=== PATIENT | female | born 1955 | race Caucasian/White ===

== ENCOUNTER → 2016-10-05 | Outpatient (CLI) | payer MEDICARE ==
[2016-10-05 16:36] LABS: Blood Urea Nitrogen 18 mg/dL (7-17); Non-African American GFR(MDRD) >60 (>60 ml/min/1.73 sqM)
--- NOTE | 2016-10-05 22:33 | MR ---
EXAMINATION TYPE: MR cervical spine wo con DATE OF EXAM: 10/05/2016 6:18 PM COMPARISON: NONE HISTORY: Neck pain, numbness/tingling in hands TECHNIQUE: Multiplanar, multisequence images of the cervical spine were acquired. C2-C3: Mild degenerative disc disease. Posterior spondylosis and uncovertebral joint hypertrophy but no disc herniation or canal stenosis. Neural foramina remain patent. Mild facet arthropathy. C3-C4: Moderate degenerative disc disease. There is facet arthropathy and uncovertebral joint hypertr ophy with mild right-sided foraminal encroachment. There is posterior disc bulging capped by spur wit h mild effacement of thecal sac and mild canal stenosis. C4-C5: Severe degenerative disc disease with posterior disc protrusion capped by spur. There is effac ement of thecal sac and moderate canal stenosis. Facet arthropathy and uncovertebral joint hypertroph y contributes to moderate left foraminal encroachment and severe right-sided foraminal encroachment. C5-C6: Severe degenerative disc disease with hypertrophic changes. Broad-based central and right para central disc herniation capped by spur. There is encroachment upon the anterior margin the spinal cor d and moderate canal stenosis. Uncovertebral joint hypertrophy and facet arthropathy result in severe right-sided foraminal encroachment and mild to moderate left foraminal encroachment. There is displa cement of the spinal cord but no abnormal intrinsic signal. C6-C7: Severe degenerative disc disease with broad-based right paracentral and lateral disc protrusio n capped by spur with severe right-sided foraminal encroachment. There is mild effacement of thecal s ac but no spinal cord contact. Mild canal stenosis. Facet arthropathy and uncovertebral joint hypertr ophy noted. C7-T1: No disc herniation or canal stenosis no foraminal encroachment. Cervical segments are intact. There is normal alignment. Cervical spinal cord is of normal signal. Craniovertebral junction relationships are within normal limits. Incidental note is made of a right thyroid nodule measuring approximately 1.7 cm. IMPRESSION: 1. Severe multilevel degenerative disc disease with multilevel disc bulging or protrusions and hypert rophic changes resulting in multilevel canal stenosis. Most marked findings are seen at C4-5 and C5-C 6 with displacement of the spinal cord at C5-C6. No diagnostic evidence of myelitis. 2. Multilevel foraminal encroachment secondary to disc bulging and hypertrophic changes with the most marked findings seen on the right as discussed above. 3. Incidental note made of a 1.7 cm right thyroid nodule.
--- NOTE | 2016-10-05 22:42 | MR ---
EXAMINATION TYPE: MR lumbar spine wo/w con DATE OF EXAM: 10/05/2016 6:23 PM COMPARISON: NONE HISTORY: Low and mid back pain, tingling/numbness in feet; prior surgery 10 years ago TECHNIQUE: T1 and T2 axial and sagittal images of the lumbar spine are submitted. FINDINGS: There is no abnormal signal seen within the visualized spinal cord or paraspinal soft tissu es. Common bile duct and gallbladder appear prominent in size with suggestion small gallstones. Corre late with ultrasound. Simple appearing left renal cyst noted. Incidental note made of Tarlov cyst inv olving the sacrum. At T12-L1 no disc herniation or canal stenosis. No neural foraminal encroachment. At L1-2 there is no disc herniation or canal stenosis. There is mild hypertrophic change of the facet s At L2-3 there is mild hypertrophic change of the facets. No disc herniation or canal stenosis. No for aminal encroachment. At L3-4 there is mild to moderate degenerative disc disease with broad-based right paracentral disc h erniation. Ligamentum flavum and facet hypertrophy result in moderate canal stenosis. Paracentral dis c herniation right results in severe right-sided foraminal encroachment. Post contrast images demonst rate some enhancement along the right facet joint posteriorly which could be related to scar or granu lation tissue. Correlate clinically. At L4-5 there is postsurgical change. No obvious canal stenosis. Neural foramina are patent. No disc herniation. At L5-S1 there is facet arthropathy. There is mild hypertrophic changes with mild right-sided foramin al encroachment. IMPRESSION: 1. At L3-4 there is mild to moderate degenerative disc disease with broad-based right paracentral dis c herniation. Ligamentum flavum and facet hypertrophy result in moderate canal stenosis. Paracentral disc herniation results in severe right-sided foraminal encroachment. Post contrast images demonstra te some enhancement along the right facet joint posteriorly which is nonspecific but likely related t o scar or granulation tissue. Correlate clinically. 2. Postsurgical change L4-L5 with no evidence of canal stenosis or disc herniation. 3. Tarlov cysts in the sacral levels. 4. Gallbladder and common bile duct are prominent with suggestion gallstones correlate with ultrasoun d.
== END | disposition home or self-care (01) ==
LOC: RADMRIMAIN 16:03
PROVIDERS: ATTEND Pain Medicine Interventional Pain Medicine
DX: M51.37 Other intervertebral disc degeneration, lumbosacral region (principal); N28.9 Disorder of kidney and ureter, unspecified; M51.36 Other intervertebral disc degeneration, lumbar region; M48.02 Spinal stenosis, cervical region; M50.222 Other cervical disc displacement at C5-C6 level; M51.26 Other intervertebral disc displacement, lumbar region
CPT/HCPCS: 82565; 84520; 72141; 72158; 36415; A9577

== ENCOUNTER → 2021-03-24 | Outpatient (CLI) | payer MEDICARE ==
--- NOTE | 2021-03-25 12:32 | MM ---
Reason for exam: screening (asymptomatic). History: Patient is postmenopausal. Family history of breast cancer in maternal aunt. Physical Findings: A clinical breast exam by your physician is recommended on an annual basis and results should be correlated with mammographic findings. MG 3D Screening Mammo W/Cad Bilateral CC and MLO view(s) were taken. No prior studies available for comparison. The breast tissue is almost entirely fat. Finding #1: There is a 5 mm equal density (isodense), oval mass in the subareolar position of the right breast. Finding #2: There are indeterminate calcifications in the subareolar position of both breasts. Asymmetric breast tissue in the left breast at 12 o'clock, 8cm from the nipple. ASSESSMENT: Incomplete: need additional imaging evaluation, BI-RAD 0 RECOMMENDATION: Special view mammogram of the left breast. Ultrasound of the right breast. [facility] will attempt to contact patient to return for supplemental views and ultrasound.
== END | disposition home or self-care (01) ==
LOC: RADMAMWWP 09:59
PROVIDERS: ATTEND Family Medicine
DX: Z12.31 Encounter for screening mammogram for malignant neoplasm of breast (principal); Z78.0 Asymptomatic menopausal state; Z80.3 Family history of malignant neoplasm of breast
CPT/HCPCS: 77063; 77067

== ENCOUNTER → 2021-04-07 | Outpatient (CLI) | payer MEDICARE ==
--- NOTE | 2021-04-07 11:25 | MM ---
Reason for exam: additional evaluation requested from abnormal screening. Last mammogram was performed less than 1 month ago. History: Patient is postmenopausal. Family history of breast cancer in maternal aunt. Physical Findings: Nurse did not find any significant physical abnormalities on exam. MG 3D Work Up W/Cad LT CC with magnification, LM with magnification, spot compression MLO, and LM view(s) were taken of the left breast. Prior study comparison: March 24, 2021, bilateral MG 3d screening mammo w/cad. Finding: There are typically benign round, grouped/clustered calcifications in the lower inner quadrant, anterior position of the left breast skin level. There is no discrete abnormality including area of concern left upper MLO view. These results were verbally communicated with the patient and result sheet given to the patient on 04/07/21. ASSESSMENT: Probably benign, BI-RAD 3 RECOMMENDATION: Follow-up diagnostic mammogram of both breasts in 6 months.
--- NOTE | 2021-04-07 11:26 | USB ---
Reason for exam: additional evaluation requested from abnormal screening. History: Patient is postmenopausal. Family history of breast cancer in maternal aunt. US Breast Workup Limited RT Technologist: Regina Gracia Right limited breast ultrasound including focal area of concern, retroareolar and axilla demonstrates no cystic or solid lesion seen. These results were verbally communicated with the patient and result sheet given to the patient on 04/07/21. ASSESSMENT: Negative, BI-RAD 1 RECOMMENDATION: Follow-up diagnostic mammogram of both breasts in 6 months.
== END | disposition home or self-care (01) ==
LOC: RADMAMWWP 08:59
PROVIDERS: ATTEND Family Medicine
DX: R92.1 Mammographic calcification found on diagnostic imaging of breast (principal); Z80.3 Family history of malignant neoplasm of breast
CPT/HCPCS: 77065; 76642; G0279; 77061

== ENCOUNTER 2021-09-06 20:27 | Inpatient (IN) | payer MEDICARE ==
--- NOTE | 2021-09-06 22:00 | XR ---
EXAMINATION TYPE: XR chest 1V portable DATE OF EXAM: 09/06/2021 9:56 PM COMPARISON:None TECHNIQUE: XR chest 1V portable Frontal view of the chest. CLINICAL INDICATION:Female, 65 years old with history of chest pain; FINDINGS: Lungs/Pleura: There is no evidence of pleural effusion, focal consolidation, or pneumothorax. Pulmonary vascularity: Unremarkable. Heart/mediastinum: Cardiomediastinal silhouette is unremarkable. Musculoskeletal: No acute osseous pathology. IMPRESSION: No acute cardiopulmonary disease/process.
--- NOTE | 2021-09-06 22:00 | ED ---
Chest Pain HPI - General Chief Complaint: Chest Pain Stated Complaint: chest Pain,SOB Time Seen by Provider: 09/06/21 21:46 Source: patient, family, RN notes reviewed, old records reviewed Mode of arrival: ambulatory Limitations: no limitations - History of Present Illness Initial Comments: This is a 65-year-old female Frida today. Patient presents today for evaluation regards to chest pain. Some anterior chest pain to her back her right arm numbness and tingling in her right arm. Patient states she's been feeling weak and fatigued lately and especially with exertional shortness of breath at least for a few days. Patient has history of high blood pressure high cholesterol. No other significant complaints. No fevers. No other known illness. No prior cardiac evaluation MD Complaint: chest pain -: hour(s) Onset: during rest, during exertion Pain Location: substernal, left chest Pain Radiation: RUE Severity: moderate Severity scale (1-10): 4 Quality: tightness, heaviness Consistency: constant, intermittent Improves With: nothing Worsens With: exertion Context: other (none) Anginal Symptoms: dyspnea Other Symptoms: palpitations Treatments Prior to Arrival: none - Related Data Home Medications Medication Instructions Recorded Confirmed Aspirin EC [Ecotrin Low Dose] 81 mg PO HS 09/06/21 09/06/21 Atorvastatin [Lipitor] 80 mg PO HS 09/06/21 09/06/21 Buprenorphine [Butrans 7.5 MCG/HR] 1 patch TRANSDERM MULLEN 09/06/21 09/06/21 Celecoxib [CeleBREX] 200 mg PO DAILY 09/06/21 09/06/21 DULoxetine HCL [Cymbalta] 60 mg PO DAILY 09/06/21 09/06/21 Enalapril [Vasotec] 10 mg PO BID 09/06/21 09/06/21 Famotidine 40 mg PO DAILY 09/06/21 09/06/21 Pioglitazone [Actos] 15 mg PO DAILY 09/06/21 09/06/21 Promethazine [Phenergan] 25 mg PO TID PRN 09/06/21 09/06/21 Allergies Allergy/AdvReac Type Severity Reaction Status Date / Time No Known Allergies Allergy Verified 09/06/21 22:28 Review of Systems ROS Statement: Those systems with pertinent positive or pertinent negative responses have been documented in the HPI. ROS Other: All systems not noted in ROS Statement are negative. EKG Findings - EKG Comments: EKG Findings:: EKG sinus rhythm 96 IL 169 QRS 92 QTC 402 Past Medical History Past Medical History: Dementia, Hypertension Additional Past Medical History / Comment(s): hypercholestremia History of Any Multi-Drug Resistant Organisms: None Reported Past Surgical History: No Surgical Hx Reported, Hysterectomy, Orthopedic Surgery Additional Past Surgical History / Comment(s): back surgey Past Psychological History: No Psychological Hx Reported Smoking Status: Current every day smoker Past Alcohol Use History: None Reported Past Drug Use History: None Reported General Exam General appearance: alert, in no apparent distress Head exam: Present: atraumatic, normocephalic, normal inspection Eye exam: Present: normal appearance, PERRL, EOMI. Absent: scleral icterus, conjunctival injection, periorbital swelling ENT exam: Present: normal exam, mucous membranes moist Neck exam: Present: normal inspection. Absent: tenderness, meningismus, lymphadenopathy Respiratory exam: Present: normal lung sounds bilaterally. Absent: respiratory distress, wheezes, rales, rhonchi, stridor Cardiovascular Exam: Present: normal rhythm, tachycardia, normal heart sounds. Absent: systolic murmur, diastolic murmur, rubs, gallop, clicks GI/Abdominal exam: Present: soft, normal bowel sounds. Absent: distended, tenderness, guarding, rebound, rigid Extremities exam: Present: normal inspection, full ROM, normal capillary refill. Absent: tenderness, pedal edema, joint swelling, calf tenderness Back exam: Present: normal inspection Neurological exam: Present: alert, oriented X3, CN II-XII intact Psychiatric exam: Present: normal affect, normal mood Skin exam: Present: warm, dry, intact, normal color. Absent: rash Course Vital Signs 09/06/21 09/06/21 09/06/21 21:08 21:58 23:07 Pulse Rate 102 H 96 90 Respiratory 20 18 18 Rate Blood Pressure 163/101 148/90 129/90 O2 Sat by Pulse 97 96 97 Oximetry - Reevaluation(s) Reevaluation #1: 09/06/21 23:43 Medical records reviewed Reevaluation #2: 09/06/21 23:43 Patient states blood pressure and heart rate is been high throughout the day she was seen in her primary care's earlier today Reevaluation #3: 09/06/21 23:43 Patient informed results and questions answered Reevaluation #4: 09/06/21 23:43 Patient still with chest pain here in the ER - Consultations Consultation #1: Spoke with sound physicians who agree to admit this patient Chest Pain MDM - MDM 65 female DF for evaluation of chest pain-history of a pressure cholesterol. Patient's blood pressures been abnormal today although improved currently. Patient has palpitations heart rate is up and she's having chest pain. Patient be admitted for cardiac observation chest x-ray EKG and initial troponin are negative Disposition Clinical Impression: Chest pain Disposition: ADMITTED IP TO THIS HOSP Condition: Undetermined Instructions (If sedation given, give patient instructions): Chest Pain (ED) Is patient prescribed a controlled substance at d/c from ED?: No Referrals: Deshaun Hoang MD [Primary Care Provider] - 1-2 days
[2021-09-06 22:16] LABS: Basophils % (A) 1 %; Eosinophils # (A) 0.2 k/uL (0-0.7); Eosinophils % (A) 3 %; HCT 41.8 % (34.0-46.0); HGB 13.6 gm/dL (11.4-16.0); Lymphocytes % (A) 31 %; MCH 31.7 pg (25.0-35.0); MCHC 32.6 g/dL (31.0-37.0); MCV 97.5 fL (80.0-100.0); Mean Platelet Volume 7.8; Monocytes # (A) 0.3 k/uL (0-1.0); Monocytes % (A) 5 %; Neutrophils # (A) 3.8 k/uL (1.3-7.7); Neutrophils % (A) 58 %; Platelet Count 232 k/uL (150-450); RBC 4.29 m/uL (3.80-5.40); RDW 12.7 % (11.5-15.5); WBC 6.5 k/uL (3.8-10.6)
[2021-09-06 22:27] LABS: Albumin 3.8 g/dL (3.5-5.0); Calcium 8.6 mg/dL (8.4-10.2); Potassium 3.5 mmol/L (3.5-5.1); Total Bilirubin 0.4 mg/dL (0.2-1.3); Total Protein 6.2 g/dL (6.3-8.2)
[2021-09-06 22:42] LABS: INR 0.9 (<1.2); Partial Thromboplastin Time 22.7 sec (22.0-30.0); Prothrombin Time 10.3 sec (9.0-12.0)
[2021-09-06] MEDS ORDERED: MORPHINE SULFATE 4 MG/ML SYRINGE IVP STA (23:24)
[2021-09-06] MEDS ORDERED: ASPIRIN 81 MG PO STA (23:36)
[2021-09-06] MEDS ORDERED: NITROGLYCERIN SL TABS 0.4 MG TAB SUBLINGUAL PRN (23:36)
[2021-09-07] MEDS ORDERED: HEPARIN SODIUM 1,000 UN/ML (10ML VL) IV ONE (02:22)
[2021-09-07] MEDS ORDERED: HEPARIN SODIUM 1,000 UN/ML (10ML VL) IV PRN (02:22)
[2021-09-07] MEDS ORDERED: HEPARIN SOD,PORK IN 0.45% NACL 25,000 UNIT in 0.45% NACL 1 250ML.BAG IV SCH (02:30)
[2021-09-07] MEDS: MORPHINE SULFATE 4 MG/ML SYRINGE IV PRN ×4 (03:09→21:10)
[2021-09-07 04:16] LABS: INR 0.9 (<1.2); Partial Thromboplastin Time 22.9 sec (22.0-30.0); Prothrombin Time 10.2 sec (9.0-12.0)
--- NOTE | 2021-09-07 05:52 | P.HPIM ---
History of Present Illness H&P Date: 09/07/21 Chief Complaint: Chest pain 65-year-old with diabetes mellitus, hyperlipidemia, hypertension, smoker Patient comes in due to frequent episodes of chest pain usually with exertion. She reports that pain usually goes up to 5 out of 10 in severity feels like heaviness and tightness retrosternally affecting her breathing associated with palpitation and profuse sweating. His has been going on for couple months now. However spent getting worse recently usually she with rest and sit down and pain will go away. She denies any fevers or chills denies any nausea vomiting abdominal pain denies any sore throat coughing. She reports that recently she's been feeling increasingly fatigued and weak and decided to come into the hospital for evaluation. She had a stress test done a few years ago that was negative at that time. Upon evaluation in the ED she was laying down comfortably in bed initial troponins were negative EKG showed no acute ST changes. Chest x-ray was ne gative for acute pathology. Blood work overall unremarkable Review of Systems Pertinent positives as noted in HPI. All other systems were reviewed and are negative Past Medical History Past Medical History: Dementia, Hypertension Additional Past Medical History / Comment(s): hypercholestremia History of Any Multi-Drug Resistant Organisms: None Reported Past Surgical History: No Surgical Hx Reported, Hysterectomy, Orthopedic Surgery Additional Past Surgical History / Comment(s): back surgey Past Psychological History: No Psychological Hx Reported Smoking Status: Current every day smoker Past Alcohol Use History: None Reported Past Drug Use History: None Reported - Past Family History Family Additional Family Medical History / Comment(s): Positive Cardiac history in the family Medications and Allergies Home Medications Medication Instructions Recorded Confirmed Type Aspirin EC [Ecotrin Low Dose] 81 mg PO HS 09/06/21 09/06/21 History Atorvastatin [Lipitor] 80 mg PO HS 09/06/21 09/06/21 History Buprenorphine [Butrans 7.5 MCG/HR] 1 patch TRANSDERM MULLEN 09/06/21 09/06/21 History Celecoxib [CeleBREX] 200 mg PO DAILY 09/06/21 09/06/21 History DULoxetine HCL [Cymbalta] 60 mg PO DAILY 09/06/21 09/06/21 History Enalapril [Vasotec] 10 mg PO BID 09/06/21 09/06/21 History Famotidine 40 mg PO DAILY 09/06/21 09/06/21 History Pioglitazone [Actos] 15 mg PO DAILY 09/06/21 09/06/21 History Promethazine [Phenergan] 25 mg PO TID PRN 09/06/21 09/06/21 History Allergies Allergy/AdvReac Type Severity Reaction Status Date / Time No Known Allergies Allergy Verified 09/06/21 22:28 Physical Exam Vitals: Vital Signs Pulse Resp BP Pulse Ox 09/07/21 04:05 76 18 142/109 96 09/07/21 00:00 72 18 146/90 98 09/06/21 23:07 90 18 129/90 97 09/06/21 21:58 96 18 148/90 96 09/06/21 21:08 102 H 20 163/101 97 Intake and Output 09/06/21 09/06/21 09/07/21 14:59 22:59 06:59 Other: Weight 91.626 kg Constitutional: No acute distress, conversant, pleasant Eyes: Anicteric sclerae, moist conjunctiva, Pupils equal round reactive to light ENMT: NC/AT Oropharynx clear, no erythema, or exudates Neck: Supple, FROM, no masses, or JVD No carotid bruits No thyromegaly Lungs: Clear to auscultation Clear to percussion Normal respiratory effort, no accessory muscle use Cardiovascular: Heart regular in rate and rhythm, No murmurs, gallops, or rubs No peripheral edema Abdominal: Soft Nontender, no guarding, rebound or rigidity Abdomen moving with respiration Normoactive bowel sounds No hepatomegaly, No splenomegaly No palpable mass No abdominal wall hernia noted Skin: Normal temperature, tone, texture, turgor No induration No subcutaneous nodules No rash, lesions No ulcers Extremities: No digital cyanosis No clubbing Pedal pulses intact and symmetrical Radial pulses intact and symmetrical No calf tenderness Psychiatric: Alert and oriented to person, place and time Appropriate affect fair judgement Neuro Muscles Strength 5/5 in all 4 extremities Sensation to light touch grossly present throughout Cranial nerves II-XII grossly intact No focal sensory deficits Lymphatics: no palpable cervical or supraclavicular , or inguinal lymph nodes Results CBC & Chem 7: 09/06/21 21:27 09/06/21 21:27 Labs: Abnormal Lab Results - Last 24 Hours (Table) 09/06/21 09/07/21 Range/Units 21:27 01:31 BUN 23 H (7-17) mg/dL Glucose 169 H (74-99) mg/dL Troponin I 0.078 H* (0.000-0.034) ng/mL Total Protein 6.2 L (6.3-8.2) g/dL Assessment and Plan Assessment: Chest pain with typical features rule out acute coronary syndrome Cardiac monitoring Trend troponins, and initial troponin negative Continue with aspirin and statin Pain control with nitro Morphine when necessary Cardiology consult EKG no acute ST changes Chest x-ray no acute pathology Chronic conditions Hypertension resume home blood pressure medications Hyperlipidemia resume statin Diabetes mellitus insulin sliding scale Full code DVT prophylaxis heparin subcu 3 times a day Anticipated length of stay less than 2 midnights
[2021-09-07 07:58] LABS: Glucose,Whole Blood 143 mg/dL (75-99)
[2021-09-07] MEDS: INSULIN ASPART (NovoLOG) 100 UNIT/ML VIAL SQ SCH ×4 (08:28→21:04)
--- NOTE | 2021-09-07 08:30 | P.CRDCN ---
History of Present Illness Consult date: 09/07/21 Consult reason: chest pain History of present illness: 65-year-old lady with multiple coronary risk factors including kyl-wsljrsp-doojqmbxs diabetes hypertension and dyslipidemia presents to Hospital complaining of chest pain. Patient was at primary care physician's office for routine follow-up yesterday and her blood pressure was somewhat poorly controlled. Last evening around 7:00 she had an episode of chest pain that she describes as precordial chest pressure moderate intensity with pain that radiated to right arm. As the pain was not improving she came to the hospital and has been admitted. In EKG shows normal sinus rhythm without significant ST-T wave changes. Her troponin is mildly elevated. Her clinical presentation is consistent with acute non-ST segment elevation MA. There is no prior history of coronary artery disease or congestive heart failure. There is strong family history of premature coronary artery disease involving both her mom and dad. She underwent cardiac evaluation nearly 15 years ago and has seen a erecting crane operator out of town for the same. It involved an echo and a stress test. I advised the patient to undergo cardiac catheterization for further evaluation. She has been explained of risk benefits and alternatives. I will perform this sometime this morning . Constitutional: Denies chills. Denies fever. Eyes: Denies blurred vision. Denies pain. Ears, nose, mouth and throat: Denies headache. Denies sore throat. Cardiovascular: Significant for chest pain Denies shortness of breath. Respiratory: Denies cough. Gastrointestinal: Denies abdominal pain. Denies diarrhea. Denies nausea. Denies vomiting. Musculoskeletal: Denies myalgias. Integumentary: Denies pruritus. Denies rash. Neurological: Denies numbness. Denies weakness. Psychiatric: Denies anxiety. Denies depression. Endocrine: Denies fatigue. Denies weight change. Genitourinary: Denies burning, hematuria, frequency of urination. Hematological: No anemia or excess bleeding. General: The patient is awake and alert, in no distress, and does not appear acutely ill. Skin: Skin is warm and dry and no rashes or lesions are noted. Eye: Pupils are equal, round and reactive to light, extra-ocular movements are intact; there is normal conjunctiva bilaterally. Ears, nose, mouth and throat: There are moist mucous membranes and no oral lesions. Neck: The neck is supple, there is no tenderness or JVD. Cardiovascular: There is a regular rate and rhythm. No murmur, rub or gallop is appreciated. Respiratory: Lungs are clear to auscultation, respirations are non-labored, breath sounds are equal. Gastrointestinal: Soft, non-distended, non-tender abdomen without masses or organomegaly noted. There is no rebound or guarding present. Bowel sounds are unremarkable. Back: There is no tenderness to palpation in the midline. There is no obvious deformity. Musculoskeletal: Normal ROM, no tenderness, There is no pedal edema. There is no calf tenderness or swelling. Extremities: No edema. Vascular: Femoral pulse is normal. Posterior tibial pulses are normal .Dorsalis pedis is palpable. Neurological: CN II-XII intact. There are no obvious motor or sensory deficits. Speech is normal. Psychiatric: Cooperative, appropriate mood & affect, normal judgment. Assessment and plan: Acute non-ST segment elevation MA Oie-qlldnro-ujzhubcjz diabetes Hypertension Dyslipidemia Patient will undergo cardiac catheterization today I will obtain a 2-D echo to assess LV function and wall motion Past Medical History Past Medical History: Dementia, Hypertension Additional Past Medical History / Comment(s): hypercholestremia History of Any Multi-Drug Resistant Organisms: None Reported Past Surgical History: No Surgical Hx Reported, Hysterectomy, Orthopedic Surgery Additional Past Surgical History / Comment(s): back surgey Past Psychological History: No Psychological Hx Reported Smoking Status: Current every day smoker Past Alcohol Use History: None Reported Past Drug Use History: None Reported - Past Family History Family Additional Family Medical History / Comment(s): Positive Cardiac history in the family Medications and Allergies Home Medications Medication Instructions Recorded Confirmed Type Aspirin EC [Ecotrin Low Dose] 81 mg PO HS 09/06/21 09/06/21 History Atorvastatin [Lipitor] 80 mg PO HS 09/06/21 09/06/21 History Buprenorphine [Butrans 7.5 MCG/HR] 1 patch TRANSDERM MULLEN 09/06/21 09/06/21 History Celecoxib [CeleBREX] 200 mg PO DAILY 09/06/21 09/06/21 History DULoxetine HCL [Cymbalta] 60 mg PO DAILY 09/06/21 09/06/21 History Enalapril [Vasotec] 10 mg PO BID 09/06/21 09/06/21 History Famotidine 40 mg PO DAILY 09/06/21 09/06/21 History Pioglitazone [Actos] 15 mg PO DAILY 09/06/21 09/06/21 History Promethazine [Phenergan] 25 mg PO TID PRN 09/06/21 09/06/21 History Allergies Allergy/AdvReac Type Severity Reaction Status Date / Time No Known Allergies Allergy Verified 09/06/21 22:28 Physical Exam Vitals: Vital Signs Pulse Resp BP Pulse Ox 09/07/21 06:24 81 18 152/90 99 09/07/21 04:05 76 18 142/109 96 09/07/21 00:00 72 18 146/90 98 09/06/21 23:07 90 18 129/90 97 09/06/21 21:58 96 18 148/90 96 09/06/21 21:08 102 H 20 163/101 97 Intake and Output 09/06/21 09/07/21 09/07/21 22:59 06:59 14:59 Other: Weight 91.626 kg Results 09/06/21 21:27 09/06/21 21:27 Cardiac Enzymes 09/06/21 09/06/21 09/07/21 Range/Units 21:27 21:27 01:31 AST 20 (14-36) U/L Troponin I <0.012 0.078 H* (0.000-0.034) ng/mL 09/07/21 Range/Units 04:30 AST (14-36) U/L Troponin I 0.132 H* (0.000-0.034) ng/mL Coagulation 09/06/21 09/07/21 Range/Units 21:27 02:46 PT 10.3 10.2 (9.0-12.0) sec APTT 22.7 22.9 (22.0-30.0) sec CBC 09/06/21 Range/Units 21:27 WBC 6.5 (3.8-10.6) k/uL RBC 4.29 (3.80-5.40) m/uL Hgb 13.6 (11.4-16.0) gm/dL Hct 41.8 (34.0-46.0) % Plt Count 232 (150-450) k/uL Comprehensive Metabolic Panel 09/06/21 Range/Units 21:27 Sodium 140 (137-145) mmol/L Potassium 3.5 (3.5-5.1) mmol/L Chloride 107 (98-107) mmol/L Carbon Dioxide 27 (22-30) mmol/L BUN 23 H (7-17) mg/dL Creatinine 0.82 (0.52-1.04) mg/dL Glucose 169 H (74-99) mg/dL Calcium 8.6 (8.4-10.2) mg/dL AST 20 (14-36) U/L ALT 20 (4-34) U/L Alkaline Phosphatase 107 (38-126) U/L Total Protein 6.2 L (6.3-8.2) g/dL Albumin 3.8 (3.5-5.0) g/dL Current Medications Generic Name Dose Route Start Last Admin Trade Name Freq PRN Reason Stop Dose Admin Aspirin 325 mg 09/07/21 09:00 Aspirin 325 Mg Tab PO DAILY [facility] Atorvastatin Calcium 80 mg 09/07/21 09:00 Atorvastatin 80 Mg Tab PO DAILY [facility] Duloxetine HCl 60 mg 09/07/21 09:00 Duloxetine Hcl 60 Mg Capsule.Dr PO DAILY [facility] Famotidine 40 mg 09/07/21 09:00 Famotidine 20 Mg Tab PO DAILY [facility] Insulin Aspart 0 unit 09/07/21 07:30 Insulin Aspart (Novolog) 100 Unit/Ml Vial SQ ACHS [facility] Protocol Lisinopril 40 mg 09/07/21 09:00 Lisinopril 20 Mg Tab PO DAILY [facility] Metoprolol Tartrate 25 mg 09/07/21 09:00 Metoprolol Tartrate 25 Mg Tab PO BID [facility] Morphine Sulfate 4 mg 09/07/21 02:46 09/07/21 06:54 Morphine Sulfate 4 Mg/Ml Syringe IV 4 mg Q4HR PRN Administration Severe Pain Nitroglycerin 0.4 mg 09/06/21 23:36 Nitroglycerin Sl Tabs 0.4 Mg Tab SUBLINGUAL Q5M PRN Chest Pain Intake and Output 09/06/21 09/07/21 09/07/21 22:59 06:59 14:59 Other: Weight 91.626 kg 09/06/21 21:27 09/06/21 21:27
[2021-09-07] MEDS ORDERED: SODIUM CHLORIDE 0.9% 1,000 ML in EMPTY BAG 1 BAG IV ONE (08:33)
[2021-09-07] MEDS ORDERED: ALPRAZolam 0.5 MG TAB PO PRN (08:33)
[2021-09-07] MEDS ORDERED: ALPRAZolam 0.25 MG TAB PO PRN (08:33)
[2021-09-07] MEDS: DULoxetine HCL 60 MG CAPSULE.DR PO SCH (08:53)
[2021-09-07] MEDS: FAMOTIDINE 20 MG TAB PO SCH (08:53)
[2021-09-07] MEDS: METOPROLOL TARTRATE 25 MG TAB PO SCH ×2 (08:53→21:10)
[2021-09-07] MEDS: ATORVASTATIN 80 MG TAB PO SCH (08:53)
[2021-09-07] MEDS ORDERED: ASPIRIN 325 MG TAB PO SCH (09:00)
[2021-09-07] MEDS ORDERED: IV FLUID CONTINUATION 1,000 ML IV ONE (09:07)
[2021-09-07] MEDS: MIDAZOLAM 2 MG/2 ML VIAL IV ONE ×2 (09:25→09:30)
[2021-09-07] MEDS: fentaNYL (PF) 50 MCG/ML 2 ML AMP IV ONE ×2 (09:25→09:36)
[2021-09-07] MEDS: LIDOCAINE 1% INJ 10MG/ML (20 ML MDV) SQ ONE ×3 (09:29→09:41)
[2021-09-07] MEDS ORDERED: LIDOCAINE 1% INJ 10MG/ML (20 ML MDV) SQ ONE (09:41)
[2021-09-07] MEDS ORDERED: RX INFO: IV CONTRAST WAS GIVEN 1 EACH MISC MISCELLANE PRN (10:13)
[2021-09-07] MEDS: SODIUM CHLORIDE 0.9% 1,000 ML IV SCH ×2 (10:15→23:38)
[2021-09-07] MEDS ORDERED: IOPAMIDOL-370 125ML BTL INJ ONE (10:28)
--- NOTE | 2021-09-07 12:25 | ECHOF ---
Referral Reason:chest pain MEASUREMENTS -------- HEIGHT: 162.6 cm WEIGHT: 91.6 kg BP: RVIDd: 1.8 cm (< 3.3) IVSd: 0.9 cm (0.6 - 1.1) LVIDd: 3.4 cm (3.9 - 5.3) LVPWd: 1.0 cm (0.6 - 1.1) IVSs: 1.8 cm LVIDs: 2.0 cm LVPWs: 1.4 cm Ao Diam: 3.1 cm (2.0 - 3.7) AV Cusp: 2.0 cm (1.5 - 2.6) LA Diam: 2.6 cm (2.7 - 3.8) MV E Jerry: 0.58 m/s MV DecT: 95 ms MV A Jerry: 0.82 m/s MV E/A Ratio: 0.71 RAP: 5.00 mmHg RVSP: 8.09 mmHg FINDINGS -------- This was a technically difficult study with suboptimal views. The left ventricular size is normal. Left ventricular wall thickness is normal. Overall left vent ricular systolic function is normal with, an EF between 55 - 60 %. The right ventricle is normal in size. The left atrial size is normal. The right atrial size is normal. Lumason used The aortic valve is trileaflet and appears structurally normal. The mitral valve is normal. No mitral regurgitation. The tricuspid valve appears structurally normal. Trace tricuspid regurgitation present. Right tina tricular systolic pressure is normal at < 35 mmHg. The pulmonic valve was not well visualized. The aortic root size is normal. IVC Not well visulized. There is no pericardial effusion. CONCLUSIONS -------- 1. The left ventricular size is normal. 2. Left ventricular wall thickness is normal. 3. Overall left ventricular systolic function is normal with, an EF between 55 - 60 %. 4. No mitral regurgitation. 5. Trace tricuspid regurgitation present. 6. There is no pericardial effusion. CASHIER AND SALESPERSON: Delphine Grayson, [facility]
[2021-09-07] MEDS: lisinopriL 20 MG TAB PO SCH (12:59)
[2021-09-07] MEDS ORDERED: ACETAMINOPHEN TAB 325 MG TAB ONE (13:02)
[2021-09-07] MEDS ORDERED: ACETAMINOPHEN TAB 325 MG TAB PO PRN (13:03)
--- NOTE | 2021-09-07 13:43 | CC ---
CARDIAC CATHETERIZATION REPORT INDICATION: Acute txz-CC-eajjpxz-elevation MS. PROCEDURE NOTE: After obtaining informed consent, left heart catheterization and coronary angiogram were performed via the right femoral artery using standard Jr catheters. Patient tolerated the procedure well without any obvious immediate complications. Patient received moderate conscious sedation. Total sedation time was 33 minutes. I initially attempted right radial artery access using a micropuncture needle. We could not obtain right radial artery access; hence I proceeded with a femoral catheter. FINDINGS: HEMODYNAMICS: Left ventricular end-diastolic pressure is 24 mm. There is no significant gradient across the aortic valve. LEFT VENTRICULOGRAM: Left ventriculogram was not performed. ANGIOGRAPHIC DATA: Right coronary artery. Right coronary artery appears chronically occluded in its mid portion with [id number] collaterals from the circumflex coronary artery. Left main coronary artery appears calcified but is free of significant stenosis. It divides into left anterior descending coronary artery and circumflex coronary artery. LAD shows a focal 80% stenosis in the proximal portion. It is a calcified vessel. Circumflex coronary artery is a large dominant vessel and has a focal area of 95% stenosis. Three-vessel coronary artery disease as described above with calcified left coronary system with a focal 80% stenosis in the LAD, circumflex, and a chronically occluded right coronary artery. PLAN: I reviewed angiographic data with the patient and talked to her about her treatment options, including bypass surgery and multivessel angioplasty. I am going to have the temperature regulator pyrometer review the angiograms. MMVIV / JANNA: [id number] /
[2021-09-07] MEDS: amLODIPine 5 MG TAB PO SCH (14:03)
--- NOTE | 2021-09-07 15:10 | US ---
EXAMINATION TYPE: US carotid duplex BILAT DATE OF EXAM: 09/07/2021 COMPARISON: NONE CLINICAL HISTORY: preop cardiac surgery. Preop EXAM MEASUREMENTS: RIGHT: Peak Systolic Velocity (PSV) cm/sec ----- Right CCA: 83.3 ----- Right ICA: 90.5 ----- Right ECA: 74.9 ICA/CCA ratio: 1.1 RIGHT: End Diastole cm/sec ----- Right CCA: 28.6 ----- Right ICA: 42.6 ----- Right ECA: 12.1 LEFT: Peak Systolic Velocity (PSV) cm/sec ----- Left CCA: 90.8 ----- Left ICA: 103.0 ----- Left ECA: 59.2 ICA/CCA ratio: 1.1 LEFT: End Diastole cm/sec ----- Left CCA: 24.8 ----- Left ICA: 48.7 ----- Left ECA: 10.9 VERTEBRALS (direction of flow): Right Vertebral: Antegrade Left Vertebral: Antegrade Rhythm: Arrhythmia No elevated velocities. No significant stenosis. Bilateral wall thickening. No plaque visualized. Grayscale, color Doppler, spectral Doppler imaging performed of the carotid arteries. Waveform anal ysis does not show significant stenosis of the internal carotid arteries. IMPRESSION: No hemodynamic significant stenosis of the proximal internal carotid arteries by Doppler criteria, an indirect measurement of carotid stenosis Criteria for Assigning % of Stenosis / Diameter reduction (Estimation based on the indirect measurements of the internal carotid artery velocities (ICA PSV). 1. Normal (no stenosis)=ICA PSV < 125 cm/s: ratio < 2.0: ICA EDV<40 cm/s. 2. Less than 50% stenosis=ICA PSV < 125 cm/s: ratio < 2.0: ICA EDV<40 cm/s. 3. 50 to 69% stenosis=ICA PSV of 125 to 230 cm/s: ration 2.0 ? 4.0: ICA EDV 40-100 cm/s. 4. Greater than 70% stenosis to near occlusion= ICA PSV > 230 cm/s: ratio > 4.0: ICA EDV > 100 cm/s. 5. Near occlusion= ICA PSV velocities may be low or undetectable: variable ratio and ICA EDV. 6. Total occlusion=unable to detect flow.
--- NOTE | 2021-09-07 15:45 | P.GSCN ---
History of Present Illness Consult date: 09/07/21 Reason for Consult: Multivessel coronary artery disease with non-STEMI this admission Requesting physician: Luca Santos History of present illness: This is a 65-year-old female patient who follows with Dr. Hoang for her primary care needs on an outpatient basis. She has a past medical history significant for hypertension, hyperlipidemia, type 2 add-xkvjzwt-aohvxwdlp diabetes mellitus, obesity, history of TIA about 40 years ago after a back surgery with no residual effects, chronic back pain uses a Buprenorphine transdermal patch daily, GERD, family history of coronary artery disease and chronic ongoing to[facility] account liaison hospice dependence smokes about half a pack of cigarettes per day. The patient reports last evening around 7 PM she developed an acute onset of shortness of breath, chest pressure in between her shoulder blades and pain with tingling radiating from her right shoulder to her fingertips on her right side. She reports she tried to lay down without relief and also took her evening medications including aspirin 81 mg without any relief. She denies any recent fever, chills, nausea, vomiting, headache, presyncope, syncope or palpitations. Due to the patient's symptoms she called her sister who brought her to the emergency department here at [facility]. In the emergency department a 12-lead EKG was completed which showed normal sinus rhythm without significant STT wave changes. Initial laboratory results showed a WBC count of 6.5, hemoglobin 13.6, platelets 232, d-dimer less than 0.17, INR 0.9, sodium 140, potassium 3.5, BUN 23, creatinine 0.82, glucose 169, proBNP 41 and her initial troponin less than 0.012. Subsequent serial troponins showed elevated at 0.078 and 0.132. Due to the presenting symptoms and elevated troponins Dr. Santos from cardiology was consulted for further evaluation and treatment recommendations as her clinical presentation was consistent with an acute non-ST segment elevation myocardial infarction. She was recommended to undergo a cardiac catheterization which was completed today by Dr. Santos and demonstrated an 80% stenosis to her proximal left anterior descending coronary artery, a 95% stenosis to her circumflex coronary artery, and a chronically occluded right coronary artery to its midportion with left to right collaterals from the circumflex coronary artery. She also underwent an underwent a transthoracic echocardiogram which showed an overall leftward sutures systolic function to be normal with an ejection fraction between 55-60%, and trace tricuspid valve regurgitation. Subsequently, due to the findings on the cardiac catheterization Dr. Johnathon Adames from cardiothoracic surgery was consulted for further evaluation and treatment recommendations including myocardial revascularization surgery. Review of Systems A 14 point review of systems was completed and was negative except as mentioned in the HPI. Past Medical History Past Medical History: Diabetes Mellitus, GERD/Reflux, Hyperlipidemia, Hypertension Additional Past Medical History / Comment(s): TIA about 40 years ago, chronic back pain use a transdermal patch Buprenorphine 7.5 MCG/HR History of Any Multi-Drug Resistant Organisms: None Reported Past Surgical History: Hysterectomy, Orthopedic Surgery, Tonsillectomy Additional Past Surgical History / Comment(s): 3 back surgey, rotator cuff repair, bilateral bunionectomies Past Anesthesia/Blood Transfusion Reactions: No Reported Reaction Past Psychological History: Anxiety Smoking Status: Current every day smoker Past Alcohol Use History: None Reported Additional Past Alcohol Use History / Comment(s): smokes about half a pack a day since she was a teenager. Past Drug Use History: None Reported - Past Family History Mother Family Medical History: AICD/Pacemaker, Congestive Heart Failure (CHF), Coronary Artery Disease (CAD) (History of CABG), Dementia, Hypertension, Myocardial Infarction (HI) Additional Family Medical History / Comment(s): Kidney stent Father Family Medical History: Congestive Heart Failure (CHF), Coronary Artery Disease (CAD) (History of CABG), Diabetes Mellitus, Myocardial Infarction (HI), Vascular Disorder Additional Family Medical History / Comment(s): Peripheral vascular disease. Sister(s) Additional Family Medical History / Comment(s): tripple bypass open heart 10 years ago Family Family Medical History: Myocardial Infarction (HI) Additional Family Medical History / Comment(s): Positive Cardiac history in the family Medications and Allergies Home Medications Medication Instructions Recorded Confirmed Type Aspirin EC [Ecotrin Low Dose] 81 mg PO HS 09/06/21 09/06/21 History Atorvastatin [Lipitor] 80 mg PO HS 09/06/21 09/06/21 History Buprenorphine [Butrans 7.5 MCG/HR] 1 patch TRANSDERM MULLEN 09/06/21 09/06/21 History Celecoxib [CeleBREX] 200 mg PO DAILY 09/06/21 09/06/21 History DULoxetine HCL [Cymbalta] 60 mg PO DAILY 09/06/21 09/06/21 History Enalapril [Vasotec] 10 mg PO BID 09/06/21 09/06/21 History Famotidine 40 mg PO DAILY 09/06/21 09/06/21 History Pioglitazone [Actos] 15 mg PO DAILY 09/06/21 09/06/21 History Promethazine [Phenergan] 25 mg PO TID PRN 09/06/21 09/06/21 History Allergies Allergy/AdvReac Type Severity Reaction Status Date / Time No Known Allergies Allergy Verified 09/06/21 22:28 Surgical - Exam Vital Signs Pulse Resp BP Pulse Ox 102 H 20 163/101 97 09/06/21 21:08 09/06/21 21:08 09/06/21 21:08 09/06/21 21:08 - General well developed, well nourished, no distress, no pain, obese - Eyes PERRL, normal ocular movement, no pale, no icteric, no deviation - ENT normal pinna, normal nares, normal mucosa, no hearing loss, no congestion - Neck Neck is supple, no lymphadenopathy. no masses, no bruits, trachea midline, no venous distension - Respiratory Lung sounds essentially clear throughout. No wheezes, rhonchi or crackles. Respirations are symmetrical and nonlabored. - Cardiovascular Regular rhythm and rate. S1 and S2 present, negative for S3, gallop or murmur. Peripheral pulses palpable. No edema present. - Abdomen Abdomen is soft, nontender and nondistended. Active bowel sounds present in all 4 quadrants. No guarding or rigidity. No organomegaly appreciated. - Integumentary Skin is warm and dry. No clubbing or cyanosis is present. no rash, no growths, no abnormal pigmentation - Neurologic normal coordination, normal sensation - Musculoskeletal Moves all 4 extremities with equal strength bilaterally. - Psychiatric oriented to time, oriented to person (by chart), oriented to place, speech is normal, memory intact Results - Labs 09/06/21 21:27 09/06/21 21:27 Abnormal Lab Results - Last 24 Hours (Table) 09/06/21 09/07/21 09/07/21 Range/Units 21:27 01:31 04:30 BUN 23 H (7-17) mg/dL Glucose 169 H (74-99) mg/dL POC Glucose (mg/dL) (75-99) mg/dL Troponin I 0.078 H* 0.132 H* (0.000-0.034) ng/mL Total Protein 6.2 L (6.3-8.2) g/dL 09/07/21 Range/Units 07:56 BUN (7-17) mg/dL Glucose (74-99) mg/dL POC Glucose (mg/dL) 143 H (75-99) mg/dL Troponin I (0.000-0.034) ng/mL Total Protein (6.3-8.2) g/dL Diabetes panel 09/06/21 Range/Units 21:27 Sodium 140 (137-145) mmol/L Potassium 3.5 (3.5-5.1) mmol/L Chloride 107 (98-107) mmol/L Carbon Dioxide 27 (22-30) mmol/L BUN 23 H (7-17) mg/dL Creatinine 0.82 (0.52-1.04) mg/dL Glucose 169 H (74-99) mg/dL Calcium 8.6 (8.4-10.2) mg/dL AST 20 (14-36) U/L ALT 20 (4-34) U/L Alkaline Phosphatase 107 (38-126) U/L Total Protein 6.2 L (6.3-8.2) g/dL Albumin 3.8 (3.5-5.0) g/dL Calcium panel 09/06/21 Range/Units 21:27 Calcium 8.6 (8.4-10.2) mg/dL Albumin 3.8 (3.5-5.0) g/dL Pituitary panel 09/06/21 Range/Units 21:27 Sodium 140 (137-145) mmol/L Potassium 3.5 (3.5-5.1) mmol/L Chloride 107 (98-107) mmol/L Carbon Dioxide 27 (22-30) mmol/L BUN 23 H (7-17) mg/dL Creatinine 0.82 (0.52-1.04) mg/dL Glucose 169 H (74-99) mg/dL Calcium 8.6 (8.4-10.2) mg/dL Adrenal panel 09/06/21 Range/Units 21:27 Sodium 140 (137-145) mmol/L Potassium 3.5 (3.5-5.1) mmol/L Chloride 107 (98-107) mmol/L Carbon Dioxide 27 (22-30) mmol/L BUN 23 H (7-17) mg/dL Creatinine 0.82 (0.52-1.04) mg/dL Glucose 169 H (74-99) mg/dL Calcium 8.6 (8.4-10.2) mg/dL Total Bilirubin 0.4 (0.2-1.3) mg/dL AST 20 (14-36) U/L ALT 20 (4-34) U/L Alkaline Phosphatase 107 (38-126) U/L Total Protein 6.2 L (6.3-8.2) g/dL Albumin 3.8 (3.5-5.0) g/dL - Imaging Additional studies: Cardiac catheterization and transthoracic 2-D echocardiogram results reviewed by Dr. Johnathon Adames. Assessment and Plan Assessment: 1. Multivessel coronary artery disease 2. Acute non-ST elevated myocardial infarction this admission 3. Hypertension 3. Hyperlipidemia 4. Icn-vgiolrr-dijcjditx diabetes mellitus 5. Chronic ongoing tobacco dependence 6. History of TIA 40 years ago 7. Chronic back pain, uses a transdermal Buprenorphine patch 8. GERD 9. Family history of coronary artery disease Plan: The patient was seen and examined at her bedside on the cardiac stepdown unit. Her chart and diagnostics were reviewed, her heart catheterization and transthoracic 2-D echocardiogram results were reviewed by Dr. Johnathon Adames. Dr. Adames spoke in detail with Dr. Santos regarding this patient's treatment plan recommendations. Preoperative testing and preoperative teaching has been initiated. Treatment options were discussed with the patient including myocardial revascularization surgery. Risks and benefits of myocardial revascularization surgery have been discussed with the patient and knowing and understanding these risks the patient wishes to proceed with the surgical option. Once the preoperative testing has been obtained and STS risk score will be calculated in discussed with the patient. Once the patient is able to a mbulate we will complete a 5 m walk test. Continue to optimize medical management with aspirin, statin and beta chris. The importance of smoking cessation with smoking counseling was offered to the patient and strongly encouraged to stop smoking. Pulmonary medicine will be consulted for preoper ative clearance. Medical management and other comorbidities per primary care service. Encourage use of her incentive spirometry 10 times every hour while awake. More recommendations to follow based on patient's clinical course. The patient will be scheduled for myocardial revascularization surgery with left internal mammary artery, endoscopic radial artery harvest, endoscopic vein harvest, exclusion of the left atrial appendage and intraoperative transesophageal echocardiogram on , 09/09/2021 to be formed by Dr. Stephanie Cuevas, pending her preoperative testing results. Thank you Dr. Santos for this consult and we look for to working with you in the care of this patient. I have personally seen and examined the patient, performed the documentation and the assessment and plan as written. Number of minutes spent on the visit 30 minutes.
[2021-09-07 16:34] LABS: Glucose,Whole Blood 145 mg/dL (75-99)
[2021-09-07] MEDS: NITROGLYCERIN OINT 1 INCH/GM PACKET TOPICAL SCH ×2 (16:47→23:40)
[2021-09-07 17:32] LABS: Chol/HDL Ratio 3.05 Ratio; LDL Cholesterol,Calculated 100.6 mg/dL (0.0-131.0); VLDL Calculation 14.98 mg/dL (5.00-40.00)
--- NOTE | 2021-09-07 18:27 | P.PN ---
Subjective Progress Note Date: 09/07/21 Hospital course: Patient is a very pleasant 65-year-old female with a past medical history of hypertension, hyperlipidemia, diabetes mellitus, and nicotine dependence. She presented to the emergency department with a chief complaint of intermittent episodes of chest pain accompanied by diaphoresis beginning last night and progressively worsening. Patient was admitted under our services with consultation to cardiology. An EKG was completed showing normal sinus rhythm and 96 bpm. Chest x-ray negative for acute cardiopulmonary process. Troponins revealing elevation with initial troponin less than 0.012, 0.078, and 0.132. Patient was diagnosed as a NSTEMI and taken to blood bank laboratory technician this morning. Physical exam: Patient seen and fully evaluated at bedside. She reports that in addition to intermittent chest discomfort/pressure she has been experiencing accompanied by diaphoresis she has also noticed an increase in her shortness of breath and dyspnea with exertion over the past week. Currently patient denies having any headache, lightheadedness, dizziness, palpitations, or experiencing any numbness/tingling/weakness in her extremities. Patient was being taken to blood bank laboratory technician during time of assessment. Vital signs reviewed and stable. General: Nontoxic, no distress and appears stated age. Derm: Skin warm and dry, normal coloration for ethnicity. Head: Atraumatic, normocephalic and symmetric. Eyes: EOMs intact, no lid lag, and anicteric sclera Mouth: no lip lesions, mucus membranes moist Cardiovascular: regular rate and rhythm with normal S1S2, no murmur, positive posterior tibial pulses bilaterally, and cap refill < 2 seconds. Lungs: Respirations even, regular, and unlabored on room air. Lungs CTA bilaterally, no rhonchi, no rales, no wheezing, and no accessory muscle usage. Abdominal: soft, nontender to palpation, no guarding, no appreciable organom egaly Ext: ROM intact. No gross muscle atrophy, no edema, no contractures Neuro: Speech clear, face symmetrical and CN II-XII grossly intact with no noted focal neuro deficits Psych: Alert and oriented to person, place, time, and situation. Appropriate and pleasant affect. Assessment and Plan of Care: NSTEMI -Cardiology following, taking patient to blood bank laboratory technician this morning. -Telemetry monitoring -Cardiac diet -Aspirin, atorvastatin, and metoprolol -Lipid profile and Hgb A1c with a.m. labs. Hypertension Monitor vital signs and continue daily medication regimen. Hyperlipidemia Resume home statin. Diabetes mellitus Glycemic protocol with NovoLog sliding scale. Nicotine dependence Educate and encourage patient on the importance of smoking cessation and the risks of continued use. Nicotine patch CODE STATUS: Full code DVT prophylaxis: Heparin Discussed with: Patient and RN Anticipated discharge date: Clinical course to determine Anticipated discharge place: Home A total of 34 minutes was spent on the care of this complex patient more than 50% of the time was spent in counseling and care coordination. Objective - Vital Signs Vital signs: Vital Signs Temp Pulse 74 09/07/21 10:35 Resp 18 09/07/21 10:35 BP 133/97 09/07/21 10:35 Pulse Ox 96 09/07/21 10:35 Intake & Output 09/06/21 09/07/21 09/07/21 18:59 06:59 18:59 Intake Total 150 Balance 150 Weight 91.626 kg Intake: IV 150 - Labs CBC & Chem 7: 09/06/21 21:27 09/06/21 21:27 Labs: Abnormal Lab Results - Last 24 Hours (Table) 09/06/21 09/07/21 09/07/21 Range/Units 21:27 01:31 04:30 BUN 23 H (7-17) mg/dL Glucose 169 H (74-99) mg/dL POC Glucose (mg/dL) (75-99) mg/dL Troponin I 0.078 H* 0.132 H* (0.000-0.034) ng/mL Total Protein 6.2 L (6.3-8.2) g/dL 09/07/21 Range/Units 07:56 BUN (7-17) mg/dL Glucose (74-99) mg/dL POC Glucose (mg/dL) 143 H (75-99) mg/dL Troponin I (0.000-0.034) ng/mL Total Protein (6.3-8.2) g/dL
[2021-09-07 20:12] LABS: Glucose,Whole Blood 129 mg/dL (75-99)
[2021-09-07] MEDS: HEPARIN SODIUM,PORCINE/PF 5,000 UNIT/0.5 ML SYRINGE SQ SCH (21:10)
[2021-09-07 21:38] LABS: Appearance,Urine Clear (Clear); Bilirubin,Urine Negative (Negative); Blood,Urine Negative (Negative); Color,Urine Yellow; Glucose,Urine (UA) Negative (Negative); Ketones,Urine Negative (Negative); Leukocyte Esterase,Urine Negative (Negative); Nitrite,Urine Negative (Negative); Protein,Urine Negative (Negative); Specific Gravity,Urine 1.042 (1.001-1.035); Urobilinogen,Urine <2.0 mg/dL (<2.0)
[2021-09-08] MEDS: MORPHINE SULFATE 4 MG/ML SYRINGE IV PRN ×5 (04:19→21:25)
[2021-09-08 06:08] LABS: Glucose,Whole Blood 97 mg/dL (75-99)
[2021-09-08] MEDS: INSULIN ASPART (NovoLOG) 100 UNIT/ML VIAL SQ SCH ×4 (06:29→20:13)
[2021-09-08] MEDS ORDERED: HEPARIN SODIUM,PORCINE 2,500 UNIT in SODIUM CHLORIDE 0.9% 250 ML IRRIGATION PRN (07:00)
[2021-09-08] MEDS ORDERED: HEPARIN SODIUM,PORCINE 10,000 UNIT in SODIUM CHLORIDE 0.9% 1,000 ML IRRIGATION PRN (07:00)
[2021-09-08 07:52] LABS: Basophils # (A) 0.1 k/uL (0-0.2); Basophils % (A) 1 %; Eosinophils # (A) 0.2 k/uL (0-0.7); Eosinophils % (A) 4 %; HCT 38.8 % (34.0-46.0); HGB 12.7 gm/dL (11.4-16.0); Lymphocytes % (A) 34 %; MCH 32.1 pg (25.0-35.0); MCHC 32.8 g/dL (31.0-37.0); Mean Platelet Volume 8.5; Monocytes # (A) 0.2 k/uL (0-1.0); Monocytes % (A) 3 %; Neutrophils # (A) 3.2 k/uL (1.3-7.7); Neutrophils % (A) 55 %; Platelet Count 188 k/uL (150-450); RBC 3.96 m/uL (3.80-5.40); RDW 12.7 % (11.5-15.5); WBC 5.7 k/uL (3.8-10.6)
[2021-09-08 08:02] LABS: Partial Thromboplastin Time 23.6 sec (22.0-30.0); Prothrombin Time 10.5 sec (9.0-12.0)
[2021-09-08 08:18] LABS: ALT 19 U/L (4-34); AST 21 U/L (14-36); African American GFR (CKD) 64 (>60 ml/min/1.73 sqM); Albumin 3.4 g/dL (3.5-5.0); Alkaline Phosphatase 75 U/L (38-126); Anion Gap 0 mmol/L; Blood Urea Nitrogen 23 mg/dL (7-17); Calcium 8.7 mg/dL (8.4-10.2); Carbon Dioxide 33 mmol/L (22-30); Chloride 104 mmol/L (98-107); Glucose 154 mg/dL (74-99); Magnesium 1.9 mg/dL (1.6-2.3); Non-African American GFR(CKD) 56 (>60 ml/min/1.73 sqM); Potassium 4.6 mmol/L (3.5-5.1); Sodium 137 mmol/L (137-145); Total Bilirubin 0.6 mg/dL (0.2-1.3); Total Protein 5.8 g/dL (6.3-8.2)
[2021-09-08] MEDS: HEPARIN SODIUM,PORCINE/PF 5,000 UNIT/0.5 ML SYRINGE SQ SCH (09:09)
[2021-09-08] MEDS: METOPROLOL TARTRATE 25 MG TAB PO SCH ×2 (09:09→20:13)
[2021-09-08] MEDS: ATORVASTATIN 80 MG TAB PO SCH (09:10)
[2021-09-08] MEDS: lisinopriL 20 MG TAB PO SCH (09:10)
[2021-09-08] MEDS: NITROGLYCERIN OINT 1 INCH/GM PACKET TOPICAL SCH ×3 (09:10→23:04)
[2021-09-08] MEDS: ASPIRIN 81 MG PO SCH (09:10)
[2021-09-08] MEDS: DULoxetine HCL 60 MG CAPSULE.DR PO SCH (09:10)
[2021-09-08] MEDS: FAMOTIDINE 20 MG TAB PO SCH (09:10)
[2021-09-08] MEDS: amLODIPine 5 MG TAB PO SCH (09:10)
[2021-09-08 11:40] LABS: Glucose,Whole Blood 129 mg/dL (75-99)
--- NOTE | 2021-09-08 11:55 | P.PN ---
Subjective Progress Note Date: 09/08/21 Principal diagnosis: Multivessel coronary artery disease, acute non-ST elevated myocardial infarction this admission. Previous medical history of hypertension, hyperlipidemia, non -insulin-dependent diabetes mellitus, chronic ongoing tobacco dependence, TIA 40 years ago, chronic back pain, GERD, family history of coronary artery disease The patient was seen and examined at the bedside with Dr. Adames. She is in no acute distress, remains free of chest pain/SOB. Remains in NSR and hemodynamically stable. Anticipates coronary artery bypass surgery tomorrow, all questions answered, patient is agreeable. No new questions. Objective - Vital Signs Vital signs: Vital Signs Temp 97.8 F 09/08/21 04:10 Pulse 66 09/08/21 04:10 Resp 18 09/08/21 04:10 BP 129/82 09/08/21 04:10 Pulse Ox 97 09/08/21 04:10 Intake & Output 09/07/21 09/08/21 09/08/21 18:59 06:59 18:59 Intake Total 150 Output Total 400 800 Balance -250 -800 Weight 91.626 kg Intake: IV 150 Output: Urine 400 800 Other: Voiding Method Bedpan Toilet # Voids 1 - Exam CONSTITUTIONAL: Appears comfortable, cooperative, no acute distress RESPIRATORY: Lungs sounds diminished bilaterally. Respirations even, nonlabored. Currently on room air with oxygen saturation 95%. Able to achieve 2500 mL on incentive spirometry. Strong cough. CARDIOVASCULAR: S1, S2 present. Regular rate and rhythm, sinus rhythm on telemetry. Palpable peripheral pulses bilaterally. No edema present. No calf pain or tenderness noted. GASTROINTESTINAL: Abdomen soft, nontender, nondistended. Active bowel sounds present 4 quadrants. Tolerating diet. GENITOURINARY: Continues to void INTEGUMENTARY: Skin is warm and dry with evidence of good perfusion. NEUROLOGIC: Cranial nerves II through XII intact MUSKULOSKELETAL: Able to move all extremities, strength equal bilaterally, gait normal PSYCHIATRIC: Alert and oriented to person place and time, appropriate affect, intact judgment and insight - Allied health notes Allied health notes reviewed: nursing - Labs CBC & Chem 7: 09/08/21 07:39 09/08/21 07:39 Labs: Abnormal Lab Results - Last 24 Hours (Table) 09/07/21 09/07/21 09/07/21 Range/Units 16:33 20:07 21:03 Carbon Dioxide (22-30) mmol/L BUN (7-17) mg/dL Creatinine (0.52-1.04) mg/dL Glucose (74-99) mg/dL POC Glucose (mg/dL) 145 H 129 H (75-99) mg/dL Total Protein (6.3-8.2) g/dL Albumin (3.5-5.0) g/dL Ur Specific [place] 1.042 H (1.001-1.035) Crossmatch 09/08/21 09/08/21 Range/Units 07:39 07:39 Carbon Dioxide 33 H (22-30) mmol/L BUN 23 H (7-17) mg/dL Creatinine 1.06 H (0.52-1.04) mg/dL Glucose 154 H (74-99) mg/dL POC Glucose (mg/dL) (75-99) mg/dL Total Protein 5.8 L (6.3-8.2) g/dL Albumin 3.4 L (3.5-5.0) g/dL Ur Specific [place] (1.001-1.035) Crossmatch See Detail Microbiology - Last 24 Hours (Table) 09/07/21 16:58 Nasal Screen MRSA/MSSA - Preliminary Nasal Swab - Imaging and Cardiology Chest x-ray: report reviewed, image reviewed heart cath and echo films reviewed with Dr. Adames, carotids and FEV1 reviewed Assessment and Plan Assessment: 1. Multivessel coronary artery disease, acute non-ST elevated myocardial infarction this admission 2. History of hypertension 3. Hyperlipidemia 4. Der-oubjtvg-rltwskxdx diabetes mellitus 5. Chronic ongoing tobacco dependence, preoperative FEV1 87% of predicted 6. TIA 40 years ago 7. Chronic back pain 8. GERD 9. Family history of coronary artery disease Plan: 1. Continue to maximize medical therapy with ASA, statin, beta chris. Would hold ANNALEE/ARB/CCB to prevent postoperative hypotension 2. Increase activity as tolerated. Will complete 5 meter walk test 3. Our plan is for myocardial revascularization with left internal mammary artery, left radial artery, endoscopic vein harvest tomorrow 09/09/[address] Cuevas. STS risk score calculated and discussed with the patient 4. NPO after midnight 5. Smoking cessation counseling offered, patient strongly encouraged to quit smoking 6. Medical management of other comorbidities per cardiology, primary care Time with Patient: Greater than 30
--- NOTE | 2021-09-08 11:56 | P.CNPUL ---
History of Present Illness Consult date: 09/08/21 Requesting physician: Alondra Forrester Reason for consult: other Chief complaint: Preoperative evaluation. History of present illness: Pulmonary consult dated 09/08/2021. 65-year-old female that I'm seeing for preoperative pulmonary evaluation. I had the opportunity to look at her pulmonary function test previously, and they were excellent. The patient is scheduled to have a bypass grafting tomorrow with Dr. Adames. The patient was admitted to the hospital on September 06, complaining of chest pain. Apparently, the pain radiated to her back and right arm, and she had some numbness and tingling in the right arm. She was also feeling very weak and fatigued. She apparently has a history of hypertension and hyperlipidemia. She did smoke in the past. She has no prior history of chronic lung disease. The patient denies any shortness of breath, chest tightness, cough, wheezing, or phlegm production. Coronary catheterization revealed three-vessel coronary disease, including a calcified left coronary system with a focal 80% stenosis in the LAD, circumflex, and a chronically occluded right coronary artery. Based on lung function, and specifically the FEV1 and MVV, the patient was at no increased operative risk. Laboratory data includes a normal CBC, a normal PT INR and PTT, and a sodium of 137, potassium 4.6, chlorides 104, CO2 33, BUN 23, and creatinine 1.06. Albumin was 3.4. Urine was negative. Chest x-ray was unremarkable. Review of Systems REVIEW OF SYSTEMS: CONSTITUTIONAL: [Negative.] NEUROLOGIC: [ Negative.] HEENT: [ Negative.] CARDIAC: Chest pain. PULMONARY: [Negative.] GI: [Negative.] : [Negative.] RHEUMATOLOGIC: [ Negative.] IMMUNOLOGIC: [ Negative.] ENDOCRINE: [Negative. ] DERMATOLOGIC: [Negative.] Past Medical History Past Medical History: Diabetes Mellitus, GERD/Reflux, Hyperlipidemia, Hypertension Additional Past Medical History / Comment(s): TIA about 40 years ago, chronic back pain use a transdermal patch Buprenorphine 7.5 MCG/HR History of Any Multi-Drug Resistant Organisms: None Reported Past Surgical History: Hysterectomy, Orthopedic Surgery, Tonsillectomy Additional Past Surgical History / Comment(s): 3 back surgey, rotator cuff repair, bilateral bunionectomies Past Anesthesia/Blood Transfusion Reactions: No Reported Reaction Past Psychological History: Anxiety Smoking Status: Current every day smoker Past Alcohol Use History: None Reported Additional Past Alcohol Use History / Comment(s): smokes about half a pack a day since she was a teenager. Past Drug Use History: None Reported - Past Family History Mother Family Medical History: AICD/Pacemaker, Congestive Heart Failure (CHF), Coronary Artery Disease (CAD) (History of CABG), Dementia, Hypertension, Myocardial Infarction (NC) Additional Family Medical History / Comment(s): Kidney stent Father Family Medical History: Congestive Heart Failure (CHF), Coronary Artery Disease (CAD) (History of CABG), Diabetes Mellitus, Myocardial Infarction ([place]), Vascular Disorder Additional Family Medical History / Comment(s): Peripheral vascular disease. Sister(s) Additional Family Medical History / Comment(s): tripple bypass open heart 10 years ago Family Family Medical History: Myocardial Infarction ([place]) Additional Family Medical History / Comment(s): Positive Cardiac history in the family Medications and Allergies Home Medications Medication Instructions Recorded Confirmed Type Aspirin EC [Ecotrin Low Dose] 81 mg PO HS 09/06/21 09/06/21 History Atorvastatin [Lipitor] 80 mg PO HS 09/06/21 09/06/21 History Buprenorphine [Butrans 7.5 MCG/HR] 1 patch TRANSDERM MULLEN 09/06/21 09/06/21 History Celecoxib [CeleBREX] 200 mg PO DAILY 09/06/21 09/06/21 History DULoxetine HCL [Cymbalta] 60 mg PO DAILY 09/06/21 09/06/21 History Enalapril [Vasotec] 10 mg PO BID 09/06/21 09/06/21 History Famotidine 40 mg PO DAILY 09/06/21 09/06/21 History Pioglitazone [Actos] 15 mg PO DAILY 09/06/21 09/06/21 History Promethazine [Phenergan] 25 mg PO TID PRN 09/06/21 09/06/21 History Allergies Allergy/AdvReac Type Severity Reaction Status Date / Time No Known Allergies Allergy Verified 09/06/21 22:28 Physical Exam Osteopathic Statement: *. No significant issues noted on an osteopathic structural exam other than those noted in the History and Physical/Consult. Vitals: Vital Signs Temp Pulse Resp BP Pulse Ox 09/08/21 08:00 98.0 F 76 18 118/73 95 09/08/21 04:10 97.8 F 66 18 129/82 97 09/07/21 23:37 97.9 F 74 17 128/76 94 L 09/07/21 23:36 94 L 09/07/21 20:55 98.1 F 77 18 118/64 95 09/07/21 15:00 98.0 F 74 18 118/69 94 L 09/07/21 14:00 77 18 09/07/21 13:22 97.9 F 77 18 132/77 96 09/07/21 12:59 74 16 148/66 97 09/07/21 11:59 72 16 141/80 98 Intake and Output 09/07/21 09/08/21 09/08/21 22:59 06:59 14:59 Output Total 100 700 Balance -100 -700 Output: Urine 100 700 Other: Voiding Method Toilet Toilet # Voids 1 No acute distress, oriented 3. HEENT examination is grossly unremarkable. Mucous membranes are moist. No oral lesions. Neck supple. Full range of motion. No adenopathy thyromegaly or neck vein distention. Cardiovascular examination reveals regular rhythm rate. S1-S2 normal. No S3 or S4. No discernible murmur noted. Heart rate 76 bpm. Lungs reveal clear breath sounds. Breath sounds are equal bilaterally. No adventitious lung sounds including wheezes rhonchi or crackles. Room air saturation is 95-97%. Abdomen soft bowel sounds are heard. No masses or tenderness. Extremities are intact. No cyanosis clubbing or edema. Skin is without rash or lesion. Neurologic examination is brief but nonfocal. Results - Laboratory Findings CBC and BMP: 09/08/21 07:39 09/08/21 07:39 PT/INR, D-dimer PT 10.5 sec (9.0-12.0) 09/08/21 07:39 INR 1.0 (<1.2) 09/08/21 07:39 D-Dimer <0.17 mg/L FEU (<0.60) 09/06/21 21:27 Abnormal lab findings: Abnormal Labs 09/06/21 09/07/21 09/07/21 21:27 01:31 04:30 Carbon Dioxide BUN 23 H Creatinine Glucose 169 H POC Glucose (mg/dL) Hemoglobin A1c Troponin I 0.078 H* 0.132 H* Total Protein 6.2 L Albumin Ur Specific [place] Crossmatch 09/07/21 09/07/21 09/07/21 07:56 16:33 20:07 Carbon Dioxide BUN Creatinine Glucose POC Glucose (mg/dL) 143 H 145 H 129 H Hemoglobin A1c Troponin I Total Protein Albumin Ur Specific [place] Crossmatch 09/07/21 09/08/21 09/08/21 21:03 07:39 07:39 Carbon Dioxide BUN Creatinine Glucose POC Glucose (mg/dL) Hemoglobin A1c 6.6 H Troponin I Total Protein Albumin Ur Specific [place] 1.042 H Crossmatch See Detail 09/08/21 07:39 Carbon Dioxide 33 H BUN 23 H Creatinine 1.06 H Glucose 154 H POC Glucose (mg/dL) Hemoglobin A1c Troponin I Total Protein 5.8 L Albumin 3.4 L Ur Specific [place] Crossmatch - Diagnostic Findings Chest x-ray: image reviewed Assessment and Plan Assessment: Symptomatic coronary artery disease. Anticipated bypass grafting, 09/09/2021. History of tobacco use, without evidence of underlying COPD, and pulmonary function, which would suggest no increased operative risk. History of hyperlipidemia. History of hypertension. History of diabetes mellitus. Plan: Plan dated 09/18/2021. The patient is apparently scheduled to have open heart surgery, tomorrow with Dr. Adames. I did explain our role as [facility] I also mentioned to her, that based on lung function, she is at no increased operative risk, and that she should do well with a general anesthetic. I also mentioned that we would attempt to get the patient extubated as soon as possible, and we will see the patient on a daily basis, to ensure that she doesn't develop a pulmonary complication such as pneumonia, pleural effusion, atelectasis, or lobar collapse. Time with Patient: Greater than 30
[2021-09-08] MEDS ORDERED: HEPARIN SODIUM 1,000 UN/ML (10ML VL) IV PRN (12:19)
--- NOTE | 2021-09-08 12:59 | P.PN ---
Subjective This is a 65-year-old female with a past medical history significant for hypertension, hyperlipidemia, type 2 xfh-wvrfgxm-ziejlrarh diabetes, obesity, history of TIA 40 years ago, after a back surgery with no residual effects, chronic back pain, GERD, family history of coronary artery disease and chronic ongoing tobacco dependence. She does not follow with a artificial breeding technician. We are following the patient for coronary artery disease. Patient presents with chest pain, concerning for NSTEMI. She was recommended to undergo a cardiac catheterization. 09/07/2021 patient underwent cardiac catheterization that revealed 80% stenosis to her proximal left anterior descending coronary artery, a 95% stenosis to her circumflex coronary artery, and a chronically occluded right coronary artery to its midportion with left to right collaterals from the circumflex coronary artery. 2D echo revealed EF 55-60%, trace tricuspid valve regurgitation. Due to the findings on the cardiac catheterization cardiothoracic surgery was consulted for further evaluation and treatment recommendations. Plan for patient to undergo CABG on 09/09/21 09/08/2021 Patient seen and examined at bedside, continues to have heaviness/pressure in her chest. It is relieved by nitro and morphine. She denies any shortness of breath, lightheadedness, dizziness, or palpitations. Vital signs are stable. Maintained on aspirin 81 mg daily, amlodipine 5 mg daily, atorvastatin 80 mg daily, lisinopril 40 mg daily, metoprolol titrate 25 mg twice a day, nitropaste, IV fluids Labs: Wbc present 7, hemoglobin 12.7, platelet 28, sodium 137, potassium 4.6, BUN 23, serum creatinine 1.0 GENERAL: Well-appearing, well-nourished and in no acute distress. NECK: Supple without JVD or thyromegaly. LUNGS: Breath sounds clear to auscultation bilaterally. Respiration equal and unlabored. No wheezes, rales or rhonchi. HEART: Regular rate and rhythm without murmurs, rubs or gallops. S1 and S2 heard. EXTREMITIES: Normal range of motion, no edema. No clubbing or cyanosis. Peripheral pulses intact. ASSESSMENT NSTEMI Multivessel coronary artery disease Hypertension Hyperlipidemia Type 2 [id number] diabetes Obesity History of TIA 40 years ago, after a back surgery with no residual effects Chronic back pain GERD Family history of coronary artery disease Chronic ongoing tobacco dependence PLAN We will start patient on hIV heparin drip Plan for CABG tomorrow 09/09/2021 NPO after midnight We will continue to follow Nurse Practitioner note has been reviewed, I agree with a documented findings and plan of care. Patient was seen and examined. Objective - Vital Signs Vital signs: Vital Signs Temp 98.0 F 09/08/21 08:00 Pulse 76 09/08/21 08:00 Resp 18 09/08/21 08:00 BP 118/73 09/08/21 08:00 Pulse Ox 95 09/08/21 08:00 Intake & Output 09/07/21 09/08/21 09/08/21 18:59 06:59 18:59 Intake Total 150 Output Total 400 800 Balance -250 -800 Weight 91.626 kg Intake: IV 150 Output: Urine 400 800 Other: Voiding Method Bedpan Toilet # Voids 1 - Labs CBC & Chem 7: 09/08/21 07:39 09/08/21 07:39 Labs: Abnormal Lab Results - Last 24 Hours (Table) 09/07/21 09/07/21 09/07/21 Range/Units 16:33 20:07 21:03 Carbon Dioxide (22-30) mmol/L BUN (7-17) mg/dL Creatinine (0.52-1.04) mg/dL Glucose (74-99) mg/dL POC Glucose (mg/dL) 145 H 129 H (75-99) mg/dL Hemoglobin A1c (0.0-6.0) % Total Protein (6.3-8.2) g/dL Albumin (3.5-5.0) g/dL Ur Specific [place] 1.042 H (1.001-1.035) Crossmatch 09/08/21 09/08/21 09/08/21 Range/Units 07:39 07:39 07:39 Carbon Dioxide 33 H (22-30) mmol/L BUN 23 H (7-17) mg/dL Creatinine 1.06 H (0.52-1.04) mg/dL Glucose 154 H (74-99) mg/dL POC Glucose (mg/dL) (75-99) mg/dL Hemoglobin A1c 6.6 H (0.0-6.0) % Total Protein 5.8 L (6.3-8.2) g/dL Albumin 3.4 L (3.5-5.0) g/dL Ur Specific [place] (1.001-1.035) Crossmatch See Detail 09/08/21 Range/Units 11:37 Carbon Dioxide (22-30) mmol/L BUN (7-17) mg/dL Creatinine (0.52-1.04) mg/dL Glucose (74-99) mg/dL POC Glucose (mg/dL) 129 H (75-99) mg/dL Hemoglobin A1c (0.0-6.0) % Total Protein (6.3-8.2) g/dL Albumin (3.5-5.0) g/dL Ur Specific [place] (1.001-1.035) Crossmatch Microbiology - Last 24 Hours (Table) 09/07/21 16:58 Nasal Screen MRSA/MSSA - Preliminary Nasal Swab
[2021-09-08] MEDS: SODIUM CHLORIDE 0.9% 1,000 ML IV SCH (13:29)
[2021-09-08] MEDS: HEPARIN SOD,PORK IN 0.45% NACL 25,000 UNIT in 0.45% NACL 1 250ML.BAG IV SCH (13:30)
--- NOTE | 2021-09-08 13:41 | P.PN ---
Subjective Progress Note Date: 09/08/21 Hospital course: Patient is a very pleasant 65-year-old female with a past medical history of hypertension, hyperlipidemia, diabetes mellitus, and nicotine dependence. She presented to the emergency department with a chief complaint of intermittent episodes of chest pain accompanied by diaphoresis beginning last night and progressively worsening. Patient was admitted under our services with consultation to cardiology. An EKG was completed showing normal sinus rhythm and 96 bpm. Chest x-ray negative for acute cardiopulmonary process. Troponins revealing elevation with initial troponin less than 0.012, 0.078, and 0.132. Patient was diagnosed as a NSTEMI and taken to cath lab radiology technician 09/07/21. Patient was found to have triple-vessel occlusive disease revealing 95% occlusion of cir cumflex, 80% occlusion of the LAD and a complete occlusion of right coronary artery. Cardiothoracic surgery was consulted and patient underwent extensive evaluation. Plan is for myocardial revascularization surgery tomorrow morning. Physical exam: Patient seen and fully evaluated at bedside. She has been updated by cardiothoracic team regarding plan of care for myocardial revascularization [facility] tomorrow morning. Patient currently denies having any questions or concerns and reports all questions have been answered she denies currently chest pain, shortness of breath,/weakness in extremities. Patient to continue cardiac diet and be placed on strict NPO at midnight with plans for CABG tomorrow morning. Vital signs reviewed and stable. General: Nontoxic, no distress and appears stated age. Derm: Skin warm and dry, normal coloration for ethnicity. Head: Atraumatic, normocephalic and symmetric. Eyes: EOMs intact, no lid lag, and anicteric sclera Mouth: no lip lesions, mucus membranes moist Cardiovascular: regular rate and rhythm with normal S1S2, no murmur, positive posterior tibial pulses bilaterally, and cap refill < 2 seconds. Lungs: Respirations even, regular, and unlabored on room air. Lungs CTA bilaterally, no rhonchi, no rales, no wheezing, and no accessory muscle usage. Abdominal: soft, nontender to palpation, no guarding, no appreciable organomegaly Ext: ROM intact. No gross muscle atrophy, no edema, no contractures Neuro: Speech clear, face symmetrical and CN II-XII grossly intact with no noted focal neuro deficits Psych: Alert and oriented to person, place, time, and situation. Appropriate and pleasant affect. Assessment and Plan of Care: NSTEMI Multivessel coronary artery disease -Cardiology following, patient went to cath lab radiology technician 09/07/21 and was found to have triple-vessel occlusive disease revealing 95% occlusion of circumflex, 80% occlusion of the LAD and a complete occlusion of right coronary artery. -Cardiothoracic surgery was consulted and planned for myocardial revascularization surgery -Telemetry monitoring. -Cardiac diet -Aspirin, atorvastatin, and metoprolol -Hemoglobin A1c elevated at 6.6% -Lipid profile unremarkable Hypertension Monitor vital signs and continue daily medication regimen with amlodipine, lisinopril, and metoprolol. Hyperlipidemia We will medication regimen with atorvastatin 80 mg daily. Diabetes mellitus Hold oral hypoglycemic medications please patient Glycemic protocol with NovoLog sliding scale. Hemoglobin A1c elevated at 6.6%. Nicotine dependence Educate and encourage patient on the importance of smoking cessation and the risks of continued use. Nicotine patch CODE STATUS: Full code DVT prophylaxis: Heparin Discussed with: Patient and RN Anticipated discharge date: Clinical course to determine Anticipated discharge place: Home A total of 40 minutes was spent on the care of this complex patient more than 50% of the time was spent in counseling and care coordination. Objective - Vital Signs Vital signs: Vital Signs Temp 97.8 F 09/08/21 04:10 Pulse 66 09/08/21 04:10 Resp 18 09/08/21 04:10 BP 129/82 09/08/21 04:10 Pulse Ox 97 09/08/21 04:10 Intake & Output 09/07/21 09/08/21 09/08/21 18:59 06:59 18:59 Intake Total 150 Output Total 400 800 Balance -250 -800 Weight 91.626 kg Intake: IV 150 Output: Urine 400 800 Other: Voiding Method Bedpan Toilet # Voids 1 - Labs CBC & Chem 7: 09/08/21 07:39 09/08/21 07:39 Labs: Abnormal Lab Results - Last 24 Hours (Table) 09/07/21 09/07/21 09/07/21 Range/Units 16:33 20:07 21:03 POC Glucose (mg/dL) 145 H 129 H (75-99) mg/dL Ur Specific [place] 1.042 H (1.001-1.035) Microbiology - Last 24 Hours (Table) 09/07/21 16:58 Nasal Screen MRSA/MSSA - Preliminary Nasal Swab
[2021-09-08] MEDS ORDERED: PHENYLEPHRINE 10 MG/ML VIAL IV ONE (15:47)
[2021-09-08] MEDS ORDERED: MD COMMUNICATION TO PHARMACY 1 EACH MISC PO ONE (15:47)
[2021-09-08] MEDS ORDERED: ELECTROLYTE-A SOLUTION 1,000 ML with POTASSIUM CHLORIDE 100 MEQ, MAGNESIUM SULFATE 16 M... IV SCH ×5 (16:00)
[2021-09-08] MEDS ORDERED: ELECTROLYTE-A SOLUTION 1,000 ML with POTASSIUM CHLORIDE 40 MEQ, MAGNESIUM SULFATE 16 ME... IV SCH ×5 (16:00)
[2021-09-08] MEDS ORDERED: INSULIN REGULAR 100 UNIT in SODIUM CHLORIDE 0.9% 100 ML IV SCH (16:00)
[2021-09-08] MEDS: MUPIROCIN 2% OINT 22 GM TUBE NASAL SCH ×2 (16:01→20:14)
[2021-09-08 16:39] LABS: Glucose,Whole Blood 92 mg/dL (75-99)
[2021-09-08 17:50] LABS: Hepatitis A Antibody IgM Nonreactive (Nonreactive); Hepatitis B Core IgM Nonreactive (Nonreactive); Hepatitis B Surface Antigen Nonreactive (Nonreactive); Hepatitis C IgG Antibody Nonreactive (Nonreactive)
[2021-09-08 20:09] LABS: Glucose,Whole Blood 131 mg/dL (75-99)
[2021-09-09] MEDS: MORPHINE SULFATE 4 MG/ML SYRINGE IV PRN ×2 (00:35→04:20)
[2021-09-09] MEDS ORDERED: CHLORHEXIDINE GLUCONATE 15 ML CUP MUCOUS MEM ONE (05:00)
[2021-09-09] MEDS ORDERED: METOPROLOL TARTRATE 12.5 MG TAB PO ONE (05:00)
[2021-09-09] MEDS ORDERED: NITROGLYCERIN-D5W PMX 25 MG/250 ML BTL IV ONE (05:00)
[2021-09-09] MEDS ORDERED: PHENYLEPHRINE 40 MG in SODIUM CHLORIDE 0.9% 250 ML IV ONE (05:00)
[2021-09-09] MEDS ORDERED: DILTIAZEM 125 MG in SODIUM CHLORIDE 0.9% 100 ML IV SCH (05:00)
[2021-09-09] MEDS ORDERED: NOREPINEPHRINE 4 MG in SODIUM CHLORIDE 0.9% 250 ML IV SCH (05:00)
[2021-09-09] MEDS ORDERED: LACTATED RINGERS 1,000 ML IV SCH (05:00)
[2021-09-09] MEDS ORDERED: MAGNESIUM SULFATE 16.24 MEQ in EMPTY SYRINGE 1 SYR IV ONE (05:00)
[2021-09-09] MEDS ORDERED: ceFAZolin 1,000 MG in SODIUM CHLORIDE 0.9% IRRIGATIO 1,000 ML IRRIGATION ONE (05:00)
[2021-09-09] MEDS ORDERED: HEPARIN SODIUM,PORCINE 5,000 UNIT in SODIUM CHLORIDE 0.9% 500 ML 500 ML IV ONE (05:00)
[2021-09-09] MEDS ORDERED: PAPAVERINE 360 MG in SODIUM CHLORIDE 0.9% 90 ML IV ONE ×2 (05:00→11:03)
[2021-09-09] MEDS ORDERED: NITROGLYCERIN-D5W PMX 50 MG in DEXTROSE/WATER 1 250ML.BAG IV SCH ×2 (05:00→16:19)
[2021-09-09] MEDS ORDERED: PROTAMINE SULFATE 10 MG/ML 25 ML VIAL IV ONE ×2 (05:00→08:54)
[2021-09-09] MEDS ORDERED: TRANEXAMIC ACID 2,000 MG in SODIUM CHLORIDE 0.9% 80 ML IV ONE ×4 (05:00)
[2021-09-09] MEDS ORDERED: SODIUM BICARB 8.4% 50 ML SYR (1 MEQ/ML) IV ONE (05:00)
[2021-09-09] MEDS ORDERED: ASPIRIN 325 MG TAB PO ONE (05:00)
[2021-09-09] MEDS ORDERED: ALBUMIN HUMAN 5% 500 ML in EMPTY BAG 1 BAG IVPB ONE ×6 (05:00)
[2021-09-09] MEDS ORDERED: PROTAMINE SULFATE 250 MG in EMPTY BAG 1 BAG IV ONE (05:00)
[2021-09-09] MEDS ORDERED: HEPARIN SODIUM 1,000 UN/ML (10ML VL) IV ONE (05:00)
[2021-09-09] MEDS ORDERED: CALCIUM CHLORIDE 100 MG/ML 10 ML SYRINGE IVP ONE (05:00)
[2021-09-09] MEDS ORDERED: ALBUMIN HUMAN 25% 50 ML in EMPTY BAG 1 BAG IVPB ONE (05:00)
[2021-09-09] MEDS ORDERED: MANNITOL 25% 12.5 GM/50 ML VIAL IV ONE ×2 (05:00)
[2021-09-09] MEDS: SODIUM CHLORIDE 0.9% 1,000 ML IV SCH ×3 (05:21→16:51)
[2021-09-09 05:25] LABS: Glucose,Whole Blood 88 mg/dL (75-99)
[2021-09-09 06:22] LABS: Basophils % (A) 1 %; Eosinophils # (A) 0.3 k/uL (0-0.7); Eosinophils % (A) 3 %; HCT 38.6 % (34.0-46.0); HGB 12.7 gm/dL (11.4-16.0); Lymphocytes # (A) 2.5 k/uL (1.0-4.8); Lymphocytes % (A) 34 %; MCH 31.7 pg (25.0-35.0); MCV 95.9 fL (80.0-100.0); Mean Platelet Volume 7.9; Monocytes # (A) 0.3 k/uL (0-1.0); Monocytes % (A) 5 %; Neutrophils % (A) 55 %; Platelet Count 183 k/uL (150-450); RBC 4.03 m/uL (3.80-5.40); RDW 12.1 % (11.5-15.5); WBC 7.2 k/uL (3.8-10.6)
[2021-09-09] MEDS ORDERED: IV FLUID CONTINUATION 800 ML IV ONE (06:49)
[2021-09-09] MEDS: ATORVASTATIN 80 MG TAB PO SCH (07:01)
[2021-09-09] MEDS ORDERED: NITROGLYCERIN-D5W PMX 50 MG/250 ML BOTTLE IV ONE (08:54)
[2021-09-09] MEDS ORDERED: LIDOCAINE 2% SYG (PF) 100 MG/5 ML ONE (08:54)
[2021-09-09] MEDS ORDERED: HEPARIN SODIUM,PORCINE 10,000 UNIT/ML 1 ML VIAL ONE (08:54)
[2021-09-09] MEDS ORDERED: SODIUM CHLORIDE 0.9% IRRIG 1,000 ML BTL IRRIGATION ONE (08:54)
[2021-09-09] MEDS ORDERED: TRANEXAMIC ACID IN NACL,ISO-OS 1,000 MG/100 ML BAG ONE (08:54)
[2021-09-09] MEDS ORDERED: fentaNYL (PF) 50 MCG/ML 50 ML VIAL ONE (08:54)
[2021-09-09] MEDS ORDERED: MAGNESIUM SULFATE 4 MEQ/ML 10ML VIAL ONE (08:54)
[2021-09-09] MEDS ORDERED: PROPOFOL 10 MG/ML 20 ML VIAL IV ONE (08:54)
[2021-09-09] MEDS ORDERED: SUCCINYLCHOLINE CHLORIDE 100 MG/5 ML SYR IV ONE (08:54)
[2021-09-09] MEDS ORDERED: MIDAZOLAM HCL 10 MG/10 ML VIAL ONE (08:54)
[2021-09-09] MEDS ORDERED: VECURONIUM 10 MG VIAL IV ONE (08:54)
[2021-09-09] MEDS ORDERED: ELECTROLYTE-R (PH 7.4) 1,000 ML IV.SOLN IV ONE (08:54)
[2021-09-09] MEDS ORDERED: ceFAZolin 1,000 MG in SODIUM CHLORIDE 0.9% 1,000 ML IRRIGATION ONE (11:03)
[2021-09-09] MEDS ORDERED: SODIUM CHLORIDE 0.9% 500 ML 500 ML with HEPARIN SODIUM,PORCINE 5,000 UNIT IV ONE ×2 (11:03)
--- NOTE | 2021-09-09 14:44 | P.PN ---
Subjective Progress Note Date: 09/09/21 Hospital course: Patient is a very pleasant 65-year-old female with a past medical history of hypertension, hyperlipidemia, diabetes mellitus, and nicotine dependence. She presented to the emergency department with a chief complaint of intermittent episodes of chest pain accompanied by diaphoresis beginning last night and progressively worsening. Patient was admitted under our services with consultation to cardiology. An EKG was completed showing normal sinus rhythm and 96 bpm. Chest x-ray negative for acute cardiopulmonary process. Troponins revealing elevation with initial troponin less than 0.012, 0.078, and 0.132. Patient was diagnosed as a NSTEMI and taken to clinical laboratory scientist 09/07/21. Patient was found to have triple-vessel occlusive disease revealing 95% occlusion of cir cumflex, 80% occlusion of the LAD and a complete occlusion of right coronary artery. Cardiothoracic surgery was consulted and patient underwent extensive evaluation. Plan is for myocardial revascularization surgery today Physical exam: Patient seen and fully evaluated at bedside. She has been updated by cardiothoracic team regarding plan of care for myocardial revascularization surgery tomorrow morning. Patient currently denies having any questions or concerns and reports all questions have been answered she denies currently chest pain, shortness of breath,/weakness in extremities. Patient to continue cardiac diet and be placed on strict NPO at midnight with plans for CABG tomorrow morning. Vital signs reviewed and stable. General: Nontoxic, no distress and appears stated age. Derm: Skin warm and dry, normal coloration for ethnicity. Head: Atraumatic, normocephalic and symmetric. Eyes: EOMs intact, no lid lag, and anicteric sclera Mouth: no lip lesions, mucus membranes moist Cardiovascular: regular rate and rhythm with normal S1S2, no murmur, positive posterior tibial pulses bilaterally, and cap refill < 2 seconds. Lungs: Respirations even, regular, and unlabored on room air. Lungs CTA bilaterally, no rhonchi, no rales, no wheezing, and no accessory muscle usage. Abdominal: soft, nontender to palpation, no guarding, no appreciable organomegaly Ext: ROM intact. No gross muscle atrophy, no edema, no contractures Neuro: Speech clear, face symmetrical and CN II-XII grossly intact with no noted focal neuro deficits Psych: Alert and oriented to person, place, time, and situation. Appropriate and pleasant affect. Assessment and Plan of Care: NSTEMI Multivessel coronary artery disease -Cardiology following, patient went to clinical laboratory scientist 09/07/21 and was found to have triple-vessel occlusive disease revealing 95% occlusion of circumflex, 80% occlusion of the LAD and a complete occlusion of right coronary artery. -Cardiothoracic surgery was consulted and planned for myocardial revascularization surgery -Telemetry monitoring. -Cardiac diet -Aspirin, atorvastatin, and metoprolol -Hemoglobin A1c elevated at 6.6% -Lipid profile unremarkable Hypertension Monitor vital signs and continue daily medication regimen with amlodipine, lisinopril, and metoprolol. Hyperlipidemia We will medication regimen with atorvastatin 80 mg daily. Diabetes mellitus Hold oral hypoglycemic medications please patient Glycemic protocol with NovoLog sliding scale. Hemoglobin A1c elevated at 6.6%. Nicotine dependence Educate and encourage patient on the importance of smoking cessation and the risks of continued use. Nicotine patch CODE STATUS: Full code DVT prophylaxis: Heparin Discussed with: Patient and RN Anticipated discharge date: Clinical course to determine Anticipated discharge place: Home A total of 40 minutes was spent on the care of this complex patient more than 50% of the time was spent in counseling and care coordination. Objective - Vital Signs Vital signs: Vital Signs Temp 97.4 F L 09/09/21 06:41 Pulse 70 09/09/21 06:41 Resp 18 09/09/21 06:41 BP 124/78 09/09/21 06:41 Pulse Ox 95 09/09/21 06:41 Intake & Output 09/08/21 09/09/21 09/09/21 18:59 06:59 18:59 Intake Total 240 300 54 Output Total 600 Balance -360 300 54 Weight 92.1 kg Intake: IV 300 54 Oral 240 Output: Urine 600 Other: Voiding Method Toilet Toilet # Voids 2 1 - Labs CBC & Chem 7: 09/09/21 06:05 09/08/21 07:39 Labs: Abnormal Lab Results - Last 24 Hours (Table) 09/08/21 09/08/21 09/08/21 Range/Units 07:39 17:49 20:08 APTT 48.7 H (22.0-30.0) sec POC Glucose (mg/dL) 131 H (75-99) mg/dL Crossmatch See Detail Microbiology - Last 24 Hours (Table) 09/07/21 16:58 Nasal Screen MRSA/MSSA - Final Nasal Swab
[2021-09-09] MEDS ORDERED: ALBUMIN HUMAN 5% 250 ML IVPB ONE (14:46)
[2021-09-09] MEDS ORDERED: DEXTROSE 5% IN WATER 100 ML with AMIODARONE 150 MG IV PRN (16:19)
[2021-09-09] MEDS ORDERED: Magnesium Replacement Protocol 1 EACH MISC MISCELLANE PRN (16:19)
[2021-09-09] MEDS ORDERED: MORPHINE SULFATE 2 MG/ML SYRINGE IVP PRN (16:19)
[2021-09-09] MEDS ORDERED: BENZOCAINE/MENTHOL LOZENG 1 EACH LOZENGE MUCOUS MEM PRN (16:19)
[2021-09-09] MEDS ORDERED: Potassium Replacement Protocol 1 EACH MISC MISCELLANE PRN (16:19)
[2021-09-09] MEDS ORDERED: Phosphorus Replacement Protoco 1 EACH MISC MISCELLANE PRN (16:19)
[2021-09-09] MEDS ORDERED: IPRATROPIUM-ALBUTEROL 3 ML NEB INHALATION PRN (16:19)
[2021-09-09] MEDS ORDERED: AMIODARONE 360 MG in DEXTROSE 5% IN WATER 200 ML IV ONE ×2 (16:19)
[2021-09-09] MEDS ORDERED: DEXMEDETOMIDINE/0.9% NACL(PMX) 400 MCG in EMPTY BAG 1 BAG IV SCH (16:19)
[2021-09-09] MEDS ORDERED: METOCLOPRAMIDE 5 MG/ML 2 ML VIAL IVP PRN (16:19)
[2021-09-09] MEDS ORDERED: hydrALAZINE HCL 20 MG/ML 1 ML VIAL IVP PRN (16:19)
[2021-09-09] MEDS: DULoxetine HCL 60 MG CAPSULE.DR PO SCH (16:23)
[2021-09-09 16:47] LABS: Glucose,Whole Blood 162 mg/dL (75-99)
[2021-09-09 16:54] LABS: Basophils % (A) 0 %; Eosinophils % (A) 1 %; Lymphocytes # (A) 0.8 k/uL (1.0-4.8); Lymphocytes % (A) 12 %; MCH 31.9 pg (25.0-35.0); MCHC 33.1 g/dL (31.0-37.0); MCV 96.1 fL (80.0-100.0); Mean Platelet Volume 7.9; Monocytes # (A) 0.3 k/uL (0-1.0); Monocytes % (A) 4 %; Neutrophils # (A) 5.8 k/uL (1.3-7.7); Neutrophils % (A) 82 %; RBC 1.97 m/uL (3.80-5.40); RDW 12.8 % (11.5-15.5)
[2021-09-09 16:57] LABS: Ionized Calcium 4.7 mg/dL (4.5-5.3)
[2021-09-09 16:58] LABS: INR 1.6 (<1.2); Partial Thromboplastin Time 43.6 sec (22.0-30.0); Prothrombin Time 15.9 sec (9.0-12.0)
[2021-09-09 16:58] LABS: ABG Base Excess -2.5 mmol/L; ABG HCO3 24 mmol/L (21-25); ABG Oxygen Saturation 99.6 % (94-97); ABG PCO2 47 mmHg (35-45); ABG PH 7.31 (7.35-7.45); ABG PO2 382 mmHg (83-108); ABG TCO2 25 mmol/L (19-24)
[2021-09-09 16:59] LABS: Allen Test Performed? no
[2021-09-09] MEDS ORDERED: INSULIN REGULAR 100 UNIT in SODIUM CHLORIDE 0.9% 100 ML IV SCH (17:00)
[2021-09-09 17:03] LABS: ALT 11 U/L (4-34); AST 29 U/L (14-36); African American GFR (CKD) >90 (>60 ml/min/1.73 sqM); Albumin 2.6 g/dL (3.5-5.0); Alkaline Phosphatase <20 U/L (38-126); Anion Gap 5 mmol/L; Blood Urea Nitrogen 17 mg/dL (7-17); Calcium 7.2 mg/dL (8.4-10.2); Carbon Dioxide 23 mmol/L (22-30); Chloride 109 mmol/L (98-107); Glucose 133 mg/dL (74-99); Magnesium 2.5 mg/dL (1.6-2.3); Non-African American GFR(CKD) >90 (>60 ml/min/1.73 sqM); Potassium 4.3 mmol/L (3.5-5.1); Sodium 137 mmol/L (137-145); Total Bilirubin 0.7 mg/dL (0.2-1.3); Total Protein 3.9 g/dL (6.3-8.2)
--- NOTE | 2021-09-09 17:05 | P.PN ---
Subjective Patient is admitted to hospital with non-ST segment elevation MT and a cardiac catheterization revealed severe three-vessel coronary artery disease. Patient underwent bypass surgery today and am seeing the patient in the postop setting in the ICU patient had SINGH to LAD and radial artery graft to OM and venous graft to the RCA Patient is doing well she is intubated on vent not requiring any pressors in stable sinus rhythm On exam vital signs are stable chest exam reveals good air entry bilaterally heart exam reveals first and second heart sounds no gallop exam extremities did not reveal any edema Labs show that the hemoglobin is 12.7 preoperatively Assessment and plan: Non-ST segment elevation MT status post bypass surgery Continue supportive care Hopefully patient will be extubated later tonight Objective - Vital Signs Vital signs: Vital Signs Temp 97.4 F L 09/09/21 06:41 Pulse 70 09/09/21 06:41 Resp 18 09/09/21 06:41 BP 124/78 09/09/21 06:41 Pulse Ox 95 09/09/21 06:41 Intake & Output 09/08/21 09/09/21 09/09/21 18:59 06:59 18:59 Intake Total 240 300 54 Output Total 600 2600 Balance -360 300 -2546 Weight 92.1 kg Intake: IV 300 54 Oral 240 Output: Urine 600 1600 Estimated Blood Loss 1000 Other: Voiding Method Toilet Toilet # Voids 2 1 - Labs CBC & Chem 7: 09/09/21 06:05 09/08/21 07:39 Labs: Abnormal Lab Results - Last 24 Hours (Table) 09/08/21 09/08/21 09/08/21 Range/Units 07:39 17:49 20:08 PT (9.0-12.0) sec INR (<1.2) APTT 48.7 H (22.0-30.0) sec ABG pH (7.35-7.45) ABG pCO2 (35-45) mmHg ABG pO2 (83-108) mmHg ABG Total CO2 (19-24) mmol/L ABG O2 Saturation (94-97) % POC Glucose (mg/dL) 131 H (75-99) mg/dL Crossmatch See Detail 09/09/21 09/09/21 09/09/21 Range/Units 16:40 16:42 16:56 PT 15.9 H (9.0-12.0) sec INR 1.6 H (<1.2) APTT 43.6 H (22.0-30.0) sec ABG pH 7.31 L (7.35-7.45) ABG pCO2 47 H (35-45) mmHg ABG pO2 382 H (83-108) mmHg ABG Total CO2 25 H (19-24) mmol/L ABG O2 Saturation 99.6 H (94-97) % POC Glucose (mg/dL) 162 H (75-99) mg/dL Crossmatch Microbiology - Last 24 Hours (Table) 09/07/21 16:58 Nasal Screen MRSA/MSSA - Final Nasal Swab
[2021-09-09 17:09] LABS: HGB 6.3 gm/dL (11.4-16.0)
[2021-09-09 17:10] LABS: HCT 18.9 % (34.0-46.0)
--- NOTE | 2021-09-09 17:22 | XR ---
EXAMINATION TYPE: XR chest 1V portable DATE OF EXAM: 09/09/2021 COMPARISON: 09/06/2021 HISTORY: Postoperative cardiac surgery. TECHNIQUE: Single frontal view of the chest is obtained. FINDINGS: There is interval median sternotomy and left atrial appendage device seen. There is placem ent of an endotracheal tube terminating 3.2 centers above the светлана. There is a nasogastric tube wit h tip overlying the stomach. Right IJ [place]-Ponce catheter with tip overlying the right pulmonary arter y. Left lower chest tube and mediastinal drain also seen. There is mild left bibasilar streaky opacit y. Mild subsidence emphysema about the left chest wall seen. Stable cardiac mediastinal silhouette. N o pleural effusion or pneumothorax. IMPRESSION: Status post cardiac surgery with support apparatus in place as above
[2021-09-09 17:25] LABS: Platelet Count 75 k/uL (150-450); RBC Morphology Normal
[2021-09-09] MEDS: ALBUMIN HUMAN 5% 250 ML in EMPTY BAG 1 BAG IVPB PRN ×2 (17:30→22:40)
[2021-09-09 17:44] LABS: Glucose,Whole Blood 140 mg/dL (75-99)
[2021-09-09] MEDS: CLEVIDIPINE BUTYRATE 25 MG in EMPTY BAG 1 BAG IV SCH ×3 (18:15→22:50)
[2021-09-09 18:31] LABS: Glucose,Whole Blood 136 mg/dL (75-99)
[2021-09-09] MEDS: ACETAMINOPHEN IV (For NPO) 1,000 MG in EMPTY BAG 1 BAG IVPB SCH ×2 (18:32→23:28)
[2021-09-09 19:18] LABS: Glucose,Whole Blood 134 mg/dL (75-99)
[2021-09-09] MEDS ORDERED: IPRATROPIUM-ALBUTEROL 3 ML NEB INHALATION SCH (20:00)
[2021-09-09 20:08] LABS: Glucose,Whole Blood 142 mg/dL (75-99)
[2021-09-09 20:34] LABS: Basophils % (A) 0 %; Eosinophils % (A) 0 %; HCT 25.5 % (34.0-46.0); Lymphocytes # (A) 0.7 k/uL (1.0-4.8); Lymphocytes % (A) 10 %; MCH 31.4 pg (25.0-35.0); MCHC 33.7 g/dL (31.0-37.0); MCV 93.3 fL (80.0-100.0); Mean Platelet Volume 7.9; Monocytes # (A) 0.3 k/uL (0-1.0); Monocytes % (A) 5 %; Neutrophils # (A) 5.8 k/uL (1.3-7.7); Neutrophils % (A) 84 %; RBC 2.74 m/uL (3.80-5.40); RDW 13.2 % (11.5-15.5); WBC 6.8 k/uL (3.8-10.6)
[2021-09-09 20:44] LABS: HGB 8.6 gm/dL (11.4-16.0)
--- NOTE | 2021-09-09 20:56 | OP ---
OPERATIVE REPORT DATE OF THE SURGERY: 09/09/2021. SURGEON: Dr. Stephanie Cuevas. USED [employer]TER: Hal Ying and Severiano Christensen. PREOPERATIVE DIAGNOSES: 1. Non ST elevation myocardial infarction. 2. Triple-vessel coronary artery disease with a totally occluded right coronary artery. 3. Preserved left ventricular function. 4. Obesity. 5. Tobacco abuse. 6. Hypertension. 7. Hyperlipidemia. 8. Diabetes mellitus. 9. Chronic back pain. POSTOPERATIVE DIAGNOSES: 1. Non ST elevation myocardial infarction. 2. Triple-vessel coronary artery disease with a totally occluded right coronary artery. 3. Preserved left ventricular function. 4. Obesity. 5. Tobacco abuse. 6. Hypertension. 7. Hyperlipidemia. 8. Diabetes mellitus. 9. Chronic back pain. PROCEDURE: 1. Triple-vessel coronary artery bypass grafting using the left internal mammary artery to the left anterior descending artery, the left radial artery from the aorta to the first obtuse marginal artery, reverse saphenous vein graft from the aorta to the right coronary artery. 2. Exclusion of the left atrial appendage using a 35 mm AtriClip. 3. Endoscopic harvesting of the left radial artery for endoscopic harvesting of the left greater saphenous vein. 4. Intraoperative transesophageal echocardiogram and epiaortic scanning. 5. Intraoperative graft flow measurements using the MetaModix-Stim system. INDICATION FOR SURGERY: The patient is a 65-year-old lady with the above comorbidity, admitted with chest pain and ruled in for non ST elevation myocardial infarction. Workup included cardiac catheterization that showed significant proximal LAD and circumflex disease as well as a totally occluded collateralized right coronary artery. 2D echo showed preserved left ventricular function. No significant valvular abnormality. The patient is being taken today for urgent coronary artery revascularization. The SDS risk was discussed with her, she understood it and agreed to proceed. DESCRIPTION OF THE PROCEDURE: Patient in supine position in the preoperative holding area. Right internal jugular [place]Ponce catheter and a right radial arterial line were placed. Cardiac index was 2.6 and PA pressure was 29/13. Subsequently, she was brought to the operating room where general endotracheal anesthesia was induced uneventfully. A Lopez catheter was inserted. She received 2 g of cefazolin intravenously. Subsequently, the chest, abdomen, left upper extremity and both lower extremities were prepped and draped using ChloraPrep. Ioban was used to cover the skin. Transesophageal echocardiogram confirmed the preoperative finding of preserved systolic function and no significant valvular abnormalities. Midline sternotomy was performed and no bone wax was used. The left hemisternum was elevated and left internal mammary artery was harvested in a somewhat skeletonized fashion. The left pleura was intentionally opened in this process and was drained with a 19-Palestinian Everardo drain. Patient was given 5000 units of heparin and the mammary artery was clipped distally and transected, had an excellent pulsatile flow in it and was around 1.75 mm in diameter, thin-walled. In the same setting, the left radial artery was initially exposed at the wrist and clamping trial revealed preserved signal in the left index O2 saturation probe. Subsequently, it was harvested endoscopically without using a tourniquet. The forearm incisions were closed over a drain. The radial artery was prepared by incising the fascia all along its volar aspect and clipping all its branches. It was uniform, thin- walled, around 2 mm in diameter throughout. Also in the same setting, the left greater saphenous vein was harvested endoscopically after administration of 2500 units of heparin between groin and just above the ankle level. The leg incisions were closed over a drain. The vein was prepared and a good usable segment from the thigh level, which was around 4 mm in diameter and uniformed thin-walled. Ankeney retractor was used. Mediastinal fat was transected seen between 2 ties. Epiaortic scanning revealed concentric intimal thickening but no protruding atheroma in the ascending aorta. Pericardium was opened in an inverted T-fashion and a pericardial cradle was created. Findings included a normal short soft aorta and a small size heart. After systemic heparinization, after placement of respective pledgeted pursestring, aortic cannulation with a 21-Palestinian soft flow cannula and venous cannulation via retracted right atrial appendage was carried using a 3-stage 29-Palestinian cannula. Antegrade as well as retrograde cardioplegia catheter were placed. Cardiopulmonary bypass was initiated and patient temperature was allowed to drift down to 34 degrees Celsius. With the heart empty and beating, we looked at the target and appeared that the mid LAD, the first obtuse marginal artery and the right coronary artery, which was found in the groove will be the site for bypass as the posterior descending artery and the posterolateral branch were small vessels. Aorta was clamped and during aortic clamping, myocardial protection was achieved with initial dose with 750 mL of antegrade cold blood cardioplegia followed by 300 cc of retrograde cold blood cardioplegia. All subsequent doses were given retrograde as well as through the constructed vein graft to the right coronary artery system every 15 minutes. We started by excluding the left atrial appendage using a 35 mm AtriClip deployed at its base. Subsequently, the first distal anastomosis was between a good segment of vein and the 1.75 mm thin-walled right coronary artery before its bifurcation using Prolene 7-0 in continuous fashion. That vein was connected to a wide arm of the retrograde cardioplegia delivery system as mentioned above. The second distal anastomosis was between the radial artery and the first obtuse marginal artery which was around 1.5 mm in diameter thin-walled using Prolene 7-0 in continuous fashion. That first obtuse marginal artery was open to the second and third obtuse marginal artery and I elected not to place another vein graft potentially to the other marginal as it will create potentially competitive flow situation with thin-walled somewhat small but good quality left radial artery. The third distal anastomosis was between the left internal mammary artery in situ and the mid left anterior descending artery after creating a deep groove in the left pleuropericardial fat to accommodate the mammary artery medial to the lung and away from the posterior sternal table. The LAD was around 1.5 mm in diameter, thin- walled and the anastomosis was completed using a running Prolene 7-0. The mammary pedicle was affixed to the epicardium with 2 Prolene 7-0 sutures. Satisfied with the distal anastomosis, rewarming was started as we punched out 2 buttons of the ascending aorta and performed the 2 proximal anastomosis of the radial artery and the vein using running Prolene. The patient was given lidocaine and magnesium. De-airing maneuvers were followed. Subsequently, the aorta was unclamped. The patient regained spontaneous sinus rhythm. After around 15 minutes of reperfusion, we were able to wean off cardioplegia bypass without the need of any inotropic or vasopressor support. SOURAV showed excellent functioning left ventricle. At this point, I proceeded with formal graft flow measurements using the Medi-Stim system. A 3 mm probe was selected and the flow into the vein to the RCA was 48 mL/minute, pulsatility index of 1, diastolic filling of 55%, showing excellent functioning graft. The flow into the radial artery to the obtuse marginal artery was 138 mL/minute, pulsatility index of 1 and diastolic filling of 67% showing excellent functioning graft to a large territory. The third graft to be measured was the SINGH LAD and the flow was 46 mL/minute, pulsatility index of 1.5 and diastolic filling of 73% showing excellent functioning graft. With that, test dose and full dose protamine was given after stopping all pump suckers. Decannulation followed. The patient had a friable epicardium that eventually stopped bleeding. We had two pursestring at the level of the right atrial appendage to control the venous cannulation site bleeding. The antegrade, retrograde, and arterial cannulation sites were at this point, hemostatic. No pacing wires were placed in view of friable tissues throughout. Two nineteen-Palestinian Everardo drain were left substernally. Pericardial fat and mediastinal fat were loosely approximated over the aorta and the graft and the right ventricle. After ensuring adequate hemostasis and hemodynamics and after correct sponge, instrument, and needle count, the sternum was closed using 5 [id number] pineal cable after interposing fibular between the sternal edges. Thorough irrigation of cefazolin followed. The rest of the closure proceeded in layers. Skin glue was applied. Patient did not receive any blood bank product but received 380 mL of Cell Saver blood. She was transferred to the ICU with excellent hemodynamics, normal EKG on low-dose nitroglycerin. MMODL / IJN: [id number] /
[2021-09-09 21:09] LABS: RBC Morphology Normal
[2021-09-09 21:11] LABS: Platelet Count 87 k/uL (150-450)
[2021-09-09 21:12] LABS: Glucose,Whole Blood 153 mg/dL (75-99)
[2021-09-09 21:25] LABS: ABG Base Excess -2.1 mmol/L; ABG HCO3 24 mmol/L (21-25); ABG Oxygen Saturation 98.6 % (94-97); ABG PCO2 48 mmHg (35-45); ABG PH 7.31 (7.35-7.45); ABG PO2 125 mmHg (83-108); ABG TCO2 26 mmol/L (19-24); Allen Test Performed? Yes
[2021-09-09 23:10] LABS: Glucose,Whole Blood 158 mg/dL (75-99)
[2021-09-09 23:22] LABS: Basophils % (A) 0 %; Eosinophils % (A) 0 %; HCT 23.9 % (34.0-46.0); HGB 7.9 gm/dL (11.4-16.0); Lymphocytes # (A) 0.5 k/uL (1.0-4.8); Lymphocytes % (A) 8 %; MCH 30.9 pg (25.0-35.0); MCV 93.6 fL (80.0-100.0); Monocytes # (A) 0.2 k/uL (0-1.0); Monocytes % (A) 4 %; Neutrophils # (A) 5.2 k/uL (1.3-7.7); Neutrophils % (A) 87 %; RBC 2.55 m/uL (3.80-5.40); RDW 13.2 % (11.5-15.5)
[2021-09-09] MEDS: AMIODARONE 450 MG in DEXTROSE 5% IN WATER 250 ML IV SCH ×2 (23:25)
[2021-09-09 23:42] LABS: Platelet Count 86 k/uL (150-450)
[2021-09-10 00:08] LABS: Glucose,Whole Blood 155 mg/dL (75-99)
[2021-09-10] MEDS: ALBUMIN HUMAN 5% 250 ML in EMPTY BAG 1 BAG IVPB PRN ×5 (00:51→22:31)
[2021-09-10] MEDS: HEPARIN SODIUM,PORCINE/PF 5,000 UNIT/0.5 ML SYRINGE SQ SCH ×3 (00:52→15:29)
[2021-09-10 01:08] LABS: Glucose,Whole Blood 148 mg/dL (75-99)
[2021-09-10 02:09] LABS: Glucose,Whole Blood 148 mg/dL (75-99)
[2021-09-10] MEDS: HYDROcodone/APAP 5-325MG 1 EACH TAB PO PRN ×5 (02:48→22:36)
[2021-09-10 03:18] LABS: Glucose,Whole Blood 137 mg/dL (75-99)
[2021-09-10 04:05] LABS: Glucose,Whole Blood 148 mg/dL (75-99)
[2021-09-10 04:23] LABS: Basophils % (A) 0 %; Eosinophils % (A) 0 %; HCT 21.6 % (34.0-46.0); HGB 7.2 gm/dL (11.4-16.0); Lymphocytes # (A) 0.7 k/uL (1.0-4.8); Lymphocytes % (A) 10 %; MCH 30.9 pg (25.0-35.0); MCHC 33.3 g/dL (31.0-37.0); Mean Platelet Volume 8.3; Monocytes # (A) 0.3 k/uL (0-1.0); Monocytes % (A) 5 %; Neutrophils # (A) 6.2 k/uL (1.3-7.7); Neutrophils % (A) 84 %; RBC 2.32 m/uL (3.80-5.40); RDW 12.9 % (11.5-15.5); WBC 7.3 k/uL (3.8-10.6)
[2021-09-10 04:26] LABS: Platelet Count 93 k/uL (150-450)
[2021-09-10 04:34] LABS: Ionized Calcium 4.8 mg/dL (4.5-5.3)
[2021-09-10 04:45] LABS: ALT 12 U/L (4-34); AST 38 U/L (14-36); African American GFR (CKD) >90 (>60 ml/min/1.73 sqM); Albumin 3.1 g/dL (3.5-5.0); Alkaline Phosphatase 24 U/L (38-126); Anion Gap 6 mmol/L; Blood Urea Nitrogen 16 mg/dL (7-17); Calcium 7.6 mg/dL (8.4-10.2); Carbon Dioxide 23 mmol/L (22-30); Chloride 106 mmol/L (98-107); Glucose 130 mg/dL (74-99); Magnesium 2.2 mg/dL (1.6-2.3); Non-African American GFR(CKD) >90 (>60 ml/min/1.73 sqM); Potassium 4.2 mmol/L (3.5-5.1); Sodium 135 mmol/L (137-145); Total Bilirubin 0.8 mg/dL (0.2-1.3); Total Protein 4.6 g/dL (6.3-8.2)
[2021-09-10] MEDS ORDERED: HYDROcodone/APAP 5-325MG 1 EACH TAB PO PRN (06:00)
[2021-09-10 07:08] LABS: Glucose,Whole Blood 148 mg/dL (75-99)
[2021-09-10] MEDS ORDERED: HYDROmorphone 1 MG/ML 1 ML SYRINGE IVP PRN ×2 (07:24→13:26)
[2021-09-10] MEDS ORDERED: HYDROmorphone 0.5 MG/0.5 ML SYRINGE IVP PRN (07:24)
[2021-09-10] MEDS: IPRATROPIUM-ALBUTEROL 3 ML NEB INHALATION SCH ×4 (07:39→21:10)
--- NOTE | 2021-09-10 08:17 | XR ---
EXAMINATION TYPE: XR chest 1V portable DATE OF EXAM: 09/10/2021 COMPARISON: Chest x-ray 09/09/2021 HISTORY: Postop cardiac surgery TECHNIQUE: Single frontal view of the chest is obtained. FINDINGS: Endotracheal tube and NG tube have been removed. Median sternal drain, right jugular centr al venous catheter, left chest tube remain in place. Lung volumes are low and the patient is rotated. There are overlying artifacts. Cardiomediastinal silhouette is stable. Patchy basilar density persis ts. No evident pneumothorax. IMPRESSION: Interval extubation. Expiratory exam, probable basilar atelectasis.
[2021-09-10] MEDS: CLOPIDOGREL 75 MG TAB PO SCH (08:34)
--- NOTE | 2021-09-10 08:53 | P.PN ---
Subjective Progress Note Date: 09/10/21 Principal diagnosis: Triple-vessel coronary artery disease with totally occluded right coronary artery, acute non-ST elevated myocardial infarction this admission, preserved left ventricular function. Previous medical history of hypertension, hyperlipidemia, znq-jcjybvw-dyacgogcy diabetes mellitus, chronic ongoing tobacco dependence, TIA 40 years ago, chronic back pain, GERD, obesity, family history of coronary artery disease POD #1 triple vessel coronary artery bypass grafting using the left internal mammary artery to the left anterior descending artery, left radial artery from the aorta to the first obtuse marginal artery, reverse saphenous vein graft from the aorta to the right coronary artery, exclusion of the left atrial appendage using a 35 mm AtriClip, endoscopic harvesting of the left radial artery and endoscopic harvesting of the left greater saphenous vein, intraoperative transesophageal echocardiogram, epi-aortic scanning, intraoperative graft flow measurements using the [employer] system Postoperative acute blood loss anemia and thrombocytopenia, expected given hemodilution and cardiopulmonary bypass pump The patient was seen and examined this morning sitting up in bed in the intensive care unit in pain but no respiratory distress. She was successfully extubated last night at 21:55. She does complain of chronic back pain as well as expected post surgical pain. Remains in sinus rhythm and hemodynamically stable. Currently on IV amiodarone for A. fib prophylaxis, has been on and off Cleviprex for hypertension. Patient does normally have a buprenorphine patch on for pain, was taken off for surgery, not on formulary in this hospital. Cu rrently a bit confused, she can tell us her name and that she is in hospital but she does not answer appropriately about dates, neuro exam is intact otherwise. She does state she feels discombobulated. Right internal jugular Tamassee/Cordis, right radial arterial line, mediastinal/left pleural chest tubes all remain. Objective - Vital Signs Vital signs: Vital Signs Temp 97.9 F 09/09/21 19:03 Pulse 84 09/10/21 07:49 Resp 20 09/10/21 07:00 BP 110/69 09/10/21 02:00 Pulse Ox 96 09/10/21 07:00 Intake & Output 09/09/21 09/10/21 09/10/21 18:59 06:59 18:59 Intake Total 669.216 8111.515 59 Output Total 3420 2321 110 Balance -2890.477 -900.485 -51 Weight 98.4 kg Intake: IV 200 1092 59 0.9 NaCl CO/CI 40 140 0.9 NaCl IV fluids 100 600 50 Albumin Human 5% 250 ml 250 In Empty Bag 1 bag @ 250 mls/hr IVPB Q1HR PRN Rx#: [id number] Pressure bag 6 102 9 Intake, IV Titration 19.523 18.515 Amount Amiodarone 360 mg In 1.111 0 Dextrose 5% in Water 200 ml @ 1 MG/MIN 33.333 mls/ hr IV .Q6H [facility] Rx#: [id number] Clevidipine Butyrate 25 5.967 mg In Empty Bag 1 bag @ 1 MG/HR 2 mls/hr IV .Q24H [facility] Rx#:[id number] Insulin Regular 100 unit 4.065 12.087 In Sodium Chloride 0.9% 100 ml @ Per Protocol IV .Q0M [facility] Rx#:[id number] Nitroglycerin-D5w Pmx 50 0.9 mg In Dextrose/Water 1 250ml.bag @ 5 MCG/MIN 1.5 mls/hr IV .Q24H [facility] Rx#: [id number] propofoL 1,000 mg In 13.447 0.461 Empty Bag 1 bag @ Titrate IV .Q0M [facility] Rx#: [id number] Blood Product 310 310 Rc As-1 Unit 0 310 [id number] Output: Chest Tube Drainage 320 481 30 Bilateral Mediastinal 100 176 0 Chest Tube Left 220 305 30 Drainage 65 Left Calf 60 Left Wrist 5 Urine 2100 1775 80 Estimated Blood Loss 1000 Other: Voiding Method Indwelling Catheter Indwelling Catheter ABP, PAP, CO, CI - Last Documented Arterial Blood Pressure 165/59 Pulmonary Artery Pressure 30/12 Cardiac Output 5 Cardiac Index 2.5 - Exam CONSTITUTIONAL: Appears uncomfortable but cooperative, no respiratory distress RESPIRATORY: Lungs sounds diminished bilaterally. Respirations even, nonlabored. Currently on 4 L nasal cannula with oxygen saturation 98%. Able to achieve 500 mL on incentive spirometry. Strong cough. CARDIOVASCULAR: S1, S2 present. Regular rate and rhythm, sinus rhythm on telemetry. Sternum stable. Palpable peripheral pulses bilaterally. Trace generalized edema present. No calf pain or tenderness noted. Heart hugger in place with patient demonstrating appropriate use. Antiembolism stockings, SCDs present. GASTROINTESTINAL: Abdomen soft, nontender, nondistended. Hypoactive bowel sounds present 4 quadrants. Tolerating ice chips. Negative flatus GENITOURINARY: Lopez present draining clear, yellow urine. Output overnight 100-125 mL per hour INTEGUMENTARY: Skin is warm and dry with evidence of good perfusion. Anterior chest incision well approximated and covered with dry intact dressing. Left radial artery harvest site well approximated, CABRERA drain present with minimal drainage. Left lower extremity EVH site well approximated, CABRERA drain present with 60 mL drainage overnight NEUROLOGIC: Cranial nerves II through XII intact MUSKULOSKELETAL: Able to move all extremities, strength equal bilaterally PSYCHIATRIC: Alert and oriented to person place and time, appropriate affect, intact judgment and insight INVASIVE LINES AND TUBES: Mediastinal/left pleural chest tubes present and connected to wall suction, no air leaks present. Mediastinal tube with 100 mL serosanguineous drainage overnight, 300 mL since surgery. Left pleural chest tube with 245 mL serosanguineous drainage overnight, 600 mL since surgery. Right internal jugular [place]/Cordis, right radial arterial line present. Last CO/CI 5.0/2.5, PA 17/2, CVP 1. - Allied health notes Allied health notes reviewed: nursing - Labs CBC & Chem 7: 09/10/21 04:05 09/10/21 04:05 Labs: Abnormal Lab Results - Last 24 Hours (Table) 09/08/21 09/09/21 09/09/21 Range/Units 07:39 16:40 16:42 RBC 1.97 L (3.80-5.40) m/uL Hgb 6.3 L* D (11.4-16.0) gm/dL Hct 18.9 L* (34.0-46.0) % Plt Count 75 L D (150-450) k/uL Lymphocytes # 0.8 L (1.0-4.8) k/uL PT (9.0-12.0) sec INR (<1.2) APTT (22.0-30.0) sec ABG pH (7.35-7.45) ABG pCO2 (35-45) mmHg ABG pO2 (83-108) mmHg ABG Total CO2 (19-24) mmol/L ABG O2 Saturation (94-97) % Sodium (137-145) mmol/L Chloride (98-107) mmol/L Glucose (74-99) mg/dL POC Glucose (mg/dL) 162 H (75-99) mg/dL Calcium (8.4-10.2) mg/dL Magnesium (1.6-2.3) mg/dL AST (14-36) U/L Alkaline Phosphatase (38-126) U/L Total Protein (6.3-8.2) g/dL Albumin (3.5-5.0) g/dL Crossmatch See Detail 09/09/21 09/09/21 09/09/21 Range/Units 16:42 16:42 16:56 RBC (3.80-5.40) m/uL Hgb (11.4-16.0) gm/dL Hct (34.0-46.0) % Plt Count (150-450) k/uL Lymphocytes # (1.0-4.8) k/uL PT 15.9 H (9.0-12.0) sec INR 1.6 H (<1.2) APTT 43.6 H (22.0-30.0) sec ABG pH 7.31 L (7.35-7.45) ABG pCO2 47 H (35-45) mmHg ABG pO2 382 H (83-108) mmHg ABG Total CO2 25 H (19-24) mmol/L ABG O2 Saturation 99.6 H (94-97) % Sodium (137-145) mmol/L Chloride 109 H (98-107) mmol/L Glucose 133 H (74-99) mg/dL POC Glucose (mg/dL) (75-99) mg/dL Calcium 7.2 L (8.4-10.2) mg/dL Magnesium 2.5 H (1.6-2.3) mg/dL AST (14-36) U/L Alkaline Phosphatase <20 L (38-126) U/L Total Protein 3.9 L (6.3-8.2) g/dL Albumin 2.6 L (3.5-5.0) g/dL Crossmatch 09/09/21 09/09/21 09/09/21 Range/Units 17:33 18:29 19:16 RBC (3.80-5.40) m/uL Hgb (11.4-16.0) gm/dL Hct (34.0-46.0) % Plt Count (150-450) k/uL Lymphocytes # (1.0-4.8) k/uL PT (9.0-12.0) sec INR (<1.2) APTT (22.0-30.0) sec ABG pH (7.35-7.45) ABG pCO2 (35-45) mmHg ABG pO2 (83-108) mmHg ABG Total CO2 (19-24) mmol/L ABG O2 Saturation (94-97) % Sodium (137-145) mmol/L Chloride (98-107) mmol/L Glucose (74-99) mg/dL POC Glucose (mg/dL) 140 H 136 H 134 H (75-99) mg/dL Calcium (8.4-10.2) mg/dL Magnesium (1.6-2.3) mg/dL AST (14-36) U/L Alkaline Phosphatase (38-126) U/L Total Protein (6.3-8.2) g/dL Albumin (3.5-5.0) g/dL Crossmatch 09/09/21 09/09/21 09/09/21 Range/Units 20:00 20:06 21:10 RBC 2.74 L (3.80-5.40) m/uL Hgb 8.6 L D (11.4-16.0) gm/dL Hct 25.5 L (34.0-46.0) % Plt Count 87 L (150-450) k/uL Lymphocytes # 0.7 L (1.0-4.8) k/uL PT (9.0-12.0) sec INR (<1.2) APTT (22.0-30.0) sec ABG pH (7.35-7.45) ABG pCO2 (35-45) mmHg ABG pO2 (83-108) mmHg ABG Total CO2 (19-24) mmol/L ABG O2 Saturation (94-97) % Sodium (137-145) mmol/L Chloride (98-107) mmol/L Glucose (74-99) mg/dL POC Glucose (mg/dL) 142 H 153 H (75-99) mg/dL Calcium (8.4-10.2) mg/dL Magnesium (1.6-2.3) mg/dL AST (14-36) U/L Alkaline Phosphatase (38-126) U/L Total Protein (6.3-8.2) g/dL Albumin (3.5-5.0) g/dL Crossmatch 09/09/21 09/09/21 09/09/21 Range/Units 21:19 23:00 23:08 RBC 2.55 L (3.80-5.40) m/uL Hgb 7.9 L (11.4-16.0) gm/dL Hct 23.9 L (34.0-46.0) % Plt Count 86 L (150-450) k/uL Lymphocytes # 0.5 L (1.0-4.8) k/uL PT (9.0-12.0) sec INR (<1.2) APTT (22.0-30.0) sec ABG pH 7.31 L (7.35-7.45) ABG pCO2 48 H (35-45) mmHg ABG pO2 125 H (83-108) mmHg ABG Total CO2 26 H (19-24) mmol/L ABG O2 Saturation 98.6 H (94-97) % Sodium (137-145) mmol/L Chloride (98-107) mmol/L Glucose (74-99) mg/dL POC Glucose (mg/dL) 158 H (75-99) mg/dL Calcium (8.4-10.2) mg/dL Magnesium (1.6-2.3) mg/dL AST (14-36) U/L Alkaline Phosphatase (38-126) U/L Total Protein (6.3-8.2) g/dL Albumin (3.5-5.0) g/dL Crossmatch 09/10/21 09/10/21 09/10/21 Range/Units 00:07 01:05 02:08 RBC (3.80-5.40) m/uL Hgb (11.4-16.0) gm/dL Hct (34.0-46.0) % Plt Count (150-450) k/uL Lymphocytes # (1.0-4.8) k/uL PT (9.0-12.0) sec INR (<1.2) APTT (22.0-30.0) sec ABG pH (7.35-7.45) ABG pCO2 (35-45) mmHg ABG pO2 (83-108) mmHg ABG Total CO2 (19-24) mmol/L ABG O2 Saturation (94-97) % Sodium (137-145) mmol/L Chloride (98-107) mmol/L Glucose (74-99) mg/dL POC Glucose (mg/dL) 155 H 148 H 148 H (75-99) mg/dL Calcium (8.4-10.2) mg/dL Magnesium (1.6-2.3) mg/dL AST (14-36) U/L Alkaline Phosphatase (38-126) U/L Total Protein (6.3-8.2) g/dL Albumin (3.5-5.0) g/dL Crossmatch 09/10/21 09/10/21 09/10/21 Range/Units 03:16 04:04 04:05 RBC 2.32 L (3.80-5.40) m/uL Hgb 7.2 L (11.4-16.0) gm/dL Hct 21.6 L (34.0-46.0) % Plt Count 93 L (150-450) k/uL Lymphocytes # 0.7 L (1.0-4.8) k/uL PT (9.0-12.0) sec INR (<1.2) APTT (22.0-30.0) sec ABG pH (7.35-7.45) ABG pCO2 (35-45) mmHg ABG pO2 (83-108) mmHg ABG Total CO2 (19-24) mmol/L ABG O2 Saturation (94-97) % Sodium (137-145) mmol/L Chloride (98-107) mmol/L Glucose (74-99) mg/dL POC Glucose (mg/dL) 137 H 148 H (75-99) mg/dL Calcium (8.4-10.2) mg/dL Magnesium (1.6-2.3) mg/dL AST (14-36) U/L Alkaline Phosphatase (38-126) U/L Total Protein (6.3-8.2) g/dL Albumin (3.5-5.0) g/dL Crossmatch 09/10/21 09/10/21 Range/Units 04:05 07:07 RBC (3.80-5.40) m/uL Hgb (11.4-16.0) gm/dL Hct (34.0-46.0) % Plt Count (150-450) k/uL Lymphocytes # (1.0-4.8) k/uL PT (9.0-12.0) sec INR (<1.2) APTT (22.0-30.0) sec ABG pH (7.35-7.45) ABG pCO2 (35-45) mmHg ABG pO2 (83-108) mmHg ABG Total CO2 (19-24) mmol/L ABG O2 Saturation (94-97) % Sodium 135 L (137-145) mmol/L Chloride (98-107) mmol/L Glucose 130 H (74-99) mg/dL POC Glucose (mg/dL) 148 H (75-99) mg/dL Calcium 7.6 L (8.4-10.2) mg/dL Magnesium (1.6-2.3) mg/dL AST 38 H (14-36) U/L Alkaline Phosphatase 24 L (38-126) U/L Total Protein 4.6 L (6.3-8.2) g/dL Albumin 3.1 L (3.5-5.0) g/dL Crossmatch Microbiology - Last 24 Hours (Table) 09/07/21 16:58 Nasal Screen MRSA/MSSA - Final Nasal Swab - Imaging and Cardiology Chest x-ray: report reviewed, image reviewed Assessment and Plan Assessment: 1. Triple vessel coronary artery disease with totally occluded right coronary artery, acute non-ST elevated myocardial infarction this admission, preserved left ventricular function, status post three-vessel CABG 2. History of hypertension 3. Hyperlipidemia 4. Zyu-awsmzxo-vshowwqoj diabetes mellitus, preoperative hemoglobin A1c 6.6% 5. Chronic ongoing tobacco dependence, preoperative FEV1 87% of predicted 6. TIA 40 years ago 7. Chronic back pain, on buprenorphine patch at home 8. GERD 9. Obesity 10. Family history of coronary artery disease 11. Postoperative acute blood loss anemia and thrombocytopenia, expected Plan: 1. Continue to maximize medical therapy with ASA, Plavix, statin, beta chris. Will increase beta chris therapy as tolerated 2. Continue amiodarone for A. fib prophylaxis. Will transition to oral 3. Discontinue nitro. Will start oral calcium channel chris for radial artery spasm prophylaxis 4. Wean O2 as tolerated. Encourage incentive spirometry use 10 times every hour while awake. Bronchodilators per pulmonology 5. Increase activity, ambulate as tolerated. PT/OT/cardiac rehab consulted 6. Smoking cessation counseling offered, patient strongly encouraged to quit smoking 7. Will monitor daily labs and x-rays. Electrolyte replacement protocol. 8. GI/DVT prophylaxis 9. Insulin management per primary care service. Patient needs tight blood sugar control to promote sternal union, prevent infection 10. Pain control with current medication regimen. IV Dilaudid added as adjunct for pain control until family members can bring in patient's buprenorphine patch 11. Will discontinue CABRERA drains. Discontinue [place], connect Cordis to continuous CVP monitoring 12. Continue chest tubes for another 24 hours 13. Continue Lopez catheter for another 24 hours for strict accurate intake and output. Daily weights 14. More recommendations to follow Time with Patient: Greater than 30
[2021-09-10 08:54] LABS: Glucose,Whole Blood 148 mg/dL (75-99)
[2021-09-10] MEDS: ASPIRIN 325 MG TAB PO SCH (08:54)
[2021-09-10] MEDS: DULoxetine HCL 60 MG CAPSULE.DR PO SCH (08:54)
[2021-09-10] MEDS: ATORVASTATIN 40 MG TAB PO SCH (08:54)
[2021-09-10] MEDS: METOPROLOL TARTRATE 12.5 MG TAB PO SCH ×2 (08:54→21:40)
[2021-09-10] MEDS ORDERED: MAGNESIUM HYDROXIDE 2,400 MG/10 ML CUP PO PRN (09:00)
[2021-09-10] MEDS ORDERED: bisacodyL 10 MG SUPP RECTAL PRN (09:00)
[2021-09-10] MEDS ORDERED: PANTOPRAZOLE 40 MG/10 ML VIAL IVP SCH (09:00)
[2021-09-10] MEDS: ASCORBIC ACID 500 MG TAB PO SCH ×2 (09:08→17:18)
[2021-09-10] MEDS: FERROUS SULFATE 325 MG TAB PO SCH ×2 (09:09→17:18)
--- NOTE | 2021-09-10 09:21 | P.PN ---
Subjective Progress Note Date: 09/10/21 Principal diagnosis: Coronary artery disease. Pulmonary consult dated 09/08/2021. 65-year-old female that I'm seeing for preoperative pulmonary evaluation. I had the opportunity to look at her pulmonary function test previously, and they were excellent. The patient is scheduled to have a bypass grafting tomorrow with Dr. Adames. The patient was admitted to the hospital on September 06, complaining of chest pain. Apparently, the pain radiated to her back and right arm, and she had some numbness and tingling in the right arm. She was also feeling very weak and fatigued. She apparently has a history of hypertension and hyperlipidemia. She did smoke in the past. She has no prior history of chronic lung disease. The patient denies any shortness of breath, chest tightness, cough, wheezing, or phlegm production. Coronary catheterization revealed three-vessel coronary disease, including a calcified left coronary system with a focal 80% stenosis in the LAD, circumflex, and a chronically occluded right coronary artery. Based on lung function, and specifically the FEV1 and MVV, the patient was at no increased operative risk. Laboratory data includes a normal CBC, a normal PT INR and PTT, and a sodium of 137, potassium 4.6, chlorides 104, CO2 33, BUN 23, and creatinine 1.06. Albumin was 3.4. Urine was negative. Chest x-ray was unremarkable. Progress note dated 09/10/2021. The patient is postop day #1, status post three-vessel bypass grafting. She was extubated 5-1/2 hours after leaving the operating room. Currently, she is resting comfortably in room 251, in the intensive care unit. Her only complaint is that of a dry mouth, and pain in the chest area, where surgery was performed. Currently, she is on 5 L nasal cannula. She's getting saline at 50 mL an hour. In addition, she is getting Cleveprex at 1 mg an hour, amiodarone at 0.5 mg/m, and insulin at 1 unit per hour. White count 7.3, heme him 7.2, hematocrit 21.6, and platelet count 93,000. Sodium 135, potassium 4.2, chlorides 106, CO2 23, BUN 16, creatinine 0.59. Chest x-ray shows postoperative changes, interval extubation, and basilar atelectasis. Objective - Vital Signs Vital signs: Vital Signs Temp 97.9 F 09/09/21 19:03 Pulse 84 09/10/21 07:49 Resp 20 09/10/21 07:00 BP 110/69 09/10/21 02:00 Pulse Ox 96 09/10/21 07:00 Intake & Output 09/09/21 09/10/21 09/10/21 18:59 06:59 18:59 Intake Total 661.749 1375.515 181.983 Output Total 3420 2321 200 Balance -2890.477 -900.485 -18.017 Weight 98.4 kg Intake: IV 200 1092 177 0.9 NaCl CO/CI 40 140 0.9 NaCl IV fluids 100 600 150 Albumin Human 5% 250 ml 250 In Empty Bag 1 bag @ 250 mls/hr IVPB Q1HR PRN Rx#: [id number] Pressure bag 6 102 27 Intake, IV Titration 19.523 18.515 4.983 Amount Amiodarone 360 mg In 1.111 0 Dextrose 5% in Water 200 ml @ 1 MG/MIN 33.333 mls/ hr IV .Q6H [facility] Rx#: [id number] Clevidipine Butyrate 25 5.967 mg In Empty Bag 1 bag @ 1 MG/HR 2 mls/hr IV .Q24H [facility] Rx#:[id number] Insulin Regular 100 unit 4.065 12.087 4.983 In Sodium Chloride 0.9% 100 ml @ Per Protocol IV .Q0M [facility] Rx#:[id number] Nitroglycerin-D5w Pmx 50 0.9 mg In Dextrose/Water 1 250ml.bag @ 5 MCG/MIN 1.5 mls/hr IV .Q24H [facility] Rx#: [id number] propofoL 1,000 mg In 13.447 0.461 Empty Bag 1 bag @ Titrate IV .Q0M [facility] Rx#: [id number] Blood Product 310 310 Rc As-1 Unit 0 310 [id number] Output: Chest Tube Drainage 320 481 30 Bilateral Mediastinal 100 176 0 Chest Tube Left 220 305 30 Drainage 65 Left Calf 60 Left Wrist 5 Urine 2100 1775 170 Estimated Blood Loss 1000 Other: Voiding Method Indwelling Catheter Indwelling Catheter ABP, PAP, CO, CI - Last Documented Arterial Blood Pressure 165/59 Pulmonary Artery Pressure 30/12 Cardiac Output 5 Cardiac Index 2.5 - Exam No acute distress, oriented 3. Currently on nasal O2 at 5 L. HEENT examination is grossly unremarkable. Neck supple. Full range of motion. No adenopathy thyromegaly or neck vein distention. Cardiovascular examination reveals regular rhythm rate. S1-S2 normal. No S3 or S4. No discernible murmur noted. Heart rate 84 bpm. Lungs reveal mostly clear breath sounds. Scattered rhonchi are noted. No wheezes or crackles. 5 L saturation is 96%. Breath sounds are equal bilaterally. Abdomen soft bowel sounds are heard. No masses or tenderness. Extremities are intact. No cyanosis clubbing or edema. Skin is without rash or lesion. Neurologic examination is brief but nonfocal. - Labs CBC & Chem 7: 09/10/21 04:05 09/10/21 04:05 Labs: Abnormal Lab Results - Last 24 Hours (Table) 09/08/21 09/09/21 09/09/21 Range/Units 07:39 16:40 16:42 RBC 1.97 L (3.80-5.40) m/uL Hgb 6.3 L* D (11.4-16.0) gm/dL Hct 18.9 L* (34.0-46.0) % Plt Count 75 L D (150-450) k/uL Lymphocytes # 0.8 L (1.0-4.8) k/uL PT (9.0-12.0) sec INR (<1.2) APTT (22.0-30.0) sec ABG pH (7.35-7.45) ABG pCO2 (35-45) mmHg ABG pO2 (83-108) mmHg ABG Total CO2 (19-24) mmol/L ABG O2 Saturation (94-97) % Sodium (137-145) mmol/L Chloride (98-107) mmol/L Glucose (74-99) mg/dL POC Glucose (mg/dL) 162 H (75-99) mg/dL Calcium (8.4-10.2) mg/dL Magnesium (1.6-2.3) mg/dL AST (14-36) U/L Alkaline Phosphatase (38-126) U/L Total Protein (6.3-8.2) g/dL Albumin (3.5-5.0) g/dL Crossmatch See Detail 09/09/21 09/09/21 09/09/21 Range/Units 16:42 16:42 16:56 RBC (3.80-5.40) m/uL Hgb (11.4-16.0) gm/dL Hct (34.0-46.0) % Plt Count (150-450) k/uL Lymphocytes # (1.0-4.8) k/uL PT 15.9 H (9.0-12.0) sec INR 1.6 H (<1.2) APTT 43.6 H (22.0-30.0) sec ABG pH 7.31 L (7.35-7.45) ABG pCO2 47 H (35-45) mmHg ABG pO2 382 H (83-108) mmHg ABG Total CO2 25 H (19-24) mmol/L ABG O2 Saturation 99.6 H (94-97) % Sodium (137-145) mmol/L Chloride 109 H (98-107) mmol/L Glucose 133 H (74-99) mg/dL POC Glucose (mg/dL) (75-99) mg/dL Calcium 7.2 L (8.4-10.2) mg/dL Magnesium 2.5 H (1.6-2.3) mg/dL AST (14-36) U/L Alkaline Phosphatase <20 L (38-126) U/L Total Protein 3.9 L (6.3-8.2) g/dL Albumin 2.6 L (3.5-5.0) g/dL Crossmatch 09/09/21 09/09/21 09/09/21 Range/Units 17:33 18:29 19:16 RBC (3.80-5.40) m/uL Hgb (11.4-16.0) gm/dL Hct (34.0-46.0) % Plt Count (150-450) k/uL Lymphocytes # (1.0-4.8) k/uL PT (9.0-12.0) sec INR (<1.2) APTT (22.0-30.0) sec ABG pH (7.35-7.45) ABG pCO2 (35-45) mmHg ABG pO2 (83-108) mmHg ABG Total CO2 (19-24) mmol/L ABG O2 Saturation (94-97) % Sodium (137-145) mmol/L Chloride (98-107) mmol/L Glucose (74-99) mg/dL POC Glucose (mg/dL) 140 H 136 H 134 H (75-99) mg/dL Calcium (8.4-10.2) mg/dL Magnesium (1.6-2.3) mg/dL AST (14-36) U/L Alkaline Phosphatase (38-126) U/L Total Protein (6.3-8.2) g/dL Albumin (3.5-5.0) g/dL Crossmatch 09/09/21 09/09/21 09/09/21 Range/Units 20:00 20:06 21:10 RBC 2.74 L (3.80-5.40) m/uL Hgb 8.6 L D (11.4-16.0) gm/dL Hct 25.5 L (34.0-46.0) % Plt Count 87 L (150-450) k/uL Lymphocytes # 0.7 L (1.0-4.8) k/uL PT (9.0-12.0) sec INR (<1.2) APTT (22.0-30.0) sec ABG pH (7.35-7.45) ABG pCO2 (35-45) mmHg ABG pO2 (83-108) mmHg ABG Total CO2 (19-24) mmol/L ABG O2 Saturation (94-97) % Sodium (137-145) mmol/L Chloride (98-107) mmol/L Glucose (74-99) mg/dL POC Glucose (mg/dL) 142 H 153 H (75-99) mg/dL Calcium (8.4-10.2) mg/dL Magnesium (1.6-2.3) mg/dL AST (14-36) U/L Alkaline Phosphatase (38-126) U/L Total Protein (6.3-8.2) g/dL Albumin (3.5-5.0) g/dL Crossmatch 09/09/21 09/09/21 09/09/21 Range/Units 21:19 23:00 23:08 RBC 2.55 L (3.80-5.40) m/uL Hgb 7.9 L (11.4-16.0) gm/dL Hct 23.9 L (34.0-46.0) % Plt Count 86 L (150-450) k/uL Lymphocytes # 0.5 L (1.0-4.8) k/uL PT (9.0-12.0) sec INR (<1.2) APTT (22.0-30.0) sec ABG pH 7.31 L (7.35-7.45) ABG pCO2 48 H (35-45) mmHg ABG pO2 125 H (83-108) mmHg ABG Total CO2 26 H (19-24) mmol/L ABG O2 Saturation 98.6 H (94-97) % Sodium (137-145) mmol/L Chloride (98-107) mmol/L Glucose (74-99) mg/dL POC Glucose (mg/dL) 158 H (75-99) mg/dL Calcium (8.4-10.2) mg/dL Magnesium (1.6-2.3) mg/dL AST (14-36) U/L Alkaline Phosphatase (38-126) U/L Total Protein (6.3-8.2) g/dL Albumin (3.5-5.0) g/dL Crossmatch 09/10/21 09/10/21 09/10/21 Range/Units 00:07 01:05 02:08 RBC (3.80-5.40) m/uL Hgb (11.4-16.0) gm/dL Hct (34.0-46.0) % Plt Count (150-450) k/uL Lymphocytes # (1.0-4.8) k/uL PT (9.0-12.0) sec INR (<1.2) APTT (22.0-30.0) sec ABG pH (7.35-7.45) ABG pCO2 (35-45) mmHg ABG pO2 (83-108) mmHg ABG Total CO2 (19-24) mmol/L ABG O2 Saturation (94-97) % Sodium (137-145) mmol/L Chloride (98-107) mmol/L Glucose (74-99) mg/dL POC Glucose (mg/dL) 155 H 148 H 148 H (75-99) mg/dL Calcium (8.4-10.2) mg/dL Magnesium (1.6-2.3) mg/dL AST (14-36) U/L Alkaline Phosphatase (38-126) U/L Total Protein (6.3-8.2) g/dL Albumin (3.5-5.0) g/dL Crossmatch 09/10/21 09/10/21 09/10/21 Range/Units 03:16 04:04 04:05 RBC 2.32 L (3.80-5.40) m/uL Hgb 7.2 L (11.4-16.0) gm/dL Hct 21.6 L (34.0-46.0) % Plt Count 93 L (150-450) k/uL Lymphocytes # 0.7 L (1.0-4.8) k/uL PT (9.0-12.0) sec INR (<1.2) APTT (22.0-30.0) sec ABG pH (7.35-7.45) ABG pCO2 (35-45) mmHg ABG pO2 (83-108) mmHg ABG Total CO2 (19-24) mmol/L ABG O2 Saturation (94-97) % Sodium (137-145) mmol/L Chloride (98-107) mmol/L Glucose (74-99) mg/dL POC Glucose (mg/dL) 137 H 148 H (75-99) mg/dL Calcium (8.4-10.2) mg/dL Magnesium (1.6-2.3) mg/dL AST (14-36) U/L Alkaline Phosphatase (38-126) U/L Total Protein (6.3-8.2) g/dL Albumin (3.5-5.0) g/dL Crossmatch 09/10/21 09/10/21 09/10/21 Range/Units 04:05 07:07 08:53 RBC (3.80-5.40) m/uL Hgb (11.4-16.0) gm/dL Hct (34.0-46.0) % Plt Count (150-450) k/uL Lymphocytes # (1.0-4.8) k/uL PT (9.0-12.0) sec INR (<1.2) APTT (22.0-30.0) sec ABG pH (7.35-7.45) ABG pCO2 (35-45) mmHg ABG pO2 (83-108) mmHg ABG Total CO2 (19-24) mmol/L ABG O2 Saturation (94-97) % Sodium 135 L (137-145) mmol/L Chloride (98-107) mmol/L Glucose 130 H (74-99) mg/dL POC Glucose (mg/dL) 148 H 148 H (75-99) mg/dL Calcium 7.6 L (8.4-10.2) mg/dL Magnesium (1.6-2.3) mg/dL AST 38 H (14-36) U/L Alkaline Phosphatase 24 L (38-126) U/L Total Protein 4.6 L (6.3-8.2) g/dL Albumin 3.1 L (3.5-5.0) g/dL Crossmatch Microbiology - Last 24 Hours (Table) 09/07/21 16:58 Nasal Screen MRSA/MSSA - Final Nasal Swab Assessment and Plan Assessment: Symptomatic coronary artery disease. Postop day #1, status post three-vessel bypass grafting, exclusion of left atrial appendage, endoscopic harvesting of left radial artery, intraoperative transesophageal echocardiogram, and intraoperative graft flow measurements. History of tobacco use, without evidence of underlying COPD, and pulmonary function, which would suggest no increased operative risk. History of hyperlipidemia. History of hypertension. History of diabetes mellitus. Plan: Plan dated 09/18/2021. The patient is apparently scheduled to have open heart surgery, tomorrow with Dr. Adames. I did explain our role as long in critical care physicians to the patient. I also mentioned to her, that based on lung function, she is at no increased operative risk, and that she should do well with a general anesthetic. I also mentioned that we would attempt to get the patient extubated as soon as possible, and we will see the patient on a daily basis, to ensure that she doesn't develop a pulmonary complication such as pneumonia, pleural effusion, atelectasis, or lobar collapse. Plan dated 09/10/2021. The patient is postop day #1, status post three-vessel bypass grafting. The patient was extubated 5-1/2 hours after leaving the operating room. Currently, the patient's on 5 L nasal cannula. In addition, the patient's getting saline at 50 mL an hour, Cleveprex at 1 mg an hour, amiodarone at 0.5 mg/m, insulin at 1 unit per hour. Labs, x-rays, and medications are all reviewed. The patient's only complaint is that of dry mouth, and pain at the surgical site. We've asked her to continue to work on the incentive spirometer, every hour while awake. In addition, we recommend deep breathing, coughing, clearing of secretions. We will continue to follow make recommendations where appropriate. Time with Patient: Greater than 30
--- NOTE | 2021-09-10 09:26 | P.PN ---
Subjective Progress Note Date: 09/10/21 Patient is a 65-year-old female postop day #1 after a triple-vessel coronary artery bypass graft. She had a SINGH to the LAD, radial artery graft to the OM, and venous graft to the RCA. Patient is seen today in ICU doing well sitting up in bed. Patient is extubated. Patient is maintaining her own blood pressure. Patient is not requiring pressors at this time. Patient's maintaining sinus rhythm with a controlled heart rate. Patient's echocardiogram preoperatively showed an EF of 55-60%. She is on Lopressor, Plavix, Lipitor, aspirin. She continued on IV amiodarone prophylactically to prevent atrial fibrillation, per surgeon patient will be transitioned to oral amiodarone today. She has mild lower extremity edema. Her chest x-ray today shows probable basilar atelectasis. Hemoglobin is 7.2. Objective - Vital Signs Vital signs: Vital Signs Temp 97.9 F 09/09/21 19:03 Pulse 84 09/10/21 07:49 Resp 20 09/10/21 07:00 BP 110/69 09/10/21 02:00 Pulse Ox 96 09/10/21 07:00 Intake & Output 09/09/21 09/10/21 09/10/21 18:59 06:59 18:59 Intake Total 564.710 4318.515 181.983 Output Total 3420 2321 200 Balance -2890.477 -900.485 -18.017 Weight 98.4 kg Intake: IV 200 1092 177 0.9 NaCl CO/CI 40 140 0.9 NaCl IV fluids 100 600 150 Albumin Human 5% 250 ml 250 In Empty Bag 1 bag @ 250 mls/hr IVPB Q1HR [facility] Rx#: [id number] Pressure bag 6 102 27 Intake, IV Titration 19.523 18.515 4.983 Amount Amiodarone 360 mg In 1.111 0 Dextrose 5% in Water 200 ml @ 1 MG/MIN 33.333 mls/ hr IV .Q6H [facility] Rx#: [id number] Clevidipine Butyrate 25 5.967 mg In Empty Bag 1 bag @ 1 MG/HR 2 mls/hr IV .Q24H [facility] Rx#:[id number] Insulin Regular 100 unit 4.065 12.087 4.983 In Sodium Chloride 0.9% 100 ml @ Per Protocol IV .Q0M [facility] Rx#:[id number] Nitroglycerin-D5w Pmx 50 0.9 mg In Dextrose/Water 1 250ml.bag @ 5 MCG/MIN 1.5 mls/hr IV .Q24H [facility] Rx#: [id number] propofoL 1,000 mg In 13.447 0.461 Empty Bag 1 bag @ Titrate IV .Q0M [facility] Rx#: [id number] Blood Product 310 310 Rc As-1 Unit 0 310 [id number] Output: Chest Tube Drainage 320 481 30 Bilateral Mediastinal 100 176 0 Chest Tube Left 220 305 30 Drainage 65 Left Calf 60 Left Wrist 5 Urine 2100 1775 170 Estimated Blood Loss 1000 Other: Voiding Method Indwelling Catheter Indwelling Catheter ABP, PAP, CO, CI - Last Documented Arterial Blood Pressure 165/59 Pulmonary Artery Pressure 30/12 Cardiac Output 5 Cardiac Index 2.5 - Exam PHYSICAL EXAM: VITAL SIGNS: Reviewed. GENERAL: Well-developed in no acute distress. HEENT: Head is normocephalic. Pupils are equal, round. Sclerae anicteric. Mucous membranes of the mouth are moist. NECK: Supple. No JVD or thyromegaly RESPIRATORY: Respirations even and unlabored. Lungs diminished to auscultation bilaterally. CARDIO: Regular rate and rhythm. S1 and S2 heard. No murmur or gallops. Left chest tube and median sternal drain in place EXTREMITIES: Normal range of motion. No clubbing or cyanosis. Peripheral pulses intact. mild bilateral lower extremity edema NEURO: Orientated to person, time, mood is appropriate - Labs CBC & Chem 7: 09/10/21 04:05 09/10/21 04:05 Labs: Abnormal Lab Results - Last 24 Hours (Table) 09/08/21 09/09/21 09/09/21 Range/Units 07:39 16:40 16:42 RBC 1.97 L (3.80-5.40) m/uL Hgb 6.3 L* D (11.4-16.0) gm/dL Hct 18.9 L* (34.0-46.0) % Plt Count 75 L D (150-450) k/uL Lymphocytes # 0.8 L (1.0-4.8) k/uL PT (9.0-12.0) sec INR (<1.2) APTT (22.0-30.0) sec ABG pH (7.35-7.45) ABG pCO2 (35-45) mmHg ABG pO2 (83-108) mmHg ABG Total CO2 (19-24) mmol/L ABG O2 Saturation (94-97) % Sodium (137-145) mmol/L Chloride (98-107) mmol/L Glucose (74-99) mg/dL POC Glucose (mg/dL) 162 H (75-99) mg/dL Calcium (8.4-10.2) mg/dL Magnesium (1.6-2.3) mg/dL AST (14-36) U/L Alkaline Phosphatase (38-126) U/L Total Protein (6.3-8.2) g/dL Albumin (3.5-5.0) g/dL Crossmatch See Detail 09/09/21 09/09/21 09/09/21 Range/Units 16:42 16:42 16:56 RBC (3.80-5.40) m/uL Hgb (11.4-16.0) gm/dL Hct (34.0-46.0) % Plt Count (150-450) k/uL Lymphocytes # (1.0-4.8) k/uL PT 15.9 H (9.0-12.0) sec INR 1.6 H (<1.2) APTT 43.6 H (22.0-30.0) sec ABG pH 7.31 L (7.35-7.45) ABG pCO2 47 H (35-45) mmHg ABG pO2 382 H (83-108) mmHg ABG Total CO2 25 H (19-24) mmol/L ABG O2 Saturation 99.6 H (94-97) % Sodium (137-145) mmol/L Chloride 109 H (98-107) mmol/L Glucose 133 H (74-99) mg/dL POC Glucose (mg/dL) (75-99) mg/dL Calcium 7.2 L (8.4-10.2) mg/dL Magnesium 2.5 H (1.6-2.3) mg/dL AST (14-36) U/L Alkaline Phosphatase <20 L (38-126) U/L Total Protein 3.9 L (6.3-8.2) g/dL Albumin 2.6 L (3.5-5.0) g/dL Crossmatch 09/09/21 09/09/21 09/09/21 Range/Units 17:33 18:29 19:16 RBC (3.80-5.40) m/uL Hgb (11.4-16.0) gm/dL Hct (34.0-46.0) % Plt Count (150-450) k/uL Lymphocytes # (1.0-4.8) k/uL PT (9.0-12.0) sec INR (<1.2) APTT (22.0-30.0) sec ABG pH (7.35-7.45) ABG pCO2 (35-45) mmHg ABG pO2 (83-108) mmHg ABG Total CO2 (19-24) mmol/L ABG O2 Saturation (94-97) % Sodium (137-145) mmol/L Chloride (98-107) mmol/L Glucose (74-99) mg/dL POC Glucose (mg/dL) 140 H 136 H 134 H (75-99) mg/dL Calcium (8.4-10.2) mg/dL Magnesium (1.6-2.3) mg/dL AST (14-36) U/L Alkaline Phosphatase (38-126) U/L Total Protein (6.3-8.2) g/dL Albumin (3.5-5.0) g/dL Crossmatch 09/09/21 09/09/21 09/09/21 Range/Units 20:00 20:06 21:10 RBC 2.74 L (3.80-5.40) m/uL Hgb 8.6 L D (11.4-16.0) gm/dL Hct 25.5 L (34.0-46.0) % Plt Count 87 L (150-450) k/uL Lymphocytes # 0.7 L (1.0-4.8) k/uL PT (9.0-12.0) sec INR (<1.2) APTT (22.0-30.0) sec ABG pH (7.35-7.45) ABG pCO2 (35-45) mmHg ABG pO2 (83-108) mmHg ABG Total CO2 (19-24) mmol/L ABG O2 Saturation (94-97) % Sodium (137-145) mmol/L Chloride (98-107) mmol/L Glucose (74-99) mg/dL POC Glucose (mg/dL) 142 H 153 H (75-99) mg/dL Calcium (8.4-10.2) mg/dL Magnesium (1.6-2.3) mg/dL AST (14-36) U/L Alkaline Phosphatase (38-126) U/L Total Protein (6.3-8.2) g/dL Albumin (3.5-5.0) g/dL Crossmatch 09/09/21 09/09/21 09/09/21 Range/Units 21:19 23:00 23:08 RBC 2.55 L (3.80-5.40) m/uL Hgb 7.9 L (11.4-16.0) gm/dL Hct 23.9 L (34.0-46.0) % Plt Count 86 L (150-450) k/uL Lymphocytes # 0.5 L (1.0-4.8) k/uL PT (9.0-12.0) sec INR (<1.2) APTT (22.0-30.0) sec ABG pH 7.31 L (7.35-7.45) ABG pCO2 48 H (35-45) mmHg ABG pO2 125 H (83-108) mmHg ABG Total CO2 26 H (19-24) mmol/L ABG O2 Saturation 98.6 H (94-97) % Sodium (137-145) mmol/L Chloride (98-107) mmol/L Glucose (74-99) mg/dL POC Glucose (mg/dL) 158 H (75-99) mg/dL Calcium (8.4-10.2) mg/dL Magnesium (1.6-2.3) mg/dL AST (14-36) U/L Alkaline Phosphatase (38-126) U/L Total Protein (6.3-8.2) g/dL Albumin (3.5-5.0) g/dL Crossmatch 09/10/21 09/10/21 09/10/21 Range/Units 00:07 01:05 02:08 RBC (3.80-5.40) m/uL Hgb (11.4-16.0) gm/dL Hct (34.0-46.0) % Plt Count (150-450) k/uL Lymphocytes # (1.0-4.8) k/uL PT (9.0-12.0) sec INR (<1.2) APTT (22.0-30.0) sec ABG pH (7.35-7.45) ABG pCO2 (35-45) mmHg ABG pO2 (83-108) mmHg ABG Total CO2 (19-24) mmol/L ABG O2 Saturation (94-97) % Sodium (137-145) mmol/L Chloride (98-107) mmol/L Glucose (74-99) mg/dL POC Glucose (mg/dL) 155 H 148 H 148 H (75-99) mg/dL Calcium (8.4-10.2) mg/dL Magnesium (1.6-2.3) mg/dL AST (14-36) U/L Alkaline Phosphatase (38-126) U/L Total Protein (6.3-8.2) g/dL Albumin (3.5-5.0) g/dL Crossmatch 09/10/21 09/10/21 09/10/21 Range/Units 03:16 04:04 04:05 RBC 2.32 L (3.80-5.40) m/uL Hgb 7.2 L (11.4-16.0) gm/dL Hct 21.6 L (34.0-46.0) % Plt Count 93 L (150-450) k/uL Lymphocytes # 0.7 L (1.0-4.8) k/uL PT (9.0-12.0) sec INR (<1.2) APTT (22.0-30.0) sec ABG pH (7.35-7.45) ABG pCO2 (35-45) mmHg ABG pO2 (83-108) mmHg ABG Total CO2 (19-24) mmol/L ABG O2 Saturation (94-97) % Sodium (137-145) mmol/L Chloride (98-107) mmol/L Glucose (74-99) mg/dL POC Glucose (mg/dL) 137 H 148 H (75-99) mg/dL Calcium (8.4-10.2) mg/dL Magnesium (1.6-2.3) mg/dL AST (14-36) U/L Alkaline Phosphatase (38-126) U/L Total Protein (6.3-8.2) g/dL Albumin (3.5-5.0) g/dL Crossmatch 09/10/21 09/10/21 09/10/21 Range/Units 04:05 07:07 08:53 RBC (3.80-5.40) m/uL Hgb (11.4-16.0) gm/dL Hct (34.0-46.0) % Plt Count (150-450) k/uL Lymphocytes # (1.0-4.8) k/uL PT (9.0-12.0) sec INR (<1.2) APTT (22.0-30.0) sec ABG pH (7.35-7.45) ABG pCO2 (35-45) mmHg ABG pO2 (83-108) mmHg ABG Total CO2 (19-24) mmol/L ABG O2 Saturation (94-97) % Sodium 135 L (137-145) mmol/L Chloride (98-107) mmol/L Glucose 130 H (74-99) mg/dL POC Glucose (mg/dL) 148 H 148 H (75-99) mg/dL Calcium 7.6 L (8.4-10.2) mg/dL Magnesium (1.6-2.3) mg/dL AST 38 H (14-36) U/L Alkaline Phosphatase 24 L (38-126) U/L Total Protein 4.6 L (6.3-8.2) g/dL Albumin 3.1 L (3.5-5.0) g/dL Crossmatch Microbiology - Last 24 Hours (Table) 09/07/21 16:58 Nasal Screen MRSA/MSSA - Final Nasal Swab Assessment and Plan Assessment: Acute non-ST elevated myocardial infarction status post Triple-vessel CABG History of hypertension Hyperlipidemia Cva-knddtmv-gnzqqyqyz diabetes Chronic ongoing tobacco dependency History of TIA 40 years ago Plan: Continue with Plavix, aspirin, statin, beta chris Wean oxygen as tolerated Continue all other current cardiac medications Continue with telemetry monitoring Encouraged to continue to ambulate Smoking sensation counseling offered, patient advised to quit smoking Further recommendations based on clinical course The above impression and plan of care have been discussed and directed by the signing physician. Alessandra Patel, nurse practitioner, acting as scribe for signing physician.
[2021-09-10] MEDS ORDERED: ACETAMINOPHEN TAB 500 MG TAB PO PRN (10:28)
[2021-09-10 10:52] VITALS: BMI 37.2
[2021-09-10 11:08] LABS: Glucose,Whole Blood 131 mg/dL (75-99)
[2021-09-10] MEDS: AMIODARONE 200 MG TAB PO SCH ×2 (11:10→21:40)
[2021-09-10] MEDS: SODIUM CHLORIDE 0.9% 1,000 ML IV SCH (11:14)
[2021-09-10 12:11] LABS: Glucose,Whole Blood 146 mg/dL (75-99)
[2021-09-10] MEDS: NOREPINEPHRINE 4 MG in SODIUM CHLORIDE 0.9% 250 ML IV SCH (13:35)
--- NOTE | 2021-09-10 13:53 | P.PN ---
Subjective Progress Note Date: 09/10/21 Principal diagnosis: s/p cabg Patient continues to have chest pain and difficulty with breathing secondary to the incision. No cough. No fevers or chills. Objective - Vital Signs Vital signs: Vital Signs Temp 98.4 F 09/10/21 12:00 Pulse 77 09/10/21 13:30 Resp 21 09/10/21 13:30 BP 81/56 09/10/21 13:15 Pulse Ox 99 09/10/21 13:30 Intake & Output 09/09/21 09/10/21 09/10/21 18:59 06:59 18:59 Intake Total 944.229 3340.515 1433.987 Output Total 3420 2321 485 Balance -2890.477 -900.485 948.987 Weight 98.4 kg 98.4 kg Intake: IV 200 1092 1124 0.9 NaCl CO/CI 40 140 40 0.9 NaCl IV fluids 100 600 280 Albumin Human 5% 250 ml 250 750 In Empty Bag 1 bag @ 250 mls/hr IVPB Q1HR PRN Rx#: [id number] Pressure bag 6 102 54 Intake, IV Titration 19.523 18.515 209.987 Amount Amiodarone 360 mg In 1.111 0 Dextrose 5% in Water 200 ml @ 1 MG/MIN 33.333 mls/ hr IV .Q6H ONE Rx#: [id number] Amiodarone 450 mg In 200.282 Dextrose 5% in Water 250 ml @ 0.5 MG/MIN 16.667 mls/hr IV .Q15H [facility] Rx#: [id number] Clevidipine Butyrate 25 5.967 mg In Empty Bag 1 bag @ 1 MG/HR 2 mls/hr IV .Q24H [facility] Rx#:[id number] Insulin Regular 100 unit 4.065 12.087 9.705 In Sodium Chloride 0.9% 100 ml @ Per Protocol IV .Q0M [facility] Rx#:[id number] Nitroglycerin-D5w Pmx 50 0.9 mg In Dextrose/Water 1 250ml.bag @ 5 MCG/MIN 1.5 mls/hr IV .Q24H [facility] Rx#: [id number] propofoL 1,000 mg In 13.447 0.461 Empty Bag 1 bag @ Titrate IV .Q0M [facility]IO Rx#: [id number] Oral 100 Blood Product 310 310 Rc As-1 Unit 0 310 [id number] Output: Chest Tube Drainage 320 481 160 Bilateral Mediastinal 100 176 10 Chest Tube Left 220 305 150 Drainage 65 Left Calf 60 Left Wrist 5 Urine 2100 1775 325 Estimated Blood Loss 1000 Other: Voiding Method Indwelling Catheter Indwelling Catheter Indwelling Catheter ABP, PAP, CO, CI - Last Documented Arterial Blood Pressure 98/50 Pulmonary Artery Pressure 28/14 Cardiac Output 3.9 Cardiac Index 2 - Exam CONSTITUTIONAL: Appears uncomfortable but no respiratory distress RESPIRATORY: Lungs sounds diminished bilaterally. CARDIOVASCULAR: S1, S2 present. Regular rate and rhythm, sinus rhythm on telemetry. Sternum stable. Palpable peripheral pulses bilaterally. Trace generalized edema present. GASTROINTESTINAL: Abdomen soft, nontender, nondistended. Hypoactive bowel sounds present 4 quadrants. Tolerating ice chips. Negative flatus GENITOURINARY: Lopez present draining clear, yellow urine. Output overnight 100-125 mL per hour INTEGUMENTARY: Skin is warm and dry with evidence of good perfusion. Anterior chest incision well approximated and covered with dry intact dressing. CABRERA drain present with minimal drainage. NEUROLOGIC: Cranial nerves II through XII intact MUSKULOSKELETAL: Able to move all extremities, strength equal bilaterally PSYCHIATRIC: Alert and oriented to person place and time, appropriate affect, intact judgment and insight INVASIVE LINES AND TUBES: Mediastinal/left pleural chest tubes present and connected to wall suction, no air leaks present - Labs CBC & Chem 7: 09/10/21 04:05 09/10/21 04:05 Labs: Abnormal Lab Results - Last 24 Hours (Table) 09/08/21 09/09/21 09/09/21 Range/Units 07:39 16:40 16:42 RBC 1.97 L (3.80-5.40) m/uL Hgb 6.3 L* D (11.4-16.0) gm/dL Hct 18.9 L* (34.0-46.0) % Plt Count 75 L D (150-450) k/uL Lymphocytes # 0.8 L (1.0-4.8) k/uL PT (9.0-12.0) sec INR (<1.2) APTT (22.0-30.0) sec ABG pH (7.35-7.45) ABG pCO2 (35-45) mmHg ABG pO2 (83-108) mmHg ABG Total CO2 (19-24) mmol/L ABG O2 Saturation (94-97) % Sodium (137-145) mmol/L Chloride (98-107) mmol/L Glucose (74-99) mg/dL POC Glucose (mg/dL) 162 H (75-99) mg/dL Calcium (8.4-10.2) mg/dL Magnesium (1.6-2.3) mg/dL AST (14-36) U/L Alkaline Phosphatase (38-126) U/L Total Protein (6.3-8.2) g/dL Albumin (3.5-5.0) g/dL Crossmatch See Detail 09/09/21 09/09/21 09/09/21 Range/Units 16:42 16:42 16:56 RBC (3.80-5.40) m/uL Hgb (11.4-16.0) gm/dL Hct (34.0-46.0) % Plt Count (150-450) k/uL Lymphocytes # (1.0-4.8) k/uL PT 15.9 H (9.0-12.0) sec INR 1.6 H (<1.2) APTT 43.6 H (22.0-30.0) sec ABG pH 7.31 L (7.35-7.45) ABG pCO2 47 H (35-45) mmHg ABG pO2 382 H (83-108) mmHg ABG Total CO2 25 H (19-24) mmol/L ABG O2 Saturation 99.6 H (94-97) % Sodium (137-145) mmol/L Chloride 109 H (98-107) mmol/L Glucose 133 H (74-99) mg/dL POC Glucose (mg/dL) (75-99) mg/dL Calcium 7.2 L (8.4-10.2) mg/dL Magnesium 2.5 H (1.6-2.3) mg/dL AST (14-36) U/L Alkaline Phosphatase <20 L (38-126) U/L Total Protein 3.9 L (6.3-8.2) g/dL Albumin 2.6 L (3.5-5.0) g/dL Crossmatch 09/09/21 09/09/2109/09/22 Range/Units 17:33 18:29 19:16 RBC (3.80-5.40) m/uL Hgb (11.4-16.0) gm/dL Hct (34.0-46.0) % Plt Count (150-450) k/uL Lymphocytes # (1.0-4.8) k/uL PT (9.0-12.0) sec INR (<1.2) APTT (22.0-30.0) sec ABG pH (7.35-7.45) ABG pCO2 (35-45) mmHg ABG pO2 (83-108) mmHg ABG Total CO2 (19-24) mmol/L ABG O2 Saturation (94-97) % Sodium (137-145) mmol/L Chloride (98-107) mmol/L Glucose (74-99) mg/dL POC Glucose (mg/dL) 140 H 136 H 134 H (75-99) mg/dL Calcium (8.4-10.2) mg/dL Magnesium (1.6-2.3) mg/dL AST (14-36) U/L Alkaline Phosphatase (38-126) U/L Total Protein (6.3-8.2) g/dL Albumin (3.5-5.0) g/dL Crossmatch 09/09/21 09/09/21 09/09/21 Range/Units 20:00 20:06 21:10 RBC 2.74 L (3.80-5.40) m/uL Hgb 8.6 L D (11.4-16.0) gm/dL Hct 25.5 L (34.0-46.0) % Plt Count 87 L (150-450) k/uL Lymphocytes # 0.7 L (1.0-4.8) k/uL PT (9.0-12.0) sec INR (<1.2) APTT (22.0-30.0) sec ABG pH (7.35-7.45) ABG pCO2 (35-45) mmHg ABG pO2 (83-108) mmHg ABG Total CO2 (19-24) mmol/L ABG O2 Saturation (94-97) % Sodium (137-145) mmol/L Chloride (98-107) mmol/L Glucose (74-99) mg/dL POC Glucose (mg/dL) 142 H 153 H (75-99) mg/dL Calcium (8.4-10.2) mg/dL Magnesium (1.6-2.3) mg/dL AST (14-36) U/L Alkaline Phosphatase (38-126) U/L Total Protein (6.3-8.2) g/dL Albumin (3.5-5.0) g/dL Crossmatch 09/09/21 09/09/21 09/09/21 Range/Units 21:19 23:00 23:08 RBC 2.55 L (3.80-5.40) m/uL Hgb 7.9 L (11.4-16.0) gm/dL Hct 23.9 L (34.0-46.0) % Plt Count 86 L (150-450) k/uL Lymphocytes # 0.5 L (1.0-4.8) k/uL PT (9.0-12.0) sec INR (<1.2) APTT (22.0-30.0) sec ABG pH 7.31 L (7.35-7.45) ABG pCO2 48 H (35-45) mmHg ABG pO2 125 H (83-108) mmHg ABG Total CO2 26 H (19-24) mmol/L ABG O2 Saturation 98.6 H (94-97) % Sodium (137-145) mmol/L Chloride (98-107) mmol/L Glucose (74-99) mg/dL POC Glucose (mg/dL) 158 H (75-99) mg/dL Calcium (8.4-10.2) mg/dL Magnesium (1.6-2.3) mg/dL AST (14-36) U/L Alkaline Phosphatase (38-126) U/L Total Protein (6.3-8.2) g/dL Albumin (3.5-5.0) g/dL Crossmatch 09/10/21 09/10/21 09/10/21 Range/Units 00:07 01:05 02:08 RBC (3.80-5.40) m/uL Hgb (11.4-16.0) gm/dL Hct (34.0-46.0) % Plt Count (150-450) k/uL Lymphocytes # (1.0-4.8) k/uL PT (9.0-12.0) sec INR (<1.2) APTT (22.0-30.0) sec ABG pH (7.35-7.45) ABG pCO2 (35-45) mmHg ABG pO2 (83-108) mmHg ABG Total CO2 (19-24) mmol/L ABG O2 Saturation (94-97) % Sodium (137-145) mmol/L Chloride (98-107) mmol/L Glucose (74-99) mg/dL POC Glucose (mg/dL) 155 H 148 H 148 H (75-99) mg/dL Calcium (8.4-10.2) mg/dL Magnesium (1.6-2.3) mg/dL AST (14-36) U/L Alkaline Phosphatase (38-126) U/L Total Protein (6.3-8.2) g/dL Albumin (3.5-5.0) g/dL Crossmatch 09/10/21 09/10/21 09/10/21 Range/Units 03:16 04:04 04:05 RBC 2.32 L (3.80-5.40) m/uL Hgb 7.2 L (11.4-16.0) gm/dL Hct 21.6 L (34.0-46.0) % Plt Count 93 L (150-450) k/uL Lymphocytes # 0.7 L (1.0-4.8) k/uL PT (9.0-12.0) sec INR (<1.2) APTT (22.0-30.0) sec ABG pH (7.35-7.45) ABG pCO2 (35-45) mmHg ABG pO2 (83-108) mmHg ABG Total CO2 (19-24) mmol/L ABG O2 Saturation (94-97) % Sodium (137-145) mmol/L Chloride (98-107) mmol/L Glucose (74-99) mg/dL POC Glucose (mg/dL) 137 H 148 H (75-99) mg/dL Calcium (8.4-10.2) mg/dL Magnesium (1.6-2.3) mg/dL AST (14-36) U/L Alkaline Phosphatase (38-126) U/L Total Protein (6.3-8.2) g/dL Albumin (3.5-5.0) g/dL Crossmatch 09/10/21 09/10/21 09/10/21 Range/Units 04:05 07:07 08:53 RBC (3.80-5.40) m/uL Hgb (11.4-16.0) gm/dL Hct (34.0-46.0) % Plt Count (150-450) k/uL Lymphocytes # (1.0-4.8) k/uL PT (9.0-12.0) sec INR (<1.2) APTT (22.0-30.0) sec ABG pH (7.35-7.45) ABG pCO2 (35-45) mmHg ABG pO2 (83-108) mmHg ABG Total CO2 (19-24) mmol/L ABG O2 Saturation (94-97) % Sodium 135 L (137-145) mmol/L Chloride (98-107) mmol/L Glucose 130 H (74-99) mg/dL POC Glucose (mg/dL) 148 H 148 H (75-99) mg/dL Calcium 7.6 L (8.4-10.2) mg/dL Magnesium (1.6-2.3) mg/dL AST 38 H (14-36) U/L Alkaline Phosphatase 24 L (38-126) U/L Total Protein 4.6 L (6.3-8.2) g/dL Albumin 3.1 L (3.5-5.0) g/dL Crossmatch 09/10/21 09/10/21 Range/Units 11:06 12:10 RBC (3.80-5.40) m/uL Hgb (11.4-16.0) gm/dL Hct (34.0-46.0) % Plt Count (150-450) k/uL Lymphocytes # (1.0-4.8) k/uL PT (9.0-12.0) sec INR (<1.2) APTT (22.0-30.0) sec ABG pH (7.35-7.45) ABG pCO2 (35-45) mmHg ABG pO2 (83-108) mmHg ABG Total CO2 (19-24) mmol/L ABG O2 Saturation (94-97) % Sodium (137-145) mmol/L Chloride (98-107) mmol/L Glucose (74-99) mg/dL POC Glucose (mg/dL) 131 H 146 H (75-99) mg/dL Calcium (8.4-10.2) mg/dL Magnesium (1.6-2.3) mg/dL AST (14-36) U/L Alkaline Phosphatase (38-126) U/L Total Protein (6.3-8.2) g/dL Albumin (3.5-5.0) g/dL Crossmatch Microbiology - Last 24 Hours (Table) 09/07/21 16:58 Nasal Screen MRSA/MSSA - Final Nasal Swab Assessment and Plan Plan: NSTEMI Multivessel coronary artery disease -Cardiology following, patient went to clinical laboratory manager 09/07/21 and was found to have triple-vessel occlusive disease revealing 95% occlusion of circumflex, 80% occlusion of the LAD and a complete occlusion of right coronary artery. -S/p triple vessel coronary artery bypass grafting 09/09 -Telemetry monitoring. -Cardiac diet -Aspirin, atorvastatin, and metoprolol -Hemoglobin A1c elevated at 6.6% -Lipid profile unremarkable Hypertension Monitor vital signs and continue daily medication regimen with amlodipine, lisinopril, and metoprolol. Hyperlipidemia We will medication regimen with atorvastatin 80 mg daily. Diabetes mellitus Hold oral hypoglycemic medications -Glycemic protocol with NovoLog sliding scale. Hemoglobin A1c elevated at 6.6%. Nicotine dependence Educate and encourage patient on the importance of smoking cessation and the risks of continued use. Nicotine patch CODE STATUS: Full code DVT prophylaxis: Heparin Discussed with: Patient and RN Anticipated discharge date: Clinical course to determine Anticipated discharge place: Home A total of 40 minutes was spent on the care of this complex patient more than 50% of the time was spent in counseling and care coordination.
[2021-09-10 14:21] LABS: Glucose,Whole Blood 194 mg/dL (75-99)
[2021-09-10] MEDS: AMIODARONE 450 MG in DEXTROSE 5% IN WATER 250 ML IV SCH ×2 (14:38)
[2021-09-10 16:17] LABS: Glucose,Whole Blood 122 mg/dL (75-99)
[2021-09-10] MEDS: amLODIPine 2.5 MG TAB PO SCH (17:19)
[2021-09-10 17:27] LABS: Glucose,Whole Blood 124 mg/dL (75-99)
[2021-09-10] MEDS: KETOROLAC 15 MG/ML 1 ML VIAL IVP SCH (18:54)
[2021-09-10 19:02] LABS: Glucose,Whole Blood 149 mg/dL (75-99)
[2021-09-10 21:23] LABS: Glucose,Whole Blood 126 mg/dL (75-99)
[2021-09-10] MEDS: SENNOSIDES-DOCUSATE SODIUM 1 EACH TAB PO SCH (21:40)
[2021-09-10 22:37] LABS: Glucose,Whole Blood 112 mg/dL (75-99)
[2021-09-11 00:16] LABS: Glucose,Whole Blood 138 mg/dL (75-99)
[2021-09-11] MEDS: KETOROLAC 15 MG/ML 1 ML VIAL IVP SCH ×4 (00:27→17:45)
[2021-09-11] MEDS: HEPARIN SODIUM,PORCINE/PF 5,000 UNIT/0.5 ML SYRINGE SQ SCH ×3 (00:27→16:50)
[2021-09-11] MEDS ORDERED: AMIODARONE 360 MG in DEXTROSE 5% IN WATER 200 ML IV ONE ×2 (01:33)
[2021-09-11 01:44] LABS: Glucose,Whole Blood 188 mg/dL (75-99)
[2021-09-11 03:26] LABS: Glucose,Whole Blood 145 mg/dL (75-99)
[2021-09-11 03:51] LABS: Basophils % (A) 0 %; Eosinophils % (A) 0 %; Lymphocytes # (A) 1.5 k/uL (1.0-4.8); Lymphocytes % (A) 17 %; MCH 32.4 pg (25.0-35.0); MCHC 34.4 g/dL (31.0-37.0); MCV 94.1 fL (80.0-100.0); Mean Platelet Volume 9.2; Monocytes # (A) 0.4 k/uL (0-1.0); Monocytes % (A) 5 %; Neutrophils # (A) 6.5 k/uL (1.3-7.7); Neutrophils % (A) 76 %; RDW 13.6 % (11.5-15.5); WBC 8.5 k/uL (3.8-10.6)
[2021-09-11 04:04] LABS: HGB 5.2 gm/dL (11.4-16.0); Platelet Count 99 k/uL (150-450)
[2021-09-11 04:46] LABS: Ionized Calcium 4.9 mg/dL (4.5-5.3)
[2021-09-11 04:55] LABS: ALT 325 U/L (4-34); AST 564 U/L (14-36); African American GFR (CKD) >90 (>60 ml/min/1.73 sqM); Albumin 3.3 g/dL (3.5-5.0); Alkaline Phosphatase 24 U/L (38-126); Anion Gap 7 mmol/L; Blood Urea Nitrogen 20 mg/dL (7-17); Calcium 7.9 mg/dL (8.4-10.2); Carbon Dioxide 21 mmol/L (22-30); Chloride 107 mmol/L (98-107); Glucose 124 mg/dL (74-99); Non-African American GFR(CKD) 78 (>60 ml/min/1.73 sqM); Potassium 3.9 mmol/L (3.5-5.1); Sodium 135 mmol/L (137-145); Total Bilirubin 1.2 mg/dL (0.2-1.3); Total Protein 4.9 g/dL (6.3-8.2)
[2021-09-11 05:38] LABS: Glucose,Whole Blood 112 mg/dL (75-99)
[2021-09-11] MEDS ORDERED: POTASSIUM CHLORIDE ER 20 MEQ TAB.ER PO SCH (06:00)
[2021-09-11] MEDS: FERROUS SULFATE 325 MG TAB PO SCH ×2 (06:23→16:51)
[2021-09-11] MEDS: PANTOPRAZOLE 40 MG TABLET PO SCH (06:23)
[2021-09-11] MEDS: ASCORBIC ACID 500 MG TAB PO SCH ×2 (06:23→16:51)
--- NOTE | 2021-09-11 06:39 | XR ---
EXAMINATION TYPE: XR chest 1V portable DATE OF EXAM: 09/11/2021 COMPARISON: 09/10/2021 HISTORY: Postcardiac surgery. TECHNIQUE: Single frontal view of the chest is obtained. FINDINGS: There is a left-sided chest tube and 2 mediastinal tubes unchanged in position. There are mild by basilar opacities likely reflecting mild pleural effusions and possibly mild atelectasis unch anged compared to previous. There is no pneumothorax. There are postsurgical changes of cardiac surgery. The osseous structures are intact IMPRESSION: Postop cardiac surgery with no interval change
[2021-09-11 07:04] LABS: Glucose,Whole Blood 118 mg/dL (75-99)
[2021-09-11] MEDS: IPRATROPIUM-ALBUTEROL 3 ML NEB INHALATION SCH ×4 (07:12→19:12)
--- NOTE | 2021-09-11 07:31 | P.PN ---
Subjective Progress Note Date: 09/11/21 Principal diagnosis: Triple-vessel coronary artery disease with totally occluded right coronary artery, acute non-ST elevated myocardial infarction this admission, preserved left ventricular function. Previous medical history of hypertension, hyperlipidemia, aan-czssohj-[id number] diabetes mellitus, chronic ongoing tobacco dependence, TIA 40 years ago, chronic back pain, GERD, obesity, family history of coronary artery disease POD #2 triple vessel coronary artery bypass grafting using the left internal mammary artery to the left anterior descending artery, left radial artery from the aorta to the first obtuse marginal artery, reverse saphenous vein graft from the aorta to the right coronary artery, exclusion of the left atrial appendage using a 35 mm AtriClip, endoscopic harvesting of the left radial artery and endoscopic harvesting of the left greater saphenous vein, intraoperative transesophageal echocardiogram, epi-aortic scanning, intraoperative graft flow measurements using the excentosstim system Postoperative acute blood loss anemia and thrombocytopenia, expected given hemodilution and cardiopulmonary bypass pump Brief episode of paroxysmal atrial fibrillation, known common occurrence after open heart surgery The patient was seen and examined this morning sitting up in the recliner in the intensive care unit in no acute distress. She continues to have issues with pain control, Toradol added. Patient does normally have a buprenorphine patch on for pain, was taken off for surgery, not on formulary in this hospital, family asked to bring in but they state she gets the patch put on weekly at Dr. Lou's office. Had a very brief burst of atrial fibrillation last night, restarted on IV amiodarone with quick conversion back to sinus rhythm. She did have some low blood pressures yesterday and was started on IV Levophed, currently hemodynamically stable with blood pressures 130s over 50s with maps in the 80s on small dose levo. Remains a bit confused at times, she can tell us her name and that she is in hospital, sporadically and tell us its 2021, rest of her neuro exam is intact. Hemoglobin 5.2 this morning, currently receiving packed red blood cells. She did ambulate a brief distance yesterday with physical therapy. Right internal jugular Cordis, right radial arterial line, mediastinal/left pleural chest tubes all remain. Objective - Vital Signs Vital signs: Vital Signs Temp 97.8 F 09/11/21 07:05 Pulse 73 09/11/21 07:05 Resp 20 09/11/21 07:05 BP 128/57 09/11/21 07:05 Pulse Ox 93 L 09/11/21 07:05 Intake & Output 09/10/21 09/11/21 09/11/21 18:59 06:59 18:59 Intake Total 1997.780 861.869 26 Output Total 810 365 15 Balance 1187.780 496.869 11 Weight 98.4 kg 100.5 kg Intake: IV 1220 482 26 0.9 NaCl CO/CI 40 0.9 NaCl IV fluids 340 160 20 Albumin Human 5% 250 ml 750 250 In Empty Bag 1 bag @ 250 mls/hr IVPB Q1HR PRN Rx#: [id number] Pressure bag 90 72 6 Intake, IV Titration 357.780 69.869 Amount Amiodarone 450 mg In 200.282 Dextrose 5% in Water 250 ml @ 0.5 MG/MIN 16.667 mls/hr IV .Q15H [facility] Rx#: [id number] Insulin Regular 100 unit 18.947 11.127 In Sodium Chloride 0.9% 100 ml @ Per Protocol IV .Q0M [facility] Rx#:[id number] Norepinephrine 4 mg In 48.551 28.742 Sodium Chloride 0.9% 250 ml @ 0.05 MCG/KG/MIN 18. 745 mls/hr IV .[id number] [facility] Rx#:[id number] Sodium Chloride 0.9% 1, 90 30 000 ml @ 30 mls/hr IV . Q24H [facility] Rx#:[id number] Oral 420 Blood Product 310 Rc As-1 Unit 310 [id number] Output: Chest Tube Drainage 190 90 Bilateral Mediastinal 20 60 Chest Tube Left 170 30 Drainage 100 Left Calf 65 Left Wrist 35 Urine 520 275 15 Other: Voiding Method Indwelling Catheter Indwelling Catheter ABP, PAP, CO, CI - Last Documented Arterial Blood Pressure 144/64 Pulmonary Artery Pressure 28/11 Cardiac Output 3.9 Cardiac Index 2 - Exam CONSTITUTIONAL: Appears comfortable, cooperative, no respiratory distress RESPIRATORY: Lungs sounds diminished bilaterally. Respirations even, nonlabored. Currently on 3 L nasal cannula with oxygen saturation 93%. Able to achieve 500 mL on incentive spirometry. Strong nonproductive cough. CARDIOVASCULAR: S1, S2 present. Regular rate and rhythm, sinus rhythm on telemetry. Sternum stable. Palpable peripheral pulses bilaterally. Trace generalized edema present. No calf pain or tenderness noted. Heart hugger in place with patient demonstrating appropriate use. Antiembolism stockings, SCDs present. GASTROINTESTINAL: Abdomen soft, nontender, nondistended. Hypoactive bowel sounds present 4 quadrants. Tolerating clear liquids. Negative flatus GENITOURINARY: Lopez present draining clear, yellow urine. Output overnight 20 mL per hour INTEGUMENTARY: Skin is warm and dry with evidence of good perfusion. Anterior chest incision well approximated and covered with dry intact dressing. Left radial artery harvest site well approximated. Left lower extremity EVH site well approximated, CABRERA drain present with minimal drainage NEUROLOGIC: Cranial nerves II through XII intact MUSKULOSKELETAL: Able to move all extremities, strength equal bilaterally PSYCHIATRIC: Alert and oriented to person, place, and occasionally to time INVASIVE LINES AND TUBES: Mediastinal/left pleural chest tubes present and co nnected to wall suction, no air leaks present. Mediastinal tube with 20 mL serosanguineous drainage overnight, 100 mL in the last 24 hours. Left pleural chest tube with 20 mL serosanguineous drainage overnight, 200 mL in the last 24 hours. Right internal jugular Cordis, right radial arterial line present. - Allied health notes Allied health notes reviewed: nursing - Labs CBC & Chem 7: 09/11/21 03:25 09/11/21 03:25 Labs: Abnormal Lab Results - Last 24 Hours (Table) 09/08/21 09/10/21 09/10/21 Range/Units 07:39 08:53 11:06 RBC (3.80-5.40) m/uL Hgb (11.4-16.0) gm/dL Hct (34.0-46.0) % Plt Count (150-450) k/uL Sodium (137-145) mmol/L Carbon Dioxide (22-30) mmol/L BUN (7-17) mg/dL Glucose (74-99) mg/dL POC Glucose (mg/dL) 148 H 131 H (75-99) mg/dL Calcium (8.4-10.2) mg/dL AST (14-36) U/L ALT (4-34) U/L Alkaline Phosphatase (38-126) U/L Total Protein (6.3-8.2) g/dL Albumin (3.5-5.0) g/dL Crossmatch See Detail 09/10/21 09/10/21 09/10/21 Range/Units 12:10 14:20 16:16 RBC (3.80-5.40) m/uL Hgb (11.4-16.0) gm/dL Hct (34.0-46.0) % Plt Count (150-450) k/uL Sodium (137-145) mmol/L Carbon Dioxide (22-30) mmol/L BUN (7-17) mg/dL Glucose (74-99) mg/dL POC Glucose (mg/dL) 146 H 194 H 122 H (75-99) mg/dL Calcium (8.4-10.2) mg/dL AST (14-36) U/L ALT (4-34) U/L Alkaline Phosphatase (38-126) U/L Total Protein (6.3-8.2) g/dL Albumin (3.5-5.0) g/dL Crossmatch 09/10/21 09/10/21 09/10/21 Range/Units 17:26 18:59 21:21 RBC (3.80-5.40) m/uL Hgb (11.4-16.0) gm/dL Hct (34.0-46.0) % Plt Count (150-450) k/uL Sodium (137-145) mmol/L Carbon Dioxide (22-30) mmol/L BUN (7-17) mg/dL Glucose (74-99) mg/dL POC Glucose (mg/dL) 124 H 149 H 126 H (75-99) mg/dL Calcium (8.4-10.2) mg/dL AST (14-36) U/L ALT (4-34) U/L Alkaline Phosphatase (38-126) U/L Total Protein (6.3-8.2) g/dL Albumin (3.5-5.0) g/dL Crossmatch 09/10/21 09/11/21 09/11/21 Range/Units 22:35 00:14 01:43 RBC (3.80-5.40) m/uL Hgb (11.4-16.0) gm/dL Hct (34.0-46.0) % Plt Count (150-450) k/uL Sodium (137-145) mmol/L Carbon Dioxide (22-30) mmol/L BUN (7-17) mg/dL Glucose (74-99) mg/dL POC Glucose (mg/dL) 112 H 138 H 188 H (75-99) mg/dL Calcium (8.4-10.2) mg/dL AST (14-36) U/L ALT (4-34) U/L Alkaline Phosphatase (38-126) U/L Total Protein (6.3-8.2) g/dL Albumin (3.5-5.0) g/dL Crossmatch 09/11/21 09/11/21 09/11/21 Range/Units 03:25 03:25 03:25 RBC 1.60 L (3.80-5.40) m/uL Hgb 5.2 L* D (11.4-16.0) gm/dL Hct 15.0 L* (34.0-46.0) % Plt Count 99 L (150-450) k/uL Sodium 135 L (137-145) mmol/L Carbon Dioxide 21 L (22-30) mmol/L BUN 20 H (7-17) mg/dL Glucose 124 H (74-99) mg/dL POC Glucose (mg/dL) 145 H (75-99) mg/dL Calcium 7.9 L (8.4-10.2) mg/dL AST 564 H (14-36) U/L ALT 325 H (4-34) U/L Alkaline Phosphatase 24 L (38-126) U/L Total Protein 4.9 L (6.3-8.2) g/dL Albumin 3.3 L (3.5-5.0) g/dL Crossmatch 09/11/21 09/11/21 Range/Units 05:36 07:03 RBC (3.80-5.40) m/uL Hgb (11.4-16.0) gm/dL Hct (34.0-46.0) % Plt Count (150-450) k/uL Sodium (137-145) mmol/L Carbon Dioxide (22-30) mmol/L BUN (7-17) mg/dL Glucose (74-99) mg/dL POC Glucose (mg/dL) 112 H 118 H (75-99) mg/dL Calcium (8.4-10.2) mg/dL AST (14-36) U/L ALT (4-34) U/L Alkaline Phosphatase (38-126) U/L Total Protein (6.3-8.2) g/dL Albumin (3.5-5.0) g/dL Crossmatch - Imaging and Cardiology Chest x-ray: report reviewed, image reviewed Assessment and Plan Assessment: 1. Triple vessel coronary artery disease with totally occluded right coronary artery, acute non-ST elevated myocardial infarction this admission, preserved left ventricular function, status post three-vessel CABG 2. History of hypertension 3. Hyperlipidemia 4. Qfm-iefhczh-sihxszikj diabetes mellitus, preoperative hemoglobin A1c 6.6% 5. Chronic ongoing tobacco dependence, preoperative FEV1 87% of predicted 6. TIA 40 years ago 7. Chronic back pain, on buprenorphine patch at home 8. GERD 9. Obesity 10. Family history of coronary artery disease 11. Postoperative acute blood loss anemia and thrombocytopenia, expected 12. Brief episode paroxysmal atrial fibrillation, status post left atrial appendage ligation Plan: 1. Continue to maximize medical therapy with ASA, Plavix, beta chris. Will increase beta chris therapy as tolerated. Wean/DC levo as tolerated. Will DC statin for now secondary to increased liver enzymes 2. Will discontinue amiodarone 3. Continue oral calcium channel chris for radial artery spasm prophylaxis 4. Wean O2 as tolerated. Encourage incentive spirometry use 10 times every hour while awake. Bronchodilators per pulmonology 5. Increase activity, ambulate as tolerated. PT/OT/cardiac rehab following 6. Smoking cessation counseling offered, patient strongly encouraged to quit smoking 7. Will monitor daily labs and x-rays. Electrolyte replacement protocol. Will redraw Hgb?hct at 9:30. May receive another unit PRBCs 8. GI/DVT prophylaxis 9. Insulin management per primary care service. Patient needs tight blood sugar control to promote sternal union, prevent infection 10. Pain control with current medication regimen. IV Toradol Dilaudid added as adjunct for pain control 11. Will discontinue CABRERA drain. 12. Will discontinue chest tubes 13. Continue Lopez catheter for another 24 hours for strict accurate intake and output. Daily weights 14. More recommendations to follow Time with Patient: Greater than 30
[2021-09-11] MEDS ORDERED: AMIODARONE 450 MG in DEXTROSE 5% IN WATER 250 ML IV SCH ×2 (07:45)
[2021-09-11] MEDS: HYDROcodone/APAP 5-325MG 1 EACH TAB PO PRN ×2 (07:55→14:48)
[2021-09-11] MEDS: ONDANSETRON 4 MG/2 ML VIAL IVP PRN ×2 (07:56→18:20)
[2021-09-11] MEDS: DULoxetine HCL 60 MG CAPSULE.DR PO SCH (07:56)
[2021-09-11] MEDS: amLODIPine 2.5 MG TAB PO SCH (07:56)
[2021-09-11] MEDS: ASPIRIN 325 MG TAB PO SCH (08:43)
[2021-09-11] MEDS: CLOPIDOGREL 75 MG TAB PO SCH (08:43)
[2021-09-11] MEDS: ATORVASTATIN 40 MG TAB PO SCH (08:43)
[2021-09-11] MEDS: METOPROLOL TARTRATE 12.5 MG TAB PO SCH (08:43)
[2021-09-11] MEDS: NOREPINEPHRINE 4 MG in SODIUM CHLORIDE 0.9% 250 ML IV SCH ×2 (08:44→17:05)
[2021-09-11 09:59] LABS: HCT 22.7 % (34.0-46.0); MCHC 34.6 g/dL (31.0-37.0); MCV 92.4 fL (80.0-100.0); Mean Platelet Volume 9.5; RBC 2.46 m/uL (3.80-5.40); RDW 13.3 % (11.5-15.5); WBC 7.8 k/uL (3.8-10.6)
[2021-09-11 10:10] LABS: HGB 7.9 gm/dL (11.4-16.0); Platelet Count 91 k/uL (150-450)
[2021-09-11] MEDS ORDERED: METOPROLOL TARTRATE 12.5 MG TAB PO STA ×2 (10:10→18:06)
--- NOTE | 2021-09-11 11:08 | P.PN ---
Subjective Progress Note Date: 09/11/21 Principal diagnosis: Coronary artery disease. Pulmonary consult dated 09/08/2021. 65-year-old female that I'm seeing for preoperative pulmonary evaluation. I had the opportunity to look at her pulmonary function test previously, and they were excellent. The patient is scheduled to have a bypass grafting tomorrow with Dr. Adames. The patient was admitted to the hospital on September 06, complaining of chest pain. Apparently, the pain radiated to her back and right arm, and she had some numbness and tingling in the right arm. She was also feeling very weak and fatigued. She apparently has a history of hypertension and hyperlipidemia. She did smoke in the past. She has no prior history of chronic lung disease. The patient denies any shortness of breath, chest tightness, cough, wheezing, or phlegm production. Coronary catheterization revealed three-vessel coronary disease, including a calcified left coronary system with a focal 80% stenosis in the LAD, circumflex, and a chronically occluded right coronary artery. Based on lung function, and specifically the FEV1 and MVV, the patient was at no increased operative risk. Laboratory data includes a normal CBC, a normal PT INR and PTT, and a sodium of 137, potassium 4.6, chlorides 104, CO2 33, BUN 23, and creatinine 1.06. Albumin was 3.4. Urine was negative. Chest x-ray was unremarkable. Progress note dated 09/10/2021. The patient is postop day #1, status post three-vessel bypass grafting. She was extubated 5-1/2 hours after leaving the operating room. Currently, she is resting comfortably in room 251, in the intensive care unit. Her only complaint is that of a dry mouth, and pain in the chest area, where surgery was performed. Currently, she is on 5 L nasal cannula. She's getting saline at 50 mL an hour. In addition, she is getting Cleveprex at 1 mg an hour, amiodarone at 0.5 mg/m, and insulin at 1 unit per hour. White count 7.3, heme him 7.2, hematocrit 21.6, and platelet count 93,000. Sodium 135, potassium 4.2, chlorides 106, CO2 23, BUN 16, creatinine 0.59. Chest x-ray shows postoperative changes, interval extubation, and basilar atelectasis. Progress note dated 09/11/2021. This is a 65-year-old female seen again in room 251. She is postop day #2, status post three-vessel bypass grafting. The patient is currently resting comfortably. She's on 2 L nasal cannula. Getting lactated Ringer's at 30 mL an hour. Norepinephrine is currently off. Hemoglobin today was 5.2. She's getting 1 unit of PRBCs. Her hemoglobin will be rechecked. Repeat CBC shows a white count of 7.8, hemoglobin 7.9, hematocrit 22.7, and platelet count of 91,000. Sodium 135, potassium 3.9, chlorides 107, CO2 21, BUN 20, creatinine 0.8. AST is 564. ALT 325. Chest x-ray show some typical postoperative changes. Objective - Vital Signs Vital signs: Vital Signs Temp 98 F 09/11/21 08:00 Pulse 68 09/11/21 11:00 Resp 16 09/11/21 11:00 BP 128/57 09/11/21 07:05 Pulse Ox 92 L 09/11/21 11:00 Intake & Output 09/10/21 09/11/21 09/11/21 18:59 06:59 18:59 Intake Total 1997.780 861.869 244.929 Output Total 810 365 95 Balance 1187.780 496.869 149.929 Weight 98.4 kg 100.5 kg Intake: IV 1220 482 44 0.9 NaCl CO/CI 40 0.9 NaCl IV fluids 340 160 20 Albumin Human 5% 250 ml 750 250 In Empty Bag 1 bag @ 250 mls/hr IVPB Q1HR PRN Rx#: [id number] Pressure bag 90 72 24 Intake, IV Titration 357.780 69.869 200.929 Amount Amiodarone 450 mg In 200.282 Dextrose 5% in Water 250 ml @ 0.5 MG/MIN 16.667 mls/hr IV .Q15H NAZARIO Rx#: [id number] Amiodarone 450 mg In 33.2 Dextrose 5% in Water 250 ml @ 0.5 MG/MIN 16.667 mls/hr IV .Q15H NAZARIO Rx#: [id number] Insulin Regular 100 unit 18.947 11.127 0 In Sodium Chloride 0.9% 100 ml @ Per Protocol IV .Q0M NA[facility]ARIO Rx#:[id number] Norepinephrine 4 mg In 48.551 28.742 77.729 Sodium Chloride 0.9% 250 ml @ 0.05 MCG/KG/MIN 18. 745 mls/hr IV .[id number] [facility]IO Rx#:[id number] Sodium Chloride 0.9% 1, 90 30 90 000 ml @ 30 mls/hr IV . Q24H NAZARIO Rx#:[id number] Oral 420 Blood Product 310 Rc As-1 Unit 310 [id number] Output: Chest Tube Drainage 190 90 0 Bilateral Mediastinal 20 60 0 Chest Tube Left 170 30 0 Drainage 100 Left Calf 65 Left Wrist 35 Urine 520 275 95 Other: Voiding Method Indwelling Catheter Indwelling Catheter Indwelling Catheter ABP, PAP, CO, CI - Last Documented Arterial Blood Pressure 116/53 Pulmonary Artery Pressure 28/11 Cardiac Output 3.9 Cardiac Index 2 - Exam No acute distress, oriented 3. Currently on nasal O2 at 2 L. HEENT examination is grossly unremarkable. Neck supple. Full range of motion. No adenopathy thyromegaly or neck vein distention. Cardiovascular examination reveals regular rhythm rate. S1-S2 normal. No S3 or S4. No discernible murmur noted. Heart rate 68 bpm. Lungs reveal mostly clear breath sounds. Scattered rhonchi are noted. No wheezes or crackles. 2 L saturation is 95%. Breath sounds are equal bilaterally. Abdomen soft bowel sounds are heard. No masses or tenderness. Extremities are intact. No cyanosis clubbing or edema. Skin is without rash or lesion. Neurologic examination is brief but nonfocal. - Labs CBC & Chem 7: 09/11/21 09:54 09/11/21 03:25 Labs: Abnormal Lab Results - Last 24 Hours (Table) 09/08/21 09/10/21 09/10/21 Range/Units 07:39 11:06 12:10 RBC (3.80-5.40) m/uL Hgb (11.4-16.0) gm/dL Hct (34.0-46.0) % Plt Count (150-450) k/uL Sodium (137-145) mmol/L Carbon Dioxide (22-30) mmol/L BUN (7-17) mg/dL Glucose (74-99) mg/dL POC Glucose (mg/dL) 131 H 146 H (75-99) mg/dL Calcium (8.4-10.2) mg/dL AST (14-36) U/L ALT (4-34) U/L Alkaline Phosphatase (38-126) U/L Total Protein (6.3-8.2) g/dL Albumin (3.5-5.0) g/dL Crossmatch See Detail 09/10/21 09/10/21 09/10/21 Range/Units 14:20 16:16 17:26 RBC (3.80-5.40) m/uL Hgb (11.4-16.0) gm/dL Hct (34.0-46.0) % Plt Count (150-450) k/uL Sodium (137-145) mmol/L Carbon Dioxide (22-30) mmol/L BUN (7-17) mg/dL Glucose (74-99) mg/dL POC Glucose (mg/dL) 194 H 122 H 124 H (75-99) mg/dL Calcium (8.4-10.2) mg/dL AST (14-36) U/L ALT (4-34) U/L Alkaline Phosphatase (38-126) U/L Total Protein (6.3-8.2) g/dL Albumin (3.5-5.0) g/dL Crossmatch 09/10/21 09/10/21 09/10/21 Range/Units 18:59 21:21 22:35 RBC (3.80-5.40) m/uL Hgb (11.4-16.0) gm/dL Hct (34.0-46.0) % Plt Count (150-450) k/uL Sodium (137-145) mmol/L Carbon Dioxide (22-30) mmol/L BUN (7-17) mg/dL Glucose (74-99) mg/dL POC Glucose (mg/dL) 149 H 126 H 112 H (75-99) mg/dL Calcium (8.4-10.2) mg/dL AST (14-36) U/L ALT (4-34) U/L Alkaline Phosphatase (38-126) U/L Total Protein (6.3-8.2) g/dL Albumin (3.5-5.0) g/dL Crossmatch 09/11/21 09/11/21 09/11/21 Range/Units 00:14 01:43 03:25 RBC 1.60 L (3.80-5.40) m/uL Hgb 5.2 L* D (11.4-16.0) gm/dL Hct 15.0 L* (34.0-46.0) % Plt Count 99 L (150-450) k/uL Sodium (137-145) mmol/L Carbon Dioxide (22-30) mmol/L BUN (7-17) mg/dL Glucose (74-99) mg/dL POC Glucose (mg/dL) 138 H 188 H (75-99) mg/dL Calcium (8.4-10.2) mg/dL AST (14-36) U/L ALT (4-34) U/L Alkaline Phosphatase (38-126) U/L Total Protein (6.3-8.2) g/dL Albumin (3.5-5.0) g/dL Crossmatch 09/11/21 09/11/21 09/11/21 Range/Units 03:25 03:25 05:36 RBC (3.80-5.40) m/uL Hgb (11.4-16.0) gm/dL Hct (34.0-46.0) % Plt Count (150-450) k/uL Sodium 135 L (137-145) mmol/L Carbon Dioxide 21 L (22-30) mmol/L BUN 20 H (7-17) mg/dL Glucose 124 H (74-99) mg/dL POC Glucose (mg/dL) 145 H 112 H (75-99) mg/dL Calcium 7.9 L (8.4-10.2) mg/dL AST 564 H (14-36) U/L ALT 325 H (4-34) U/L Alkaline Phosphatase 24 L (38-126) U/L Total Protein 4.9 L (6.3-8.2) g/dL Albumin 3.3 L (3.5-5.0) g/dL Crossmatch 09/11/21 09/11/21 Range/Units 07:03 09:54 RBC 2.46 L (3.80-5.40) m/uL Hgb 7.9 L D (11.4-16.0) gm/dL Hct 22.7 L (34.0-46.0) % Plt Count 91 L (150-450) k/uL Sodium (137-145) mmol/L Carbon Dioxide (22-30) mmol/L BUN (7-17) mg/dL Glucose (74-99) mg/dL POC Glucose (mg/dL) 118 H (75-99) mg/dL Calcium (8.4-10.2) mg/dL AST (14-36) U/L ALT (4-34) U/L Alkaline Phosphatase (38-126) U/L Total Protein (6.3-8.2) g/dL Albumin (3.5-5.0) g/dL Crossmatch Assessment and Plan Assessment: Symptomatic coronary artery disease. Postop day #2, status post three-vessel bypass grafting, exclusion of left atrial appendage, endoscopic harvesting of left radial artery, intraoperative transesophageal echocardiogram, and intraoperative graft flow measurements. Routine postoperative ventilator management. History of tobacco use, without evidence of underlying COPD, and pulmonary function, which would suggest no increased operative risk. History of hyperlipidemia. History of hypertension. History of diabetes mellitus. Plan: Plan dated 09/18/2021. The patient is apparently scheduled to have open heart surgery, tomorrow with Reymundo Adames. I did explain our role as long in critical care physicians to the patient. I also mentioned to her, that based on lung function, she is at no increased operative risk, and that she should do well with a general anesthetic. I also mentioned that we would attempt to get the patient extubated as soon as possible, and we will see the patient on a daily basis, to ensure that she doesn't develop a pulmonary complication such as pneumonia, pleural effusion, atelectasis, or lobar collapse. Plan dated 09/10/2021. The patient is postop day #1, status post three-vessel bypass grafting. The patient was extubated 5-1/2 hours after leaving the operating room. Currently, the patient's on 5 L nasal cannula. In addition, the patient's getting saline at 50 mL an hour, Cleveprex at 1 mg an hour, amiodarone at 0.5 mg/m, insulin at 1 unit per hour. Labs, x-rays, and medications are all reviewed. The patient's only complaint is that of dry mouth, and pain at the surgical site. We've asked her to continue to work on the incentive spirometer, every hour while awake. In addition, we recommend deep breathing, coughing, clearing of secretions. We will continue to follow make recommendations where appropriate. Plan dated 09/11/2021. Currently, the patient is postop day #2, status post three-vessel bypass grafting. The patient's on 2 L nasal cannula. The patient is getting lactated Ringer's at 30 mL an hour. She did receive 1 unit of blood today for hemoglobin of 5.2. Repeat hemoglobin is 7.9. We will continue to follow make recommendations were appropriate. Prognosis is guarded. We recommend hourly use of the incentive spirometer. We also recommend deep breathing, coughing, and clearing of secretions. Time with Patient: Less than 30
[2021-09-11 11:41] LABS: Glucose,Whole Blood 125 mg/dL (75-99)
[2021-09-11] MEDS: INSULIN ASPART (NovoLOG) 100 UNIT/ML VIAL SQ SCH ×3 (11:42→20:55)
[2021-09-11] MEDS: SODIUM CHLORIDE 0.9% 1,000 ML IV SCH (11:49)
[2021-09-11] MEDS ORDERED: ALBUMIN HUMAN 25% 50 ML in EMPTY BAG 1 BAG IVPB ONE (14:30)
--- NOTE | 2021-09-11 15:26 | PN ---
PROGRESS NOTE Vanna is a 65-year-old lady with three-vessel coronary artery disease who is status post CABG postop day #2. She is sitting up in chair. Remains in sinus rhythm, stable hemodynamically. Last night, she had a transient episode of atrial fibrillation, but is converted back to sinus rhythm. She also had a low hemoglobin this morning and had to be transfused and had episodes of hypotension. Her liver enzymes have come back elevated with an AST of 560 and an ALT of 325. This is probably related to an episode of hypotension and liver injury as the result. Patient has had acute blood loss anemia. This is getting better with blood transfusion. She is otherwise free of symptoms, denies chest pain or difficulty in breathing. EXAM: Heart rate is 70 beats per minute, blood pressure is 130/80, respiratory rate 12, O2 saturation is 96% on 2 L. There is no jugular venous distention. Chest exam reveals diminished air entry at the bases. Heart exam reveals first and second heart sounds. No gallop. Abdomen: Soft. Exam of extremities did not reveal any edema. LAB: Show that the hemoglobin is 7.9, platelet count is 91, potassium 3.9 creatinine is 0.8. ASSESSMENT: 1. Three-vessel coronary artery disease, status post coronary artery bypass grafting. 2. Postop atrial fibrillation. 3. Elevated liver enzymes, probably related to hypotension. PLAN: Continue current supportive care. Please keep the hemoglobin around 8 and we will adjust the therapies as she progresses. She will work on incentive spirometry. MMODL / IJN: [id number] /
[2021-09-11 16:57] LABS: Glucose,Whole Blood 135 mg/dL (75-99)
--- NOTE | 2021-09-11 17:40 | P.PN ---
Subjective Progress Note Date: 09/11/21 Principal diagnosis: s/p cabg Had brief a-fib last night, now in sinus. Hgb was 5.2 this am, currently getting one unit of prbc. Still with incision pain. Objective - Vital Signs Vital signs: Vital Signs Temp 98.6 F 09/11/21 16:00 Pulse 67 09/11/21 17:00 Resp 14 09/11/21 17:00 BP 98/69 09/11/21 17:00 Pulse Ox 94 L 09/11/21 17:00 Intake & Output 09/10/21 09/11/21 09/11/21 18:59 06:59 18:59 Intake Total 1997.780 861.869 993.977 Output Total 810 365 265 Balance 1187.780 496.869 728.977 Weight 98.4 kg 100.5 kg Intake: IV 1220 482 80 0.9 NaCl CO/CI 40 0.9 NaCl IV fluids 340 160 20 Albumin Human 5% 250 ml 750 250 In Empty Bag 1 bag @ 250 mls/hr IVPB Q1HR PRN Rx#: [id number] Pressure bag 90 72 60 Intake, IV Titration 357.780 69.869 513.977 Amount Albumin Human 25% 50 ml 50 In Empty Bag 1 bag @ 50 mls/hr IVPB ONCE ONE Rx#: [id number] Amiodarone 450 mg In 200.282 Dextrose 5% in Water 250 ml @ 0.5 MG/MIN 16.667 mls/hr IV .Q15H [facility] Rx#: [id number] Amiodarone 450 mg In 33.2 Dextrose 5% in Water 250 ml @ 0.5 MG/MIN 16.667 mls/hr IV .Q15H [facility] Rx#: [id number] Insulin Regular 100 unit 18.947 11.127 0 In Sodium Chloride 0.9% 100 ml @ Per Protocol IV .Q0M [facility] Rx#:[id number] Norepinephrine 4 mg In 48.551 28.742 130.777 Sodium Chloride 0.9% 250 ml @ 0.05 MCG/KG/MIN 18. 745 mls/hr IV .[id number] [facility] Rx#:[id number] Sodium Chloride 0.9% 1, 90 30 300 000 ml @ 30 mls/hr IV . Q24H [facility] Rx#:[id number] Oral 420 400 Blood Product 310 Rc As-1 Unit 310 [id number] Output: Chest Tube Drainage 190 90 0 Bilateral Mediastinal 20 60 0 Chest Tube Left 170 30 0 Drainage 100 Left Calf 65 Left Wrist 35 Urine 520 275 265 Other: Voiding Method Indwelling Catheter Indwelling Catheter Indwelling Catheter ABP, PAP, CO, CI - Last Documented Arterial Blood Pressure 132/59 Pulmonary Artery Pressure 28/11 Cardiac Output 3.9 Cardiac Index 2 - Exam CONSTITUTIONAL: Appears uncomfortable but no respiratory distress RESPIRATORY: Lungs sounds diminished bilaterally. CARDIOVASCULAR: S1, S2 present. Regular rate and rhythm, sinus rhythm on telemetry. Sternum stable. Palpable peripheral pulses bilaterally. Trace generalized edema present. GASTROINTESTINAL: Abdomen soft, nontender, nondistended. Hypoactive bowel sounds present 4 quadrants. Tolerating ice chips. Negative flatus GENITOURINARY: Lopez present draining clear, yellow urine. Output overnight 100-125 mL per hour INTEGUMENTARY: Skin is warm and dry with evidence of good perfusion. Anterior chest incision well approximated and covered with dry intact dressing. CABRERA drain present with minimal drainage. NEUROLOGIC: Cranial nerves II through XII intact MUSKULOSKELETAL: Able to move all extremities, strength equal bilaterally PSYCHIATRIC: Alert and oriented to person place and time, appropriate affect, intact judgment and insight INVASIVE LINES AND TUBES: Mediastinal/left pleural chest tubes present and connected to wall suction, no air leaks present - Labs CBC & Chem 7: 09/11/21 09:54 09/11/21 03:25 Labs: Abnormal Lab Results - Last 24 Hours (Table) 09/08/21 09/10/21 09/10/21 Range/Units 07:39 18:59 21:21 RBC (3.80-5.40) m/uL Hgb (11.4-16.0) gm/dL Hct (34.0-46.0) % Plt Count (150-450) k/uL Sodium (137-145) mmol/L Carbon Dioxide (22-30) mmol/L BUN (7-17) mg/dL Glucose (74-99) mg/dL POC Glucose (mg/dL) 149 H 126 H (75-99) mg/dL Calcium (8.4-10.2) mg/dL AST (14-36) U/L ALT (4-34) U/L Alkaline Phosphatase (38-126) U/L Total Protein (6.3-8.2) g/dL Albumin (3.5-5.0) g/dL Crossmatch See Detail 09/10/21 09/11/21 09/11/21 Range/Units 22:35 00:14 01:43 RBC (3.80-5.40) m/uL Hgb (11.4-16.0) gm/dL Hct (34.0-46.0) % Plt Count (150-450) k/uL Sodium (137-145) mmol/L Carbon Dioxide (22-30) mmol/L BUN (7-17) mg/dL Glucose (74-99) mg/dL POC Glucose (mg/dL) 112 H 138 H 188 H (75-99) mg/dL Calcium (8.4-10.2) mg/dL AST (14-36) U/L ALT (4-34) U/L Alkaline Phosphatase (38-126) U/L Total Protein (6.3-8.2) g/dL Albumin (3.5-5.0) g/dL Crossmatch 09/11/21 09/11/21 09/11/21 Range/Units 03:25 03:25 03:25 RBC 1.60 L (3.80-5.40) m/uL Hgb 5.2 L* D (11.4-16.0) gm/dL Hct 15.0 L* (34.0-46.0) % Plt Count 99 L (150-450) k/uL Sodium 135 L (137-145) mmol/L Carbon Dioxide 21 L (22-30) mmol/L BUN 20 H (7-17) mg/dL Glucose 124 H (74-99) mg/dL POC Glucose (mg/dL) 145 H (75-99) mg/dL Calcium 7.9 L (8.4-10.2) mg/dL AST 564 H (14-36) U/L ALT 325 H (4-34) U/L Alkaline Phosphatase 24 L (38-126) U/L Total Protein 4.9 L (6.3-8.2) g/dL Albumin 3.3 L (3.5-5.0) g/dL Crossmatch 09/11/21 09/11/21 09/11/21 Range/Units 05:36 07:03 09:54 RBC 2.46 L (3.80-5.40) m/uL Hgb 7.9 L D (11.4-16.0) gm/dL Hct 22.7 L (34.0-46.0) % Plt Count 91 L (150-450) k/uL Sodium (137-145) mmol/L Carbon Dioxide (22-30) mmol/L BUN (7-17) mg/dL Glucose (74-99) mg/dL POC Glucose (mg/dL) 112 H 118 H (75-99) mg/dL Calcium (8.4-10.2) mg/dL AST (14-36) U/L ALT (4-34) U/L Alkaline Phosphatase (38-126) U/L Total Protein (6.3-8.2) g/dL Albumin (3.5-5.0) g/dL Crossmatch 09/11/21 09/11/21 Range/Units 11:40 16:55 RBC (3.80-5.40) m/uL Hgb (11.4-16.0) gm/dL Hct (34.0-46.0) % Plt Count (150-450) k/uL Sodium (137-145) mmol/L Carbon Dioxide (22-30) mmol/L BUN (7-17) mg/dL Glucose (74-99) mg/dL POC Glucose (mg/dL) 125 H 135 H (75-99) mg/dL Calcium (8.4-10.2) mg/dL AST (14-36) U/L ALT (4-34) U/L Alkaline Phosphatase (38-126) U/L Total Protein (6.3-8.2) g/dL Albumin (3.5-5.0) g/dL Crossmatch Assessment and Plan Plan: NSTEMI Multivessel coronary artery disease -Cardiology following, patient went to central lab technician 09/07/21 and was found to have triple-vessel occlusive disease revealing 95% occlusion of circumflex, 80% occl usion of the LAD and a complete occlusion of right coronary artery. -S/p triple vessel coronary artery bypass grafting 09/09 -Telemetry monitoring. -Cardiac diet -Aspirin, and metoprolol -Hemoglobin A1c elevated at 6.6% -Lipid profile unremarkable Acute blood loss anemia -Given one unit, follow up hgb ok Transaminitis -D/w CT surgery, likely shock liver +/- amiodarone side effect. D/c amio and statin. -Will trend. Hypertension now with hypotension -On levophed, hold bp meds Hyperlipidemia We will medication regimen with atorvastatin 80 mg daily. Diabetes mellitus Hold oral hypoglycemic medications -Glycemic protocol with NovoLog sliding scale. Hemoglobin A1c elevated at 6.6%. Nicotine dependence Educate and encourage patient on the importance of smoking cessation and the ri sks of continued use. Nicotine patch CODE STATUS: Full code DVT prophylaxis: Heparin Discussed with: Patient and RN Anticipated discharge date: Clinical course to determine Anticipated discharge place: Home A total of 40 minutes was spent on the care of this complex patient more than 50% of the time was spent in counseling and care coordination.
[2021-09-11 20:55] LABS: Glucose,Whole Blood 120 mg/dL (75-99)
[2021-09-11] MEDS: SENNOSIDES-DOCUSATE SODIUM 1 EACH TAB PO SCH (20:58)
[2021-09-11] MEDS ORDERED: METOPROLOL TARTRATE 25 MG TAB PO SCH (21:00)
[2021-09-11] MEDS ORDERED: METOPROLOL TARTRATE 12.5 MG TAB PO SCH (21:00)
[2021-09-12] MEDS: HEPARIN SODIUM,PORCINE/PF 5,000 UNIT/0.5 ML SYRINGE SQ SCH ×4 (00:17→23:39)
[2021-09-12] MEDS: KETOROLAC 15 MG/ML 1 ML VIAL IVP SCH ×2 (00:17→06:39)
[2021-09-12 04:19] LABS: Basophils % (A) 1 %; Eosinophils # (A) 0.1 k/uL (0-0.7); Eosinophils % (A) 1 %; HCT 21.2 % (34.0-46.0); HGB 7.4 gm/dL (11.4-16.0); Lymphocytes # (A) 1.4 k/uL (1.0-4.8); Lymphocytes % (A) 22 %; MCH 32.3 pg (25.0-35.0); MCHC 34.6 g/dL (31.0-37.0); MCV 93.2 fL (80.0-100.0); Mean Platelet Volume 9.7; Monocytes # (A) 0.3 k/uL (0-1.0); Monocytes % (A) 4 %; Neutrophils # (A) 4.7 k/uL (1.3-7.7); Neutrophils % (A) 72 %; RBC 2.28 m/uL (3.80-5.40); RDW 13.4 % (11.5-15.5); WBC 6.5 k/uL (3.8-10.6)
[2021-09-12 04:28] LABS: Platelet Count 80 k/uL (150-450)
[2021-09-12 04:43] LABS: Albumin 3.1 g/dL (3.5-5.0); Calcium 7.8 mg/dL (8.4-10.2); Potassium 3.9 mmol/L (3.5-5.1); Total Bilirubin 1.1 mg/dL (0.2-1.3); Total Protein 4.8 g/dL (6.3-8.2)
[2021-09-12] MEDS: NOREPINEPHRINE 4 MG in SODIUM CHLORIDE 0.9% 250 ML IV SCH (05:13)
[2021-09-12] MEDS ORDERED: POTASSIUM CHLORIDE ER 20 MEQ TAB.ER PO SCH (06:00)
--- NOTE | 2021-09-12 06:32 | XR ---
EXAMINATION TYPE: XR chest 1V portable DATE OF EXAM: 09/12/2021 COMPARISON: 09/11/2021 HISTORY: Postop CABG TECHNIQUE: Single frontal view of the chest is obtained. FINDINGS: There has been interval removal of 2 mediastinal tubes. The left chest tube remains in kenyatta ce. Small right pleural effusion has resolved or nearly completely resolved. There is improved aerati on in the left lung base but mild atelectasis and small effusion persists. The pulmonary vasculature appears mildly less congested. There is no pneumothorax. Median sternotomy wires otherwise the osseous structures are intact. IMPRESSION: Significant improvement in the appearance of the chest post cardiac surgery as described above.
[2021-09-12] MEDS: PANTOPRAZOLE 40 MG TABLET PO SCH (06:57)
[2021-09-12] MEDS: INSULIN ASPART (NovoLOG) 100 UNIT/ML VIAL SQ SCH ×4 (06:57→20:28)
[2021-09-12] MEDS: FERROUS SULFATE 325 MG TAB PO SCH ×2 (06:57→16:57)
[2021-09-12] MEDS: ASCORBIC ACID 500 MG TAB PO SCH ×2 (06:57→16:57)
[2021-09-12 06:58] LABS: Glucose,Whole Blood 87 mg/dL (75-99)
[2021-09-12] MEDS ORDERED: METOPROLOL TARTRATE 12.5 MG TAB PO STA (07:23)
[2021-09-12] MEDS: IPRATROPIUM-ALBUTEROL 3 ML NEB INHALATION SCH ×4 (07:59→21:08)
--- NOTE | 2021-09-12 08:16 | P.PN ---
Subjective Progress Note Date: 09/12/21 Principal diagnosis: Triple-vessel coronary artery disease with totally occluded right coronary artery, acute non-ST elevated myocardial infarction this admission, preserved left ventricular function. Previous medical history of hypertension, hyperlipidemia, uev-cwbzmsc-ncosjpoen diabetes mellitus, chronic ongoing tobacco dependence, TIA 40 years ago, chronic back pain, GERD, obesity, family history of coronary artery disease POD #3 triple vessel coronary artery bypass grafting using the left internal mammary artery to the left anterior descending artery, left radial artery from the aorta to the first obtuse marginal artery, reverse saphenous vein graft from the aorta to the right coronary artery, exclusion of the left atrial appendage using a 35 mm AtriClip, endoscopic harvesting of the left radial artery and endoscopic harvesting of the left greater saphenous vein, intraoperative transesophageal echocardiogram, epi-aortic scanning, intraoperative graft flow measurements using the meetsim system Postoperative acute blood loss anemia and thrombocytopenia, expected given hemodilution and cardiopulmonary bypass pump Brief episode of paroxysmal atrial fibrillation, known common occurrence after open heart surgery Elevated transaminases, likely result of hypotension combined with medication effects The patient was seen and examined this morning sitting up in the recliner in the intensive care unit in no acute distress. Remains in sinus rhythm, blood pr essure has been labile, has been on and off levo, currently a bit hypertensive. States pain is tolerable on current medication regimen. Patient does normally have a buprenorphine patch on for pain, was taken off for surgery, not on formulary in this hospital, family asked to bring in but they state she gets the patch put on weekly at Dr. Lou's office. More awake this morning and completely oriented to person, place, time, and situation. She did ambulate yesterday with physical therapy. Right internal jugular Cordis, right radial arterial line remain. Objective - Vital Signs Vital signs: Vital Signs Temp 98.4 F 09/12/21 04:00 Pulse 63 09/12/21 07:00 Resp 12 09/12/21 07:00 BP 135/83 09/12/21 07:00 Pulse Ox 97 09/12/21 07:00 Intake & Output 09/11/21 09/12/21 09/12/21 17:59 06:59 18:59 Intake Total 36 Output Total 25 Balance 11 Weight Intake: IV 6 0.9 NaCl IV fluids Pressure bag 6 Intake, IV Titration 30 Amount Albumin Human 25% 50 ml In Empty Bag 1 bag @ 50 mls/hr IVPB ONCE ONE Rx#: [id number] Amiodarone 450 mg In Dextrose 5% in Water 250 ml @ 0.5 MG/MIN 16.667 mls/hr IV .Q15H [facility] Rx#: [id number] Insulin Regular 100 unit In Sodium Chloride 0.9% 100 ml @ Per Protocol IV .Q0M [facility] Rx#:[id number] Norepinephrine 4 mg In Sodium Chloride 0.9% 250 ml @ 0.05 MCG/KG/MIN 18. 745 mls/hr IV .[id number] [facility] Rx#:[id number] Sodium Chloride 0.9% 1, 30 000 ml @ 30 mls/hr IV . Q24H [facility] Rx#:[id number] Oral Blood Product Rc As-1 Unit [id number] Output: Chest Tube Drainage Bilateral Mediastinal Chest Tube Left Urine 25 Other: Voiding Method ABP, PAP, CO, CI - Last Documented Arterial Blood Pressure 137/61 Pulmonary Artery Pressure 28/11 Cardiac Output 3.9 Cardiac Index 2 - Exam CONSTITUTIONAL: Appears comfortable, cooperative, no acute distress RESPIRATORY: Lungs sounds diminished bilaterally. Respirations even, nonlabored. Currently on 2 L nasal cannula with oxygen saturation 95%. Able to achieve 1000 mL on incentive spirometry. Strong productive cough. CARDIOVASCULAR: S1, S2 present. Regular rate and rhythm, sinus rhythm on telemetry. Sternum stable. Palpable peripheral pulses bilaterally. Trace generalized edema present. No calf pain or tenderness noted. Heart hugger in place with patient demonstrating appropriate use. Antiembolism stockings, SCDs present. GASTROINTESTINAL: Abdomen soft, nontender, nondistended. Active bowel sounds present 4 quadrants. Tolerating diet. Positive flatus GENITOURINARY: Lopez present draining clear, yellow urine. Output overnight 25-35 mL per hour, 675 mL the last 24 hours INTEGUMENTARY: Skin is warm and dry with evidence of good perfusion. Anterior chest incision well approximated and covered with dry intact dressing. Left radial artery harvest site as well as left lower extremity EVH site well approximated NEUROLOGIC: Cranial nerves II through XII intact MUSKULOSKELETAL: Able to move all extremities, strength equal bilaterally PSYCHIATRIC: Alert and oriented to person, place, time and situation, appropriate affect, intact judgment INVASIVE LINES AND TUBES: Right internal jugular Cordis, right radial arterial line present. - Allied health notes Allied health notes reviewed: nursing - Labs CBC & Chem 7: 09/12/21 04:00 09/12/21 04:00 Labs: Abnormal Lab Results - Last 24 Hours (Table) 09/08/21 09/11/21 09/11/21 Range/Units 07:39 09:54 11:40 RBC 2.46 L (3.80-5.40) m/uL Hgb 7.9 L D (11.4-16.0) gm/dL Hct 22.7 L (34.0-46.0) % Plt Count 91 L (150-450) k/uL Sodium (137-145) mmol/L Chloride (98-107) mmol/L Carbon Dioxide (22-30) mmol/L BUN (7-17) mg/dL POC Glucose (mg/dL) 125 H (75-99) mg/dL Calcium (8.4-10.2) mg/dL AST (14-36) U/L ALT (4-34) U/L Total Protein (6.3-8.2) g/dL Albumin (3.5-5.0) g/dL Crossmatch See Detail 09/11/21 09/11/21 09/12/21 Range/Units 16:55 20:54 04:00 RBC 2.28 L (3.80-5.40) m/uL Hgb 7.4 L (11.4-16.0) gm/dL Hct 21.2 L (34.0-46.0) % Plt Count 80 L (150-450) k/uL Sodium (137-145) mmol/L Chloride (98-107) mmol/L Carbon Dioxide (22-30) mmol/L BUN (7-17) mg/dL POC Glucose (mg/dL) 135 H 120 H (75-99) mg/dL Calcium (8.4-10.2) mg/dL AST (14-36) U/L ALT (4-34) U/L Total Protein (6.3-8.2) g/dL Albumin (3.5-5.0) g/dL Crossmatch 09/12/21 Range/Units 04:00 RBC (3.80-5.40) m/uL Hgb (11.4-16.0) gm/dL Hct (34.0-46.0) % Plt Count (150-450) k/uL Sodium 135 L (137-145) mmol/L Chloride 109 H (98-107) mmol/L Carbon Dioxide 20 L (22-30) mmol/L BUN 26 H (7-17) mg/dL POC Glucose (mg/dL) (75-99) mg/dL Calcium 7.8 L (8.4-10.2) mg/dL AST 2904 H (14-36) U/L ALT 1809 H (4-34) U/L Total Protein 4.8 L (6.3-8.2) g/dL Albumin 3.1 L (3.5-5.0) g/dL Crossmatch - Imaging and Cardiology Chest x-ray: report reviewed, image reviewed Assessment and Plan Assessment: 1. Triple vessel coronary artery disease with totally occluded right coronary artery, acute non-ST elevated myocardial infarction this admission, preserved left ventricular function, status post three-vessel CABG 2. History of hypertension 3. Hyperlipidemia 4. Kqm-elhrcsa-qiqczltjc diabetes mellitus, preoperative hemoglobin A1c 6.6% 5. Chronic ongoing tobacco dependence, preoperative FEV1 87% of predicted 6. TIA 40 years ago 7. Chronic back pain, on buprenorphine patch at home 8. GERD 9. Obesity 10. Family history of coronary artery disease 11. Postoperative acute blood loss anemia and thrombocytopenia, expected 12. Brief episode paroxysmal atrial fibrillation, status post left atrial appendage ligation 13. Elevated transaminases, likely from hypotension and medications Plan: 1. Continue to maximize medical therapy with low-dose ASA, Plavix, beta chris. Will increase beta chris therapy as tolerated. Continue to hold statin secondary to elevated liver enzymes, will restart when able 2. Continue low-dose oral calcium channel chris for radial artery spasm prophylaxis, will increase norvasc to 5 mg daily 3. Wean O2 as tolerated. Encourage incentive spirometry use 10 times every hour while awake. Bronchodilators per pulmonology 4. Increase activity, ambulate as tolerated. PT/OT/cardiac rehab following 5. Smoking cessation counseling offered, patient strongly encouraged to quit smoking 6. Will monitor daily labs and x-rays. Electrolyte replacement protocol. No further blood transfusion today. Will give 25% albumin followed by 20 mg IVP lasix 7. GI/DVT prophylaxis 8. Insulin management per primary care service. Patient needs tight blood sugar control to promote sternal union, prevent infection 9. Pain control with current medication regimen. Avoid acetaminophen products 10. Discontinue Lopez catheter, may bladder scan and straight cath for greater than 300 mL residual 11. Strict accurate intake and output. Daily weights 12. Discontinue Cordism, keep arterial line 13. More recommendations to follow Time with Patient: Greater than 30
[2021-09-12] MEDS: DULoxetine HCL 60 MG CAPSULE.DR PO SCH (08:48)
[2021-09-12] MEDS: CLOPIDOGREL 75 MG TAB PO SCH (08:48)
[2021-09-12] MEDS: ASPIRIN 81 MG PO SCH (08:50)
[2021-09-12] MEDS ORDERED: FUROSEMIDE 10 MG/ML 2 ML VIAL IV ONE (09:11)
--- NOTE | 2021-09-12 09:29 | P.PN ---
Subjective Progress Note Date: 09/12/21 Principal diagnosis: Coronary artery disease. Pulmonary consult dated 09/08/2021. 65-year-old female that I'm seeing for preoperative pulmonary evaluation. I had the opportunity to look at her pulmonary function test previously, and they were excellent. The patient is scheduled to have a bypass grafting tomorrow with Dr. Adames. The patient was admitted to the hospital on September 06, complaining of chest pain. Apparently, the pain radiated to her back and right arm, and she had some numbness and tingling in the right arm. She was also feeling very weak and fatigued. She apparently has a history of hypertension and hyperlipidemia. She did smoke in the past. She has no prior history of chronic lung disease. The patient denies any shortness of breath, chest tightness, cough, wheezing, or phlegm production. Coronary catheterization revealed three-vessel coronary disease, including a calcified left coronary system with a focal 80% stenosis in the LAD, circumflex, and a chronically occluded right coronary artery. Based on lung function, and specifically the FEV1 and MVV, the patient was at no increased operative risk. Laboratory data includes a normal CBC, a normal PT INR and PTT, and a sodium of 137, potassium 4.6, chlorides 104, CO2 33, BUN 23, and creatinine 1.06. Albumin was 3.4. Urine was negative. Chest x-ray was unremarkable. Progress note dated 09/10/2021. The patient is postop day #1, status post three-vessel bypass grafting. She was extubated 5-1/2 hours after leaving the operating room. Currently, she is resting comfortably in room 251, in the intensive care unit. Her only complaint is that of a dry mouth, and pain in the chest area, where surgery was performed. Currently, she is on 5 L nasal cannula. She's getting saline at 50 mL an hour. In addition, she is getting Cleveprex at 1 mg an hour, amiodarone at 0.5 mg/m, and insulin at 1 unit per hour. White count 7.3, heme him 7.2, hematocrit 21.6, and platelet count 93,000. Sodium 135, potassium 4.2, chlorides 106, CO2 23, BUN 16, creatinine 0.59. Chest x-ray shows postoperative changes, interval extubation, and basilar atelectasis. Progress note dated 09/11/2021. This is a 65-year-old female seen again in room 251. She is postop day #2, status post three-vessel bypass grafting. The patient is currently resting comfortably. She's on 2 L nasal cannula. Getting lactated Ringer's at 30 mL an hour. Norepinephrine is currently off. Hemoglobin today was 5.2. She's getting 1 unit of PRBCs. Her hemoglobin will be rechecked. Repeat CBC shows a white count of 7.8, hemoglobin 7.9, hematocrit 22.7, and platelet count of 91,000. Sodium 135, potassium 3.9, chlorides 107, CO2 21, BUN 20, creatinine 0.8. AST is 564. ALT 325. Chest x-ray show some typical postoperative changes. Progress note dated 09/12/2021. 65-year-old female, again seen in room 251. She is postop day #3, status post three-vessel bypass grafting. The patient's resting comfortably. She's getting saline at 30 mL an hour. She is on 2 L by nasal cannula. Current laboratory data includes a white count 6.5, hemoglobin 7.4, hematocrit 21.2, and platelet count 80,000. Sodium 135, potassium 3.9, chlorides 109, CO2 20, anion gap 6, BUN 26, and creatinine 0.85. AST is 2904 and ALT is 1809. Chest x-ray showed significant improvement in the patient's volume status. Objective - Vital Signs Vital signs: Vital Signs Temp 98.4 F 09/12/21 04:00 Pulse 63 09/12/21 07:00 Resp 12 09/12/21 07:00 BP 135/83 09/12/21 07:00 Pulse Ox 97 09/12/21 07:00 Intake & Output 09/11/21 09/12/21 09/12/21 17:59 06:59 18:59 Intake Total 208 Output Total 115 Balance 93 Weight Intake: IV 18 0.9 NaCl IV fluids Pressure bag 18 Intake, IV Titration 90 Amount Albumin Human 25% 50 ml In Empty Bag 1 bag @ 50 mls/hr IVPB ONCE ONE Rx#: [id number] Amiodarone 450 mg In Dextrose 5% in Water 250 ml @ 0.5 MG/MIN 16.667 mls/hr IV .Q15H [facility] Rx#: [id number] Insulin Regular 100 unit In Sodium Chloride 0.9% 100 ml @ Per Protocol IV .Q0M [facility] Rx#:[id number] Norepinephrine 4 mg In Sodium Chloride 0.9% 250 ml @ 0.05 MCG/KG/MIN 18. 745 mls/hr IV .[id number] [facility] Rx#:[id number] Sodium Chloride 0.9% 1, 90 000 ml @ 30 mls/hr IV . Q24H [facility] Rx#:[id number] Oral 100 Blood Product Rc As-1 Unit [id number] Output: Chest Tube Drainage Bilateral Mediastinal Chest Tube Left Urine 115 Other: Voiding Method ABP, PAP, CO, CI - Last Documented Arterial Blood Pressure 137/61 Pulmonary Artery Pressure 28/11 Cardiac Output 3.9 Cardiac Index 2 - Exam No acute distress, oriented 3. Currently on nasal O2 at 2 L. HEENT examination is grossly unremarkable. Neck supple. Full range of motion. No adenopathy thyromegaly or neck vein distention. Cardiovascular examination reveals regular rhythm rate. S1-S2 normal. No S3 or S4. No discernible murmur noted. Heart rate 63 bpm. Lungs reveal mostly clear breath sounds. Scattered rhonchi are noted. No wheezes or crackles. 2 L saturation is 97%. Breath sounds are equal bilaterally. Abdomen soft bowel sounds are heard. No masses or tenderness. Extremities are intact. No cyanosis clubbing or edema. Skin is without rash or lesion. Neurologic examination is brief but nonfocal. - Labs CBC & Chem 7: 09/12/21 04:00 09/12/21 04:00 Labs: Abnormal Lab Results - Last 24 Hours (Table) 09/11/21 09/11/21 09/11/21 Range/Units 09:54 11:40 16:55 RBC 2.46 L (3.80-5.40) m/uL Hgb 7.9 L D (11.4-16.0) gm/dL Hct 22.7 L (34.0-46.0) % Plt Count 91 L (150-450) k/uL Sodium (137-145) mmol/L Chloride (98-107) mmol/L Carbon Dioxide (22-30) mmol/L BUN (7-17) mg/dL POC Glucose (mg/dL) 125 H 135 H (75-99) mg/dL Calcium (8.4-10.2) mg/dL AST (14-36) U/L ALT (4-34) U/L Total Protein (6.3-8.2) g/dL Albumin (3.5-5.0) g/dL 09/11/21 09/12/21 09/12/21 Range/Units 20:54 04:00 04:00 RBC 2.28 L (3.80-5.40) m/uL Hgb 7.4 L (11.4-16.0) gm/dL Hct 21.2 L (34.0-46.0) % Plt Count 80 L (150-450) k/uL Sodium 135 L (137-145) mmol/L Chloride 109 H (98-107) mmol/L Carbon Dioxide 20 L (22-30) mmol/L BUN 26 H (7-17) mg/dL POC Glucose (mg/dL) 120 H (75-99) mg/dL Calcium 7.8 L (8.4-10.2) mg/dL AST 2904 H (14-36) U/L ALT 1809 H (4-34) U/L Total Protein 4.8 L (6.3-8.2) g/dL Albumin 3.1 L (3.5-5.0) g/dL Assessment and Plan Assessment: Symptomatic coronary artery disease. Postop day #3, status post three-vessel bypass grafting, exclusion of left atrial appendage, endoscopic harvesting of left radial artery, intraoperative transesophageal echocardiogram, and intraoperative graft flow measurements. Routine postoperative ventilator management. History of tobacco use, without evidence of underlying COPD, and pulmonary function, which would suggest no increased operative risk. History of hyperlipidemia. History of hypertension. History of diabetes mellitus. Plan: Plan dated 09/18/2021. The patient is apparently scheduled to have open heart surgery, tomorrow with Dr. Adames. I did explain our role as long in critical care physicians to the patient. I also mentioned to her, that based on lung function, she is at no increased operative risk, and that she should do well with a general anesthetic. I also mentioned that we would attempt to get the patient extubated as soon as possible, and we will see the patient on a daily basis, to ensure that she doesn't develop a pulmonary complication such as pneumonia, pleural effusion, atelectasis, or lobar collapse. Plan dated 09/10/2021. The patient is postop day #1, status post three-vessel bypass grafting. The patient was extubated 5-1/2 hours after leaving the operating room. Currently, the patient's on 5 L nasal cannula. In addition, the patient's getting saline at 50 mL an hour, Cleveprex at 1 mg an hour, amiodarone at 0.5 mg/m, insulin at 1 unit per hour. Labs, x-rays, and medications are all reviewed. The patient's only complaint is that of dry mouth, and pain at the surgical site. We've asked her to continue to work on the incentive spirometer, every hour while awake. In addition, we recommend deep breathing, coughing, clearing of secretions. We will continue to follow make recommendations where appropriate. Plan dated 09/11/2021. Currently, the patient is postop day #2, status post three-vessel bypass grafting. The patient's on 2 L nasal cannula. The patient is getting lactated Ringer's at 30 mL an hour. She did receive 1 unit of blood today for hemoglobin of 5.2. Repeat hemoglobin is 7.9. We will continue to follow make recommendations were appropriate. Prognosis is guarded. We recommend hourly use of the incentive spirometer. We also recommend deep breathing, coughing, and clearing of secretions. Plan dated 09/12/2021. The patient continues to do well. She is postop day #3. The patient's labs, x- rays, and medications are reviewed. Prognosis remains guarded. She continues to work on incentive spirometer, and also deep breathing, cough, and clear secretions. The patient's labs are reviewed. Medications and x-rays are reviewed. The patient may transfer out of the intensive care unit today. We'll leave that up to cardiothoracic surgery. Her respiratory status is very stable. No additional recommendations are made. We will continue to follow the patient and make recommendations where appropriate. Time with Patient: Less than 30
[2021-09-12] MEDS ORDERED: ALBUMIN HUMAN 25% 50 ML in EMPTY BAG 1 BAG IVPB ONE (10:00)
[2021-09-12] MEDS: traMADol 50 MG TAB PO PRN ×3 (10:23→23:44)
[2021-09-12] MEDS: ONDANSETRON 4 MG/2 ML VIAL IVP PRN (10:24)
[2021-09-12] MEDS: amLODIPine 5 MG TAB PO SCH (10:39)
--- NOTE | 2021-09-12 11:53 | P.PN ---
Subjective Progress Note Date: 09/12/21 Principal diagnosis: s/p cabg Patient is postop day #3, status post three-vessel bypass grafting, she is resting comfortably. Currently on 2 L by nasal cannula. Hemoglobin up to 7.4 after 1 unit of PRBC given on 09/11. Her LFTs are trending up, AST is 2904 and ALT is 1809. BP up she is off levo. Participating with PT. Objective - Vital Signs Vital signs: Vital Signs Temp 98.6 F 09/12/21 08:00 Pulse 77 09/12/21 11:00 Resp 16 09/12/21 11:00 BP 148/84 09/12/21 11:00 Pulse Ox 96 09/12/21 11:00 Intake & Output 09/11/21 09/12/21 09/12/21 17:59 06:59 18:59 Intake Total 330 Output Total 575 Balance -245 Weight Intake: IV 30 0.9 NaCl IV fluids Pressure bag 30 Intake, IV Titration 200 Amount Albumin Human 25% 50 ml In Empty Bag 1 bag @ 50 mls/hr IVPB ONCE ONE Rx#: [id number] Albumin Human 25% 50 ml 50 In Empty Bag 1 bag @ 50 mls/hr IVPB ONCE ONE Rx#: [id number] Amiodarone 450 mg In Dextrose 5% in Water 250 ml @ 0.5 MG/MIN 16.667 mls/hr IV .Q15H [facility] Rx#: [id number] Insulin Regular 100 unit In Sodium Chloride 0.9% 100 ml @ Per Protocol IV .Q0M [facility] Rx#:[id number] Norepinephrine 4 mg In Sodium Chloride 0.9% 250 ml @ 0.05 MCG/KG/MIN 18. 745 mls/hr IV .[id number] [facility] Rx#:[id number] Sodium Chloride 0.9% 1, 150 000 ml @ 30 mls/hr IV . Q24H [facility] Rx#:[id number] Oral 100 Blood Product Rc As-1 Unit [id number] Output: Chest Tube Drainage Bilateral Mediastinal Chest Tube Left Urine 575 Other: Voiding Method Indwelling Catheter ABP, PAP, CO, CI - Last Documented Arterial Blood Pressure 168/82 Pulmonary Artery Pressure 28/11 Cardiac Output 3.9 Cardiac Index 2 - Exam CONSTITUTIONAL: Appears uncomfortable but no respiratory distress RESPIRATORY: Lungs sounds diminished bilaterally. CARDIOVASCULAR: S1, S2 present. Regular rate and rhythm, sinus rhythm on telemetry. Sternum stable. Palpable peripheral pulses bilaterally. Trace generalized edema present. GASTROINTESTINAL: Abdomen soft, nontender, nondistended. Hypoactive bowel sounds present 4 quadrants. Tolerating ice chips. Negative flatus GENITOURINARY: Lopez present draining clear, yellow urine. Output overnight 100-125 mL per hour INTEGUMENTARY: Skin is warm and dry with evidence of good perfusion. Anterior chest incision well approximated and covered with dry intact dressing. CABRERA drain present with minimal drainage. NEUROLOGIC: Cranial nerves II through XII intact MUSKULOSKELETAL: Able to move all extremities, strength equal bilaterally PSYCHIATRIC: Alert and oriented to person place and time, appropriate affect, intact judgment and insight INVASIVE LINES AND TUBES: Mediastinal/left pleural chest tubes present and connected to wall suction, no air leaks present - Labs CBC & Chem 7: 09/12/21 04:00 09/12/21 04:00 Labs: Abnormal Lab Results - Last 24 Hours (Table) 09/11/21 09/11/21 09/11/21 Range/Units 11:40 16:55 20:54 RBC (3.80-5.40) m/uL Hgb (11.4-16.0) gm/dL Hct (34.0-46.0) % Plt Count (150-450) k/uL Sodium (137-145) mmol/L Chloride (98-107) mmol/L Carbon Dioxide (22-30) mmol/L BUN (7-17) mg/dL POC Glucose (mg/dL) 125 H 135 H 120 H (75-99) mg/dL Calcium (8.4-10.2) mg/dL AST (14-36) U/L ALT (4-34) U/L Total Protein (6.3-8.2) g/dL Albumin (3.5-5.0) g/dL 09/12/21 09/12/21 Range/Units 04:00 04:00 RBC 2.28 L (3.80-5.40) m/uL Hgb 7.4 L (11.4-16.0) gm/dL Hct 21.2 L (34.0-46.0) % Plt Count 80 L (150-450) k/uL Sodium 135 L (137-145) mmol/L Chloride 109 H (98-107) mmol/L Carbon Dioxide 20 L (22-30) mmol/L BUN 26 H (7-17) mg/dL POC Glucose (mg/dL) (75-99) mg/dL Calcium 7.8 L (8.4-10.2) mg/dL AST 2904 H (14-36) U/L ALT 1809 H (4-34) U/L Total Protein 4.8 L (6.3-8.2) g/dL Albumin 3.1 L (3.5-5.0) g/dL Assessment and Plan Plan: NSTEMI Multivessel coronary artery disease -Cardiology following, patient went to laborer hoisting 09/07/21 and was found to have triple-vessel occlusive disease revealing 95% occlusion of circumflex, 80% occlusion of the LAD and a complete occlusion of right coronary artery. -S/p triple vessel coronary artery bypass grafting 09/09 -Telemetry monitoring. -Cardiac diet -Aspirin, plavix and metoprolol -Lipid profile unremarkable Acute blood loss anemia -Given one unit, follow up hgb ok Transaminitis -D/w CT surgery, likely shock liver due to hypotension +/- amiodarone side effect. D/c amio and statin. -Continue trend. Hypertension was hypotensive -Off levophed, continue to hold bp meds Hyperlipidemia We will medication regimen with atorvastatin 80 mg daily. Diabetes mellitus -Hemoglobin A1c elevated at 6.6% Hold oral hypoglycemic medications -Glycemic protocol with NovoLog sliding scale. Nicotine dependence Educate and encourage patient on the importance of smoking cessation and the risks of continued use. Nicotine patch CODE STATUS: Full code DVT prophylaxis: Heparin Discussed with: Patient and RN Anticipated discharge date: Clinical course to determine Anticipated discharge place: Home A total of 40 minutes was spent on the care of this complex patient more than 50% of the time was spent in counseling and care coordination.
[2021-09-12] MEDS ORDERED: amLODIPine 2.5 MG TAB PO SCH (12:00)
[2021-09-12 12:18] LABS: Glucose,Whole Blood 115 mg/dL (75-99)
[2021-09-12] MEDS: SODIUM CHLORIDE 0.9% 1,000 ML IV SCH (15:11)
--- NOTE | 2021-09-12 15:29 | PN ---
PROGRESS NOTE FOLLOW-UP NOTE: Vanna is a 65-year-old lady who underwent three-vessel bypass surgery. Her postoperative course was complicated by episodes of hypotension, anemia and shock liver. Her liver enzymes have gone up further to about 2900. She had episodes of hypotension, but currently her blood pressure seems normal. She is oxygenating well and her hemoglobin is 7.4. Current medications include Norvasc 5 mg daily, aspirin, Plavix 75 mg daily and Lopressor 12.5 b.i.d. On exam, comfortable at rest. Vital signs are stable. Chest exam reveals diminished air entry bilaterally. Heart exam reveals first and second heart sounds. No gallop. Examination of extremities did not reveal any edema. Labs show a hemoglobin of 7.4, platelet count is 80. Potassium is 3.9. Creatinine is 0.85. AST and ALT are elevated at 2900 and 1800. ASSESSMENT: 1. Coronary artery disease, status post coronary artery bypass grafting. 2. Postoperative blood loss requiring blood transfusion. 3. Elevated liver enzymes, probably secondary to hypotension-related liver injury. Patient will continue current medications. MMODL / IJN: [id number] /
[2021-09-12 17:48] LABS: Glucose,Whole Blood 93 mg/dL (75-99)
[2021-09-12 20:20] LABS: Glucose,Whole Blood 113 mg/dL (75-99)
[2021-09-12] MEDS: HYDROmorphone 0.5 MG/0.5 ML SYRINGE IVP PRN (20:27)
[2021-09-12] MEDS: METOPROLOL TARTRATE 12.5 MG TAB PO SCH (20:28)
[2021-09-12] MEDS: SENNOSIDES-DOCUSATE SODIUM 1 EACH TAB PO SCH (20:28)
[2021-09-13 05:24] LABS: HGB 7.1 gm/dL (11.4-16.0); MCH 31.3 pg (25.0-35.0); MCHC 33.7 g/dL (31.0-37.0); MCV 93.1 fL (80.0-100.0); Mean Platelet Volume 8.5; Platelet Count 110 k/uL (150-450); RBC 2.26 m/uL (3.80-5.40); RDW 13.7 % (11.5-15.5); WBC 7.3 k/uL (3.8-10.6)
[2021-09-13] MEDS: traMADol 50 MG TAB PO PRN ×4 (05:32→23:20)
[2021-09-13 05:36] LABS: African American GFR (CKD) >90 (>60 ml/min/1.73 sqM); Alkaline Phosphatase 53 U/L (38-126); Anion Gap 7 mmol/L; Blood Urea Nitrogen 21 mg/dL (7-17); Calcium 7.7 mg/dL (8.4-10.2); Carbon Dioxide 23 mmol/L (22-30); Chloride 105 mmol/L (98-107); Glucose 84 mg/dL (74-99); Magnesium 2.3 mg/dL (1.6-2.3); Non-African American GFR(CKD) 90 (>60 ml/min/1.73 sqM); Potassium 3.5 mmol/L (3.5-5.1); Sodium 135 mmol/L (137-145); Total Bilirubin 1.3 mg/dL (0.2-1.3); Total Protein 4.8 g/dL (6.3-8.2)
[2021-09-13 05:44] LABS: ALT 1411 U/L (4-34); AST 1108 U/L (14-36)
[2021-09-13 06:40] LABS: Glucose,Whole Blood 100 mg/dL (75-99)
[2021-09-13] MEDS: INSULIN ASPART (NovoLOG) 100 UNIT/ML VIAL SQ SCH ×4 (06:55→20:58)
[2021-09-13] MEDS: FERROUS SULFATE 325 MG TAB PO SCH ×2 (07:01→17:08)
[2021-09-13] MEDS: POTASSIUM CHLORIDE ER 20 MEQ TAB.ER PO SCH ×5 (07:01→21:00)
[2021-09-13] MEDS: ASCORBIC ACID 500 MG TAB PO SCH ×2 (07:02→17:08)
[2021-09-13] MEDS: PANTOPRAZOLE 40 MG TABLET PO SCH (07:02)
--- NOTE | 2021-09-13 07:10 | P.PN ---
Subjective Progress Note Date: 09/13/21 Principal diagnosis: Triple-vessel coronary artery disease with totally occluded right coronary artery, acute non-ST elevated myocardial infarction this admission, preserved left ventricular function. Previous medical history of hypertension, hyperlipidemia, gjh-bsgnmix-swjknloiv diabetes mellitus, chronic ongoing tobacco dependence, TIA 40 years ago, chronic back pain, GERD, obesity, family history of coronary artery disease POD #4 triple vessel coronary artery bypass grafting using the left internal mammary artery to the left anterior descending artery, left radial artery from the aorta to the first obtuse marginal artery, reverse saphenous vein graft from the aorta to the right coronary artery, exclusion of the left atrial appendage using a 35 mm AtriClip, endoscopic harvesting of the left radial artery and endoscopic harvesting of the left greater saphenous vein, intraoperative transesophageal echocardiogram, epi-aortic scanning, intraoperative graft flow measurements using the [employer] system Postoperative acute blood loss anemia and thrombocytopenia, expected given hemodilution and cardiopulmonary bypass pump Brief episode of paroxysmal atrial fibrillation, known common occurrence after open heart surgery Elevated transaminases, likely result of hypotension combined with medication effects The patient was seen and examined this morning sitting up in the recliner in the intensive care unit in no acute distress. Remains in sinus rhythm, blood pr essure more stable. States pain is tolerable on current medication regimen. Patient does normally have a buprenorphine patch on for pain, was taken off for surgery, not on formulary in this hospital, family asked to bring in but they state she gets the patch put on weekly at Dr. Lou's office. Awake this morning and completely oriented to person, place, time, and situation. She has ambulated in the hallway without difficulty. Right radial arterial line remain. CXR reviewed, stable. Labs reviewed, liver enzymes trending down Objective - Vital Signs Vital signs: Vital Signs Temp 98.1 F 09/13/21 00:00 Pulse 75 09/13/21 06:00 Resp 16 09/13/21 06:00 BP 112/67 09/13/21 04:00 Pulse Ox 97 09/13/21 06:00 Intake & Output 09/12/21 09/13/21 09/13/21 18:59 06:59 18:59 Intake Total 690 483 Output Total 1455 200 Balance -765 283 Weight 99.4 kg Intake: IV 60 3 Pressure bag 60 3 Intake, IV Titration 290 Amount Albumin Human 25% 50 ml 50 In Empty Bag 1 bag @ 50 mls/hr IVPB ONCE ONE Rx#: [id number] Sodium Chloride 0.9% 1, 240 000 ml @ 30 mls/hr IV . Q24H [facility] Rx#:[id number] Oral 340 480 Output: Urine 1455 200 Other: Voiding Method Indwelling Catheter Toilet ABP, PAP, CO, CI - Last Documented Arterial Blood Pressure 118/50 Pulmonary Artery Pressure 28/11 Cardiac Output 3.9 Cardiac Index 2 - Exam CONSTITUTIONAL: Appears comfortable, cooperative, no acute distress RESPIRATORY: Lungs sounds diminished bilaterally. Respirations even, nonlabored. Currently on 2 L nasal cannula with oxygen saturation 94%, removed and oxygen saturation 91% on room air. Able to achieve 1250 mL on incentive spirometry. Strong productive cough. CARDIOVASCULAR: S1, S2 present. Regular rate and rhythm, sinus rhythm on telemetry. Sternum stable. Palpable peripheral pulses bilaterally. Trace generalized edema present. No calf pain or tenderness noted. Heart hugger in place with patient demonstrating appropriate use. Antiembolism stockings, SCDs present. GASTROINTESTINAL: Abdomen soft, nontender, nondistended. Active bowel sounds present 4 quadrants. Tolerating diet. Positive flatus, no bowel movement yet GENITOURINARY: Lopez removed yesterday, positive void, 1655 mL in last 24 hours INTEGUMENTARY: Skin is warm and dry with evidence of good perfusion. Anterior chest incision well approximated and covered with dry intact dressing. Left radial artery harvest site as well as left lower extremity EVH site well approximated NEUROLOGIC: Cranial nerves II through XII intact MUSKULOSKELETAL: Able to move all extremities, strength equal bilaterally PSYCHIATRIC: Alert and oriented to person, place, time and situation, appropriate affect, intact judgment INVASIVE LINES AND TUBES: Right radial arterial line present. - Allied health notes Allied health notes reviewed: nursing - Labs CBC & Chem 7: 09/13/21 05:00 09/13/21 05:00 Labs: Abnormal Lab Results - Last 24 Hours (Table) 09/12/21 09/12/21 09/13/21 Range/Units 12:17 20:18 05:00 RBC 2.26 L (3.80-5.40) m/uL Hgb 7.1 L (11.4-16.0) gm/dL Hct 21.0 L (34.0-46.0) % Plt Count 110 L (150-450) k/uL Sodium (137-145) mmol/L BUN (7-17) mg/dL POC Glucose (mg/dL) 115 H 113 H (75-99) mg/dL Calcium (8.4-10.2) mg/dL AST (14-36) U/L ALT (4-34) U/L Total Protein (6.3-8.2) g/dL Albumin (3.5-5.0) g/dL 09/13/21 09/13/21 Range/Units 05:00 06:38 RBC (3.80-5.40) m/uL Hgb (11.4-16.0) gm/dL Hct (34.0-46.0) % Plt Count (150-450) k/uL Sodium 135 L (137-145) mmol/L BUN 21 H (7-17) mg/dL POC Glucose (mg/dL) 100 H (75-99) mg/dL Calcium 7.7 L (8.4-10.2) mg/dL AST 1108 H (14-36) U/L ALT 1411 H (4-34) U/L Total Protein 4.8 L (6.3-8.2) g/dL Albumin 3.0 L (3.5-5.0) g/dL - Imaging and Cardiology Chest x-ray: image reviewed Assessment and Plan Assessment: 1. Triple vessel coronary artery disease with totally occluded right coronary artery, acute non-ST elevated myocardial infarction this admission, preserved left ventricular function, status post three-vessel CABG 2. History of hypertension 3. Hyperlipidemia 4. Jvh-sjakzrp-ujmyiczbe diabetes mellitus, preoperative hemoglobin A1c 6.6% 5. Chronic ongoing tobacco dependence, preoperative FEV1 87% of predicted 6. TIA 40 years ago 7. Chronic back pain, on buprenorphine patch at home 8. GERD 9. Obesity 10. Family history of coronary artery disease 11. Postoperative acute blood loss anemia and thrombocytopenia, expected 12. Brief episode paroxysmal atrial fibrillation, status post left atrial appendage ligation 13. Elevated transaminases, likely from hypotension and medications Plan: 1. Continue to maximize medical therapy with low-dose ASA, Plavix, beta chris. Will increase beta chris therapy as tolerated. Continue to hold statin secondary to elevated liver enzymes, will restart when able 2. Continue low-dose oral calcium channel chris for radial artery spasm prophylaxis 3. Wean O2 as tolerated. Encourage incentive spirometry use 10 times every hour while awake. Bronchodilators per pulmonology 4. Increase activity, ambulate as tolerated. PT/OT/cardiac rehab following 5. Smoking cessation counseling offered, patient strongly encouraged to quit sm oking 6. Will monitor daily labs and x-rays. Electrolyte replacement protocol. No further blood transfusion today. Will give 20 mg IVP lasix 7. GI/DVT prophylaxis 8. Insulin management per primary care service. Patient needs tight blood sugar control to promote sternal union, prevent infection 9. Pain control with current medication regimen. Avoid acetaminophen products 10. Strict accurate intake and output. Daily weights 11. Will place transfer orders for [facility] cardiac stepdown unit, may transfer when bed available 12. Arterial line to stay until patient transferred out of ICU 13. More recommendations to follow Time with Patient: Greater than 30
[2021-09-13] MEDS: IPRATROPIUM-ALBUTEROL 3 ML NEB INHALATION SCH ×4 (07:20→19:13)
--- NOTE | 2021-09-13 07:36 | P.PN ---
Subjective Progress Note Date: 09/13/21 Principal diagnosis: Status post CABG The patient is a 65-year-old female patient with a CAD and status post coronary artery bypass grafting as well as hypertension and dyslipidemia. The CABG was complicated by hypotension as well as elevated liver function tests. The patient was seen this morning. She seems to be oriented 3. She remains hemodynamically stable with a soft blood pressure. She did not look in any distress. No chest pain or chest discomfort. The hemoglobin is 7.1. GFR remains above 60. Electrolytes are within normal limits. The chest x-ray was reviewed and showed small left-sided pleural effusion. She's on dual antiplatelet therapy as well as beta chris. Statin is on hold in view of the elevated liver function tests which has been trending down. Objective - Vital Signs Vital signs: Vital Signs Temp 98.1 F 09/13/21 00:00 Pulse 77 09/13/21 07:00 Resp 18 09/13/21 07:00 BP 112/67 09/13/21 04:00 Pulse Ox 89 L 09/13/21 07:00 Intake & Output 09/12/21 09/13/21 09/13/21 18:59 06:59 18:59 Intake Total 690 483 Output Total 1455 200 Balance -765 283 Weight 99.4 kg Intake: IV 60 3 Pressure bag 60 3 Intake, IV Titration 290 Amount Albumin Human 25% 50 ml 50 In Empty Bag 1 bag @ 50 mls/hr IVPB ONCE ONE Rx#: [id number] Sodium Chloride 0.9% 1, 240 000 ml @ 30 mls/hr IV . Q24H [facility] Rx#:[id number] Oral 340 480 Output: Urine 1455 200 Other: Voiding Method Indwelling Catheter Toilet # Voids 1 ABP, PAP, CO, CI - Last Documented Arterial Blood Pressure 114/51 Pulmonary Artery Pressure 28/11 Cardiac Output 3.9 Cardiac Index 2 - Constitutional General appearance: Present: no acute distress - Respiratory Respiratory: bilateral: diminished - Cardiovascular Rhythm: regular - Labs CBC & Chem 7: 09/13/21 05:00 09/13/21 05:00 Labs: Abnormal Lab Results - Last 24 Hours (Table) 09/12/21 09/12/21 09/13/21 Range/Units 12:17 20:18 05:00 RBC 2.26 L (3.80-5.40) m/uL Hgb 7.1 L (11.4-16.0) gm/dL Hct 21.0 L (34.0-46.0) % Plt Count 110 L (150-450) k/uL Sodium (137-145) mmol/L BUN (7-17) mg/dL POC Glucose (mg/dL) 115 H 113 H (75-99) mg/dL Calcium (8.4-10.2) mg/dL AST (14-36) U/L ALT (4-34) U/L Total Protein (6.3-8.2) g/dL Albumin (3.5-5.0) g/dL 09/13/21 09/13/21 Range/Units 05:00 06:38 RBC (3.80-5.40) m/uL Hgb (11.4-16.0) gm/dL Hct (34.0-46.0) % Plt Count (150-450) k/uL Sodium 135 L (137-145) mmol/L BUN 21 H (7-17) mg/dL POC Glucose (mg/dL) 100 H (75-99) mg/dL Calcium 7.7 L (8.4-10.2) mg/dL AST 1108 H (14-36) U/L ALT 1411 H (4-34) U/L Total Protein 4.8 L (6.3-8.2) g/dL Albumin 3.0 L (3.5-5.0) g/dL Assessment and Plan Assessment: Assessment #1 CAD and status post CABG #2 hypotension which has improved #3 anemia which has been stable #4 elevated liver function test #5 multiple comorbid conditions Plan #1 continue monitor the hemoglobin #2 the patient might benefit from small dose of Lasix giving the left pleural effusion. That also need to be given cautiously giving her marginal blood pressure #3 continue dual antiplatelet therapy along with beta chris #4 restart the patient back on high intensity statin once the liver function tests normalized #5 follow-up with the patient #6 she can be transferred to the floor
--- NOTE | 2021-09-13 08:13 | XR ---
EXAMINATION TYPE: XR chest 1V portable DATE OF EXAM: 09/13/2021 COMPARISON: Chest x-ray 09/12/2021 HISTORY: Status post cardiac surgery, abnormal chest x-ray TECHNIQUE: Single frontal view of the chest is obtained. FINDINGS: There are overlying artifacts. Patient is post median sternotomy and left atrial appendage clip placement. Cardiac mediastinal silhouette is stable. Aorta is dense. No evident pneumothorax. B ibasilar increased attenuation present within the lungs. Lung volumes are low and the patient is rota meet. IMPRESSION: Findings are similar to prior exam. Basilar atelectasis, difficult to exclude small effu corrine
[2021-09-13] MEDS ORDERED: FUROSEMIDE 10 MG/ML 2 ML VIAL IV ONE (08:29)
[2021-09-13] MEDS ORDERED: MAG HYDROX/AL HYDROX/SIMETH 30 ML CUP PO PRN (08:33)
[2021-09-13] MEDS: HYDROmorphone 0.5 MG/0.5 ML SYRINGE IVP PRN ×5 (08:45→22:01)
[2021-09-13] MEDS: HEPARIN SODIUM,PORCINE/PF 5,000 UNIT/0.5 ML SYRINGE SQ SCH ×3 (09:38→23:20)
[2021-09-13] MEDS: CLOPIDOGREL 75 MG TAB PO SCH (09:39)
[2021-09-13] MEDS: DULoxetine HCL 60 MG CAPSULE.DR PO SCH (09:39)
[2021-09-13] MEDS: ASPIRIN 81 MG PO SCH (09:39)
[2021-09-13] MEDS: METOPROLOL TARTRATE 12.5 MG TAB PO SCH ×2 (09:44→20:59)
[2021-09-13 11:22] LABS: Glucose,Whole Blood 112 mg/dL (75-99)
[2021-09-13] MEDS: amLODIPine 5 MG TAB PO SCH (11:30)
[2021-09-13] MEDS: ALBUMIN HUMAN 25% 50 ML in EMPTY BAG 1 BAG IVPB SCH ×2 (13:49→13:58)
--- NOTE | 2021-09-13 14:27 | P.PN ---
Subjective Progress Note Date: 09/13/21 ON TODAY'S EVALUATION OF 09/13/2021, the patient is postop day #4. The patient is doing well. No specific complaints. The patient is currently on room air oxygen. The patient is also in a normal sinus rhythm. All of the chest tubes have been removed. Surgical wound site is dry clean and intact. The patient is pulling approximately 1250 on the incentive spirometer. Chest x-ray showing some left lower lobe atelectatic changes. Otherwise no other significant abnormalities noted. The patient's hemoglobin is at 7. one and the patient also has a BUN of 21 and a creatinine of 0.7. Lites echo that 7.3. LFTs are abnormal with a AST of 07/03/2007 and ALT of 1411. The bilirubin is nonelevated. The patient's alkaline phosphatase is 53. As such, no amiodarone was given for A. fib prophylaxis. The patient is showing a downtrending and her LFTs. Objective - Vital Signs Vital signs: Vital Signs Temp 98.1 F 09/13/21 00:00 Pulse 71 09/13/21 11:17 Resp 18 09/13/21 07:00 BP 112/67 09/13/21 04:00 Pulse Ox 89 L 09/13/21 07:00 Intake & Output 09/12/21 09/13/21 09/13/21 18:59 06:59 18:59 Intake Total 690 483 Output Total 1455 200 Balance -765 283 Weight 99.4 kg Intake: IV 60 3 Pressure bag 60 3 Intake, IV Titration 290 Amount Albumin Human 25% 50 ml 50 In Empty Bag 1 bag @ 50 mls/hr IVPB ONCE ONE Rx#: [id number] Sodium Chloride 0.9% 1, 240 000 ml @ 30 mls/hr IV . Q24H [facility] Rx#:[id number] Oral 340 480 Output: Urine 1455 200 Other: Voiding Method Indwelling Catheter Toilet # Voids 1 ABP, PAP, CO, CI - Last Documented Arterial Blood Pressure 114/51 Pulmonary Artery Pressure 28/11 Cardiac Output 3.9 Cardiac Index 2 - Exam CONSTITUTIONAL: Appears comfortable, cooperative, no acute distress RESPIRATORY: Lungs sounds diminished bilaterally. Respirations even, nonlabored. Currently on 2 L nasal cannula with oxygen saturation 94%, removed and oxygen saturation 91% on room air. Able to achieve 1250 mL on incentive spirometry. Strong productive cough. CARDIOVASCULAR: S1, S2 present. Regular rate and rhythm, sinus rhythm on telemetry. Sternum stable. Palpable peripheral pulses bilaterally. Trace generalized edema present. No calf pain or tenderness noted. Heart hugger in place with patient demonstrating appropriate use. Antiembolism stockings, SCDs present. GASTROINTESTINAL: Abdomen soft, nontender, nondistended. Active bowel sounds present 4 quadrants. Tolerating diet. Positive flatus, no bowel movement yet GENITOURINARY: Lopez removed yesterday, positive void, 1655 mL in last 24 hours INTEGUMENTARY: Skin is warm and dry with evidence of good perfusion. Anterior chest incision well approximated and covered with dry intact dressing. Left radial artery harvest site as well as left lower extremity EVH site well approximated NEUROLOGIC: Cranial nerves II through XII intact MUSKULOSKELETAL: Able to move all extremities, strength equal bilaterally PSYCHIATRIC: Alert and oriented to person, place, time and situation, appropriate affect, intact judgment INVASIVE LINES AND TUBES: Right radial arterial line present. - Labs CBC & Chem 7: 09/13/21 05:00 09/13/21 05:00 Labs: Abnormal Lab Results - Last 24 Hours (Table) 09/12/21 09/13/21 09/13/21 Range/Units 20:18 05:00 05:00 RBC 2.26 L (3.80-5.40) m/uL Hgb 7.1 L (11.4-16.0) gm/dL Hct 21.0 L (34.0-46.0) % Plt Count 110 L (150-450) k/uL Sodium 135 L (137-145) mmol/L BUN 21 H (7-17) mg/dL POC Glucose (mg/dL) 113 H (75-99) mg/dL Calcium 7.7 L (8.4-10.2) mg/dL AST 1108 H (14-36) U/L ALT 1411 H (4-34) U/L Total Protein 4.8 L (6.3-8.2) g/dL Albumin 3.0 L (3.5-5.0) g/dL 09/13/21 09/13/21 Range/Units 06:38 11:21 RBC (3.80-5.40) m/uL Hgb (11.4-16.0) gm/dL Hct (34.0-46.0) % Plt Count (150-450) k/uL Sodium (137-145) mmol/L BUN (7-17) mg/dL POC Glucose (mg/dL) 100 H 112 H (75-99) mg/dL Calcium (8.4-10.2) mg/dL AST (14-36) U/L ALT (4-34) U/L Total Protein (6.3-8.2) g/dL Albumin (3.5-5.0) g/dL Assessment and Plan Plan: Symptomatic coronary artery disease. Postop day #4, status post three-vessel bypass grafting, exclusion of left atrial appendage, endoscopic harvesting of left radial artery, intraoperative transesophageal echocardiogram, and intraoperative graft flow measurements. Post thoracotomy. All of the catheter removed and the patient is currently on room air oxygen. Atelectatic changes seen in the left lung base. Abnormal LFTs, could be drug induced versus a shock liver, improving History of hyperlipidemia. History of hypertension. History of diabetes mellitus. Obesity with a BMI of 37.6 TIA history, currently inactive in stable Postoperative acute blood loss anemia/thrombocytopenia, expected outcome of surgery Plan Monitor LFTs Continue aspirin and Plavix Continue beta blockers Amiodarone and statins have been held due to abnormal LFTs patient is currently on room air oxygen Increase his mobility as tolerated Continue with incentive spirometer will continue to follow
--- NOTE | 2021-09-13 15:56 | P.PN ---
Subjective Progress Note Date: 09/13/21 Hospital course: Patient is a very pleasant 65-year-old female with a past medical history of hypertension, hyperlipidemia, diabetes mellitus, and nicotine dependence. She presented to the emergency department with a chief complaint of intermittent episodes of chest pain accompanied by diaphoresis beginning last night and progressively worsening. Patient was admitted under our services with consultation to cardiology. An EKG was completed showing normal sinus rhythm and 96 bpm. Chest x-ray negative for acute cardiopulmonary process. Troponins revealing elevation with initial troponin less than 0.012, 0.078, and 0.132. Patient was diagnosed as a NSTEMI and taken to general laborer 09/07/21. Patient was found to have triple-vessel occlusive disease revealing 95% occlusion of cir cumflex, 80% occlusion of the LAD and a complete occlusion of right coronary artery. Cardiothoracic surgery was consulted and patient underwent extensive evaluation. Patient is status post CABG September 10 Interval history: September 13 the patient is postop day #4. The patient is doing well. No specific complaints. The patient is currently on room air oxygen. The patient is also in a normal sinus rhythm. All of the chest tubes have been removed. Surgical wound site is dry clean and intact. LFTs are abnormal with a AST of 07/03/2007 and ALT of 1411. The bilirubin is nonelevated. The patient's alkaline phosphatase is 53. As such, no amiodarone was given for A. fib prophylaxis. The patient is showing a downtrending and her LFTs. Physical exam: Patient seen and fully evaluated at bedside. She has been updated by cardiothoracic team regarding plan of care for myocardial revascularization surgery tomorrow morning. Patient currently denies having any questions or concerns and reports all questions have been answered she denies currently chest pain, shortness of breath,/weakness in extremities. Patient to continue cardiac diet and be placed on strict NPO at midnight with plans for CABG tomorrow morning. Vital signs reviewed and stable. CONSTITUTIONAL: Appears comfortable, cooperative, no acute distress RESPIRATORY: Lungs sounds diminished bilaterally. Respirations even, nonlabored. Currently on 2 L nasal cannula with oxygen saturation 94%, removed and oxygen saturation 91% on room air. Able to achieve 1250 mL on incentive spirometry. Strong productive cough. CARDIOVASCULAR: S1, S2 present. Regular rate and rhythm, sinus rhythm on telemetry. Sternum stable. Palpable peripheral pulses bilaterally. Trace generalized edema present. No calf pain or tenderness noted. Heart hugger in place with patient demonstrating appropriate use. Antiembolism stockings, SCDs present. GASTROINTESTINAL: Abdomen soft, nontender, nondistended. Active bowel sounds present 4 quadrants. Tolerating diet. Positive flatus, no bowel movement yet GENITOURINARY: Lopez removed yesterday, positive void, 1655 mL in last 24 hours INTEGUMENTARY: Skin is warm and dry with evidence of good perfusion. Anterior chest incision well approximated and covered with dry intact dressing. Left radial artery harvest site as well as left lower extremity EVH site well approximated NEUROLOGIC: Cranial nerves II through XII intact MUSKULOSKELETAL: Able to move all extremities, strength equal bilaterally PSYCHIATRIC: Alert and oriented to person, place, time and situation, appropriate affect, intact judgment INVASIVE LINES AND TUBES: Right radial arterial line present. Assessment and Plan of Care: #Symptomatic coronary artery disease. Postop day #4, status post three-vessel bypass grafting, exclusion of left atrial appendage, endoscopic harvesting of left radial artery, intraoperative transesophageal echocardiogram, and intraoperative graft flow measurements. Post thoracotomy. All of the catheter removed and the patient is currently on room air oxygen. Atelectatic changes seen in the left lung base. Postoperative acute blood loss anemia -Monitor hemoglobin and transfuse if hemoglobin less than 7 Abnormal LFTs -could be drug induced versus a shock liver, improving -Liver ultrasound, hepatitis panel ordered Obesity with a BMI of 37.6 TIA history, currently inactive in stable Hypertension Monitor vital signs and continue daily medication regimen with amlodipine, lisinopril, and metoprolol. Hyperlipidemia Statin on hold due to elevated LFTs Diabetes mellitus Hold oral hypoglycemic medications please patient Glycemic protocol with NovoLog sliding scale. Hemoglobin A1c elevated at 6.6%. Nicotine dependence Educate and encourage patient on the importance of smoking cessation and the risks of continued use. Nicotine patch CODE STATUS: Full code DVT prophylaxis: Heparin Discussed with: Patient and RN Anticipated discharge date: Clinical course to determine Anticipated discharge place: Home Objective - Vital Signs Vital signs: Vital Signs Temp 98.1 F 09/13/21 00:00 Pulse 78 09/13/21 15:36 Resp 18 09/13/21 07:00 BP 112/67 09/13/21 04:00 Pulse Ox 89 L 09/13/21 07:00 Intake & Output 09/12/21 09/13/21 09/13/21 18:59 06:59 18:59 Intake Total 690 483 Output Total 1455 200 Balance -765 283 Weight 99.4 kg Intake: IV 60 3 Pressure bag 60 3 Intake, IV Titration 290 Amount Albumin Human 25% 50 ml 50 In Empty Bag 1 bag @ 50 mls/hr IVPB ONCE ONE Rx#: [id number] Sodium Chloride 0.9% 1, 240 000 ml @ 30 mls/hr IV . Q24H [facility] Rx#:[id number] Oral 340 480 Output: Urine 1455 200 Other: Voiding Method Indwelling Catheter Toilet # Voids 1 ABP, PAP, CO, CI - Last Documented Arterial Blood Pressure 114/51 Pulmonary Artery Pressure 28/11 Cardiac Output 3.9 Cardiac Index 2 - Labs CBC & Chem 7: 09/13/21 05:00 09/13/21 05:00 Labs: Abnormal Lab Results - Last 24 Hours (Table) 09/12/21 09/13/21 09/13/21 Range/Units 20:18 05:00 05:00 RBC 2.26 L (3.80-5.40) m/uL Hgb 7.1 L (11.4-16.0) gm/dL Hct 21.0 L (34.0-46.0) % Plt Count 110 L (150-450) k/uL Sodium 135 L (137-145) mmol/L BUN 21 H (7-17) mg/dL POC Glucose (mg/dL) 113 H (75-99) mg/dL Calcium 7.7 L (8.4-10.2) mg/dL AST 1108 H (14-36) U/L ALT 1411 H (4-34) U/L Total Protein 4.8 L (6.3-8.2) g/dL Albumin 3.0 L (3.5-5.0) g/dL 09/13/21 09/13/21 Range/Units 06:38 11:21 RBC (3.80-5.40) m/uL Hgb (11.4-16.0) gm/dL Hct (34.0-46.0) % Plt Count (150-450) k/uL Sodium (137-145) mmol/L BUN (7-17) mg/dL POC Glucose (mg/dL) 100 H 112 H (75-99) mg/dL Calcium (8.4-10.2) mg/dL AST (14-36) U/L ALT (4-34) U/L Total Protein (6.3-8.2) g/dL Albumin (3.5-5.0) g/dL
[2021-09-13 16:22] LABS: Glucose,Whole Blood 133 mg/dL (75-99)
[2021-09-13 20:53] LABS: Glucose,Whole Blood 132 mg/dL (75-99)
[2021-09-13] MEDS: SENNOSIDES-DOCUSATE SODIUM 1 EACH TAB PO SCH (20:58)
[2021-09-14 00:17] LABS: Hepatitis A Antibody IgM Nonreactive (Nonreactive); Hepatitis B Core IgM Nonreactive (Nonreactive); Hepatitis C IgG Antibody Nonreactive (Nonreactive)
[2021-09-14 01:09] LABS: Hepatitis B Surface Antigen Nonreactive (Nonreactive)
[2021-09-14] MEDS: HYDROmorphone 0.5 MG/0.5 ML SYRINGE IVP PRN ×3 (02:15→17:22)
[2021-09-14 05:10] LABS: HCT 20.4 % (34.0-46.0); MCH 32.3 pg (25.0-35.0); MCHC 33.9 g/dL (31.0-37.0); MCV 95.2 fL (80.0-100.0); Mean Platelet Volume 8.4; Platelet Count 159 k/uL (150-450); RBC 2.14 m/uL (3.80-5.40); RDW 15.3 % (11.5-15.5); WBC 6.7 k/uL (3.8-10.6)
[2021-09-14] MEDS: traMADol 50 MG TAB PO PRN ×3 (05:18→20:20)
[2021-09-14 05:23] LABS: AST 577 U/L (14-36); African American GFR (CKD) >90 (>60 ml/min/1.73 sqM); Albumin 3.3 g/dL (3.5-5.0); Alkaline Phosphatase 55 U/L (38-126); Anion Gap 5 mmol/L; Blood Urea Nitrogen 22 mg/dL (7-17); Calcium 7.8 mg/dL (8.4-10.2); Carbon Dioxide 24 mmol/L (22-30); Chloride 107 mmol/L (98-107); Glucose 90 mg/dL (74-99); Non-African American GFR(CKD) 90 (>60 ml/min/1.73 sqM); Potassium 4.2 mmol/L (3.5-5.1); Sodium 136 mmol/L (137-145); Total Bilirubin 1.8 mg/dL (0.2-1.3); Total Protein 5.3 g/dL (6.3-8.2)
[2021-09-14 05:36] LABS: HGB 6.9 gm/dL (11.4-16.0)
[2021-09-14 05:57] LABS: ALT 1129 U/L (4-34)
--- NOTE | 2021-09-14 06:43 | P.PN ---
Subjective Progress Note Date: 09/14/21 Principal diagnosis: Status post CABG The patient is a 65-year-old female patient with a CAD and status post coronary artery bypass grafting as well as hypertension and dyslipidemia. The CABG was complicated by hypotension as well as elevated liver function tests. The patient was seen this morning. She is overall doing better. Hemodynamically she is stable was marginally low blood pressure. The chest x- ray was reviewed and seems to be better than yesterday. Her hemoglobin this morning is 6.9. GFR continues to be above 60. Liver function tests are trending down. At this point I would advise continue the current medical regimen including dual antiplatelet therapy and start the patient on statin once her liver function tests are back to normal. She is on beta chris with metoprolol. Objective - Vital Signs Vital signs: Vital Signs Temp 98.1 F 09/13/21 20:00 Pulse 82 09/14/21 06:00 Resp 14 09/14/21 06:00 BP 101/53 09/14/21 00:00 Pulse Ox 91 L 09/14/21 06:00 Intake & Output 09/13/21 09/13/21 09/14/21 06:59 18:59 06:59 Intake Total 483 753 540 Output Total 200 700 600 Balance 283 53 -60 Weight 99.4 kg 99.5 kg Intake: IV 3 33 36 Pressure bag 3 33 36 Intake, IV Titration 100 Amount Albumin Human 25% 50 ml 100 In Empty Bag 1 bag @ 50 mls/hr IVPB Q1H [facility] Rx#: [id number] Oral 480 620 504 Output: Urine 200 700 600 Other: Voiding Method Toilet Toilet Toilet # Voids 1 ABP, PAP, CO, CI - Last Documented Arterial Blood Pressure 104/24 Pulmonary Artery Pressure 28/11 Cardiac Output 3.9 Cardiac Index 2 - Constitutional General appearance: Present: no acute distress - Respiratory Respiratory: bilateral: diminished - Cardiovascular Rhythm: regular - Labs CBC & Chem 7: 09/14/21 04:50 09/14/21 04:50 Labs: Abnormal Lab Results - Last 24 Hours (Table) 09/13/21 09/13/21 09/13/21 Range/Units 11:21 16:21 20:51 RBC (3.80-5.40) m/uL Hgb (11.4-16.0) gm/dL Hct (34.0-46.0) % Sodium (137-145) mmol/L BUN (7-17) mg/dL POC Glucose (mg/dL) 112 H 133 H 132 H (75-99) mg/dL Calcium (8.4-10.2) mg/dL Total Bilirubin (0.2-1.3) mg/dL AST (14-36) U/L ALT (4-34) U/L Total Protein (6.3-8.2) g/dL Albumin (3.5-5.0) g/dL 09/14/21 09/14/21 Range/Units 04:50 04:50 RBC 2.14 L (3.80-5.40) m/uL Hgb 6.9 L* (11.4-16.0) gm/dL Hct 20.4 L (34.0-46.0) % Sodium 136 L (137-145) mmol/L BUN 22 H (7-17) mg/dL POC Glucose (mg/dL) (75-99) mg/dL Calcium 7.8 L (8.4-10.2) mg/dL Total Bilirubin 1.8 H (0.2-1.3) mg/dL AST 577 H (14-36) U/L ALT 1129 H (4-34) U/L Total Protein 5.3 L (6.3-8.2) g/dL Albumin 3.3 L (3.5-5.0) g/dL Assessment and Plan Assessment: Assessment #1 CAD and status post CABG #2 hypotension which has improved #3 anemia which has been stable #4 elevated liver function test #5 multiple comorbid conditions Plan #1 continue monitor the hemoglobin #2 continue dual antiplatelet therapy along with beta chris #3 the chest x-ray was reviewed and seems to be better than yesterday #4 follow-up with the patient
[2021-09-14 06:53] LABS: Glucose,Whole Blood 95 mg/dL (75-99)
--- NOTE | 2021-09-14 07:05 | P.PN ---
Subjective Progress Note Date: 09/14/21 Principal diagnosis: Triple-vessel coronary artery disease with totally occluded right coronary artery, acute non-ST elevated myocardial infarction this admission, preserved left ventricular function. Previous medical history of hypertension, hyperlipidemia, [id number] diabetes mellitus, chronic ongoing tobacco dependence, TIA 40 years ago, chronic back pain, GERD, obesity, family history of coronary artery disease POD #5 triple vessel coronary artery bypass grafting using the left internal mammary artery to the left anterior descending artery, left radial artery from the aorta to the first obtuse marginal artery, reverse saphenous vein graft from the aorta to the right coronary artery, exclusion of the left atrial appendage using a 35 mm AtriClip, endoscopic harvesting of the left radial artery and endoscopic harvesting of the left greater saphenous vein, intraoperative transesophageal echocardiogram, epi-aortic scanning, intraoperative graft flow measurements using the [employer] system Postoperative acute blood loss anemia and thrombocytopenia, expected given hemodilution and cardiopulmonary bypass pump Brief episode of paroxysmal atrial fibrillation, known common occurrence after open heart surgery Elevated transaminases, likely result of hypotension combined with medication effects The patient was seen and examined this morning sitting up in the recliner in the intensive care unit in no acute distress. Remains in sinus rhythm, blood pr essure marginal. States pain is tolerable on current medication regimen. Awake this morning and completely oriented to person, place, time, and situation. She ambulated in the hallway 4 times yesterday without difficulty, received first post op shower. Right radial arterial line remain. CXR reviewed, stable. Labs reviewed, liver enzymes trending down, hgb low but stable. Was going to transfe r out of ICU yesterday but with marginal blood pressures we wanted patient watched for another 24 hours in ICU. No other new concerns Objective - Vital Signs Vital signs: Vital Signs Temp 98.1 F 09/13/21 20:00 Pulse 82 09/14/21 06:00 Resp 14 09/14/21 06:00 BP 101/53 09/14/21 00:00 Pulse Ox 91 L 09/14/21 06:00 Intake & Output 09/13/21 09/13/21 09/14/21 06:59 18:59 06:59 Intake Total 483 753 540 Output Total 200 700 600 Balance 283 53 -60 Weight 99.4 kg 99.5 kg Intake: IV 3 33 36 Pressure bag 3 33 36 Intake, IV Titration 100 Amount Albumin Human 25% 50 ml 100 In Empty Bag 1 bag @ 50 mls/hr IVPB Q1H [facility] Rx#: [id number] Oral 480 620 504 Output: Urine 200 700 600 Other: Voiding Method Toilet Toilet Toilet # Voids 1 ABP, PAP, CO, CI - Last Documented Arterial Blood Pressure 104/24 Pulmonary Artery Pressure 28/11 Cardiac Output 3.9 Cardiac Index 2 - Exam CONSTITUTIONAL: Appears comfortable, cooperative, no acute distress RESPIRATORY: Lungs sounds diminished bilaterally. Respirations even, nonlabored. Currently on 2 L nasal cannula with oxygen saturation 94%. Able to achieve 1250 mL on incentive spirometry. Strong productive cough. CARDIOVASCULAR: S1, S2 present. Regular rate and rhythm, sinus rhythm on telemetry. Sternum stable. Palpable peripheral pulses bilaterally. Trace generalized edema present. No calf pain or tenderness noted. Heart hugger in place with patient demonstrating appropriate use. Antiembolism stockings, SCDs present. GASTROINTESTINAL: Abdomen soft, nontender, nondistended. Active bowel sounds present 4 quadrants. Tolerating diet. Positive flatus, no bowel movement yet GENITOURINARY: Continues to void, 1300 mL in last 24 hours INTEGUMENTARY: Skin is warm and dry with evidence of good perfusion. Anterior chest incision well approximated. Left radial artery harvest site as well as left lower extremity EVH site well approximated NEUROLOGIC: Cranial nerves II through XII intact MUSKULOSKELETAL: Able to move all extremities, strength equal bilaterally PSYCHIATRIC: Alert and oriented to person, place, time and situation, appropriate affect, intact judgment INVASIVE LINES AND TUBES: Right radial arterial line present. - Allied health notes Allied health notes reviewed: nursing - Labs CBC & Chem 7: 09/14/21 04:50 09/14/21 04:50 Labs: Abnormal Lab Results - Last 24 Hours (Table) 09/13/21 09/13/21 09/13/21 Range/Units 11:21 16:21 20:51 RBC (3.80-5.40) m/uL Hgb (11.4-16.0) gm/dL Hct (34.0-46.0) % Sodium (137-145) mmol/L BUN (7-17) mg/dL POC Glucose (mg/dL) 112 H 133 H 132 H (75-99) mg/dL Calcium (8.4-10.2) mg/dL Total Bilirubin (0.2-1.3) mg/dL AST (14-36) U/L ALT (4-34) U/L Total Protein (6.3-8.2) g/dL Albumin (3.5-5.0) g/dL 09/14/21 09/14/21 Range/Units 04:50 04:50 RBC 2.14 L (3.80-5.40) m/uL Hgb 6.9 L* (11.4-16.0) gm/dL Hct 20.4 L (34.0-46.0) % Sodium 136 L (137-145) mmol/L BUN 22 H (7-17) mg/dL POC Glucose (mg/dL) (75-99) mg/dL Calcium 7.8 L (8.4-10.2) mg/dL Total Bilirubin 1.8 H (0.2-1.3) mg/dL AST 577 H (14-36) U/L ALT 1129 H (4-34) U/L Total Protein 5.3 L (6.3-8.2) g/dL Albumin 3.3 L (3.5-5.0) g/dL - Imaging and Cardiology Chest x-ray: image reviewed Assessment and Plan Assessment: 1. Triple vessel coronary artery disease with totally occluded right coronary artery, acute non-ST elevated myocardial infarction this admission, preserved left ventricular function, status post three-vessel CABG 2. History of hypertension 3. Hyperlipidemia 4. Jtw-jcpxegn-aobhxefpc diabetes mellitus, preoperative hemoglobin A1c 6.6% 5. Chronic ongoing tobacco dependence, preoperative FEV1 87% of predicted 6. TIA 40 years ago 7. Chronic back pain, on buprenorphine patch at home 8. GERD 9. Obesity 10. Family history of coronary artery disease 11. Postoperative acute blood loss anemia and thrombocytopenia, expected 12. Brief episode paroxysmal atrial fibrillation, status post left atrial appendage ligation 13. Elevated transaminases, likely from hypotension and medications Plan: 1. Continue to maximize medical therapy with low-dose ASA, Plavix, beta chris. Will increase beta chris therapy as tolerated. Continue to hold s tatin secondary to elevated liver enzymes, will restart when able 2. Continue low-dose oral calcium channel chris for radial artery spasm prophylaxis, decreased to 2.5 mg due to blood pressure 3. Wean O2 as tolerated. Encourage incentive spirometry use 10 times every hour while awake. Bronchodilators per pulmonology 4. Increase activity, ambulate as tolerated. PT/OT/cardiac rehab following 5. Smoking cessation counseling offered, patient strongly encouraged to quit smoking 6. Will monitor daily labs and x-rays. Electrolyte replacement protocol. No transfusion, will give concentrated albumin followed by 20 mg IVP lasix 7. GI/DVT prophylaxis 8. Insulin management per primary care service. Patient needs tight blood sugar control to promote sternal union, prevent infection 9. Pain control with current medication regimen. Avoid acetaminophen products 10. Strict accurate intake and output. Daily weights 11. Will place transfer orders for [facility] cardiac stepdown unit, may transfer when bed available 12. Arterial line to stay until patient transferred out of ICU 13. More recommendations to follow Time with Patient: Greater than 30
[2021-09-14] MEDS: INSULIN ASPART (NovoLOG) 100 UNIT/ML VIAL SQ SCH ×4 (07:06→22:43)
[2021-09-14] MEDS: FERROUS SULFATE 325 MG TAB PO SCH ×2 (07:08→17:22)
[2021-09-14] MEDS: PANTOPRAZOLE 40 MG TABLET PO SCH (07:08)
[2021-09-14] MEDS: ASCORBIC ACID 500 MG TAB PO SCH ×2 (07:08→17:22)
--- NOTE | 2021-09-14 07:45 | P.PN ---
Subjective Progress Note Date: 09/14/21 09/14/2021, the patient is postop day #5. The patient is doing extremely well. No specific complaints for she continues using incentive spirometer. Chest x- ray shows small bilateral pleural effusion more so on the left along with some atelectatic changes in lung bases. The patient is currently on room air oxygen. Liver function tests are downtrending. She is in the normal sinus rhythm. No issues with any cardiac arrhythmias. She was given Lasix yesterday. She remains in a negative fluid balance. Blood work from today shows improvement in the LFTs. The hemoglobin today is at 6.9, white cell count is at 6.7, platelet count is at 159, sodium is at 136, potassium level is at 4.2, creatinine is at 0.7, AST is 577, ALT is 1129. Objective - Vital Signs Vital signs: Vital Signs Temp 98.1 F 09/13/21 20:00 Pulse 76 09/14/21 07:00 Resp 12 09/14/21 07:00 BP 101/53 09/14/21 00:00 Pulse Ox 93 L 09/14/21 07:00 Intake & Output 09/13/21 09/14/21 09/14/21 18:59 06:59 18:59 Intake Total 753 540 3 Output Total 700 600 Balance 53 -60 3 Weight 99.5 kg Intake: IV 33 36 3 Pressure bag 33 36 3 Intake, IV Titration 100 Amount Albumin Human 25% 50 ml 100 In Empty Bag 1 bag @ 50 mls/hr IVPB Q1H [facility] Rx#: [id number] Oral 620 504 Output: Urine 700 600 Other: Voiding Method Toilet Toilet # Voids 1 ABP, PAP, CO, CI - Last Documented Arterial Blood Pressure 104/45 Pulmonary Artery Pressure 28/11 Cardiac Output 3.9 Cardiac Index 2 - Exam CONSTITUTIONAL: Appears comfortable, cooperative, no acute distress RESPIRATORY: Lungs sounds diminished bilaterally. Respirations even, nonlabored. Currently on RA oxygen saturation 94%, removed and oxygen saturation 91% on room air. Able to achieve 1250 mL on incentive spirometry. Strong productive cough. CARDIOVASCULAR: S1, S2 present. Regular rate and rhythm, sinus rhythm on telemetry. Sternum stable. Palpable peripheral pulses bilaterally. Trace generalized edema present. No calf pain or tenderness noted. Heart hugger in place with patient demonstrating appropriate use. Antiembolism stockings, SCDs present. GASTROINTESTINAL: Abdomen soft, nontender, nondistended. Active bowel sounds present 4 quadrants. Tolerating diet. Positive flatus, no bowel movement yet GENITOURINARY: Lopez removed yesterday, positive void, 1655 mL in last 24 hours INTEGUMENTARY: Skin is warm and dry with evidence of good perfusion. Anterior chest incision well approximated and covered with dry intact dressing. Left radial artery harvest site as well as left lower extremity EVH site well approximated NEUROLOGIC: Cranial nerves II through XII intact MUSKULOSKELETAL: Able to move all extremities, strength equal bilaterally PSYCHIATRIC: Alert and oriented to person, place, time and situation, appropriate affect, intact judgment INVASIVE LINES AND TUBES: Right radial arterial line present. - Labs CBC & Chem 7: 09/14/21 04:50 09/14/21 04:50 Labs: Abnormal Lab Results - Last 24 Hours (Table) 09/13/21 09/13/21 09/13/21 Range/Units 11:21 16:21 20:51 RBC (3.80-5.40) m/uL Hgb (11.4-16.0) gm/dL Hct (34.0-46.0) % Sodium (137-145) mmol/L BUN (7-17) mg/dL POC Glucose (mg/dL) 112 H 133 H 132 H (75-99) mg/dL Calcium (8.4-10.2) mg/dL Total Bilirubin (0.2-1.3) mg/dL AST (14-36) U/L ALT (4-34) U/L Total Protein (6.3-8.2) g/dL Albumin (3.5-5.0) g/dL 09/14/21 09/14/21 Range/Units 04:50 04:50 RBC 2.14 L (3.80-5.40) m/uL Hgb 6.9 L* (11.4-16.0) gm/dL Hct 20.4 L (34.0-46.0) % Sodium 136 L (137-145) mmol/L BUN 22 H (7-17) mg/dL POC Glucose (mg/dL) (75-99) mg/dL Calcium 7.8 L (8.4-10.2) mg/dL Total Bilirubin 1.8 H (0.2-1.3) mg/dL AST 577 H (14-36) U/L ALT 1129 H (4-34) U/L Total Protein 5.3 L (6.3-8.2) g/dL Albumin 3.3 L (3.5-5.0) g/dL Assessment and Plan Plan: Symptomatic coronary artery disease. Postop day #5, status post three-vessel bypass grafting, exclusion of left atrial appendage, endoscopic harvesting of left radial artery, intraoperative transesophageal echocardiogram, and intraoperative graft flow measurements. The patient is recovering nicely from her surgery. She is extubated. She does have some atelectatic changes and small effusion the lung bases bilaterally. She was given Lasix yesterday. Hemodynamically stable on no pressors. All of the chest is a been removed. Post thoracotomy. All of the catheter removed and the patient is currently on room air oxygen. Atelectatic changes seen in the left lung base. Abnormal LFTs, could be drug induced versus a shock liver, improving History of hyperlipidemia. History of hypertension. History of diabetes mellitus. Obesity with a BMI of 37.6 TIA history, currently inactive in stable Postoperative acute blood loss anemia/thrombocytopenia, expected outcome of surgery, hemoglobin is at 6.9 Plan Monitor LFTs, currently improving Continue aspirin and Plavix Continue beta blockers and the patient is on metoprolol 12.5 mg by mouth twice a day. Blood pressure is adequate for now Amiodarone and statins have been held due to abnormal LFTs , LFTs are improving patient is currently on room air oxygen Monitor the hemoglobin level. Hemoglobin level is currently at 6.9. No signs of any bleeding. No need for transfusion at this point in time a week and monitor the hemoglobin. Increase his mobility as tolerated Continue with incentive spirometer will continue to follow
[2021-09-14] MEDS: polyethylene glycoL 3350 17 GM POWD.PACK PO SCH (08:31)
[2021-09-14] MEDS: POTASSIUM CHLORIDE ER 20 MEQ TAB.ER PO SCH ×2 (08:31→20:19)
[2021-09-14] MEDS: ASPIRIN 81 MG PO SCH (08:31)
[2021-09-14] MEDS: HEPARIN SODIUM,PORCINE/PF 5,000 UNIT/0.5 ML SYRINGE SQ SCH ×2 (08:31→17:22)
[2021-09-14] MEDS: METOPROLOL TARTRATE 12.5 MG TAB PO SCH ×2 (08:31→21:08)
[2021-09-14] MEDS: DULoxetine HCL 60 MG CAPSULE.DR PO SCH (08:31)
[2021-09-14] MEDS: CLOPIDOGREL 75 MG TAB PO SCH (08:32)
[2021-09-14] MEDS: IPRATROPIUM-ALBUTEROL 3 ML NEB INHALATION SCH ×4 (08:58→19:16)
[2021-09-14] MEDS ORDERED: ALBUMIN HUMAN 25% 50 ML in EMPTY BAG 1 BAG IVPB ONE (09:49)
[2021-09-14] MEDS ORDERED: FUROSEMIDE 10 MG/ML 2 ML VIAL IV ONE (09:49)
--- NOTE | 2021-09-14 10:03 | XR ---
EXAMINATION TYPE: XR chest 2V DATE OF EXAM: 09/14/2021 COMPARISON: 09/13/2021 TECHNIQUE: PA and lateral views submitted. HISTORY: Post cardiac surgery FINDINGS: Postoperative change with cardiomegaly and bilateral infiltrate and mild central venous congestion bermudez spected. No sizable pneumothorax. Hypertrophic and degenerative changes spine. IMPRESSION: 1. Bilateral infiltrate and pleural effusion stable correlate for mild central venous congestion.
[2021-09-14 11:47] LABS: Glucose,Whole Blood 114 mg/dL (75-99)
--- NOTE | 2021-09-14 13:49 | P.PN ---
Subjective Progress Note Date: 09/14/21 Principal diagnosis: s/p cabg Patient continues to do well, blood sugars controlled. She is working with therapy and ambulating. Blood pressure is stable. Objective - Vital Signs Vital signs: Vital Signs Temp 99.2 F 09/14/21 08:00 Pulse 75 09/14/21 11:29 Resp 16 09/14/21 11:00 BP 106/64 09/14/21 09:00 Pulse Ox 90 L 09/14/21 11:00 Intake & Output 09/13/21 09/14/21 09/14/21 18:59 06:59 18:59 Intake Total 753 540 185 Output Total 700 600 200 Balance 53 -60 -15 Weight 99.5 kg Intake: IV 33 36 65 Albumin Human 25% 50 ml 50 In Empty Bag 1 bag @ 50 mls/hr IVPB ONCE [facility] Rx#: [id number] Pressure bag 33 36 15 Intake, IV Titration 100 Amount Albumin Human 25% 50 ml 100 In Empty Bag 1 bag @ 50 mls/hr IVPB Q1H [facility] Rx#: [id number] Oral 620 504 120 Output: Urine 700 600 200 Other: Voiding Method Toilet Toilet # Voids 1 ABP, PAP, CO, CI - Last Documented Arterial Blood Pressure 93/47 Pulmonary Artery Pressure 28/11 Cardiac Output 3.9 Cardiac Index 2 - Exam CONSTITUTIONAL: Appears uncomfortable but no respiratory distress RESPIRATORY: Lungs sounds diminished bilaterally. CARDIOVASCULAR: S1, S2 present. Regular rate and rhythm, sinus rhythm on telemetry. Sternum stable. Palpable peripheral pulses bilaterally. Trace generalized edema present. GASTROINTESTINAL: Abdomen soft, nontender, nondistended. Hypoactive bowel sounds present 4 quadrants. Tolerating ice chips. Negative flatus GENITOURINARY: Lopez present draining clear, yellow urine. Output overnight 10 0-125 mL per hour INTEGUMENTARY: Skin is warm and dry with evidence of good perfusion. Anterior chest incision well approximated and covered with dry intact dressing. CABRERA drain present with minimal drainage. NEUROLOGIC: Cranial nerves II through XII intact MUSKULOSKELETAL: Able to move all extremities, strength equal bilaterally PSYCHIATRIC: Alert and oriented to person place and time, appropriate affect, intact judgment and insight INVASIVE LINES AND TUBES: Mediastinal/left pleural chest tubes present and connected to wall suction, no air leaks present - Labs CBC & Chem 7: 09/14/21 04:50 09/14/21 04:50 Labs: Abnormal Lab Results - Last 24 Hours (Table) 09/13/21 09/13/21 09/14/21 Range/Units 16:21 20:51 04:50 RBC 2.14 L (3.80-5.40) m/uL Hgb 6.9 L* (11.4-16.0) gm/dL Hct 20.4 L (34.0-46.0) % Sodium (137-145) mmol/L BUN (7-17) mg/dL POC Glucose (mg/dL) 133 H 132 H (75-99) mg/dL Calcium (8.4-10.2) mg/dL Total Bilirubin (0.2-1.3) mg/dL AST (14-36) U/L ALT (4-34) U/L Total Protein (6.3-8.2) g/dL Albumin (3.5-5.0) g/dL 09/14/21 09/14/21 Range/Units 04:50 11:45 RBC (3.80-5.40) m/uL Hgb (11.4-16.0) gm/dL Hct (34.0-46.0) % Sodium 136 L (137-145) mmol/L BUN 22 H (7-17) mg/dL POC Glucose (mg/dL) 114 H (75-99) mg/dL Calcium 7.8 L (8.4-10.2) mg/dL Total Bilirubin 1.8 H (0.2-1.3) mg/dL AST 577 H (14-36) U/L ALT 1129 H (4-34) U/L Total Protein 5.3 L (6.3-8.2) g/dL Albumin 3.3 L (3.5-5.0) g/dL Assessment and Plan Plan: NSTEMI Multivessel coronary artery disease -Cardiology following, patient went to [facility] 09/07/21 and was found to have triple-vessel occlusive disease revealing 95% occlusion of circumflex, 80% occlusion of the LAD and a complete occlusion of right coronary artery. -S/p triple vessel coronary artery bypass grafting 09/09 -Telemetry monitoring. -Cardiac diet -Aspirin, plavix and metoprolol -Lipid profile unremarkable Acute blood loss anemia -Given one unit, follow up hgb currently 6.9. Continue to monitor closely. Transaminitis -D/w CT surgery, likely shock liver due to hypotension +/- amiodarone side effect. D/c amio and statin. -Continue trend. Hypertension was hypotensive -Off levophed, continued on Norvasc and metoprolol Hyperlipidemia We will medication regimen with atorvastatin 80 mg daily. Diabetes mellitus -Hemoglobin A1c elevated at 6.6% Hold oral hypoglycemic medications -Glycemic protocol with NovoLog sliding scale. Nicotine dependence Educate and encourage patient on the importance of smoking cessation and the risks of continued use. Nicotine patch CODE STATUS: Full code DVT prophylaxis: Heparin Discussed with: Patient and RN Anticipated discharge date: Clinical course to determine Anticipated discharge place: Home A total of 40 minutes was spent on the care of this complex patient more than 50% of the time was spent in counseling and care coordination.
[2021-09-14 16:52] LABS: Glucose,Whole Blood 127 mg/dL (75-99)
[2021-09-14] MEDS: amLODIPine 2.5 MG TAB PO SCH (19:24)
[2021-09-14] MEDS: SENNOSIDES-DOCUSATE SODIUM 1 EACH TAB PO SCH (20:19)
[2021-09-14 20:26] LABS: Glucose,Whole Blood 111 mg/dL (75-99)
[2021-09-15] MEDS: HYDROmorphone 0.5 MG/0.5 ML SYRINGE IVP PRN ×4 (00:26→20:41)
[2021-09-15] MEDS: HEPARIN SODIUM,PORCINE/PF 5,000 UNIT/0.5 ML SYRINGE SQ SCH ×4 (00:28→23:27)
[2021-09-15] MEDS: traMADol 50 MG TAB PO PRN ×3 (03:57→18:28)
[2021-09-15 06:57] LABS: Glucose,Whole Blood 123 mg/dL (75-99)
[2021-09-15] MEDS: INSULIN ASPART (NovoLOG) 100 UNIT/ML VIAL SQ SCH ×5 (07:15→20:39)
[2021-09-15] MEDS: FERROUS SULFATE 325 MG TAB PO SCH ×2 (07:15→17:13)
[2021-09-15] MEDS: PANTOPRAZOLE 40 MG TABLET PO SCH (07:15)
[2021-09-15] MEDS: ASCORBIC ACID 500 MG TAB PO SCH ×2 (07:15→17:13)
[2021-09-15 07:32] LABS: Anisocytosis Slight; HGB 7.1 gm/dL (11.4-16.0); Hypochromasia Slight; MCH 33.1 pg (25.0-35.0); MCHC 33.6 g/dL (31.0-37.0); MCV 98.6 fL (80.0-100.0); Macrocytosis Slight; Mean Platelet Volume 8.4; Platelet Count 191 k/uL (150-450); RBC 2.13 m/uL (3.80-5.40); WBC 7.3 k/uL (3.8-10.6)
--- NOTE | 2021-09-15 07:38 | P.PN ---
Subjective Progress Note Date: 09/15/21 Principal diagnosis: Triple-vessel coronary artery disease with totally occluded right coronary artery, acute non-ST elevated myocardial infarction this admission, preserved left ventricular function. Previous medical history of hypertension, hyperlipidemia, wfv-fudzyxw-owpiykwae diabetes mellitus, chronic ongoing tobacco dependence, TIA 40 years ago, chronic back pain, GERD, obesity, family history of coronary artery disease POD #6 triple vessel coronary artery bypass grafting using the left internal mammary artery to the left anterior descending artery, left radial artery from the aorta to the first obtuse marginal artery, reverse saphenous vein graft from the aorta to the right coronary artery, exclusion of the left atrial appendage using a 35 mm AtriClip, endoscopic harvesting of the left radial artery and endoscopic harvesting of the left greater saphenous vein, intraoperative transesophageal echocardiogram, epi-aortic scanning, intraoperative graft flow measurements using the [employer] system Postoperative acute blood loss anemia and thrombocytopenia, expected given hemodilution and cardiopulmonary bypass pump Brief episode of paroxysmal atrial fibrillation, known common occurrence after open heart surgery Elevated transaminases, likely result of hypotension combined with medication effects The patient was seen and examined this morning sitting up in the recliner in the intensive care unit in no acute distress. Remains in sinus rhythm, blood pr essure stable. States pain is tolerable on current medication regimen. Awake this morning and completely oriented to person, place, time, and situation. She ambulated in the hallway yesterday without difficulty, showered. CXR reviewed, stable. Transfer orders placed yesterday [facility], no beds available. Patient has required oxygen at night due to saturations in the mid 80s when sleeping. No other new concerns Objective - Vital Signs Vital signs: Vital Signs Temp 98.7 F 09/15/21 04:00 Pulse 80 09/15/21 07:00 Resp 16 09/15/21 07:00 BP 139/66 09/15/21 07:00 Pulse Ox 95 09/15/21 07:00 Intake & Output 09/14/21 09/15/21 09/15/21 18:59 06:59 18:59 Intake Total 816 500 Output Total 1000 850 Balance -184 -350 Intake: IV 86 Albumin Human 25% 50 ml 50 In Empty Bag 1 bag @ 50 mls/hr IVPB ONCE ONE Rx#: [id number] Pressure bag 36 Oral 730 500 Output: Urine 1000 850 Other: Voiding Method Toilet # Voids 2 ABP, PAP, CO, CI - Last Documented Arterial Blood Pressure 111/46 Pulmonary Artery Pressure 28/11 Cardiac Output 3.9 Cardiac Index 2 - Exam CONSTITUTIONAL: Appears comfortable, cooperative, no acute distress RESPIRATORY: Lungs sounds diminished bilaterally. Respirations even, nonlabored. Currently on 2 L nasal cannula with oxygen saturation 98%. Able to achieve 1500 mL on incentive spirometry. Strong productive cough. CARDIOVASCULAR: S1, S2 present. Regular rate and rhythm, sinus rhythm on telemetry. Sternum stable. Palpable peripheral pulses bilaterally. No edema present. No calf pain or tenderness noted. Heart hugger in place with patient demonstrating appropriate use. Antiembolism stockings, SCDs present. GASTROINTESTINAL: Abdomen soft, nontender, nondistended. Active bowel sounds present 4 quadrants. Tolerating diet. Positive bowel movement yesterday afternoon per patient GENITOURINARY: Continues to void, 1850 mL in last 24 hours INTEGUMENTARY: Skin is warm and dry with evidence of good perfusion. Anterior chest incision well approximated. Left radial artery harvest site as well as left lower extremity EVH site well approximated NEUROLOGIC: Cranial nerves II through XII intact MUSKULOSKELETAL: Able to move all extremities, strength equal bilaterally PSYCHIATRIC: Alert and oriented to person, place, time and situation, appropriate affect, intact judgment - Allied health notes Allied health notes reviewed: nursing - Labs CBC & Chem 7: 09/15/21 06:49 09/15/21 06:49 Labs: Abnormal Lab Results - Last 24 Hours (Table) 09/14/21 09/14/21 09/14/21 Range/Units 11:45 16:50 20:24 POC Glucose (mg/dL) 114 H 127 H 111 H (75-99) mg/dL 09/15/21 Range/Units 06:56 POC Glucose (mg/dL) 123 H (75-99) mg/dL - Imaging and Cardiology Chest x-ray: image reviewed Assessment and Plan Assessment: 1. Triple vessel coronary artery disease with totally occluded right coronary artery, acute non-ST elevated myocardial infarction this admission, preserved l eft ventricular function, status post three-vessel CABG 2. History of hypertension 3. Hyperlipidemia 4. Znl-llbcqll-cxsmghdof diabetes mellitus, preoperative hemoglobin A1c 6.6% 5. Chronic ongoing tobacco dependence, preoperative FEV1 87% of predicted 6. TIA 40 years ago 7. Chronic back pain, on buprenorphine patch at home 8. GERD 9. Obesity 10. Family history of coronary artery disease 11. Postoperative acute blood loss anemia and thrombocytopenia, expected 12. Brief episode paroxysmal atrial fibrillation, status post left atrial appendage ligation 13. Elevated transaminases, likely from hypotension and medications Plan: 1. Continue to maximize medical therapy with low-dose ASA, Plavix, beta chris. Will increase beta chris therapy as tolerated. Continue to hold statin secondary to elevated liver enzymes, will restart when able 2. Continue low-dose oral calcium channel chris for radial artery spasm prophylaxis 3. Wean O2 as tolerated, may need oxygen at discharge for sleeping. Encourage incentive spirometry use 10 times every hour while awake. Bronchodilators per pulmonology 4. Increase activity, ambulate as tolerated. PT/OT/cardiac rehab following. Shower daily 5. Smoking cessation counseling offered, patient strongly encouraged to quit smoking 6. Will monitor daily labs and x-rays. Electrolyte replacement protocol. Will give 20 mg IVP lasix 7. GI/DVT prophylaxis 8. Insulin management per primary care service. Patient needs tight blood sugar control to promote sternal union, prevent infection 9. Pain control with current medication regimen. Avoid acetaminophen products 10. Strict accurate intake and output. Daily weights 11. Transfer orders placed yesterday for [facility] cardiac stepdown unit, may transfer when bed available 12. Discharge planning in progress, anticipate DC to home in the next 24-48 ho urs 13. More recommendations to follow Time with Patient: Greater than 30
[2021-09-15 07:42] LABS: ALT 678 U/L (4-34); AST 176 U/L (14-36); African American GFR (CKD) >90 (>60 ml/min/1.73 sqM); Albumin 3.5 g/dL (3.5-5.0); Alkaline Phosphatase 56 U/L (38-126); Anion Gap 6 mmol/L; Blood Urea Nitrogen 19 mg/dL (7-17); Calcium 8.1 mg/dL (8.4-10.2); Carbon Dioxide 26 mmol/L (22-30); Chloride 104 mmol/L (98-107); Glucose 105 mg/dL (74-99); Magnesium 2.1 mg/dL (1.6-2.3); Non-African American GFR(CKD) 87 (>60 ml/min/1.73 sqM); Potassium 4.4 mmol/L (3.5-5.1); Sodium 136 mmol/L (137-145); Total Protein 5.5 g/dL (6.3-8.2)
[2021-09-15] MEDS ORDERED: FUROSEMIDE 10 MG/ML 2 ML VIAL IV ONE (07:59)
--- NOTE | 2021-09-15 08:05 | P.PN ---
Subjective Progress Note Date: 09/15/21 Principal diagnosis: Status post CABG The patient is a 65-year-old female patient with a CAD and status post coronary artery bypass grafting as well as hypertension and dyslipidemia. The CABG was complicated by hypotension as well as elevated liver function tests. The patient was seen this morning. She remains asymptomatic from a cardiovascular standpoint of view and she remains hemodynamically stable beside soft blood pressure. She is only on beta chris for that. Beside that she is on dual antiplatelet therapy. Statin continues to be on hold at this point in view of the elevated liver function tests. From a cardiovascular standpoint of view, patient can be transferred to the floor. The chest x-ray was reviewed as well and the left pleural effusion seems to be almost resolved. We'll continue following up with the patient Objective - Vital Signs Vital signs: Vital Signs Temp 98.7 F 09/15/21 04:00 Pulse 80 09/15/21 07:00 Resp 16 09/15/21 07:00 BP 139/66 09/15/21 07:00 Pulse Ox 95 09/15/21 07:00 Intake & Output 09/14/21 09/15/21 09/15/21 18:59 06:59 18:59 Intake Total 816 500 Output Total 1000 850 Balance -184 -350 Intake: IV 86 Albumin Human 25% 50 ml 50 In Empty Bag 1 bag @ 50 mls/hr IVPB ONCE ONE Rx#: [id number] Pressure bag 36 Oral 730 500 Output: Urine 1000 850 Other: Voiding Method Toilet # Voids 2 ABP, PAP, CO, CI - Last Documented Arterial Blood Pressure 111/46 Pulmonary Artery Pressure 28/11 Cardiac Output 3.9 Cardiac Index 2 - Constitutional General appearance: Present: no acute distress - Respiratory Respiratory: bilateral: diminished - Cardiovascular Rhythm: regular - Labs CBC & Chem 7: 09/15/21 06:49 09/15/21 06:49 Labs: Abnormal Lab Results - Last 24 Hours (Table) 09/14/21 09/14/21 09/14/21 Range/Units 11:45 16:50 20:24 RBC (3.80-5.40) m/uL Hgb (11.4-16.0) gm/dL Hct (34.0-46.0) % RDW (11.5-15.5) % Sodium (137-145) mmol/L BUN (7-17) mg/dL Glucose (74-99) mg/dL POC Glucose (mg/dL) 114 H 127 H 111 H (75-99) mg/dL Calcium (8.4-10.2) mg/dL Total Bilirubin (0.2-1.3) mg/dL AST (14-36) U/L ALT (4-34) U/L Total Protein (6.3-8.2) g/dL 09/15/21 09/15/21 09/15/21 Range/Units 06:49 06:49 06:56 RBC 2.13 L (3.80-5.40) m/uL Hgb 7.1 L (11.4-16.0) gm/dL Hct 21.0 L (34.0-46.0) % RDW 16.0 H (11.5-15.5) % Sodium 136 L (137-145) mmol/L BUN 19 H (7-17) mg/dL Glucose 105 H (74-99) mg/dL POC Glucose (mg/dL) 123 H (75-99) mg/dL Calcium 8.1 L (8.4-10.2) mg/dL Total Bilirubin 2.0 H (0.2-1.3) mg/dL AST 176 H (14-36) U/L ALT 678 H (4-34) U/L Total Protein 5.5 L (6.3-8.2) g/dL Assessment and Plan Assessment: Assessment #1 CAD and status post CABG #2 hypotension which has improved #3 anemia which has been stable #4 elevated liver function test #5 multiple comorbid conditions Plan #1 continue monitor the hemoglobin #2 continue dual antiplatelet therapy along with beta chrsi #3 the chest x-ray was reviewed and seems to be better than yesterday #4 follow-up with the patient
[2021-09-15] MEDS: IPRATROPIUM-ALBUTEROL 3 ML NEB INHALATION SCH ×4 (08:16→20:37)
--- NOTE | 2021-09-15 08:22 | XR ---
EXAMINATION TYPE: XR chest 2V DATE OF EXAM: 09/15/2021 COMPARISON: 09/15/2019 TECHNIQUE: PA and lateral views submitted. HISTORY: Post cardiac surgery FINDINGS: Postoperative change with cardiomegaly and bilateral infiltrate and mild central venous congestion bermudez spected. No sizable pneumothorax. Hypertrophic and degenerative changes spine. IMPRESSION: 1. Bilateral infiltrate and pleural effusion stable correlate for mild central venous congestion.
--- NOTE | 2021-09-15 08:32 | P.PN ---
Subjective Progress Note Date: 09/15/21 09/15/2021, the patient is postop day #6 and the patient is doing extremely well. She remains on room air oxygen. He is having 2000 on her incentive spirometer. She is ambulating pH is on room air oxygen. All of the tubes are removed. The patient is currently on aspirin and Plavix. The patient is also on beta blockers with metoprolol 12.5 mg twice a day. Her hemoglobin was low and the patient was given iron and the patient's hemolytic currently is at 7.1. LFTs are essentially downtrending and normalizing. The patient is a selective overflow. The electrolytes are all within normal limits. Potassium is at 4.4. Awake and alert. No focal neurological deficit. Objective - Vital Signs Vital signs: Vital Signs Temp 98.7 F 09/15/21 04:00 Pulse 79 09/15/21 08:25 Resp 16 09/15/21 07:00 BP 139/66 09/15/21 07:00 Pulse Ox 95 09/15/21 07:00 Intake & Output 09/14/21 09/15/21 09/15/21 18:59 06:59 18:59 Intake Total 816 500 Output Total 1000 850 Balance -184 -350 Intake: IV 86 Albumin Human 25% 50 ml 50 In Empty Bag 1 bag @ 50 mls/hr IVPB ONCE ONE Rx#: [id number] Pressure bag 36 Oral 730 500 Output: Urine 1000 850 Other: Voiding Method Toilet # Voids 2 ABP, PAP, CO, CI - Last Documented Arterial Blood Pressure 111/46 Pulmonary Artery Pressure 28/11 Cardiac Output 3.9 Cardiac Index 2 - Exam CONSTITUTIONAL: Appears comfortable, cooperative, no acute distress RESPIRATORY: Lungs sounds diminished bilaterally. Respirations even, no nlabored. Currently on RA oxygen saturation 94%, removed and oxygen saturation 91% on room air. Able to achieve 1250 mL on incentive spirometry. Strong productive cough. CARDIOVASCULAR: S1, S2 present. Regular rate and rhythm, sinus rhythm on telemetry. Sternum stable. Palpable peripheral pulses bilaterally. Trace generalized edema present. No calf pain or tenderness noted. Heart hugger in place with patient demonstrating appropriate use. Antiembolism stockings, SCDs present. GASTROINTESTINAL: Abdomen soft, nontender, nondistended. Active bowel sounds present 4 quadrants. Tolerating diet. Positive flatus, no bowel movement yet GENITOURINARY: Lopez removed yesterday, positive void, 1655 mL in last 24 hours INTEGUMENTARY: Skin is warm and dry with evidence of good perfusion. Anterior chest incision well approximated and covered with dry intact dressing. Left radial artery harvest site as well as left lower extremity EVH site well approximated NEUROLOGIC: Cranial nerves II through XII intact MUSKULOSKELETAL: Able to move all extremities, strength equal bilaterally PSYCHIATRIC: Alert and oriented to person, place, time and situation, appropriate affect, intact judgment INVASIVE LINES AND TUBES: Right radial arterial line present. - Labs CBC & Chem 7: 09/15/21 06:49 09/15/21 06:49 Labs: Abnormal Lab Results - Last 24 Hours (Table) 09/14/21 09/14/21 09/14/21 Range/Units 11:45 16:50 20:24 RBC (3.80-5.40) m/uL Hgb (11.4-16.0) gm/dL Hct (34.0-46.0) % RDW (11.5-15.5) % Sodium (137-145) mmol/L BUN (7-17) mg/dL Glucose (74-99) mg/dL POC Glucose (mg/dL) 114 H 127 H 111 H (75-99) mg/dL Calcium (8.4-10.2) mg/dL Total Bilirubin (0.2-1.3) mg/dL AST (14-36) U/L ALT (4-34) U/L Total Protein (6.3-8.2) g/dL 09/15/21 09/15/21 09/15/21 Range/Units 06:49 06:49 06:56 RBC 2.13 L (3.80-5.40) m/uL Hgb 7.1 L (11.4-16.0) gm/dL Hct 21.0 L (34.0-46.0) % RDW 16.0 H (11.5-15.5) % Sodium 136 L (137-145) mmol/L BUN 19 H (7-17) mg/dL Glucose 105 H (74-99) mg/dL POC Glucose (mg/dL) 123 H (75-99) mg/dL Calcium 8.1 L (8.4-10.2) mg/dL Total Bilirubin 2.0 H (0.2-1.3) mg/dL AST 176 H (14-36) U/L ALT 678 H (4-34) U/L Total Protein 5.5 L (6.3-8.2) g/dL Assessment and Plan Plan: Symptomatic coronary artery disease. Postop day #6, status post three-vessel bypass grafting, exclusion of left atrial appendage, endoscopic harvesting of left radial artery, intraoperative transesophageal echocardiogram, and intraoperative graft flow measurements. The patient is recovering nicely from her surgery. She is extubated. She does have some atelectatic changes and small effusion the lung bases bilaterally. She was given Lasix yesterday. Hemodynamically stable on no pressors. All of the chest is a been removed. The patient remains on room air oxygen. Post thoracotomy. All of the catheter removed and the patient is currently on room air oxygen. Atelectatic changes seen in the left lung base. The patient is using incentive spirometer, pulling approximately 2000 Abnormal LFTs, could be drug induced versus a shock liver, improving, almost normalizing History of hyperlipidemia. History of hypertension. History of diabetes mellitus. Obesity with a BMI of 37.6 TIA history, currently inactive in stable Postoperative acute blood loss anemia/thrombocytopenia, expected outcome of surgery, hemoglobin is at 7.1 Plan Monitor LFTs, currently improving Continue aspirin and Plavix Continue metoprolol 12.5 mg by mouth twice a day. Blood pressure is adequate for now Amiodarone and statins have been held due to abnormal LFTs , LFTs are improving May restart statins patient is currently on room air oxygen Monitor the hemoglobin level. Increase his mobility as tolerated Continue with incentive spirometer will continue to follow
[2021-09-15] MEDS: METOPROLOL TARTRATE 12.5 MG TAB PO SCH ×2 (10:09→20:39)
[2021-09-15] MEDS: ASPIRIN 81 MG PO SCH ×2 (10:09→18:14)
[2021-09-15] MEDS: CLOPIDOGREL 75 MG TAB PO SCH (10:09)
[2021-09-15] MEDS: POTASSIUM CHLORIDE ER 20 MEQ TAB.ER PO SCH ×2 (10:09→20:38)
[2021-09-15] MEDS: DULoxetine HCL 60 MG CAPSULE.DR PO SCH (10:10)
[2021-09-15] MEDS: polyethylene glycoL 3350 17 GM POWD.PACK PO SCH (10:41)
[2021-09-15] MEDS: ATORVASTATIN 40 MG TAB PO SCH (10:41)
--- NOTE | 2021-09-15 12:28 | P.PN ---
Subjective Progress Note Date: 09/15/21 Principal diagnosis: s/p cabg Doing well, ambulating without difficulties. No fevers. No significant pain or sob. Objective - Vital Signs Vital signs: Vital Signs Temp 98.7 F 09/15/21 04:00 Pulse 79 09/15/21 08:25 Resp 16 09/15/21 07:00 BP 139/66 09/15/21 07:00 Pulse Ox 95 09/15/21 07:00 Intake & Output 09/14/21 09/15/21 09/15/21 18:59 06:59 18:59 Intake Total 816 500 Output Total 1000 850 Balance -184 -350 Intake: IV 86 Albumin Human 25% 50 ml 50 In Empty Bag 1 bag @ 50 mls/hr IVPB ONCE ONE Rx#: [id number] Pressure bag 36 Oral 730 500 Output: Urine 1000 850 Other: Voiding Method Toilet # Voids 2 ABP, PAP, CO, CI - Last Documented Arterial Blood Pressure 111/46 Pulmonary Artery Pressure 28/11 Cardiac Output 3.9 Cardiac Index 2 - Exam CONSTITUTIONAL: Appears uncomfortable but no respiratory distress RESPIRATORY: Lungs sounds diminished bilaterally. CARDIOVASCULAR: S1, S2 present. Regular rate and rhythm, sinus rhythm on telemetry. Sternum stable. Palpable peripheral pulses bilaterally. Trace ge neralized edema present. GASTROINTESTINAL: Abdomen soft, nontender, nondistended. Hypoactive bowel sounds present 4 quadrants. Tolerating ice chips. Negative flatus GENITOURINARY: Lopez present draining clear, yellow urine. Output overnight 100-125 mL per hour INTEGUMENTARY: Skin is warm and dry with evidence of good perfusion. Anterior chest incision well approximated and covered with dry intact dressing. CABRERA drain present with minimal drainage. NEUROLOGIC: Cranial nerves II through XII intact MUSKULOSKELETAL: Able to move all extremities, strength equal bilaterally PSYCHIATRIC: Alert and oriented to person place and time, appropriate affect, intact judgment and insight INVASIVE LINES AND TUBES: Mediastinal/left pleural chest tubes present and connected to wall suction, no air leaks present - Labs CBC & Chem 7: 09/15/21 06:49 09/15/21 06:49 Labs: Abnormal Lab Results - Last 24 Hours (Table) 09/14/21 09/14/21 09/14/21 Range/Units 11:45 16:50 20:24 RBC (3.80-5.40) m/uL Hgb (11.4-16.0) gm/dL Hct (34.0-46.0) % RDW (11.5-15.5) % Sodium (137-145) mmol/L BUN (7-17) mg/dL Glucose (74-99) mg/dL POC Glucose (mg/dL) 114 H 127 H 111 H (75-99) mg/dL Calcium (8.4-10.2) mg/dL Total Bilirubin (0.2-1.3) mg/dL AST (14-36) U/L ALT (4-34) U/L Total Protein (6.3-8.2) g/dL 09/15/21 09/15/21 09/15/21 Range/Units 06:49 06:49 06:56 RBC 2.13 L (3.80-5.40) m/uL Hgb 7.1 L (11.4-16.0) gm/dL Hct 21.0 L (34.0-46.0) % RDW 16.0 H (11.5-15.5) % Sodium 136 L (137-145) mmol/L BUN 19 H (7-17) mg/dL Glucose 105 H (74-99) mg/dL POC Glucose (mg/dL) 123 H (75-99) mg/dL Calcium 8.1 L (8.4-10.2) mg/dL Total Bilirubin 2.0 H (0.2-1.3) mg/dL AST 176 H (14-36) U/L ALT 678 H (4-34) U/L Total Protein 5.5 L (6.3-8.2) g/dL Assessment and Plan Plan: NSTEMI Multivessel coronary artery disease -Cardiology following, patient went to dental lab technician 09/07/21 and was found to have triple-vessel occlusive disease revealing 95% occlusion of circumflex, 80% occlusion of the LAD and a complete occlusion of right coronary artery. -S/p triple vessel coronary artery bypass grafting 09/09 -Telemetry monitoring. -Cardiac diet -Aspirin, plavix and metoprolol -Lipid profile unremarkable Acute blood loss anemia -Given one unit, follow up hgb currently 6.9. Continue to monitor closely. Transaminitis -D/w CT surgery, likely shock liver due to hypotension +/- amiodarone side effect. D/c amio and statin. -Continue trend. Hypertension was hypotensive -Off levophed, continued on Norvasc and metoprolol Hyperlipidemia We will medication regimen with atorvastatin 80 mg daily. Diabetes mellitus -Hemoglobin A1c elevated at 6.6% Hold oral hypoglycemic medications -Glycemic protocol with NovoLog sliding scale. Nicotine dependence Educate and encourage patient on the importance of smoking cessation and the risks of continued use. Nicotine patch CODE STATUS: Full code DVT prophylaxis: Heparin Discussed with: Patient and RN Anticipated discharge date: Clinical course to determine Anticipated discharge place: Home A total of 40 minutes was spent on the care of this complex patient more than 50% of the time was spent in counseling and care coordination.
[2021-09-15] MEDS: amLODIPine 2.5 MG TAB PO SCH (12:59)
[2021-09-15 13:06] LABS: Glucose,Whole Blood 129 mg/dL (75-99)
[2021-09-15 16:33] LABS: Glucose,Whole Blood 101 mg/dL (75-99)
[2021-09-15] MEDS: CLEVIDIPINE BUTYRATE 25 MG in EMPTY BAG 1 BAG IV SCH (18:07)
[2021-09-15] MEDS: lisinopriL 20 MG TAB PO SCH (18:13)
[2021-09-15] MEDS: FAMOTIDINE 20 MG TAB PO SCH (18:13)
[2021-09-15] MEDS: METOPROLOL TARTRATE 25 MG TAB PO SCH (18:13)
[2021-09-15] MEDS: amLODIPine 5 MG TAB PO SCH (18:14)
[2021-09-15] MEDS: NITROGLYCERIN OINT 1 INCH/GM PACKET TOPICAL SCH ×2 (18:14→18:15)
[2021-09-15] MEDS: MUPIROCIN 2% OINT 22 GM TUBE NASAL SCH (18:15)
[2021-09-15] MEDS: HEPARIN SOD,PORK IN 0.45% NACL 25,000 UNIT in 0.45% NACL 1 250ML.BAG IV SCH (18:16)
[2021-09-15 19:57] LABS: Glucose,Whole Blood 142 mg/dL (75-99)
[2021-09-15] MEDS: SENNOSIDES-DOCUSATE SODIUM 1 EACH TAB PO SCH (20:39)
[2021-09-16] MEDS: traMADol 50 MG TAB PO PRN ×2 (00:54→09:16)
[2021-09-16 03:52] VITALS: TEMP 98.1
[2021-09-16] MEDS: HYDROmorphone 0.5 MG/0.5 ML SYRINGE IVP PRN (03:55)
[2021-09-16 05:53] LABS: Glucose,Whole Blood 97 mg/dL (75-99)
[2021-09-16] MEDS: INSULIN ASPART (NovoLOG) 100 UNIT/ML VIAL SQ SCH ×2 (06:15→12:36)
[2021-09-16] MEDS: ASCORBIC ACID 500 MG TAB PO SCH (06:29)
[2021-09-16] MEDS: PANTOPRAZOLE 40 MG TABLET PO SCH (06:29)
[2021-09-16] MEDS: FERROUS SULFATE 325 MG TAB PO SCH (06:30)
[2021-09-16 07:33] LABS: Anisocytosis Slight; HCT 21.5 % (34.0-46.0); HGB 7.1 gm/dL (11.4-16.0); Hypochromasia Slight; MCH 32.8 pg (25.0-35.0); MCHC 33.1 g/dL (31.0-37.0); Macrocytosis Slight; Mean Platelet Volume 8.1; Platelet Count 223 k/uL (150-450); Poikilocytosis Slight; RBC 2.17 m/uL (3.80-5.40); RDW 16.7 % (11.5-15.5)
[2021-09-16 07:54] LABS: ALT 493 U/L (4-34); AST 71 U/L (14-36); African American GFR (CKD) >90 (>60 ml/min/1.73 sqM); Albumin 3.4 g/dL (3.5-5.0); Alkaline Phosphatase 59 U/L (38-126); Anion Gap 3 mmol/L; Blood Urea Nitrogen 15 mg/dL (7-17); Calcium 8.3 mg/dL (8.4-10.2); Carbon Dioxide 28 mmol/L (22-30); Chloride 103 mmol/L (98-107); Glucose 91 mg/dL (74-99); Non-African American GFR(CKD) >90 (>60 ml/min/1.73 sqM); Potassium 4.4 mmol/L (3.5-5.1); Sodium 134 mmol/L (137-145); Total Bilirubin 2.6 mg/dL (0.2-1.3); Total Protein 5.3 g/dL (6.3-8.2)
[2021-09-16] MEDS: IPRATROPIUM-ALBUTEROL 3 ML NEB INHALATION SCH ×2 (08:36→11:54)
--- NOTE | 2021-09-16 09:03 | XR ---
EXAMINATION TYPE: XR chest 2V DATE OF EXAM: 09/16/2021 COMPARISON: Chest x-ray 09/15/2021 HISTORY: Status post cardiac surgery, abnormal chest x-ray TECHNIQUE: Frontal and lateral views of the chest are obtained. FINDINGS: No evident pneumothorax. There is blunting the costophrenic angles. Cardiac mediastinal si lhouette is stable. Patient is post median sternotomy, left atrial appendage clip placement. Lungs sh ow similar appearance, there are overlying artifacts. Aorta is dense. IMPRESSION: Probable small basilar effusions and associated atelectasis.
[2021-09-16] MEDS: ASPIRIN 81 MG PO SCH (09:15)
[2021-09-16] MEDS: polyethylene glycoL 3350 17 GM POWD.PACK PO SCH (09:16)
[2021-09-16] MEDS: HEPARIN SODIUM,PORCINE/PF 5,000 UNIT/0.5 ML SYRINGE SQ SCH (09:16)
[2021-09-16] MEDS: METOPROLOL TARTRATE 12.5 MG TAB PO SCH (09:16)
[2021-09-16] MEDS: CLOPIDOGREL 75 MG TAB PO SCH (09:16)
[2021-09-16] MEDS: ATORVASTATIN 40 MG TAB PO SCH (09:16)
[2021-09-16] MEDS: DULoxetine HCL 60 MG CAPSULE.DR PO SCH (09:16)
[2021-09-16 09:21] VITALS: RESP 16
[2021-09-16] MEDS ORDERED: FUROSEMIDE 10 MG/ML 2 ML VIAL IV ONE (10:45)
--- NOTE | 2021-09-16 10:51 | US ---
EXAMINATION TYPE: Pre-Operative Non-Invasive Evaluation of the hand for Potential Radial Artery Sandro maldonado, Measurements only DATE OF EXAM: 09/07/2021 3:04 PM CLINICAL HISTORY: measurements only. Preoperative CABG SIDE PERFORMED: Left TECHNIQUE: Radial artery is measured utilizing real time linear array sonography. Dominant hand: Right Duplex Findings: Radial Artery: Color flow seen Measurements in mm, transverse view: Left Radial: Proximal: 2.2 x 2.2 mm Mid: 2.1 x 1.9 mm Distal: 1.9 x 1.8 mm IMPRESSION: 1. Left radial artery measurements listed above. 2. Performing surgeon to determine viability as conduit.
--- NOTE | 2021-09-16 10:53 | US ---
EXAMINATION TYPE: US vein mapping BILAT DATE OF EXAM: 09/07/2021 3:04 PM COMPARISON: NONE CLINICAL HISTORY: preop cardiac surgery. SIDE PERFORMED: Bilateral TECHNIQUE: Lower extremity saphenous vein is examined and measured utilizing real time linear array sonography. Patient History: Smoker: Yes Heart Disease: Yes Diabetes: Yes DUPLEX FINDINGS: Greater Saphenous: Color flow seen Measurements in mm: Right Greater Saphenous: Groin: 5.5 x 4.3 mm High Thigh: 5.0 x 4.1 mm Mid Thigh: 4.1 x 4.0 mm Above Knee: 3.8 x 3.5 mm Knee: 4.8 x 4.2 mm Below Knee: 3.2 x 2.8 mm Mid Calf: 1.8 x 1.6 mm At Ankle: 2.0 x 1.6 mm Left Greater Saphenous: Groin: 5.0 x 4.7 mm High Thigh: 2.9 x 3.1 mm Mid Thigh: 3.5 x 3.2 mm Above Knee: 3.6 x 2.6 mm Knee: 4.1 x 3.5 mm Below Knee: 2.7 x 2.5 mm Mid Calf: 2.0 x 1.7 mm At Ankle: 1.4 x 1.3 mm IMPRESSION: 1. Bilateral GSV measurements listed above. 2. Performing surgeon to determine viability as conduit.
[2021-09-16 11:49] LABS: Glucose,Whole Blood 106 mg/dL (75-99)
[2021-09-16] MEDS ORDERED: FUROSEMIDE 20 MG TAB PO STA (12:43)
[2021-09-16] MEDS: amLODIPine 2.5 MG TAB PO SCH (12:50)
[2021-09-16 13:01] VITALS: BP 96/51; PULSE 79
--- NOTE | 2021-09-16 13:06 | P.DS ---
Providers Date of admission: 09/07/21 09:56 Expected date of discharge: 09/16/21 Attending physician: Stephanie Cuevas Consults: 09/06/21 23:36 Consult Physician Urgent Consulting Provider: Juan John Consult Reason/Comments: cp Do you want consulting provider notified?: Yes 09/07/21 14:56 Consult Physician Routine Consulting Provider: Johnathon Adames Consult Reason/Comments: CABG Do you want consulting provider notified?: Already Contacted 09/07/21 16:20 Consult Physician Routine Consulting Provider: Reilly Garcia Consult Reason/Comments: Pulmonary clearance CABG Do you want consulting provider notified?: Yes, Notify in am 09/08/21 15:48 Consult to Anesthesia Routine Consulting Provider: Anesthesia,Services Consult Reason/Comments: Cardiac Surgery Pre-Op 09/09/21 16:19 Consult Physician Routine Consulting Provider: Alondra Forrester Consult Reason/Comments: med mgmt Do you want consulting provider notified?: Already Contacted Primary care physician: Deshaun Olivasqvi Hospital Course: FINAL DIAGNOSIS: 1. Triple vessel coronary artery disease with chronic totally occluded right coronary artery, status post three-vessel CABG 2. Acute non-ST elevated myocardial infarction this admission, with preserved left ventricular function. 3. History of hypertension 4. Hyperlipidemia 5. Tsl-ggblaer-plqwupzoc diabetes mellitus, preoperative hemoglobin A1c 6.6% 6. Chronic ongoing tobacco dependence, preoperative FEV1 87% of predicted 7. TIA 40 years ago with no residual effects 8. Chronic back pain, on buprenorphine patch at home 9. GERD 10. Obesity 11. Family history of coronary artery disease 12. Postoperative acute blood loss anemia and thrombocytopenia, expected 13. Episode of paroxysmal atrial fibrillation, status post left atrial appendage ligation with a 35 mm Atriclip 14. Elevated transaminases, likely from hypotension and medications PRINCIPAL PROCEDURE: 1. Triple-vessel coronary artery bypass grafting using the left internal mammary artery to the left anterior descending coronary artery, left radial artery from the aorta to the first obtuse marginal coronary artery, a reverse greater saphenous vein graft from the aorta to the right coronary artery. 2. Exclusion of the left atrial appendage using a 35 mm Atriclip. 3. Endoscopic harvesting of the left radial artery. 4. Endoscopic harvesting of the left greater saphenous vein. 5. Intraoperative transesophageal echocardiogram. 6. Intraoperative epi-aortic scanning. 7. Intraoperative graft flow measurements using the Medistim System. HISTORY OF PRESENT ILLNESS: This is a 65-year-old female patient who follows with Dr. Hoang for her primary care needs on an outpatient basis. The patient presented to the hospital here at [facility] for complaints of shortness of breath, chest pressure in between her shoulder blades and pain with tingling radiating from her right shoulder to her fingertips on her right side. A 12- lead EKG was completed which showed normal sinus rhythm without any significant STT wave changes. She did have positive surgical troponins ruling her in for an acute non-ST elevated myocardial infarction. Subsequently, she was seen by Dr. Santos from cardiology and she underwent a cardiac catheterization and transthoracic 2-D echocardiogram. The cardiac catheterization demonstrated an 80% stenosis to her proximal left anterior setting coronary artery, a 95% stenosis to her circumflex coronary artery and a chronically occluded right coronary artery to its midportion with left to right collaterals from the circumflex coronary artery. The transthoracic 2-D echocardiogram showed an overall left ventricular systolic function to be normal with an ejection fraction between 55 and 60%, and trace tricuspid valve regurgitation. Dueto her presenting symptoms, positive troponins and findings on her cardiac catheterization a consult was placed to Dr. Stephanie Cuevas from cardiothoracic surgery for further evaluation and treatment recommendations including myocardial revascularization surgery. Dr. Cuevas met with the patient, discussed treatment options including myocardial revascularization surgery. Risks and benefits of myocardial revascularization surgery were discussed including the STS risk score and knowing and understanding these risks the patient wished to proceed with the surgical option. HOSPITAL COURSE: The patient was admitted to the hospital and on 09/09/2021, after obtaining consent, she was taken to the preoperative area, prepared in the usual fashion and subsequently taken the operating room where Dr. Stephanie Cuevas performed a triple vessel coronary artery bypass grafting surgery. Upon completion of the surgery the patient was transferred to the cardiovascular intensive care unit where she was recovered and monitored hemodynamically. She was extubated, all lines, tubes and supportive drips were discontinued when appropriate and she was transferred to the cardiac stepdown unit for further monitoring and rehabilitation. Her oxygen was titrated down, she continued to work with physical and occupational therapy, she was tolerating an oral diet, her pain was well-controlled and she was ready to be discharged home with [facility] care on postoperative day #7. She has received written and verbal instructions regarding her medications, activity restrictions, signs and symptoms requiring physician notification and her follow-up appointments. Patient Condition at Discharge: Undetermined Plan - Discharge Summary Discharge Rx Participant: No New Discharge Prescriptions: New Ferrous Sulfate [Iron (65 MG Elemental)] 325 mg PO BID-W/MEALS #28 tab Atorvastatin [Lipitor] 40 mg PO DAILY #30 tab Metoprolol Tartrate [Lopressor] 12.5 mg PO BID #60 tab amLODIPine [Norvasc] 2.5 mg PO DAILY@1200 #30 tab Clopidogrel [Plavix] 75 mg PO DAILY #30 tab Sennosides-Docusate Sodium [Senokot-S] 2 each PO HS #14 tab Ascorbic Acid [Vitamin C] 500 mg PO BID-W/MEALS #28 tab traMADol HCl [Ultram] 50 mg PO Q6HR PRN 3 Days #12 tab PRN Reason: Pain Continue Pioglitazone [Actos] 15 mg PO DAILY Aspirin EC [Ecotrin Low Dose] 81 mg PO HS Promethazine [Phenergan] 25 mg PO TID PRN PRN Reason: Nausea Famotidine 40 mg PO DAILY DULoxetine HCL [Cymbalta] 60 mg PO DAILY Celecoxib [CeleBREX] 200 mg PO DAILY Buprenorphine [Butrans 7.5 MCG/HR] 1 patch TRANSDERM MULLEN Discontinued Enalapril [Vasotec] 10 mg PO BID Atorvastatin [Lipitor] 80 mg PO HS Discharge Medication List Aspirin EC [Ecotrin Low Dose] 81 mg PO HS 09/06/21 [History] Buprenorphine [Butrans 7.5 MCG/HR] 1 patch TRANSDERM MULLEN 09/06/21 [History] Celecoxib [CeleBREX] 200 mg PO DAILY 09/06/21 [History] DULoxetine HCL [Cymbalta] 60 mg PO DAILY 09/06/21 [History] Famotidine 40 mg PO DAILY 09/06/21 [History] Pioglitazone [Actos] 15 mg PO DAILY 09/06/21 [History] Promethazine [Phenergan] 25 mg PO TID PRN 09/06/21 [History] Ascorbic Acid [Vitamin C] 500 mg PO BID-W/MEALS #28 tab 09/16/21 [Rx] Atorvastatin [Lipitor] 40 mg PO DAILY #30 tab 09/16/21 [Rx] Clopidogrel [Plavix] 75 mg PO DAILY #30 tab 09/16/21 [Rx] Ferrous Sulfate [Iron (65 MG Elemental)] 325 mg PO BID-W/MEALS #28 tab 09/16/21 [Rx] Metoprolol Tartrate [Lopressor] 12.5 mg PO BID #60 tab 09/16/21 [Rx] Sennosides-Docusate Sodium [Senokot-S] 2 each PO HS #14 tab 09/16/21 [Rx] amLODIPine [Norvasc] 2.5 mg PO DAILY@1200 #30 tab 09/16/21 [Rx] traMADol HCl [Ultram] 50 mg PO Q6HR PRN 3 Days #12 tab 09/16/21 [Rx] Follow up Appointment(s)/Referral(s): Delphine Birmingham NPC [Nurse Practitioner] - 09/24/21 11:00 am (You will be seen in the surgeon's office behind the hospital in [facility], [address] Office phone number is ) Rehab [facility] ,Cardiac [NON-STAFF] - 4 Weeks (You will receive a call in approximately 4-6 weeks for cardiac rehab evaluation) Stephanie Cuevas MD [STAFF PHYSICIAN] - 10/08/21 10:00 am Deshaun Hoang MD [Primary Care Provider] - 09/29/21 10:00 am Lalo Lou MD [REFERRING] - 09/17/21 9:15 am (To get buprenorphine patch refill) Steff Merlos NPC [Nurse Practitioner] - 10/12/21 2:30 pm [facility], [NON-STAFF] - 1-2 Days (You should be seen the day after discharge from the hospital, then 2-3 times per week for 4 weeks) Luca Santos MD [STAFF PHYSICIAN] - 09/24/21 9:30 am Ambulatory/Diagnostic Orders: Complete Blood Count w/diff [LAB.AMB] Time Frame: 09/19/21, Facility: [facility], Location: Laboratory [facility] Comprehensive Metabolic Panel [LAB.AMB] Time Frame: 09/19/21, Facility: [facility], Location: Laboratory [facility] Patient Instructions/Handouts: Chest Pain (ED) Activity/Diet/Wound Care/Special Instructions: DISCHARGE INSTRUCTIONS: 1. No driving for 4 weeks, or until physician gives their ok. 2. The patient should sleep in their own bed, no medical bed needed. 3. Stairs are not an issue. If the bedroom is upstairs, it is advised that the patient go up at night and down in the morning for the first week. Go slowly, using handrail and take 1 step at a time. 4. ADELINE hose are to be worn for 30 days or until physician discontinues. 5. Heart hugger is to be worn 100% of the time until physician discontinues.(except when showering) 6. No lifting, pushing, or pulling more than 10 pounds for 12 weeks. The physician will advise of any restriction changes. 7. The patient is expected to continue the prescribed walking program. 8. Continue pain control per as needed orders. 9. Continue with incentive spirometry and splinting/heart hugger until otherwise directed by the physician. 10. Must shower daily using liquid antibacterial soap and a separate white washcloth for each individual incision. 11. Routine sternal incision care. No powders, lotions, ointments on incisions. No dressings are necessary on incisions unless they are draining. Dermabond tape is to remain on sternal incision until surgeon follow-up. 12. Please call surgeon/FOREST OFFICER for temp greater than 101 F or purulent drainage from incisions. 13. You should weigh yourself daily, record and bring log with you to your follow up appointments 14. All prescriptions given by surgeon for 30 days. Refills need to be filled through direct customer service representative/primary care physician. 15. A Red armband has been placed on the patient. It should be worn for 30 days post surgery and will be removed by the cardiac surgeons. If an ER visit is necessary, please make sure the number on the Red armband is called. 16. You have been referred to and are expected to begin Cardiac Rehab in approximately 4-6 weeks. HOME HEALTH SERVICES TO PROVIDE: RN SKILLED HOME CARE SERVICES FOR POST-OP SURGICAL PATIENTS WITH THE FOLLOWING: Coronary Artery Bypass Surgery (CABG), Mitral Valve Replacement/Repair ( MVR), Aortic Valve Replacement/Repair (AVR) RN TO CONTINUE EDUCATION FROM ``ROAD TO A HEALTH HEART PATIENT EDUCATION MANUAL (GIVEN TO PATIENT IN THE HOSPITAL) MEDICATION RECONCILIATION WITH EDUCATION NEEDED ON FIRST HOME VISIT EMPHASIZE IMPORTANCE OF WEARING BREAST SUPPORT/HEART HUGGER ENCOURAGE USE OF INCENTIVE SPIROMETER 10 X EVERY HOUR WHILE AWAKE ENCOURAGE UTILIZATION OF LOWER EXTREMITY COMPRESSION STOCKINGS/ADELINE HOSE and ELEVATE LEGS ABOVE LEVEL OF HEART WHILE AT REST. ENCOURAGE AMBULATION 3-5x/day INCREASING TOLERATES, WHILE AVOIDING EXTREMES IN TEMPERATURE FREQUENCY: RN TO OPEN THE PATIENT WITHIN 24 HOURS OF DISCHARGE FROM THE HOSPITAL WITH TELEHEALTH [place]STALLED [place] [facility] TO VISIT 2-3 X A WEEK FOR 4 WEEKS ESTABLISHED BY PATIENT NEEDS. LABORATORY: CBC, CMP TO BE DRAWN ON THE THIRD DAY HOME, (RAN STAT) FAX RESULTS TO [phone]. TELEHEALTH PARAMETERS: WEIGHT: NOTIFY MD OF WEIGHT GAIN OF 2 LBS IN 24 HOURS OR 5 LBS IN ONE WEEK HR: NOTIFY MD OF HR <55 BPM OR HR>100 BPM BP: NOTIFY MD IF BP <90/55 OR BP>140/100 O2 SAT: NOTIFY MD IF PO2<93% ON ROOM AIR SEND TELEHEALTH REPORT TO EXCHANGE SPECIALIST AND CARDIOVASCULAR SURGEON THE FIRST WEEK OF CARE AND THEN BI-WEEKLY. PLEASE ADDITIONALLY COMMUNICATE ANY ABNORMALS AND NEW FINDINGS TO THE SURGEONS OFFICE. Discharge Disposition: HOME WITH HOME HEALTH SERVICES
[2021-09-16] MEDS ORDERED: HYDROmorphone 2 MG TAB PO STA (13:09)
--- NOTE | 2021-09-16 13:22 | P.PN ---
Subjective Progress Note Date: 09/16/21 Principal diagnosis: Symptomatic coronary artery disease On 09/16/2021 patient seen in follow-up on selective care unit, today is postoperative day #7 status post three-vessel coronary artery bypass grafting, exclusion of the left atrial appendage, endoscopic harvest of left radial artery. She is sitting up in a recliner on room air with pulse ox of 97%, hemodynamically she has been stable, breathing comfortably, today's chest x-ray showing probable small basilar effusions and associated atelectasis, patient has been working on incentive spirometer. Vital signs have been stable, she is in sinus mechanism. Blood pressure has been stable. All of her chest tubes have b een out for last few days. Lopez catheter has been discontinued. Patient has been ambulating, tolerating ambulation quite well. Tolerating oral intake. She's had no acute events overnight. Patient tells that she is being discharged home today. Objective - Vital Signs Vital signs: Vital Signs Temp 98.1 F 09/16/21 03:51 Pulse 78 09/16/21 12:04 Resp 16 09/16/21 12:00 BP 96/51 09/16/21 12:00 Pulse Ox 97 09/16/21 12:00 Intake & Output 09/15/21 09/16/21 09/16/21 18:59 06:59 18:59 Intake Total 120 Output Total 600 550 400 Balance -600 -550 -280 Weight 101.4 kg 99.6 kg Intake: Oral 120 Output: Urine 600 550 400 Other: Voiding Method Toilet ABP, PAP, CO, CI - Last Documented Arterial Blood Pressure 111/46 Pulmonary Artery Pressure 28/11 Cardiac Output 3.9 Cardiac Index 2 - Exam GENERAL EXAM: Alert, very pleasant, 65-year-old white female, on room air with a pulse ox of 97% comfortable in no apparent distress. HEAD: Normocephalic/atraumatic. EYES: Normal reaction of pupils, equal size. Conjunctiva pink, sclera white. NOSE: Clear with pink turbinates. THROAT: No erythema or exudates. NECK: No masses, no JVD, no thyroid enlargement, no adenopathy. CHEST: No chest wall deformity. Symmetrical expansion. Midsternal incision is clean dry and intact, chest tube sites are clean dry and intact LUNGS: Equal air entry with no crackles, wheeze, rhonchi or dullness. CVS: Regular rate and rhythm, normal S1 and S2, no gallops, no murmurs, no rubs ABDOMEN: Soft, nontender. No hepatosplenomegaly, normal bowel sounds, no guarding or rigidity. EXTREMITIES: No clubbing, no edema, no cyanosis, 2+ pulses and upper and lower extremities. MUSCULOSKELETAL: Muscle strength and tone normal. SPINE: No scoliosis or deformity SKIN: No rashes CENTRAL NERVOUS SYSTEM: Alert and oriented -3. No focal deficits, tone is normal in all 4 extremities. PSYCHIATRIC: Alert and oriented -3. Appropriate affect. Intact judgment and insight. - Labs CBC & Chem 7: 09/16/21 06:58 09/16/21 06:58 Labs: Abnormal Lab Results - Last 24 Hours (Table) 09/15/21 09/15/21 09/16/21 Range/Units 16:31 19:56 06:58 RBC 2.17 L (3.80-5.40) m/uL Hgb 7.1 L (11.4-16.0) gm/dL Hct 21.5 L (34.0-46.0) % RDW 16.7 H (11.5-15.5) % Sodium (137-145) mmol/L POC Glucose (mg/dL) 101 H 142 H (75-99) mg/dL Calcium (8.4-10.2) mg/dL Total Bilirubin (0.2-1.3) mg/dL AST (14-36) U/L ALT (4-34) U/L Total Protein (6.3-8.2) g/dL Albumin (3.5-5.0) g/dL 09/16/21 09/16/21 Range/Units 06:58 11:48 RBC (3.80-5.40) m/uL Hgb (11.4-16.0) gm/dL Hct (34.0-46.0) % RDW (11.5-15.5) % Sodium 134 L (137-145) mmol/L POC Glucose (mg/dL) 106 H (75-99) mg/dL Calcium 8.3 L (8.4-10.2) mg/dL Total Bilirubin 2.6 H (0.2-1.3) mg/dL AST 71 H (14-36) U/L ALT 493 H (4-34) U/L Total Protein 5.3 L (6.3-8.2) g/dL Albumin 3.4 L (3.5-5.0) g/dL Assessment and Plan Plan: Assessment: #1. Symptomatic coronary artery disease, postoperative day #7, status post three-vessel coronary artery bypass grafting, exclusion of the left atrial appendage, endoscopic harvest of the left radial artery, intraoperative transesophageal echocardiogram and intraoperative graft flow measurements. Patient is doing well, she is on room air, with a pulse ox of 97% #2. Abnormal LFTs, possibly drug-induced, improving #3. History of hyperlipidemia #4. History of hypertension #5. History of diabetes mellitus #6. Obesity with a BMI of 37.6 kg/m #7. History of TIA #8. Postoperative acute blood loss anemia/thrombocytopenia expected outcome of surgery, with a hemoglobin of 7.1 Plan: Stable from pulmonary perspective Today's chest x-ray and labs reviewed Patient is breathing comfortable, she is on room air Tolerating ambulation LFTs continued to improve on today's labs She is in sinus mechanism No acute events overnight Patient is being discharged home today I have personally seen and examined the patient and reviewed the documentation. I performed a joint evaluation with the nurse practitioner in this evaluation was done more than 20 minutes. I fully agree with the documentation above and the plan of care. Time with Patient: Less than 30
--- NOTE | 2021-09-16 13:38 | P.PN ---
Subjective This is a 65-year-old female with a past medical history significant for hypertension, hyperlipidemia, type 2 qts-ymuxgfg-icrdzigjh diabetes, obesity, history of TIA 40 years ago, after a back surgery with no residual effects, chronic back pain, GERD, family history of coronary artery disease and chronic ongoing tobacco dependence. She does not follow with a investor. We are following the patient for coronary artery disease. Patient presents with chest pain, concerning for NSTEMI. She was recommended to undergo a cardiac catheterization. 09/07/2021 patient underwent cardiac catheterization that revealed 80% stenosis to her proximal left anterior descending coronary artery, a 95% stenosis to her circumflex coronary artery, and a chronically occluded right coronary artery to its midportion with left to right collaterals from the circumflex coronary artery. 2D echo revealed EF 55-60%, trace tricuspid valve regurgitation. Due to the findings on the cardiac catheterization cardiothoracic surgery was consulted for further evaluation and treatment recommendations. 09/09/2021 patient underwent 3 vessel CABG with SINGH to LAD, left radial artery from the aorta to the first obtuse marginal artery, reverse SVG from aorta to the RCA, exclusion of the left atrial appendage. 09/16/2021 Patient seen and examined at bedside, she is doing well, no complaints of chest pain. She denies any shortness of breath, lightheadedness, dizziness, or palpitations. Possible discharge today. Vital signs are stable. Maintained on amlodipine 2.5 mg daily, aspirin 81 mg daily, atorvastatin 40 mg daily, Plavix 75 mg daily, metoprolol tartrate 12.5 mg twice a day Labs: Her LFTs have improved, WBC 8.0, hemoglobin 7.1, platelets 223, sodium 134, potassium 4.4, BUN 15, serum crit 0.6, AST 71, ALT 493 GENERAL: Well-appearing, well-nourished and in no acute distress. NECK: Supple without JVD or thyromegaly. LUNGS: Breath sounds clear to auscultation bilaterally. Respiration equal and unlabored. No wheezes, rales or rhonchi. HEART: Regular rate and rhythm without murmurs, rubs or gallops. S1 and S2 heard. EXTREMITIES: Normal range of motion, no edema. No clubbing or cyanosis. Peripheral pulses intact. ASSESSMENT NSTEMI Multivessel coronary artery disease Hypertension Hyperlipidemia Type 2 whp-mhoajfd-cviigkumu diabetes Obesity History of TIA 40 years ago, after a back surgery with no residual effects Chronic back pain GERD Family history of coronary artery disease Chronic ongoing tobacco dependence PLAN Continue aspirin, Plavix, beta chris Patient on low-dose oral calcium channel chris for radial artery spasm prophylaxis Increase activity as tolerated Encourage incentive spirometry Postoperative management per CT surgery From cardiology perspective, patient is stable to be discharged, follow-up with Dr. Santos outpatient Nurse Practitioner note has been reviewed, I agree with a documented findings and plan of care. Patient was seen and examined. Objective - Vital Signs Vital signs: Vital Signs Temp 98.1 F 09/16/21 03:51 Pulse 78 09/16/21 12:04 Resp 16 09/16/21 12:00 BP 96/51 09/16/21 12:00 Pulse Ox 97 09/16/21 12:00 Intake & Output 09/15/21 09/16/21 09/16/21 18:59 06:59 18:59 Intake Total 120 Output Total 600 550 400 Balance -600 -550 -280 Weight 101.4 kg 99.6 kg Intake: Oral 120 Output: Urine 600 550 400 Other: Voiding Method Toilet ABP, PAP, CO, CI - Last Documented Arterial Blood Pressure 111/46 Pulmonary Artery Pressure 28/11 Cardiac Output 3.9 Cardiac Index 2 - Labs CBC & Chem 7: 09/16/21 06:58 09/16/21 06:58 Labs: Abnormal Lab Results - Last 24 Hours (Table) 09/15/21 09/15/21 09/16/21 Range/Units 16:31 19:56 06:58 RBC 2.17 L (3.80-5.40) m/uL Hgb 7.1 L (11.4-16.0) gm/dL Hct 21.5 L (34.0-46.0) % RDW 16.7 H (11.5-15.5) % Sodium (137-145) mmol/L POC Glucose (mg/dL) 101 H 142 H (75-99) mg/dL Calcium (8.4-10.2) mg/dL Total Bilirubin (0.2-1.3) mg/dL AST (14-36) U/L ALT (4-34) U/L Total Protein (6.3-8.2) g/dL Albumin (3.5-5.0) g/dL 09/16/21 09/16/21 Range/Units 06:58 11:48 RBC (3.80-5.40) m/uL Hgb (11.4-16.0) gm/dL Hct (34.0-46.0) % RDW (11.5-15.5) % Sodium 134 L (137-145) mmol/L POC Glucose (mg/dL) 106 H (75-99) mg/dL Calcium 8.3 L (8.4-10.2) mg/dL Total Bilirubin 2.6 H (0.2-1.3) mg/dL AST 71 H (14-36) U/L ALT 493 H (4-34) U/L Total Protein 5.3 L (6.3-8.2) g/dL Albumin 3.4 L (3.5-5.0) g/dL
--- NOTE | 2021-09-16 20:25 | P.PN ---
Subjective Progress Note Date: 09/16/21 (delayed charting seen at 1030) Principal diagnosis: chest pain Patient is a 65-year-old female with diabetes, hypertension, and dyslipidemia who initially presented with chest pain and ultimately required CABG. Patient seen and examined at bedside. She states that her pain is well controlled at this time. Denies any shortness of breath, nausea, vomiting. She denies any lower extremity edema. We have discussed with him that she should be checking her blood sugar every day and she will be provided with a prescription for a glucometer. We also discusse d that her Actos can cause fluid retention. General: non toxic, no distress, appears at stated age Derm: warm, dry Head: atraumatic, normocephalic, symmetric Eyes: EOMI, no lid lag, anicteric sclera Mouth: no lip lesion, mucus membranes moist Cardiovascular: S1S2 reg, no murmur, positive posterior tibial pulse bilateral, incision appears clean, dry, and intact Lungs: Decreased breath sounds bilateral, no rhonchi, no rales , no accessory muscle use Abdominal: soft, nontender to palpation, no guarding, no appreciable organomegaly Ext: no gross muscle atrophy, no edema, no contractures Neuro: CN II-XI grossly intact, no focal neuro deficits Psych: Alert, oriented, appropriate affect Assessment/Plan: Patient is a 65-year-old female status post coronary artery bypass grafting Diabetes mellitus type 2 -Well-controlled with A1c 6.6 -Resume Actos. Patient told to watch for signs of fluid retention closely. - Monitor closely for increasing AST and ALT with resumption of Actos. Transaminitis -Suspect secondary to hypoperfusion in addition to statin medication -Statin is on hold. Acute blood loss anemia, anticipated outcome of surgery -Repeat CBC has been ordered as outpatient by primary team. Agree with management. Additional diagnoses: None ST segment elevated myocardial infarction Multivessel coronary artery disease Hypertension Dyslipidemia Nicotine dependence GERD Obesity with BMI 37.7 Episode of paroxysmal atrial fibrillation Case discussed with primary team. Resume Actos on discharge. Patient has been instructed decreased a log of her a.m. blood sugars to bring to her PCP with her. We also had a long discussion about monitoring for signs of fluid retention as patients with a heart failure should not be on Actos. Also need to be watched for worsening liver function with resumption of this medication. Objective - Vital Signs Vital signs: Vital Signs Temp 98.1 F 09/16/21 03:51 Pulse 78 09/16/21 12:04 Resp 16 09/16/21 12:00 BP 96/51 09/16/21 12:00 Pulse Ox 97 09/16/21 12:00 Intake & Output 09/16/21 09/16/21 09/17/21 06:59 18:59 06:59 Intake Total 240 Output Total 550 400 Balance -550 -160 Weight 99.6 kg Intake: Oral 240 Output: Urine 550 400 Other: Voiding Method Toilet ABP, PAP, CO, CI - Last Documented Arterial Blood Pressure 111/46 Pulmonary Artery Pressure 28/11 Cardiac Output 3.9 Cardiac Index 2 - Labs CBC & Chem 7: 09/16/21 06:58 09/16/21 06:58 Labs: Abnormal Lab Results - Last 24 Hours (Table) 09/16/21 09/16/21 09/16/21 Range/Units 06:58 06:58 11:48 RBC 2.17 L (3.80-5.40) m/uL Hgb 7.1 L (11.4-16.0) gm/dL Hct 21.5 L (34.0-46.0) % RDW 16.7 H (11.5-15.5) % Sodium 134 L (137-145) mmol/L POC Glucose (mg/dL) 106 H (75-99) mg/dL Calcium 8.3 L (8.4-10.2) mg/dL Total Bilirubin 2.6 H (0.2-1.3) mg/dL AST 71 H (14-36) U/L ALT 493 H (4-34) U/L Total Protein 5.3 L (6.3-8.2) g/dL Albumin 3.4 L (3.5-5.0) g/dL
== END 2021-09-16 14:25 | disposition home health service (06) | DRG 234 ==
LOC: EC 20:27 → 6NMEDSUR 23:36 → 3SCARD 09-07 04:35 → OBSVTOIN 09-07 09:56 → 3SCARD 09-07 12:30 → 2SICU 09-09 08:50 → 3SCARD 09-15 19:00
PROVIDERS: ADMIT Surgery; ATTEND Surgery
PROC: 4A023N7 Measurement of Cardiac Sampling and Pressure, Left Heart, Percutaneous Approach (ICD-10-PCS; 2021-09-07)
PROC: B2111ZZ Fluoroscopy of Multiple Coronary Arteries using Low Osmolar Contrast (ICD-10-PCS; 2021-09-07)
PROC: 5A1221Z Performance of Cardiac Output, Continuous (ICD-10-PCS; principal; 2021-09-09 09:30)
PROC: 02100AW Bypass Coronary Artery, One Artery from Aorta with Autologous Arterial Tissue, Open Approach (ICD-10-PCS; principal; 2021-09-09 09:30)
PROC: 02L70CK Occlusion of Left Atrial Appendage with Extraluminal Device, Open Approach (ICD-10-PCS; principal; 2021-09-09 09:30)
PROC: B24BZZ4 Ultrasonography of Heart with Aorta, Transesophageal (ICD-10-PCS; principal; 2021-09-09 09:30)
PROC: 4A1305C Monitoring of Arterial Flow, Coronary, Open Approach (ICD-10-PCS; principal; 2021-09-09 09:30)
PROC: 02100Z9 Bypass Coronary Artery, One Artery from Left Internal Mammary, Open Approach (ICD-10-PCS; principal; 2021-09-09 09:30)
PROC: 021009W Bypass Coronary Artery, One Artery from Aorta with Autologous Venous Tissue, Open Approach (ICD-10-PCS; principal; 2021-09-09 09:30)
PROC: 06BQ4ZZ Excision of Left Saphenous Vein, Percutaneous Endoscopic Approach (ICD-10-PCS; principal; 2021-09-09 09:30)
PROC: 03BC4ZZ Excision of Left Radial Artery, Percutaneous Endoscopic Approach (ICD-10-PCS; principal; 2021-09-09 09:30)
PROC: 30233N1 Transfusion of Nonautologous Red Blood Cells into Peripheral Vein, Percutaneous Approach (ICD-10-PCS; 2021-09-09 09:30)
DX: I21.4 Non-ST elevation (NSTEMI) myocardial infarction (principal); D62 Acute posthemorrhagic anemia; J98.11 Atelectasis; J90 Pleural effusion, not elsewhere classified; D69.6 Thrombocytopenia, unspecified; I95.9 Hypotension, unspecified; F03.90 Unspecified dementia, unspecified severity, without behavioral disturbance, psychotic disturbance, mood disturbance, and anxiety; E11.9 Type 2 diabetes mellitus without complications; I48.0 Paroxysmal atrial fibrillation; Z20.822 Contact with and (suspected) exposure to COVID-19; I25.10 Atherosclerotic heart disease of native coronary artery without angina pectoris; I10 Essential (primary) hypertension; E78.5 Hyperlipidemia, unspecified; E78.00 Pure hypercholesterolemia, unspecified; G89.29 Other chronic pain; M54.9 Dorsalgia, unspecified; K21.9 Gastro-esophageal reflux disease without esophagitis; T50.905A Adverse effect of unspecified drugs, medicaments and biological substances, initial encounter; R74.02 Elevation of levels of lactic acid dehydrogenase [LDH]; E66.9 Obesity, unspecified; Z68.37 Body mass index [BMI] 37.0-37.9, adult; F41.9 Anxiety disorder, unspecified; F17.210 Nicotine dependence, cigarettes, uncomplicated; Z71.6 Tobacco abuse counseling; Z79.82 Long term (current) use of aspirin; Z79.1 Long term (current) use of non-steroidal anti-inflammatories (NSAID); Z79.84 Long term (current) use of oral hypoglycemic drugs; Z79.899 Other long term (current) drug therapy; Z86.73 Personal history of transient ischemic attack (TIA), and cerebral infarction without residual deficits; Z90.710 Acquired absence of both cervix and uterus; Z87.42 Personal history of other diseases of the female genital tract; Z90.89 Acquired absence of other organs; Z87.39 Personal history of other diseases of the musculoskeletal system and connective tissue; Z98.890 Other specified postprocedural states; Z71.3 Dietary counseling and surveillance; Z82.49 Family history of ischemic heart disease and other diseases of the circulatory system; Z82.0 Family history of epilepsy and other diseases of the nervous system; Z84.1 Family history of disorders of kidney and ureter; Z83.3 Family history of diabetes mellitus
CPT/HCPCS: 36415; 71045; 71046; 80053; 80061; 80074; 81003; 82330; 82805; 83036; 83690; 83735; 83880; 84443; 84484; 85025; 85027; 85379; 85520; 85610; 85730; 86850; 86891; 86900; 86901; 86920; 87070; 87635; 93005; 93306; 93458; 93880; 93970; 94002; 94150; 94640; 96365; 96366; 96375; 99285

== ENCOUNTER → 2021-09-09 | Outpatient (CLI) | payer MEDICARE ==
[2021-09-09 10:11] LABS: ABG Base Excess 1.9 mmol/L; ABG Glucose Whole Blood 80 mg/dL (75-99); ABG HCO3 26 mmol/L (21-25); ABG Hematocrit 32 % (34.0-46.0); ABG Ionized Calcium 4.6 mg/dL (4.5-5.3); ABG Lactic Acid Whole Blood 0.9 mmol/L (0.5-1.6); ABG PCO2 36 mmHg (35-45); ABG PH 7.46 (7.35-7.45); ABG PO2 94 mmHg (83-108); ABG Potassium Whole Blood 4.3 mmol/L (3.4-4.5); ABG Sodium Whole Blood 140 mmol/L (135-146); ABG TCO2 27 mmol/L (19-24)
[2021-09-09 11:43] LABS: ABG Base Excess 0.4 mmol/L; ABG Glucose Whole Blood 101 mg/dL (75-99); ABG HCO3 26 mmol/L (21-25); ABG Hematocrit 32 % (34.0-46.0); ABG Ionized Calcium 4.7 mg/dL (4.5-5.3); ABG Lactic Acid Whole Blood 0.6 mmol/L (0.5-1.6); ABG Oxygen Saturation 98.4 % (94-97); ABG PCO2 43 mmHg (35-45); ABG PH 7.39 (7.35-7.45); ABG PO2 108 mmHg (83-108); ABG Potassium Whole Blood 3.7 mmol/L (3.4-4.5); ABG Sodium Whole Blood 140 mmol/L (135-146); ABG TCO2 27 mmol/L (19-24)
[2021-09-09 12:38] LABS: ABG Base Excess 0.2 mmol/L; ABG Glucose Whole Blood 101 mg/dL (75-99); ABG HCO3 25 mmol/L (21-25); ABG Ionized Calcium 4.2 mg/dL (4.5-5.3); ABG Lactic Acid Whole Blood 0.6 mmol/L (0.5-1.6); ABG Oxygen Saturation 99.9 % (94-97); ABG PCO2 43 mmHg (35-45); ABG PH 7.38 (7.35-7.45); ABG PO2 326 mmHg (83-108); ABG Potassium Whole Blood 3.7 mmol/L (3.4-4.5); ABG Sodium Whole Blood 136 mmol/L (135-146); ABG TCO2 27 mmol/L (19-24)
[2021-09-09 13:12] LABS: ABG Base Excess 1.1 mmol/L; ABG Glucose Whole Blood 117 mg/dL (75-99); ABG HCO3 26 mmol/L (21-25); ABG Ionized Calcium 4.3 mg/dL (4.5-5.3); ABG Lactic Acid Whole Blood 0.6 mmol/L (0.5-1.6); ABG PCO2 44 mmHg (35-45); ABG PH 7.38 (7.35-7.45); ABG PO2 314 mmHg (83-108); ABG Potassium Whole Blood 4.7 mmol/L (3.4-4.5); ABG Sodium Whole Blood 137 mmol/L (135-146); ABG TCO2 28 mmol/L (19-24)
[2021-09-09 13:52] LABS: ABG Base Excess 0.8 mmol/L; ABG Glucose Whole Blood 135 mg/dL (75-99); ABG HCO3 26 mmol/L (21-25); ABG Ionized Calcium 4.2 mg/dL (4.5-5.3); ABG Lactic Acid Whole Blood 0.9 mmol/L (0.5-1.6); ABG PCO2 41 mmHg (35-45); ABG PH 7.41 (7.35-7.45); ABG PO2 278 mmHg (83-108); ABG Potassium Whole Blood 4.7 mmol/L (3.4-4.5); ABG Sodium Whole Blood 138 mmol/L (135-146); ABG TCO2 27 mmol/L (19-24)
[2021-09-09 14:23] LABS: ABG Glucose Whole Blood 146 mg/dL (75-99); ABG HCO3 25 mmol/L (21-25); ABG Ionized Calcium 3.9 mg/dL (4.5-5.3); ABG PCO2 43 mmHg (35-45); ABG PH 7.38 (7.35-7.45); ABG PO2 296 mmHg (83-108); ABG Potassium Whole Blood 4.8 mmol/L (3.4-4.5); ABG Sodium Whole Blood 138 mmol/L (135-146); ABG TCO2 27 mmol/L (19-24)
[2021-09-09 15:54] LABS: ABG Base Excess -4.2 mmol/L; ABG Glucose Whole Blood 165 mg/dL (75-99); ABG HCO3 21 mmol/L (21-25); ABG Ionized Calcium 4.5 mg/dL (4.5-5.3); ABG Oxygen Saturation 96.4 % (94-97); ABG PCO2 38 mmHg (35-45); ABG PH 7.35 (7.35-7.45); ABG PO2 82 mmHg (83-108); ABG Potassium Whole Blood 4.4 mmol/L (3.4-4.5); ABG Sodium Whole Blood 138 mmol/L (135-146); ABG TCO2 22 mmol/L (19-24)
[2021-09-09 16:01] LABS: ABG Hematocrit 22 % (34.0-46.0)
[2021-09-09 16:01] LABS: ABG Hematocrit 21 % (34.0-46.0)
[2021-09-09 16:02] LABS: ABG Hematocrit 20 % (34.0-46.0)
[2021-09-09 16:03] LABS: ABG Hematocrit 19 % (34.0-46.0)
[2021-09-09 16:04] LABS: ABG Hematocrit 22 % (34.0-46.0); ABG Lactic Acid Whole Blood 3.9 mmol/L (0.5-1.6)
== END | disposition home or self-care (01) ==
LOC: RADMAMWWP 11:59
PROVIDERS: ATTEND Family Medicine
DX: Z12.31 Encounter for screening mammogram for malignant neoplasm of breast (principal)
CPT/HCPCS: 82805

== ENCOUNTER 2021-12-01 16:31 | Observation (INO) | payer MEDICARE ==
--- NOTE | 2021-12-01 16:45 | ED ---
Chest Pain HPI - General Stated Complaint: Chest pain Time Seen by Provider: 12/01/21 16:31 Source: patient, RN notes reviewed - History of Present Illness Initial Comments: 66-year-old female history diabetes history of heart disease with a three-way coronary artery bypass done in August of this year who states she's had shortness of breath since the surgery but started developing last evening left shoulder and arm pain and this morning chest pain. She states the pain was well 5/10 severity achy in nature she had nausea and sweats associated with any palpitations. EMS was summoned she was given 4 baby aspirin and 2 nitroglycerin which did resolve the symptoms. Free MD Complaint: chest pain - Related Data Home Medications Medication Instructions Recorded Confirmed Aspirin EC [Ecotrin Low Dose] 81 mg PO HS 09/06/21 12/01/21 DULoxetine HCL [Cymbalta] 60 mg PO DAILY 09/06/21 12/01/21 Pioglitazone [Actos] 15 mg PO DAILY 09/06/21 12/01/21 Atorvastatin [Lipitor] 40 mg PO HS 12/01/21 12/01/21 Buprenorphine [Buprenorphine 15 1 patch TRANSDERM WE 12/01/21 12/01/21 MCG/HR] Clopidogrel [Plavix] 75 mg PO HS 12/01/21 12/01/21 Furosemide [Lasix] 20 mg PO DAILY 12/01/21 12/01/21 Metoprolol Tartrate [Lopressor] 12.5 mg PO BID 12/01/21 12/01/21 amLODIPine [Norvasc] 2.5 mg PO HS 12/01/21 12/01/21 Allergies Allergy/AdvReac Type Severity Reaction Status Date / Time No Known Allergies Allergy Verified 12/01/21 17:53 Review of Systems ROS Statement: Those systems with pertinent positive or pertinent negative responses have been documented in the HPI. ROS Other: All systems not noted in ROS Statement are negative. EKG Findings - EKG Results: EKG: interpreted by KHANH, sinus rhythm (Sinus rhythm a 67 [place] interval 209 QRS duration 92 daily since QTC 400/438 low-voltage no acute ST-T wave changes) Past Medical History Past Medical History: Diabetes Mellitus, GERD/Reflux, Hyperlipidemia, Hypertension Additional Past Medical History / Comment(s): TIA about 40 years ago, chronic back pain use a transdermal patch Buprenorphine 7.5 MCG/HR History of Any Multi-Drug Resistant Organisms: None Reported Past Surgical History: Hysterectomy, Orthopedic Surgery, Tonsillectomy Additional Past Surgical History / Comment(s): 3 back surgey, rotator cuff repair, bilateral bunionectomies Past Anesthesia/Blood Transfusion Reactions: No Reported Reaction Past Psychological History: Anxiety Smoking Status: Current every day smoker Past Alcohol Use History: None Reported Additional Past Alcohol Use History / Comment(s): smokes about half a pack a day since she was a teenager. Past Drug Use History: None Reported - Past Family History Mother Family Medical History: AICD/Pacemaker, Congestive Heart Failure (CHF), Coronary Artery Disease (CAD) (History of CABG), Dementia, Hypertension, Myocardial Infarction ([place]) Additional Family Medical History / Comment(s): Kidney stent Father Family Medical History: Congestive Heart Failure (CHF), Coronary Artery Disease (CAD) (History of CABG), Diabetes Mellitus, Myocardial Infarction ([place]), Vascular Disorder Additional Family Medical History / Comment(s): Peripheral vascular disease. Sister(s) Additional Family Medical History / Comment(s): tripple bypass open heart 10 years ago Family Family Medical History: Myocardial Infarction ([place]) Additional Family Medical History / Comment(s): Positive Cardiac history in the family General Exam - General Exam Comments Initial Comments: This is a well-developed well-nourished awake alert oriented 4 female General appearance: alert, in no apparent distress Head exam: Present: atraumatic, normocephalic, normal inspection Eye exam: Present: normal appearance, PERRL, EOMI. Absent: scleral icterus, conjunctival injection, periorbital swelling ENT exam: Present: normal exam, mucous membranes moist Neck exam: Present: normal inspection, full ROM, other (No stridor JVD or bruits). Absent: tenderness, meningismus, lymphadenopathy Respiratory exam: Present: normal lung sounds bilaterally, other (Well-healed midsternal scar no evidence of wound dehiscence.). Absent: respiratory distress, wheezes, rales, rhonchi, stridor Cardiovascular Exam: Present: regular rate, normal rhythm, normal heart sounds. Absent: systolic murmur, diastolic murmur, rubs, gallop, clicks GI/Abdominal exam: Present: soft, normal bowel sounds. Absent: distended, tenderness, guarding, rebound, rigid Extremities exam: Present: normal inspection, full ROM, normal capillary refill. Absent: tenderness, pedal edema, joint swelling, calf tenderness Back exam: Present: normal inspection Neurological exam: Present: alert, oriented X3, CN II-XII intact Psychiatric exam: Present: normal affect, normal mood Skin exam: Present: warm, dry, intact, normal color. Absent: rash Course Vital Signs 12/01/21 16:40 Temperature 97.7 F Pulse Rate 69 Respiratory 18 Rate Blood Pressure 179/109 O2 Sat by Pulse 99 Oximetry Chest Pain MDM - MDM Imaging reviewed no acute findings. Patient's been pain-free since coming to the emergency department other than she does later on further questioning express some very low-grade pressure sensation to the anterior chest area. Patient's initial enzymes and EKG are unremarkable. Patient will be admitted at this time for further evaluation and treatment. Case discussed with Dr. andrews Disposition Clinical Impression: Unstable angina pectoris, Chest pain Disposition: ADMITTED IP TO THIS [facility] Condition: Fair Referrals: Deshaun Hoang MD [Primary Care Provider] - 1-2 days Decision Date: 12/01/21 Decision Time: 18:20
[2021-12-01 17:17] LABS: Basophils # (A) 0.1 k/uL (0-0.2); Basophils % (A) 1 %; Eosinophils # (A) 0.2 k/uL (0-0.7); Eosinophils % (A) 4 %; HCT 42.6 % (34.0-46.0); HGB 13.2 gm/dL (11.4-16.0); Lymphocytes # (A) 1.9 k/uL (1.0-4.8); Lymphocytes % (A) 39 %; MCH 28.6 pg (25.0-35.0); MCHC 30.9 g/dL (31.0-37.0); MCV 92.5 fL (80.0-100.0); Mean Platelet Volume 7.5; Monocytes # (A) 0.3 k/uL (0-1.0); Monocytes % (A) 5 %; Neutrophils # (A) 2.5 k/uL (1.3-7.7); Neutrophils % (A) 49 %; Platelet Count 207 k/uL (150-450); RBC 4.61 m/uL (3.80-5.40); RDW 13.5 % (11.5-15.5)
[2021-12-01 17:24] LABS: ALT 15 U/L (4-34); AST 25 U/L (14-36); African American GFR (CKD) >90 (>60 ml/min/1.73 sqM); Albumin 4.2 g/dL (3.5-5.0); Alkaline Phosphatase 86 U/L (38-126); Anion Gap 8 mmol/L; Blood Urea Nitrogen 20 mg/dL (7-17); Calcium 8.7 mg/dL (8.4-10.2); Carbon Dioxide 28 mmol/L (22-30); Chloride 104 mmol/L (98-107); Glucose 101 mg/dL (74-99); Lipase 83 U/L (23-300); Magnesium 2.1 mg/dL (1.6-2.3); Non-African American GFR(CKD) 81 (>60 ml/min/1.73 sqM); Potassium 4.2 mmol/L (3.5-5.1); Sodium 140 mmol/L (137-145); Total Bilirubin 0.4 mg/dL (0.2-1.3); Total Protein 6.7 g/dL (6.3-8.2)
[2021-12-01 17:28] LABS: Partial Thromboplastin Time 24.9 sec (22.0-30.0); Prothrombin Time 10.4 sec (9.0-12.0)
--- NOTE | 2021-12-01 18:05 | XR ---
EXAMINATION TYPE: XR chest 2V DATE OF EXAM: 12/01/2021 5:34 PM COMPARISON: Chest radiographs from 09/16/2021 TECHNIQUE: XR chest 2V Frontal and lateral views of the chest. CLINICAL INDICATION:Female, 66 years old with history of Chest Pain; FINDINGS: Lungs/Pleura: There is no evidence of pleural effusion, focal consolidation, or pneumothorax. Pulmonary vascularity: Unremarkable. Heart/mediastinum: Cardiomediastinal silhouette is unremarkable. Musculoskeletal: No acute osseous pathology. Midline sternotomy wires are noted and stable. IMPRESSION: No acute cardiopulmonary disease/process.
[2021-12-01] MEDS ORDERED: HEPARIN SODIUM 1,000 UN/ML (10ML VL) IV ONE (18:20)
[2021-12-01] MEDS ORDERED: NITROGLYCERIN SL TABS 0.4 MG TAB SUBLINGUAL PRN (18:20)
[2021-12-01] MEDS: HEPARIN SOD,PORK IN 0.45% NACL 25,000 UNIT in 0.45% NACL 1 250ML.BAG IV SCH (19:41)
[2021-12-01] MEDS: CLOPIDOGREL 75 MG TAB PO SCH (21:41)
[2021-12-01] MEDS: ASPIRIN 81 MG PO SCH (21:41)
[2021-12-01] MEDS: ATORVASTATIN 40 MG TAB PO SCH (22:07)
[2021-12-01] MEDS: METOPROLOL TARTRATE 12.5 MG TAB PO SCH (22:08)
[2021-12-01] MEDS: amLODIPine 2.5 MG TAB PO SCH (22:10)
[2021-12-01] MEDS: SODIUM CHLORIDE 0.9% 1,000 ML IV SCH (22:18)
[2021-12-01] MEDS: NITROGLYCERIN OINT 1 INCH/GM PACKET TOPICAL SCH (22:42)
[2021-12-02] MEDS ORDERED: ZOLPIDEM 10 MG TAB PO PRN (01:47)
--- NOTE | 2021-12-02 02:23 | P.HPIM ---
History of Present Illness H&P Date: 12/01/21 Chief Complaint: Chest pain 66-year-old female diabetes mellitus, hypertension, hyperlipidemia, recently quit smoking, coronary artery disease status post CABG with triple bypass 2 months ago Patient presented back in August with typical anginal symptoms was found to have triple-vessel disease requiring CABG. Tolerated procedure well and was discharged however she reports that since discharge has been having progressive shortness of breath that has not resolved. Today she comes in due to recurrent episodes of chest pain and reports chest tightness retrosternal 8 out of 10 in severity with left-sided chest pain radiating to the shoulder associated with shortness of breath and diaphoresis with palpitations denies any nausea vomiting. These episodes are happening at rest while doing nothing. Patient claims to be compliant with her medications and that she quit smoking since August. Denies any recent travel denies any history of blood clots denies any fevers or chills denies any coughing denies any abdominal pain denies any urinary or bowel habit changes Initial troponins were negative Review of Systems Pertinent positives as noted in HPI. All other systems were reviewed and are negative Past Medical History Past Medical History: Diabetes Mellitus, GERD/Reflux, Hyperlipidemia, Hyp ertension Additional Past Medical History / Comment(s): TIA about 40 years ago, chronic back pain use a transdermal patch Buprenorphine 7.5 MCG/HR History of Any Multi-Drug Resistant Organisms: None Reported Past Surgical History: Coronary Bypass/CABG, Hysterectomy, Orthopedic Surgery Additional Past Surgical History / Comment(s): 3 back surgey, rotator cuff repair, bilateral bunionectomies, 3 vessel CABG 08/2021 W/ Dr. Cuevas at [facility] Past Anesthesia/Blood Transfusion Reactions: No Reported Reaction Past Psychological History: Anxiety Smoking Status: Former smoker Past Alcohol Use History: None Reported Additional Past Alcohol Use History / Comment(s): smokes about half a pack a day since she was a teenager. Past Drug Use History: None Reported - Past Family History Mother Family Medical History: AICD/Pacemaker, Congestive Heart Failure (CHF), Coronary Artery Disease (CAD), Dementia, Hypertension, Myocardial Infarction ([place]) Additional Family Medical History / Comment(s): Kidney stent Father Family Medical History: Congestive Heart Failure (CHF), Coronary Artery Disease (CAD), Diabetes Mellitus, Myocardial Infarction ([place]), Vascular Disorder Additional Family Medical History / Comment(s): Peripheral vascular disease. Sister(s) Additional Family Medical History / Comment(s): tripple bypass open heart 10 years ago Family Family Medical History: Myocardial Infarction ([place]) Additional Family Medical History / Comment(s): Positive Cardiac history in the family Medications and Allergies Home Medications Medication Instructions Recorded Confirmed Type Aspirin EC [Ecotrin Low Dose] 81 mg PO HS 09/06/21 12/01/21 History DULoxetine HCL [Cymbalta] 60 mg PO DAILY 09/06/21 12/01/21 History Pioglitazone [Actos] 15 mg PO DAILY 09/06/21 12/01/21 History Atorvastatin [Lipitor] 40 mg PO HS 12/01/21 12/01/21 History Buprenorphine [Buprenorphine 15 1 patch TRANSDERM WE 12/01/21 12/01/21 History MCG/HR] Clopidogrel [Plavix] 75 mg PO HS 12/01/21 12/01/21 History Furosemide [Lasix] 20 mg PO DAILY 12/01/21 12/01/21 History Metoprolol Tartrate [Lopressor] 12.5 mg PO BID 12/01/21 12/01/21 History amLODIPine [Norvasc] 2.5 mg PO HS 12/01/21 12/01/21 History Allergies Allergy/AdvReac Type Severity Reaction Status Date / Time No Known Allergies Allergy Verified 12/01/21 17:53 Physical Exam Vitals: Vital Signs Temp Pulse Pulse Resp BP BP Pulse Ox 12/02/21 01:48 15 12/01/21 22:29 97.8 F 68 15 129/79 95 12/01/21 19:38 71 18 158/91 99 12/01/21 16:40 97.7 F 69 18 179/109 99 Intake and Output 12/01/21 12/01/21 12/02/21 14:59 22:59 06:59 Other: # Voids 1 Weight 94.801 kg Constitutional: No acute distress, conversant, pleasant Eyes: Anicteric sclerae, moist conjunctiva, Pupils equal round reactive to light ENMT: NC/AT Oropharynx clear, no erythema, or exudates Neck: Supple, FROM, no masses, or JVD No carotid bruits No thyromegaly Lungs: Clear to auscultation Clear to percussion Normal respiratory effort, no accessory muscle use Cardiovascular: Heart regular in rate and rhythm, No murmurs, gallops, or rubs No peripheral edema Abdominal: Soft Nontender, no guarding, rebound or rigidity Abdomen moving with respiration Normoactive bowel sounds No hepatomegaly, No splenomegaly No palpable mass No abdominal wall hernia noted Skin: Normal temperature, tone, texture, turgor No induration No subcutaneous nodules No rash, lesions No ulcers Extremities: No digital cyanosis No clubbing Pedal pulses intact and symmetrical Radial pulses intact and symmetrical No calf tenderness Psychiatric: Alert and oriented to person, place and time Appropriate affect fair judgement Neuro Muscles Strength 5/5 in all 4 extremities Sensation to light touch grossly present throughout Cranial nerves II-XII grossly intact No focal sensory deficits Lymphatics: no palpable cervical or supraclavicular , or inguinal lymph nodes Results CBC & Chem 7: 12/01/21 16:50 12/01/21 16:50 Labs: Abnormal Lab Results - Last 24 Hours (Table) 12/01/21 12/01/21 Range/Units 16:50 16:50 MCHC 30.9 L (31.0-37.0) g/dL BUN 20 H (7-17) mg/dL Glucose 101 H (74-99) mg/dL Thrombosis Risk Factor Assmnt - Choose All That Apply Any of the Below Risk Factors Present?: Yes Each Factor Represents 1 point: Obesity (BMI >25) Other Risk Factors: Yes Each Risk Factor Represents 2 Points: Age 61-74 years Other congenital or acquired thrombophilia - If yes, enter type in comment: No Thrombosis Risk Factor Assessment Total Risk Factor Score: 3 Thrombosis Risk Factor Assessment Level: Moderate Risk Assessment and Plan Assessment: Atypical chest pain rule out ACS Coronary artery disease status post CABG triple-vessel bypass Diabetes mellitus Hypertension Hyperlipidemia Trend troponins Cardiac consult nurse practitioner physicians assistant Monitor vital signs Resume cardiac meds aspirin and statin, Plavix Patient was initiated on heparin Insulin sliding scale Cardiology consult Supplemental oxygen as needed Full code DVT prophylaxis on heparin drip for possible ACS Anticipated length of stay less than 2 midnights
[2021-12-02] MEDS: NITROGLYCERIN OINT 1 INCH/GM PACKET TOPICAL SCH ×3 (05:24→18:08)
[2021-12-02 07:09] LABS: Glucose,Whole Blood 100 mg/dL (75-99)
[2021-12-02] MEDS: INSULIN ASPART (NovoLOG) 100 UNIT/ML VIAL SQ SCH ×4 (07:13→20:09)
[2021-12-02] MEDS ORDERED: NITROGLYCERIN SL TABS 0.4 MG TAB SUBLINGUAL PRN ×2 (08:33→11:40)
[2021-12-02] MEDS ORDERED: ALPRAZolam 0.5 MG TAB PO PRN (08:33)
[2021-12-02] MEDS ORDERED: ALPRAZolam 0.25 MG TAB PO PRN (08:33)
[2021-12-02] MEDS ORDERED: ATORVASTATIN 80 MG TAB PO STA (08:33)
[2021-12-02] MEDS ORDERED: ASPIRIN 325 MG TAB PO STA (08:33)
[2021-12-02] MEDS: FUROSEMIDE 20 MG TAB PO SCH (08:54)
[2021-12-02] MEDS: DULoxetine HCL 60 MG CAPSULE.DR PO SCH (08:54)
[2021-12-02] MEDS: METOPROLOL TARTRATE 12.5 MG TAB PO SCH (08:54)
[2021-12-02] MEDS: PIOGLITAZONE 15 MG TAB PO SCH (08:54)
[2021-12-02] MEDS ORDERED: ASPIRIN 325 MG TAB PO SCH (09:00)
[2021-12-02 09:12] LABS: Chol/HDL Ratio 3.48 Ratio; LDL Cholesterol,Calculated 95.1 mg/dL (0.0-131.0)
[2021-12-02] MEDS ORDERED: fentaNYL (PF) 50 MCG/ML 2 ML AMP ONE ×2 (09:41→11:07)
[2021-12-02] MEDS ORDERED: SODIUM CHLORIDE 0.9% 500 ML 500 ML IV ONE ×2 (09:42)
[2021-12-02] MEDS: MIDAZOLAM 2 MG/2 ML VIAL IV ONE ×4 (09:51→11:06)
[2021-12-02] MEDS: fentaNYL (PF) 50 MCG/ML 2 ML AMP IV ONE ×2 (09:53→10:30)
[2021-12-02] MEDS ORDERED: LIDOCAINE 1% INJ 10MG/ML (30 ML VIAL-PF) SQ ONE (09:55)
--- NOTE | 2021-12-02 10:01 | CA ---
Transthoracic Echo Report Name: Vanna Powell Age: 66 Gender: F : 1955 Exam Date: 12/02/2021 09:18 Exam Location: [place] [facility] Ht (in): 64 Wt (lb): 209 Ordering Physician: Eloisa Lester Attending/Referring Phys: [id number], Trevon Virtualization Engineer Delphine Mcbride RDCS Procedure CPT: Indications: lv function, CP, SOB, aware of recent echo Cardiac Hx: Previous bypass Technical Quality: Good Contrast 1: Total Dose (mL): Contrast 2: Total Dose (mL): MEASUREMENTS (Male / Female) Normal Values DOPPLER TR Peak Velocity 197.4 cm/s TR Peak Gradient 15.6 mmHg Right Ventricular Systolic Press 20.6 mmHg FINDINGS Left Ventricle Left ventricular ejection fraction is estimated at 55-60. No obvious regional wall motion abnormalities. Right Ventricle Right Atrium Left Atrium Mitral Valve Aortic Valve Tricuspid Valve Pulmonic Valve Pericardium No pericardial effusion. Aorta CONCLUSIONS Limited study Left ventricular ejection fraction 55-60% No pericardial effusion Previewed by: Dr. Severo Teresa DO (Electronically Signed) Final Date: 02 December 2021 10:00
--- NOTE | 2021-12-02 10:10 | P.CRDCN ---
History of Present Illness Consult date: 12/02/21 History of present illness: HISTORY OF PRESENT ILLNESS: This is a 66-year-old female with a past medical history significant for coronary artery disease with recent CABG 3 vessels in August 2021, hypertension, hyperlipidemia, diabetes, and former nicotine dependence. Patient follows in the office with Dr. Santos. We have been asked to see the patient in consultation for chest pain. Patient examined at the bedside. Patient presented to the hospital with a chief complaint of shortness of breath and chest pain. Patient reports her shortness of breath has been chronic since before her bypass surgery and does not feel significantly worse than her baseline. She reports having chest pain with associated nausea. She denied any diaphoresis. She states she called EMS and she received nitro in the ambulance which took away her pain. This mo rning she continues to report some chest pain and is reading at 4/10. * EKG reveals sinus mechanism with no signs of acute ischemia * Chest xray negative for acute process * Laboratory data: WBC 5.0. Hemoglobin 13.2. Platelet count 207. Sodium 140. Potassium 4.2. BUN 20. Creatinine 0.77. Troponin negative 3 * Current home cardiac medications include aspirin 81 mg daily, Lipitor 40 mg at night, amlodipine 2.5 mg at night, Plavix 75 mg at night, Lasix 20 mg daily, metoprolol tartrate 12.5 mg twice a day * Echocardiogram completed revealing ejection fraction 55-60% with no obvious regional wall motion abnormalities noted * Patient underwent CABG 3 vessels in August 2021 including SINGH to LAD, left radial artery to first obtuse marginal artery, reverse saphenous vein graft to right coronary artery REVIEW OF SYSTEMS: At the time of my exam: CONSTITUTIONAL: Denies fever or chills. HEENT: Denies blurred vision, vision changes, or eye pain. Denies hemoptysis CARDIOVASCULAR: Denies chest pain. Denies orthopnea. Denies PND. Denies palpitations RESPIRATORY: Denies shortness of breath. GASTROINTESTINAL: Denies abdominal pain. Denies nausea or vomiting. HEMATOLOGIC: Denies bleeding disorders. GENITOURINARY: Denies any blood in urine. SKIN: Denies pruitis. Denies rash. PHYSICAL EXAM: VITAL SIGNS: Reviewed. GENERAL: Well-developed in no acute distress. HEENT: Head is normocephalic. Pupils are equal, round. Sclerae anicteric. Mucous membranes of the mouth are moist. Neck supple. No JVD or thyromegaly LUNGS: Respirations even and unlabored. Lungs essentially clear to auscultation bilaterally. HEART: Regular rate and rhythm. S1 and S2 heard. ABDOMEN: Soft. Nondistended. Nontender. EXTREMITIES: Normal range of motion. No clubbing or cyanosis. Peripheral pulses intact. No lower extremity edema NEUROLOGIC: Awake and alert. Oriented x 3. ASSESSMENT: Unstable angina Coronary artery disease with recent CABG 3 vessel, August 2021 Hypertension Hyperlipidemia Diabetes Former nicotine dependence PLAN: 2D echo obtained and reviewed Continue IV heparin Resume home cardiac medications Patient to undergo cardiac cath today with Dr. Santos Further recommendations pending patient course Nurse practitioner note has been reviewed by physician. Signing provider agrees with the documented findings, assessment, and plan of care. Past Medical History Past Medical History: Diabetes Mellitus, GERD/Reflux, Hyperlipidemia, Hypertension Additional Past Medical History / Comment(s): TIA about 40 years ago, chronic back pain use a transdermal patch Buprenorphine 7.5 MCG/HR History of Any Multi-Drug Resistant Organisms: None Reported Past Surgical History: Coronary Bypass/CABG, Hysterectomy, Orthopedic Surgery Additional Past Surgical History / Comment(s): 3 back surgey, rotator cuff repair, bilateral bunionectomies, 3 vessel CABG 08/2021 W/ Dr. Cuevas at [facility] Past Anesthesia/Blood Transfusion Reactions: No Reported Reaction Past Psychological History: Anxiety Smoking Status: Former smoker Past Alcohol Use History: None Reported Additional Past Alcohol Use History / Comment(s): smokes about half a pack a day since she was a teenager. Past Drug Use History: None Reported - Past Family History Mother Family Medical History: AICD/Pacemaker, Congestive Heart Failure (CHF), Coronary Artery Disease (CAD), Dementia, Hypertension, Myocardial Infarction ([place]) Additional Family Medical History / Comment(s): Kidney stent Father Family Medical History: Congestive Heart Failure (CHF), Coronary Artery Disease (CAD), Diabetes Mellitus, Myocardial Infarction ([place]), Vascular Disorder Additional Family Medical History / Comment(s): Peripheral vascular disease. Sister(s) Additional Family Medical History / Comment(s): tripple bypass open heart 10 years ago Family Family Medical History: Myocardial Infarction ([place]) Additional Family Medical History / Comment(s): Positive Cardiac history in the family Medications and Allergies Home Medications Medication Instructions Recorded Confirmed Type Aspirin EC [Ecotrin Low Dose] 81 mg PO HS 09/06/21 12/01/21 History DULoxetine HCL [Cymbalta] 60 mg PO DAILY 09/06/21 12/01/21 History Pioglitazone [Actos] 15 mg PO DAILY 09/06/21 12/01/21 History Atorvastatin [Lipitor] 40 mg PO HS 12/01/21 12/01/21 History Buprenorphine [Buprenorphine 15 1 patch TRANSDERM WE 12/01/21 12/01/21 History MCG/HR] Clopidogrel [Plavix] 75 mg PO HS 12/01/21 12/01/21 History Furosemide [Lasix] 20 mg PO DAILY 12/01/21 12/01/21 History Metoprolol Tartrate [Lopressor] 12.5 mg PO BID 12/01/21 12/01/21 History amLODIPine [Norvasc] 2.5 mg PO HS 12/01/21 12/01/21 History Allergies Allergy/AdvReac Type Severity Reaction Status Date / Time No Known Allergies Allergy Verified 12/01/21 17:53 Physical Exam Vitals: Vital Signs Temp Pulse Pulse Resp BP BP BP 12/02/21 08:00 16 12/02/21 07:00 97.7 F 75 16 146/86 12/02/21 02:52 97.5 F L 67 16 137/82 12/02/21 01:48 15 12/01/21 22:29 97.8 F 68 15 129/79 12/01/21 19:38 71 18 158/91 12/01/21 16:40 97.7 F 69 18 179/109 Pulse Ox 12/02/21 08:00 12/02/21 07:00 97 12/02/21 02:52 96 12/02/21 01:48 12/01/21 22:29 95 12/01/21 19:38 99 12/01/21 16:40 99 Intake and Output 12/01/21 12/02/21 12/02/21 22:59 06:59 14:59 Intake Total 72 Balance 72 Intake: Intake, IV Titration 72 Amount Heparin Sod,Pork in 0.45% 72 NaCl 25,000 unit In 0.45 % NaCl 1 250ml.bag @ 10. 548 UNITS/KG/HR 10 mls/hr IV .Q24H [facility] Rx#: [id number] Other: # Voids 1 1 1 Weight 94.801 kg Results 12/01/21 16:50 12/01/21 16:50 Cardiac Enzymes 12/01/21 12/01/21 12/01/21 Range/Units 16:50 16:50 19:59 AST 25 (14-36) U/L Troponin I <0.012 <0.012 (0.000-0.034) ng/mL 12/02/21 Range/Units 01:23 AST (14-36) U/L Troponin I <0.012 (0.000-0.034) ng/mL Coagulation 12/01/21 12/02/21 12/02/21 Range/Units 16:50 01:15 05:55 PT 10.4 (9.0-12.0) sec APTT 24.9 102.3 H* 41.2 H (22.0-30.0) sec Lipids 12/01/21 Range/Units 16:50 Triglycerides 127.00 (0.00-149.00) mg/dL Cholesterol 169.00 (0.00-200.00) mg/dL HDL Cholesterol 48.50 (40.00-60.00) mg/dL Cholesterol/HDL Ratio 3.48 Ratio CBC 12/01/21 Range/Units 16:50 WBC 5.0 (3.8-10.6) k/uL RBC 4.61 (3.80-5.40) m/uL Hgb 13.2 (11.4-16.0) gm/dL Hct 42.6 (34.0-46.0) % Plt Count 207 (150-450) k/uL Comprehensive Metabolic Panel 12/01/21 Range/Units 16:50 Sodium 140 (137-145) mmol/L Potassium 4.2 (3.5-5.1) mmol/L Chloride 104 (98-107) mmol/L Carbon Dioxide 28 (22-30) mmol/L BUN 20 H (7-17) mg/dL Creatinine 0.77 (0.52-1.04) mg/dL Glucose 101 H (74-99) mg/dL Calcium 8.7 (8.4-10.2) mg/dL AST 25 (14-36) U/L ALT 15 (4-34) U/L Alkaline Phosphatase 86 (38-126) U/L Total Protein 6.7 (6.3-8.2) g/dL Albumin 4.2 (3.5-5.0) g/dL Current Medications Generic Name Dose Route Start Last Admin Trade Name Freq PRN Reason Stop Dose Admin Alprazolam 0.25 mg 12/02/21 08:33 Alprazolam 0.25 Mg Tab PO Q6HR PRN Mild Anxiety Alprazolam 0.5 mg 12/02/21 08:33 Alprazolam 0.5 Mg Tab PO Q6HR PRN Moderate Anxiety Amlodipine Besylate 2.5 mg 12/01/21 21:00 12/01/21 22:10 Amlodipine 2.5 Mg Tab PO 2.5 mg HS [facility] Administration Aspirin 81 mg 12/01/21 21:00 12/01/21 21:41 Aspirin 81 Mg PO Not Given HS [facility] Atorvastatin Calcium 40 mg 12/01/21 21:00 12/01/21 22:07 Atorvastatin 40 Mg Tab PO 40 mg HS [facility] Administration Clopidogrel Bisulfate 75 mg 12/01/21 21:00 12/01/21 21:41 Clopidogrel 75 Mg Tab PO Not Given HS [facility] Duloxetine HCl 60 mg 12/02/21 09:00 12/02/21 08:54 Duloxetine Hcl 60 Mg Capsule.Dr PO Not Given DAILY [facility] Furosemide 20 mg 12/02/21 09:00 12/02/21 08:54 Furosemide 20 Mg Tab PO Not Given DAILY [facility] Sodium Chloride 1,000 mls @ 20 mls/hr 12/01/21 18:30 12/01/21 22:18 Saline 0.9% IV 20 mls/hr .Q24H [facility] Administration Heparin Sodium/Sodium Chloride 250 mls @ 10 mls/hr 12/01/21 18:30 12/02/21 04:13 25,000 unit/ Sodium Chloride IV 7.548 units/kg/hr .Q24H [facility] 7.156 mls/hr Titration Protocol 10.548 UNITS/KG/HR Heparin Sodium (Porcine) 10, 1,001 mls @ 999 mls/hr 12/03/21 07:00 000 unit/ Sodium Chloride IRRIGATION 12/03/21 23:00 ONCE PRN INTRA-OP Heparin Sodium (Porcine) 2,500 250.5 mls @ 250 mls/hr 12/03/21 07:00 unit/ Sodium Chloride IRRIGATION 12/03/21 23:00 ONCE PRN INTRA-OP Insulin Aspart 0 unit 12/02/21 07:30 12/02/21 07:13 Insulin Aspart (Novolog) 100 Unit/Ml Vial SQ Not Given ACHS [facility] Protocol Metoprolol Tartrate 12.5 mg 12/01/21 21:00 12/02/21 08:54 Metoprolol Tartrate 12.5 Mg Tab PO 12.5 mg BID [facility] Administration Nitroglycerin 0.4 mg 12/01/21 18:20 Nitroglycerin Sl Tabs 0.4 Mg Tab SUBLINGUAL Q5M PRN Chest Pain Nitroglycerin 1 inch 12/02/21 00:00 12/02/21 05:24 Nitroglycerin Oint 1 Inch/Gm Packet TOPICAL Not Given Q6HR [facility] Nitroglycerin 0.4 mg 12/02/21 08:33 Nitroglycerin Sl Tabs 0.4 Mg Tab SUBLINGUAL Q5M PRN Chest Pain Patient's Own ( 1 patch 12/08/21 09:00 Buprenorphine [ TRANSDERM Buprenorphine 15 Mcg WE [facility] /Hr] 1 Each Patch) Pioglitazone HCl 15 mg 12/02/21 09:00 12/02/21 08:54 Pioglitazone 15 Mg Tab PO Not Given DAILY [facility] Zolpidem Tartrate 10 mg 12/02/21 01:47 12/02/21 02:32 Zolpidem 10 Mg Tab PO 10 mg HS PRN Administration Insomnia Intake and Output 12/01/21 12/02/21 12/02/21 22:59 06:59 14:59 Intake Total 72 Balance 72 Intake: Intake, IV Titration 72 Amount Heparin Sod,Pork in 0.45% 72 NaCl 25,000 unit In 0.45 % NaCl 1 250ml.bag @ 10. 548 UNITS/KG/HR 10 mls/hr IV .Q24H [facility] Rx#: [id number] Other: # Voids 1 1 1 Weight 94.801 kg 12/01/21 16:50 12/01/21 16:50
[2021-12-02] MEDS ORDERED: IOPAMIDOL-370 125ML BTL INJ ONE (10:11)
[2021-12-02] MEDS ORDERED: CLOPIDOGREL 75 MG TAB ONE (10:37)
[2021-12-02] MEDS ORDERED: CLOPIDOGREL 75 MG TAB PO ONE (10:40)
[2021-12-02] MEDS ORDERED: HEPARIN SODIUM 1,000 UN/ML (10ML VL) ONE (10:42)
[2021-12-02] MEDS ORDERED: IOPAMIDOL-370 100ML BTL INJ ONE ×3 (10:57→11:17)
[2021-12-02] MEDS ORDERED: fentaNYL (PF) 50 MCG/ML 2 ML AMP IV ONE (11:08)
[2021-12-02] MEDS ORDERED: NITROGLYCERIN 1000MCG/10ML SYRINGE INTRACORON ONE (11:12)
[2021-12-02] MEDS ORDERED: RX INFO: IV CONTRAST WAS GIVEN 1 EACH MISC MISCELLANE PRN (11:40)
[2021-12-02] MEDS ORDERED: MAG HYDROX/AL HYDROX/SIMETH 30 ML CUP PO PRN (11:40)
[2021-12-02] MEDS ORDERED: ATROPINE SULFATE 0.1 MG/ML 10ML SYRINGE IV PRN (11:40)
[2021-12-02] MEDS ORDERED: ZOLPIDEM 5 MG TAB PO PRN (11:40)
--- NOTE | 2021-12-02 11:40 | P.PRCINT ---
Percutaneous Coronary Int. - Percutaneous Coronary Intervention Percutaneous Coronary Intervention: PROCEDURES PERFORMED: Left coronary angiography, PCI mid circumflex with 4.0 x 8 mm Xience JOSEE INDICATION: Unstable angina HISTORY: Patient is a pleasant 66-year-old female with history of coronary artery disease with prior CABG with SINGH to LAD, SVG to RCA, radial to OM August 2021 who presented with typical chest pain while at rest which felt similar to her prior angina. She took a nitroglycerin relief. Diagnostic heart catheterization was performed from the right femoral approach which showed similar wiyot LAD, circumflex 95% stenosis and known 100% RCA stenosis with patent SVG to RCA, radial to OM and SINGH to LAD. There was some competitive flow noted of the SINGH to LAD. The radial to OM did not backfill remainder of the OM branches and angina felt related to on revascularized circumflex territory. Therefore recommendation was for PCI of the circumflex. CONSENT:I have discussed the risks, benefits and alternative therapies for the above-mentioned procedure and for both sedation/analgesia as well as necessary blood product administration, if indicated, as they pertain to this patient. The patient has indicated understanding and acceptance of the risks and procedures discussed. PROCEDURE: After the risks, benefits and alternatives of the above mentioned procedure explained in detail with the patient, informed consent was obtained. Patient had already been taken to the catheterization lab and prepped and draped in usual fashion. A 6-[place] femoral sheath had artery been placed in the right femoral artery. Heparin was given for ACT greater than 250. A 6-[place] CLS 4.0 catheter was used to engage the left main. A 0.014 BMW wire was advanced into the distal circumflex. Predilation was performed with a 3.0 x 8 mm and 3.5 x 8 mm balloon. Next a 4.0 x 8 mm Xience JOSEE was placed in the mid circumflex. The wire was pulled and final angiograms were performed. Pre-intervention there was 95% stenosis with DAVI 3 flow and postintervention there was DAVI-3 flow with less than 10% stenosis. A right femoral angiogram showed adequate anatomy for closure. A 6-[place] Angio-Seal was placed with hemostasis achieved. The patient tolerated the procedure well. Patient was transported back to the post catheterization holding area in stable condition. Conscious Sedation: Patient was monitored under the direct supervision of vision of myself for conscious sedation using Versed and fentanyl for a total duration of 46 minutes FINAL IMPRESSION: 1. CAD with 95% circumflex stenosis with radial artery to OM not supplying sufficient flow back to remainder of OM branches. 2. Status post successful PCI circumflex with a 4.0 x 8 mm Xience JOSEE PLAN: 1. Aggressive risk factor modification per most recent ACC/AHA guidelines. 2. Continue dual antiplatelets with aspirin and Plavix for a total of 12 months.
[2021-12-02 11:57] LABS: Glucose,Whole Blood 84 mg/dL (75-99)
[2021-12-02] MEDS: SODIUM CHLORIDE 0.9% 1,000 ML in EMPTY BAG 1 BAG IV SCH ×2 (12:15→20:06)
[2021-12-02] MEDS ORDERED: ACETAMINOPHEN TAB 325 MG TAB PO PRN (12:24)
[2021-12-02 13:27] VITALS: BMI 35.9
--- NOTE | 2021-12-02 14:14 | P.PN ---
Subjective Progress Note Date: 12/02/21 Chief Complaint: Chest pain 66-year-old female diabetes mellitus, hypertension, hyperlipidemia, recently quit smoking, coronary artery disease status post CABG with triple bypass 2 months ago Patient presented back in August with typical anginal symptoms was found to have triple-vessel disease requiring CABG. Tolerated procedure well and was discharged however she reports that since discharge has been having progressive shortness of breath that has not resolved. Today she comes in due to recurrent episodes of chest pain and reports chest tightness retrosternal 8 out of 10 in severity with left-sided chest pain radiating to the shoulder associated with shortness of breath and diaphoresis with palpitations denies any nausea vomiting. These episodes are happening at rest while doing nothing. Patient claims to be compliant with her medications and that she quit smoking since August. Denies any recent travel denies any history of blood clots denies any fevers or chills denies any coughing denies any abdominal pain denies any urinary or bowel habit changes Initial troponins were negative Interval history: Patient was examined at the bedside. She denies any chest pain or shortness of breath. Status post left heart cath this morning, patient was found to have a 95% circumflex stenosis with successful PCI to circumflex with stent. Otherwise no acute reported changes overnight Physical examination: General: non toxic, no distress, appears at stated age Derm: warm, dry Head: atraumatic, normocephalic, symmetric Eyes: EOMI, no lid lag, anicteric sclera Mouth: no lip lesion, mucus membranes moist Cardiovascular: S1S2 reg, no murmur, positive posterior tibial pulse bilateral, Lungs: CTA bilateral, no rhonchi, no rales , no accessory muscle use Abdominal: soft, nontender to palpation, no guarding, no appreciable organomegaly Ext: no gross muscle atrophy, no edema, no contractures Neuro: CN II-XI grossly intact, no focal neuro deficits Psych: Alert, oriented, appropriate affect Assessment and plan: #Unstable angina -History coronary disease status post CABG -Status post left heart cath, with successful PCI to circumflex with drug- eluting stent 12/02 -Resume IV heparin beta blockers, dual antiplatelet therapy and high-dose statins. #Hypertension -Resume Norvasc and beta blockers #Dyslipidemia -Patient high-dose statins we'll check lipid panel #Type 2 diabetes mellitus -Check A1c -Resume diabetic diet and sliding scale insulin #Full code Objective - Vital Signs Vital signs: Vital Signs Temp 97.7 F 12/02/21 11:47 Pulse 65 12/02/21 13:16 Resp 14 12/02/21 11:47 BP 145/84 12/02/21 13:16 Pulse Ox 97 12/02/21 13:16 FiO2 Intake & Output 12/01/21 12/02/21 12/02/21 18:59 06:59 18:59 Intake Total 72 490 Output Total 300 Balance 72 190 Weight 94.801 kg 94.801 kg 94.801 kg Intake: IV 250 Intake, IV Titration 72 Amount Heparin Sod,Pork in 0.45% 72 NaCl 25,000 unit In 0.45 % NaCl 1 250ml.bag @ 10. 548 UNITS/KG/HR 10 mls/hr IV .Q24H [facility] Rx#: [id number] Oral 240 Output: Urine 300 Other: # Voids 1 2 - Labs CBC & Chem 7: 12/01/21 16:50 12/01/21 16:50 Labs: Abnormal Lab Results - Last 24 Hours (Table) 12/01/21 12/01/21 12/02/21 Range/Units 16:50 16:50 01:15 MCHC 30.9 L (31.0-37.0) g/dL APTT 102.3 H* (22.0-30.0) sec BUN 20 H (7-17) mg/dL Glucose 101 H (74-99) mg/dL POC Glucose (mg/dL) (75-99) mg/dL 12/02/21 12/02/21 Range/Units 05:55 07:08 MCHC (31.0-37.0) g/dL APTT 41.2 H (22.0-30.0) sec BUN (7-17) mg/dL Glucose (74-99) mg/dL POC Glucose (mg/dL) 100 H (75-99) mg/dL
[2021-12-02 16:15] LABS: Glucose,Whole Blood 151 mg/dL (75-99)
[2021-12-02] MEDS: traMADol 50 MG TAB PO PRN (18:12)
[2021-12-02 19:41] LABS: Glucose,Whole Blood 139 mg/dL (75-99)
[2021-12-02] MEDS: HEPARIN SOD,PORK IN 0.45% NACL 25,000 UNIT in 0.45% NACL 1 250ML.BAG IV SCH (20:08)
[2021-12-02] MEDS: amLODIPine 2.5 MG TAB PO SCH (20:09)
[2021-12-02] MEDS: ASPIRIN 81 MG PO SCH (20:09)
[2021-12-02] MEDS: ATORVASTATIN 40 MG TAB PO SCH (20:09)
[2021-12-02] MEDS: CLOPIDOGREL 75 MG TAB PO SCH (20:09)
[2021-12-02] MEDS: SODIUM CHLORIDE 0.9% 1,000 ML IV SCH (20:12)
[2021-12-02 22:29] LABS: Chol/HDL Ratio 3.38 Ratio; LDL Cholesterol,Calculated 89.7 mg/dL (0.0-131.0)
[2021-12-03] MEDS: NITROGLYCERIN OINT 1 INCH/GM PACKET TOPICAL SCH ×3 (01:11→11:27)
[2021-12-03] MEDS: METOPROLOL TARTRATE 12.5 MG TAB PO SCH ×3 (01:11→07:57)
[2021-12-03] MEDS: traMADol 50 MG TAB PO PRN ×2 (02:07→10:16)
[2021-12-03] MEDS ORDERED: HEPARIN SODIUM,PORCINE 2,500 UNIT in SODIUM CHLORIDE 0.9% 250 ML IRRIGATION PRN (07:00)
[2021-12-03] MEDS ORDERED: HEPARIN SODIUM,PORCINE 10,000 UNIT in SODIUM CHLORIDE 0.9% 1,000 ML IRRIGATION PRN (07:00)
[2021-12-03 07:42] LABS: Glucose,Whole Blood 98 mg/dL (75-99)
[2021-12-03] MEDS: INSULIN ASPART (NovoLOG) 100 UNIT/ML VIAL SQ SCH (07:53)
[2021-12-03] MEDS: PIOGLITAZONE 15 MG TAB PO SCH ×2 (07:55→07:57)
[2021-12-03] MEDS: FUROSEMIDE 20 MG TAB PO SCH ×2 (07:55→07:57)
[2021-12-03] MEDS: DULoxetine HCL 60 MG CAPSULE.DR PO SCH ×2 (07:55→07:57)
[2021-12-03] MEDS: SODIUM CHLORIDE 0.9% 1,000 ML in EMPTY BAG 1 BAG IV SCH (07:55)
[2021-12-03 08:17] VITALS: BP 126/77; PULSE 74; RESP 16; TEMP 98
--- NOTE | 2021-12-03 11:03 | P.PN ---
Subjective Progress Note Date: 12/03/21 HISTORY OF PRESENT ILLNESS: This is a 66-year-old female with a past medical history significant for coronary artery disease with recent CABG 3 vessels in August 2021, hypertension, hyperlipidemia, diabetes, and former nicotine dependence. Patient follows in the office with Dr. Santos. We have been asked to see the patient in consultation for chest pain. Patient examined at the bedside. Patient presented to the hospital with a chief complaint of shortness of breath and chest pain. Patient reports her shortness of breath has been chronic since before her bypass surgery and do es not feel significantly worse than her baseline. She reports having chest pain with associated nausea. She denied any diaphoresis. She states she called EMS and she received nitro in the ambulance which took away her pain. This morning she continues to report some chest pain and is reading at 4/10. * EKG reveals sinus mechanism with no signs of acute ischemia * Chest xray negative for acute process * Laboratory data: WBC 5.0. Hemoglobin 13.2. Platelet count 207. Sodium 140. Potassium 4.2. BUN 20. Creatinine 0.77. Troponin negative 3 * Current home cardiac medications include aspirin 81 mg daily, Lipitor 40 mg at night, amlodipine 2.5 mg at night, Plavix 75 mg at night, Lasix 20 mg daily, metoprolol tartrate 12.5 mg twice a day * Echocardiogram completed revealing ejection fraction 55-60% with no obvious regional wall motion abnormalities noted * Patient underwent CABG 3 vessels in August 2021 including SINGH to LAD, left radial artery to first obtuse marginal artery, reverse saphenous vein graft to right coronary artery 12/03/2021 Patient is status post cardiac catheterization with successful PCI of the circumflex. Patient examined this morning at the bedside. Patient denies chest pain or pressure. She denies shortness of breath. Patient's right groin is soft with no hematoma noted. Vital signs are stable. PHYSICAL EXAM: VITAL SIGNS: Reviewed. GENERAL: Well-developed in no acute distress. HEENT: Head is normocephalic. Pupils are equal, round. Sclerae anicteric. Mucous membranes of the mouth are moist. Neck supple. No JVD or thyromegaly LUNGS: Respirations even and unlabored. Lungs essentially clear to auscultation bilaterally. HEART: Regular rate and rhythm. S1 and S2 heard. ABDOMEN: Soft. Nondistended. Nontender. EXTREMITIES: Normal range of motion. No clubbing or cyanosis. Peripheral pulses intact. No lower extremity edema NEUROLOGIC: Awake and alert. Oriented x 3. ASSESSMENT: Unstable angina, status post cardiac catheterization with PCI to circumflex Coronary artery disease with recent CABG 3 vessel, August 2021 Hypertension Hyperlipidemia Diabetes Former nicotine dependence PLAN: Continue current cardiac medications Continue dual antiplatelet therapy with aspirin and Plavix Increase atorvastatin to 80 mg at night Add Zetia 10 mg daily Patient is stable for discharge home today from a cardiac standpoint She is to follow up on an outpatient basis Nurse practitioner note has been reviewed by physician. Signing provider agrees with the documented findings, assessment, and plan of care. Objective - Vital Signs Vital signs: Vital Signs Temp 98.0 F 12/03/21 07:00 Pulse 74 12/03/21 07:00 Resp 16 12/03/21 07:00 BP 126/77 12/03/21 07:00 Pulse Ox 96 12/03/21 07:00 FiO2 Intake & Output 12/02/21 12/03/21 12/03/21 18:59 06:59 18:59 Intake Total 730 Output Total 300 Balance 430 Weight 94.801 kg Intake: IV 250 Oral 480 Output: Urine 300 Other: Voiding Method Toilet Toilet # Voids 2 2 - Labs CBC & Chem 7: 12/01/21 16:50 12/01/21 16:50 Labs: Abnormal Lab Results - Last 24 Hours (Table) 12/02/21 12/02/21 12/02/21 Range/Units 05:55 16:13 19:40 POC Glucose (mg/dL) 151 H 139 H (75-99) mg/dL Hemoglobin A1c 6.4 H (0.0-6.0) %
--- NOTE | 2021-12-03 11:36 | P.DS ---
Providers Date of admission: 12/01/21 18:20 Expected date of discharge: 12/03/21 Attending physician: Lis Lisa DO Consults: 12/01/21 18:20 Consult Physician Urgent Consulting Provider: Luca Santos Consult Reason/Comments: Chest pain Do you want consulting provider notified?: Yes 12/02/21 11:40 Consult Physician Routine Consulting Provider: [facility] Consult Reason/Comments: Post Interventional patient Do you want consulting provider notified?: Already Contacted Primary care physician: [facility] Course: Chief Complaint: Chest pain 66-year-old female diabetes mellitus, hypertension, hyperlipidemia, recently quit smoking, coronary artery disease status post CABG with triple bypass 2 months ago Patient presented back in August with typical anginal symptoms was found to have triple-vessel disease requiring CABG. Tolerated procedure well and was discharged however she reports that since discharge has been having progressive shortness of breath that has not resolved. Today she comes in due to recurrent episodes of chest pain and reports chest tightness retrosternal 8 out of 10 in severity with left-sided chest pain radiating to the shoulder associated with shortness of breath and diaphoresis with palpitations denies any nausea vomiting. These episodes are happening at rest while doing nothing. Patient claims to be compliant with her medications and that she quit smoking since August. Denies any recent travel denies any history of blood clots denies any fevers or chills denies any coughing denies any abdominal pain denies any urinary or bowel habit changes Initial troponins were negative Physical examination on discharge: General: non toxic, no distress, appears at stated age Derm: warm, dry Head: atraumatic, normocephalic, symmetric Eyes: EOMI, no lid lag, anicteric sclera Mouth: no lip lesion, mucus membranes moist Cardiovascular: S1S2 reg, no murmur, positive posterior tibial pulse bilateral, Lungs: CTA bilateral, no rhonchi, no rales , no accessory muscle use Abdominal: soft, nontender to palpation, no guarding, no appreciable organomegaly Ext: no gross muscle atrophy, no edema, no contractures Neuro: CN II-XI grossly intact, no focal neuro deficits Psych: Alert, oriented, appropriate affect Hospital course undetected problem list: #Unstable angina -History coronary disease status post CABG -Status post left heart cath, with successful PCI to circumflex with drug-eluting stent 6/2 -Resume beta blockers, dual antiplatelet therapy and high-dose statins. -Patient was cleared for discharge per cardiology #Hypertension -Resume Norvasc and beta blockers #Dyslipidemia -LDL 95.1 -Patient high-dose statins she will be discharged home on Lipitor 80 mg daily #Type 2 diabetes mellitus -A1c 6.4 -Resume diabetic diet and sliding scale insulin Patient Condition at Discharge: Stable Plan - Discharge Summary Discharge Rx Participant: No New Discharge Prescriptions: New Atorvastatin [Lipitor] 80 mg PO HS #30 tab Continue Pioglitazone [Actos] 15 mg PO DAILY Aspirin EC [Ecotrin Low Dose] 81 mg PO HS Metoprolol Tartrate [Lopressor] 12.5 mg PO BID Furosemide [Lasix] 20 mg PO DAILY Clopidogrel [Plavix] 75 mg PO HS Buprenorphine [Buprenorphine 15 MCG/HR] 1 patch TRANSDERM WE amLODIPine [Norvasc] 2.5 mg PO HS DULoxetine HCL [Cymbalta] 60 mg PO DAILY Discontinued Atorvastatin [Lipitor] 40 mg PO HS Discharge Medication List Aspirin EC [Ecotrin Low Dose] 81 mg PO HS 09/06/21 [History] DULoxetine HCL [Cymbalta] 60 mg PO DAILY 09/06/21 [History] Pioglitazone [Actos] 15 mg PO DAILY 09/06/21 [History] Buprenorphine [Buprenorphine 15 MCG/HR] 1 patch TRANSDERM WE 12/01/21 [History] Clopidogrel [Plavix] 75 mg PO HS 12/01/21 [History] Furosemide [Lasix] 20 mg PO DAILY 12/01/21 [History] Metoprolol Tartrate [Lopressor] 12.5 mg PO BID 12/01/21 [History] amLODIPine [Norvasc] 2.5 mg PO HS 12/01/21 [History] Atorvastatin [Lipitor] 80 mg PO HS #30 tab 12/03/21 [Rx] Follow up Appointment(s)/Referral(s): Deshaun Hoang MD [Primary Care Provider] - 1-2 days Luca Santos MD [STAFF PHYSICIAN] - 12/10/21 11:00 am Patient Instructions/Handouts: *[facility] - After Heart Catheterization - Advertisement Compositor Instructions
[2021-12-03 11:39] LABS: HCT 38.2 % (37.2-46.3); HGB 11.9 g/dL (12.0-15.0); MCH 28.6 pg (27.0-32.0); MCHC 31.2 g/dL (32.0-37.0); MCV 91.8 fL (80.0-97.0); Mean Platelet Volume 10.4 fL (9.5-12.2); NRBC Per 100 WBC 0 /100 WBCS (0.0-0.0); Platelet Count 180 X 10*3/uL (140-440); RBC 4.16 X 10*6/uL (4.10-5.20); RDW 14.2 % (11.5-14.5); WBC 4.65 X 10*3/uL (4.50-10.00)
[2021-12-03 11:48] LABS: African American GFR (CKD) 89.7 (60.0-200.0); Anion Gap 8.3 mmol/L (10.00-18.00); BUN/Creat Ratio 22.75 Ratio (12.00-20.00); Blood Urea Nitrogen 18.2 mg/dL (9.0-27.0); Calcium 9.1 mg/dL (8.7-10.3); Carbon Dioxide 26.7 mmol/L (20.0-27.5); Magnesium 2.2 mg/dL (1.5-2.4); Non-African American GFR(CKD) 77.4 (60.0-200.0); Potassium 4.2 mmol/L (3.5-5.5)
--- NOTE | 2021-12-03 17:49 | CC ---
CARDIAC CATHETERIZATION REPORT INDICATION: Unstable angina in a patient with known coronary artery disease, status post CABG with SINGH to LAD, venous graft to right coronary artery and radial artery graft to the circumflex coronary artery. PROCEDURE NOTE: After obtaining informed consent, left heart catheterization, coronary angiogram and selective injection of the bypass tracts had been performed via the right femoral artery. Left coronary artery was engaged using a size 4 Jr catheter. Venous graft to the right coronary artery was engaged using a Lamar catheter and a SINGH catheter was used to engage the SINGH to the LAD. The patient tolerated the procedure well without any obvious immediate complications. Patient received moderate conscious sedation and total sedation time was 30 minutes. FINDINGS: HEMODYNAMICS: Left ventricular end-diastolic pressure is 18 to 20 mm. There is no significant gradient across the aortic valve. LEFT VENTRICULOGRAM: Left ventriculogram was not performed. ANGIOGRAPHIC DATA: [place] coronary artery: Right coronary artery was totally occluded in its mid portion on a previous cardiac cath and we did not attempt to obtain the angiogram at this time. Left main coronary artery is a normal-sized vessel and is free of stenosis. It divides into left anterior descending coronary artery and circumflex coronary artery. Circumflex coronary artery has a focal 95% stenosis. Injection of the LAD shows a competitive flow distally with moderate to severe stenosis proximally. Selective injection of the venous graft to the right coronary artery: The bypass graft seems patent. Proximal and distal anastomotic sites are free of significant disease. The distal venous graft shows a 50% stenosis. Radial artery graft to the OM branch appears patent. Proximal and distal anastomotic sites and the body of the graft are free of significant disease. However, it does not seem to supply the [place] circumflex well and only seems to be revascularizing the OM branches. SINGH to LAD appears patent, free of significant disease, and there is competitive flow into the [place] LAD. CONCLUSIONS: [place] three-vessel coronary artery disease as described above with patent SINGH to LAD, venous graft to the right coronary artery, with moderate disease in the distal portion of the graft, with patent radial artery graft to the circumflex coronary artery. TREATMENT PLANS: I reviewed angiographic data with Dr. Teresa, the on-call educational psychologist. Patient has very typical symptoms, and reviewing the angiographic data, it appears as if the circumflex coronary artery is incompletely revascularized with the radial artery graft. Hence it was decided to proceed with angioplasty of the [place] circumflex coronary artery. If patient's symptoms do not improve fully with this, we might consider angioplasty of the distal portion of the venous graft to the right coronary artery. MMODL / IJN: [id number] /
[2021-12-03] MEDS ORDERED: ATORVASTATIN 80 MG TAB PO SCH (21:00)
[2021-12-04] MEDS ORDERED: EZETIMIBE 10 MG TAB PO SCH (09:00)
[2021-12-08] MEDS ORDERED: BUPRENORPHINE TRANSDERM SCH (09:00)
== END 2021-12-03 12:07 | disposition home or self-care (01) ==
LOC: EC 16:31 → INTOOBSV 18:20 → 6NMEDSUR 18:20
PROVIDERS: ADMIT Internal Medicine; ATTEND Internal Medicine
DX: I25.110 Atherosclerotic heart disease of native coronary artery with unstable angina pectoris (principal); E11.9 Type 2 diabetes mellitus without complications; I10 Essential (primary) hypertension; E78.5 Hyperlipidemia, unspecified; K21.9 Gastro-esophageal reflux disease without esophagitis; G89.29 Other chronic pain; M54.9 Dorsalgia, unspecified; F41.9 Anxiety disorder, unspecified; E66.9 Obesity, unspecified; Z68.35 Body mass index [BMI] 35.0-35.9, adult; Z79.84 Long term (current) use of oral hypoglycemic drugs; Z79.02 Long term (current) use of antithrombotics/antiplatelets; Z79.891 Long term (current) use of opiate analgesic; Z79.82 Long term (current) use of aspirin; Z79.899 Other long term (current) drug therapy; Z86.73 Personal history of transient ischemic attack (TIA), and cerebral infarction without residual deficits; Z90.710 Acquired absence of both cervix and uterus; Z95.1 Presence of aortocoronary bypass graft; Z87.891 Personal history of nicotine dependence; Z98.890 Other specified postprocedural states; Z82.49 Family history of ischemic heart disease and other diseases of the circulatory system; Z82.0 Family history of epilepsy and other diseases of the nervous system; Z83.3 Family history of diabetes mellitus
CPT/HCPCS: 96366 ×3; 96376; 96365; 99285; 36415; 93005; 93308; 93459; 83880; 80061 ×2; 80053; 80048; 83690; 83735 ×2; 84484 ×2; 85025; 85027; 85610; 85730 ×2; 83036; 71046; G0378 ×3; C9600; C1769 ×2; C1760; C1887 ×2; C1725 ×2; C1894; C1874; J2250; J2001; J3010; J1644 ×3; Q9967 ×2

== ENCOUNTER → 2022-03-14 | Outpatient (CLI) | payer MEDICARE ==
--- NOTE | 2022-03-14 11:35 | MM ---
Reason for Exam: Additional evaluation requested from prior study. Last screening mammogram was performed 12 month(s) ago. Patient History: Menarche at age 14. Left ovary removed at age 31. Right ovary removed at age 31. Hysterectomy at age 31. Postmenopausal. Maternal aunt had breast cancer. Risk Values: Kaitlin 5 year model risk: 1.2%. NCI Lifetime model risk: 4.6%. Prior Study Comparison: 03/24/2021 Bilateral Screening Mammogram, [facility]. 04/07/2021 Left Diagnostic Mammogram, [facility]. Tissue Density: There are scattered fibroglandular densities. Findings: Analyzed By CAD. Benign-appearing skin calcifications demonstrated within the left breast. No new worrisome cluster microcalcifications within either breast. No new suspicious mass within either breast. Stable 5 mm nodularity within the anterior right breast. No significant change from prior examination. Overall Assessment: Benign, BI-RAD 2 Management: Screening Mammogram of both breasts in 1 year. A clinical breast exam by your physician is recommended on an annual basis and results should be correlated with mammographic findings. This exam should not preclude additional follow-up of suspicious palpable abnormalities. Results were given to the patient verbally at the time of exam. Electronically signed and approved by: Isaac Mcdonough D.O.
== END | disposition home or self-care (01) ==
LOC: RADMAMWWP 11:00
PROVIDERS: ATTEND Family Medicine
DX: R92.8 Other abnormal and inconclusive findings on diagnostic imaging of breast (principal); Z78.0 Asymptomatic menopausal state; Z80.3 Family history of malignant neoplasm of breast
CPT/HCPCS: 77066; G0279; 77062

== ENCOUNTER 2022-05-04 19:08 | Emergency (ER) | payer MEDICARE ==
[2022-05-04 19:16] VITALS: RESP 16; TEMP 98.4
[2022-05-04] MEDS ORDERED: MORPHINE SULFATE 4 MG/ML SYRINGE IV STA (19:23)
--- NOTE | 2022-05-04 19:29 | ED ---
Abdominal Pain HPI - General Chief Complaint: Abdominal Pain Stated Complaint: Abd pain Time Seen by Provider: 05/04/22 19:11 Source: patient, EMS, RN notes reviewed, old records reviewed Mode of arrival: EMS Limitations: no limitations - History of Present Illness Initial Comments: Well-appearing 66-year-old female presents to the emergency room with complaints of left upper quadrant abdominal pain that woke her from sleep at 3:00 this morning. Patient describes the pain as a dull ache. She states it is constant with increasing and decreasing intensity. Denies any fevers. States has nausea but denies vomiting or diarrhea. Cardiac stents in August and in January of this year. Denies any chest pain or difficulty breathing. Only abdominal surgery was C-sections. MD Complaint: abdominal pain -: hour(s) (16) Location: LUQ Radiation: none Severity scale (1-10): 7 Quality: dull Consistency: constant Improves With: nothing Associated Symptoms: nausea - Related Data Patient : No Home Medications Medication Instructions Recorded Confirmed Aspirin EC [Ecotrin Low Dose] 81 mg PO HS 09/06/21 12/01/21 DULoxetine HCL [Cymbalta] 60 mg PO DAILY 09/06/21 12/01/21 Pioglitazone [Actos] 15 mg PO DAILY 09/06/21 12/01/21 Buprenorphine [Buprenorphine 15 1 patch TRANSDERM WE 12/01/21 12/01/21 MCG/HR] Clopidogrel [Plavix] 75 mg PO HS 12/01/21 12/01/21 Furosemide [Lasix] 20 mg PO DAILY 12/01/21 12/01/21 Metoprolol Tartrate [Lopressor] 12.5 mg PO BID 12/01/21 12/01/21 amLODIPine [Norvasc] 2.5 mg PO HS 12/01/21 12/01/21 Previous Rx's Medication Instructions Recorded Atorvastatin [Lipitor] 80 mg PO HS #30 tab 12/03/21 Ezetimibe [Zetia] 10 mg PO DAILY #90 tab 12/03/21 Ketorolac [Toradol] 10 mg PO Q8HR #15 tab 05/04/22 Ondansetron Odt [Zofran Odt] 4 mg PO Q8HR PRN #10 tab 05/04/22 Tamsulosin [Flomax] 0.4 mg PO DAILY #7 cap 05/04/22 Allergies Allergy/AdvReac Type Severity Reaction Status Date / Time No Known Allergies Allergy Verified 12/01/21 17:53 Review of Systems ROS Statement: Those systems with pertinent positive or pertinent negative responses have been documented in the HPI. ROS Other: All systems not noted in ROS Statement are negative. Past Medical History Past Medical History: Diabetes Mellitus, GERD/Reflux, Hyperlipidemia, Hypertension Additional Past Medical History / Comment(s): TIA about 40 years ago, chronic back pain use a transdermal patch Buprenorphine 7.5 MCG/HR History of Any Multi-Drug Resistant Organisms: None Reported Past Surgical History: Coronary Bypass/CABG, Hysterectomy, Orthopedic Surgery Additional Past Surgical History / Comment(s): 3 back surgey, rotator cuff repair, bilateral bunionectomies, 3 vessel CABG 08/2021 W/ Dr. Cuevas at [facility] Past Anesthesia/Blood Transfusion Reactions: No Reported Reaction Past Psychological History: Anxiety Smoking Status: Former smoker Past Alcohol Use History: None Reported Past Drug Use History: None Reported - Past Family History Mother Family Medical History: AICD/Pacemaker, Congestive Heart Failure (CHF), Coronary Artery Disease (CAD), Dementia, Hypertension, Myocardial Infarction ([place]) Additional Family Medical History / Comment(s): Kidney stent Father Family Medical History: Congestive Heart Failure (CHF), Coronary Artery Disease (CAD), Diabetes Mellitus, Myocardial Infarction ([place]), Vascular Disorder Additional Family Medical History / Comment(s): Peripheral vascular disease. Sister(s) Additional Family Medical History / Comment(s): tripple bypass open heart 10 years ago Family Family Medical History: Myocardial Infarction ([place]) Additional Family Medical History / Comment(s): Positive Cardiac history in the family General Exam Limitations: no limitations General appearance: alert, in no apparent distress Head exam: Present: atraumatic Eye exam: Present: normal appearance. Absent: scleral icterus, conjunctival injection, periorbital swelling ENT exam: Present: mucous membranes moist Neck exam: Present: full ROM. Absent: meningismus Respiratory exam: Present: normal lung sounds bilaterally. Absent: respiratory distress, wheezes, rales, rhonchi, stridor, chest wall tenderness, accessory muscle use Cardiovascular Exam: Present: regular rate GI/Abdominal exam: Present: soft, tenderness (LUQ). Absent: distended, guarding, rebound, rigid Extremities exam: Present: normal capillary refill. Absent: pedal edema Back exam: Present: other (Previous surgical scar lumbar spine). Absent: tenderness, CVA tenderness (R), CVA tenderness (L), rash noted Neurological exam: Present: alert, oriented X3, normal gait Psychiatric exam: Present: normal affect, normal mood Skin exam: Present: warm, dry, normal color. Absent: cyanosis, diaphoretic, petechiae, pallor Course Vital Signs 05/04/22 05/04/22 19:11 22:20 Temperature 98.4 F Pulse Rate 80 78 Respiratory 16 16 Rate Blood Pressure 170/83 181/85 O2 Sat by Pulse 98 98 Oximetry Medical Decision Making - Medical Decision Making EKG reviewed by me shows sinus rhythm with a ventricular rate of 87. No ectopy. No ST elevation. No significant change compared to December 2021 CT reviewed by me and radiologist showing mild left hydroureteronephrosis from obstructing 2 mm calculus at the ureterovesicular junction. Asymmetric fat stranding around the left kidney could relate to an infection. Pancreas, liver, gallbladder and bile ducts unremarkable. Lipase 504, amylase 99, Total bili 0.8. BUN 23 creatinine 1.23 consistent with acute kidney injury likely related to kidney stone. Patient given IVF and pain meds with relief. Patient ambulatory with steady gait. Elevated lipase may be related to Ozempic which she starting a couple of months ago. She was instructed to follow-up with primary care doctor regarding this. Patient states she does have an appointment with the primary care tomorrow at 1:20. Patient states pain has improved. Discharged home with family at bedside, prescribed Flomax and Toradol and directed to follow up with urology this week. Case discussed with Dr. Stokes - Lab Data Result diagrams: 05/04/22 19:47 05/04/22 19:47 Lab Results 05/04/22 05/04/22 05/04/22 Range/Units 19:47 19:47 19:47 WBC 8.5 (3.8-10.6) k/uL RBC 4.44 (3.80-5.40) m/uL Hgb 13.8 (11.4-16.0) gm/dL Hct 40.8 (34.0-46.0) % MCV 91.9 (80.0-100.0) fL MCH 31.0 (25.0-35.0) pg MCHC 33.8 (31.0-37.0) g/dL RDW 12.0 (11.5-15.5) % Plt Count 170 (150-450) k/uL MPV 7.9 Neutrophils % 78 % Lymphocytes % 13 % Monocytes % 5 % Eosinophils % 1 % Basophils % 0 % Neutrophils # 6.6 (1.3-7.7) k/uL Lymphocytes # 1.1 (1.0-4.8) k/uL Monocytes # 0.5 (0-1.0) k/uL Eosinophils # 0.1 (0-0.7) k/uL Basophils # 0.0 (0-0.2) k/uL PT 10.7 (9.0-12.0) sec INR 1.0 (<1.2) APTT 25.1 (22.0-30.0) sec Sodium 137 (137-145) mmol/L Potassium 4.4 (3.5-5.1) mmol/L Chloride 103 (98-107) mmol/L Carbon Dioxide 24 (22-30) mmol/L Anion Gap 10 mmol/L BUN 23 H (7-17) mg/dL Creatinine 1.23 H (0.52-1.04) mg/dL Est GFR (CKD-EPI)AfAm 53 (>60 ml/min/1.73 sqM) Est GFR (CKD-EPI)NonAf 46 (>60 ml/min/1.73 sqM) Glucose 92 (74-99) mg/dL Plasma Lactic Acid Mohamud (0.7-2.0) mmol/L Calcium 8.9 (8.4-10.2) mg/dL Total Bilirubin 0.8 (0.2-1.3) mg/dL AST 34 (14-36) U/L ALT 30 (4-34) U/L Alkaline Phosphatase 73 (38-126) U/L Total Protein 6.3 (6.3-8.2) g/dL Albumin 4.0 (3.5-5.0) g/dL Amylase 99 (30-110) U/L Lipase 504 H (23-300) U/L Urine Color Urine Appearance (Clear) Urine pH (5.0-8.0) Ur Specific [place] (1.001-1.035) Urine Protein (Negative) Urine Glucose (UA) (Negative) Urine Ketones (Negative) Urine Blood (Negative) Urine Nitrite (Negative) Urine Bilirubin (Negative) Urine Urobilinogen (<2.0) mg/dL Ur Leukocyte Esterase (Negative) Urine RBC (0-5) /hpf Ur Squamous Epith Cells (0-4) /hpf Urine Bacteria (None) /hpf Urine Mucus (None) /hpf 05/04/22 05/04/22 Range/Units 19:47 21:19 WBC (3.8-10.6) k/uL RBC (3.80-5.40) m/uL Hgb (11.4-16.0) gm/dL Hct (34.0-46.0) % MCV (80.0-100.0) fL MCH (25.0-35.0) pg MCHC (31.0-37.0) g/dL RDW (11.5-15.5) % Plt Count (150-450) k/uL MPV Neutrophils % % Lymphocytes % % Monocytes % % Eosinophils % % Basophils % % Neutrophils # (1.3-7.7) k/uL Lymphocytes # (1.0-4.8) k/uL Monocytes # (0-1.0) k/uL Eosinophils # (0-0.7) k/uL Basophils # (0-0.2) k/uL PT (9.0-12.0) sec INR (<1.2) APTT (22.0-30.0) sec Sodium (137-145) mmol/L Potassium (3.5-5.1) mmol/L Chloride (98-107) mmol/L Carbon Dioxide (22-30) mmol/L Anion Gap mmol/L BUN (7-17) mg/dL Creatinine (0.52-1.04) mg/dL Est GFR (CKD-EPI)AfAm (>60 ml/min/1.73 sqM) Est GFR (CKD-EPI)NonAf (>60 ml/min/1.73 sqM) Glucose (74-99) mg/dL Plasma Lactic Acid Mohamud 1.0 (0.7-2.0) mmol/L Calcium (8.4-10.2) mg/dL Total Bilirubin (0.2-1.3) mg/dL AST (14-36) U/L ALT (4-34) U/L Alkaline Phosphatase (38-126) U/L Total Protein (6.3-8.2) g/dL Albumin (3.5-5.0) g/dL Amylase (30-110) U/L Lipase (23-300) U/L Urine Color Light Yellow Urine Appearance Clear (Clear) Urine pH 5.0 (5.0-8.0) Ur Specific [place] 1.016 (1.001-1.035) Urine Protein Negative (Negative) Urine Glucose (UA) Negative (Negative) Urine Ketones Trace H (Negative) Urine Blood Moderate H (Negative) Urine Nitrite Negative (Negative) Urine Bilirubin Negative (Negative) Urine Urobilinogen <2.0 (<2.0) mg/dL Ur Leukocyte Esterase Negative (Negative) Urine RBC 9 H (0-5) /hpf Ur Squamous Epith Cells 1 (0-4) /hpf Urine Bacteria Rare H (None) /hpf Urine Mucus Rare H (None) /hpf - EKG Data EKG shows normal: sinus rhythm (EKG rate 87, ID interval 0.174, QRS 0.95, QTC .411) Disposition Clinical Impression: ANAM (acute kidney injury), Kidney stone on left side Disposition: HOME SELF-CARE Condition: Good Instructions (If sedation given, give patient instructions): Kidney Stones (ED), Hydronephrosis (ED) Additional Instructions: Take Toradol and Flomax as prescribed. Increase your fluid intake. Follow-up with urology this week. Follow- up with your primary care doctor regarding elevated lipase levels which may be related to Ozempic. Return to the emergency room if any new or concerning symptoms. Prescriptions: Tamsulosin [Flomax] 0.4 mg PO DAILY #7 cap Ketorolac [Toradol] 10 mg PO Q8HR #15 tab Ondansetron Odt [Zofran Odt] 4 mg PO Q8HR PRN #10 tab PRN Reason: Nausea Is patient prescribed a controlled substance at d/c from ED?: No Referrals: Deshaun Hoang MD [Primary Care Provider] - 1-2 days Gabino Correa MD [STAFF PHYSICIAN] - 1-2 days Time of Disposition: 21:38 Decision Date: 05/04/22 Decision Time: 20:23
[2022-05-04 19:52] LABS: Basophils % (A) 0 %; Eosinophils # (A) 0.1 k/uL (0-0.7); Eosinophils % (A) 1 %; HCT 40.8 % (34.0-46.0); HGB 13.8 gm/dL (11.4-16.0); Lymphocytes # (A) 1.1 k/uL (1.0-4.8); Lymphocytes % (A) 13 %; MCHC 33.8 g/dL (31.0-37.0); MCV 91.9 fL (80.0-100.0); Mean Platelet Volume 7.9; Monocytes # (A) 0.5 k/uL (0-1.0); Monocytes % (A) 5 %; Neutrophils # (A) 6.6 k/uL (1.3-7.7); Neutrophils % (A) 78 %; Platelet Count 170 k/uL (150-450); RBC 4.44 m/uL (3.80-5.40); WBC 8.5 k/uL (3.8-10.6)
[2022-05-04 20:01] LABS: Partial Thromboplastin Time 25.1 sec (22.0-30.0); Prothrombin Time 10.7 sec (9.0-12.0)
[2022-05-04 20:02] LABS: Calcium 8.9 mg/dL (8.4-10.2); Potassium 4.4 mmol/L (3.5-5.1); Total Bilirubin 0.8 mg/dL (0.2-1.3); Total Protein 6.3 g/dL (6.3-8.2)
[2022-05-04] MEDS ORDERED: SODIUM CHLORIDE 0.9% 500 ML 500 ML IV ONE (20:14)
[2022-05-04] MEDS ORDERED: SODIUM CHLORIDE 0.9% 1,000 ML IV SCH (20:15)
[2022-05-04] MEDS ORDERED: MORPHINE SULFATE 4 MG/ML SYRINGE IVP STA (20:17)
--- NOTE | 2022-05-04 21:01 | CT ---
EXAMINATION TYPE: CT abdomen pelvis wo con CT DLP: 1242.4 mGycm, Automated exposure control for dose reduction was used. DATE OF EXAM: 05/04/2022 8:29 PM COMPARISON: None CLINICAL INDICATION:Female, 66 years old with history of luq pain; LUQ pain TECHNIQUE: Axial CT of the abdomen and pelvis. Sagittal and coronal reformats were created on a [employer] workstation. Contrast used: None Oral contrast used: without Oral Contrast FINDINGS: LOWER CHEST: Unremarkable ABDOMEN LIVER: Unremarkable GALLBLADDER AND BILE DUCTS: Unremarkable. PANCREAS: Unremarkable. SPLEEN: Unremarkable. ADRENAL GLANDS: Unremarkable. KIDNEYS AND URETERS: Mild left hydroureteronephrosis from obstructing 2 mm calculus at the ureteroves icular junction. No evidence of right hydronephrosis or obstructive uropathy. Asymmetric increased pe rinephric fat stranding changes. PELVIS BLADDER: Unremarkable REPRODUCTIVE: The uterus is surgically absent. ABDOMEN & PELVIS STOMACH AND BOWEL: No evidence of bowel obstruction. PERITONEUM: No evidence of pneumoperitoneum or free fluid. VASCULATURE: No evidence of aortic aneurysm. Scattered atherosclerosis of the arterial vasculature. MUSCULOSKELETAL: No acute osseous abnormalities, multilevel disc degeneration changes with surgical f ixation L4 and L5. Hardware appears intact LYMPH NODES: No gross evidence for lymphadenopathy. SOFT TISSUE/ABDOMINAL WALL: Unremarkable IMPRESSION: Mild left hydroureteronephrosis from obstructing 2 mm calculus at the ureterovesicular junction. Asym metric fat stranding around the the left kidney could relate to ascending infection. Correlate clinic ally.
[2022-05-04 21:33] LABS: Appearance,Urine Clear (Clear); Bacteria,Urine Rare /hpf; Bilirubin,Urine Negative (Negative); Blood,Urine Moderate (Negative); Color,Urine Light Yellow; Glucose,Urine (UA) Negative (Negative); Ketones,Urine Trace (Negative); Leukocyte Esterase,Urine Negative (Negative); Mucus,Urine Rare /hpf; Nitrite,Urine Negative (Negative); Protein,Urine Negative (Negative); RBC,Urine 9 /hpf (0-5); Specific Gravity,Urine 1.016 (1.001-1.035); Squamous Epithelial Cell,Urine 1 /hpf (0-4); Urobilinogen,Urine <2.0 mg/dL (<2.0)
[2022-05-04] MEDS ORDERED: HYDROmorphone 0.5 MG/0.5 ML SYRINGE IVP STA (21:42)
[2022-05-04] MEDS ORDERED: TAMSULOSIN 0.4 MG CAP.ER.24H PO STA (21:51)
[2022-05-04 22:56] VITALS: BP 181/85; PULSE 78
== END 2022-05-04 22:20 | disposition home or self-care (01) ==
LOC: EC 19:08
DX: N20.2 Calculus of kidney with calculus of ureter (principal); I10 Essential (primary) hypertension; E11.9 Type 2 diabetes mellitus without complications; K21.9 Gastro-esophageal reflux disease without esophagitis; E78.5 Hyperlipidemia, unspecified; F41.9 Anxiety disorder, unspecified; Z87.891 Personal history of nicotine dependence; Z79.82 Long term (current) use of aspirin; Z79.899 Other long term (current) drug therapy
CPT/HCPCS: 36415; 93005; 80053; 82150; 83605; 83690; 85025; 85610; 85730; 81001; 74176; 99284; 96374; 96376 ×2; 96361 ×2; J2270; J1170

== ENCOUNTER 2022-06-06 11:09 | Emergency (ER) | payer MEDICARE ==
[2022-06-06] MEDS ORDERED: KETOROLAC 15 MG/ML 1 ML VIAL IVP STA (12:44)
[2022-06-06] MEDS ORDERED: LIDOCAINE 5% PATCH TOPICAL SCH (12:45)
--- NOTE | 2022-06-06 12:50 | ED ---
General Adult HPI - General Chief complaint: Extremity Problem,Nontraumatic Stated complaint: lt hip pain Time Seen by Provider: 06/06/22 12:39 Source: patient Mode of arrival: ambulatory Limitations: no limitations - History of Present Illness Initial comments: 66-year-old female with no significant PMH, coming in for left hip pain. She has had left hip pain on and off for months but she notes it has worsened within the last week. She notes the pain is constant and described as a dull ache. She has tried Tylenol Motrin without relief. She admits its worse with movement. She denies previous injury or recent trauma or falls. - Related Data Home Medications Medication Instructions Recorded Confirmed Aspirin EC [Ecotrin Low Dose] 81 mg PO HS 09/06/21 12/01/21 DULoxetine HCL [Cymbalta] 60 mg PO DAILY 09/06/21 12/01/21 Pioglitazone [Actos] 15 mg PO DAILY 09/06/21 12/01/21 Buprenorphine [Buprenorphine 15 1 patch TRANSDERM WE 12/01/21 12/01/21 MCG/HR] Clopidogrel [Plavix] 75 mg PO HS 12/01/21 12/01/21 Furosemide [Lasix] 20 mg PO DAILY 12/01/21 12/01/21 Metoprolol Tartrate [Lopressor] 12.5 mg PO BID 12/01/21 12/01/21 amLODIPine [Norvasc] 2.5 mg PO HS 12/01/21 12/01/21 Previous Rx's Medication Instructions Recorded Atorvastatin [Lipitor] 80 mg PO HS #30 tab 12/03/21 Ezetimibe [Zetia] 10 mg PO DAILY #90 tab 12/03/21 Ketorolac [Toradol] 10 mg PO Q8HR #15 tab 05/04/22 Ondansetron Odt [Zofran Odt] 4 mg PO Q8HR PRN #10 tab 05/04/22 Tamsulosin [Flomax] 0.4 mg PO DAILY #7 cap 05/04/22 Allergies Allergy/AdvReac Type Severity Reaction Status Date / Time No Known Allergies Allergy Verified 12/01/21 17:53 Review of Systems ROS Statement: Those systems with pertinent positive or pertinent negative responses have been documented in the HPI. ROS Other: All systems not noted in ROS Statement are negative. Past Medical History Past Medical History: Diabetes Mellitus, GERD/Reflux, Hyperlipidemia, Hypertension Additional Past Medical History / Comment(s): TIA about 40 years ago, chronic back pain use a transdermal patch Buprenorphine 7.5 MCG/HR History of Any Multi-Drug Resistant Organisms: None Reported Past Surgical History: Coronary Bypass/CABG, Hysterectomy, Orthopedic Surgery Additional Past Surgical History / Comment(s): 3 back surgey, rotator cuff repair, bilateral bunionectomies, 3 vessel CABG 08/2021 W/ Dr. Cuevas at [facility] Past Anesthesia/Blood Transfusion Reactions: No Reported Reaction Past Psychological History: Anxiety Smoking Status: Former smoker Past Alcohol Use History: None Reported Past Drug Use History: None Reported - Past Family History Mother Family Medical History: AICD/Pacemaker, Congestive Heart Failure (CHF), Coronary Artery Disease (CAD), Dementia, Hypertension, Myocardial Infarction ([place]) Additional Family Medical History / Comment(s): Kidney stent Father Family Medical History: Congestive Heart Failure (CHF), Coronary Artery Disease (CAD), Diabetes Mellitus, Myocardial Infarction (IN), Vascular Disorder Additional Family Medical History / Comment(s): Peripheral vascular disease. Sister(s) Additional Family Medical History / Comment(s): tripple bypass open heart 10 years ago Family Family Medical History: Myocardial Infarction ([place]) Additional Family Medical History / Comment(s): Positive Cardiac history in the family General Exam Limitations: no limitations General appearance: alert, in no apparent distress Head exam: Present: atraumatic, normocephalic, normal inspection Eye exam: Present: normal appearance, PERRL, EOMI. Absent: scleral icterus, conjunctival injection, periorbital swelling ENT exam: Present: normal exam, mucous membranes moist Neck exam: Present: normal inspection. Absent: tenderness, meningismus, l ymphadenopathy Respiratory exam: Present: normal lung sounds bilaterally. Absent: respiratory distress, wheezes, rales, rhonchi, stridor Cardiovascular Exam: Present: regular rate, normal rhythm, normal heart sounds. Absent: systolic murmur, diastolic murmur, rubs, gallop, clicks GI/Abdominal exam: Present: soft, normal bowel sounds Extremities exam: Present: normal inspection (L hip without edema, erythema, ecchymosis. No tenderness to palpation. Reproducible pain with movement. Limited ROM secondary to pain. NVI. ), full ROM, normal capillary refill. Absent: tenderness, pedal edema, joint swelling, calf tenderness Skin exam: Present: warm, dry, intact, normal color. Absent: rash Course Vital Signs 06/06/22 11:47 Temperature 97 F L Pulse Rate 79 Respiratory 16 Rate Blood Pressure 135/83 O2 Sat by Pulse 99 Oximetry Medical Decision Making - Medical Decision Making 66-year-old female coming in for left hip pain. Patient had x-rays performed in the ED. I interpreted the following; L hip XR negative for fracture. She was given Toradol and Lidoderm patch with symptomatic relief in ED. Referral given for Orthopedist follow up. I discussed the case with Dr. Gonzalez. Disposition Clinical Impression: Strain of left hip Disposition: HOME SELF-CARE Condition: Stable Additional Instructions: Please return to ED if symptoms worsen or persist. Is patient prescribed a controlled substance at d/c from ED?: No Referrals: Deshaun Hoang MD [Primary Care Provider] - 1-2 days Samuel Milian MD [STAFF PHYSICIAN] - 1-2 days
[2022-06-06] MEDS ORDERED: KETOROLAC 15 MG/ML 1 ML VIAL IM STA (13:08)
--- NOTE | 2022-06-06 13:38 | XR ---
EXAMINATION TYPE: XR Hip LT and AP Pelvis DATE OF EXAM: 06/06/2022 COMPARISON: NONE HISTORY: Pain TECHNIQUE: A single AP view of the pelvis is obtained. Two views of the left hip are obtained. FINDINGS: There is no acute fracture/dislocation evident in the pelvis. There is moderate severe con centric narrowing joint bilaterally. Postsurgical changes lower lumbar spine. Diffuse osteopenia. SI joints symmetric. Calcifications in the pelvis likely vascular.. Two views of left hip show no acute fracture or dislocation. No focal lytic or sclerotic lesion seen in the proximal left femur. The overlying soft tissue is unremarkable. IMPRESSION: There is no acute fracture or dislocation in the pelvis or left hip.
[2022-06-06] MEDS ORDERED: ACET/COD 300 MG/30 MG STARTER PACK 6 TAB BTL PO STA (13:53)
[2022-06-06 14:20] VITALS: BP 150/85; PULSE 74; RESP 17; TEMP 97.7
== END 2022-06-06 14:18 | disposition home or self-care (01) ==
LOC: EC 11:09
DX: S76.012A Strain of muscle, fascia and tendon of left hip, initial encounter (principal); E11.9 Type 2 diabetes mellitus without complications; I10 Essential (primary) hypertension; K21.9 Gastro-esophageal reflux disease without esophagitis; F41.9 Anxiety disorder, unspecified; Z87.891 Personal history of nicotine dependence; Z79.82 Long term (current) use of aspirin; Z79.899 Other long term (current) drug therapy; X58.XXXA Exposure to other specified factors, initial encounter
CPT/HCPCS: 73502; 99283; 96372; J1885

== ENCOUNTER → 2022-06-24 | Outpatient (CLI) | payer MEDICARE ==
--- NOTE | 2022-06-24 18:03 | MR ---
EXAMINATION TYPE: MR hip LT wo con DATE OF EXAM: 06/24/2022 COMPARISON: Outside radiograph 06/13/2022 HISTORY: 66-year-old female M25.552, LEFT HIP PAIN, LIMITED MOVEMENT TECHNIQUE: Multiplanar, multisequence images of the left hip were obtained without IV contrast. FINDINGS: There is [id number] degenerative change at both hips with axial joint space narrowing and femor al head neck junction spurring. Physiologic joint fluid on both sides. No evidence for hip fracture or AVN. SI joints appear symmetric and intact as does the pubic symphysis. Sacrum is intact. Incidental midline, left paramedian 1.5 cm sacral Tarlov cyst. Partially visualized posterior lumbar fusion hardware. There is intrasubstance change of the bilateral hamstrings origins with a larger intrasubstance tear on the left measuring 1.1 cm, axial image 11. Mild heterogeneous marrow signal suggesting red marrow hyperplasia. Mild generalized muscle atrophy appears symmetric from side to side There is some hyperostotic change along the superior aspect of the left greater trochanter measuring 1.4 cm, probably sequela of old avulsion injury to the lateral insertion of the gluteus medius. Refer to coronal image 12. The rectus femoris origin and iliopsoas insertions are intact. Symmetric course, caliber, and signal intensity of the sciatic nerves. Uterus surgically absent. No adnexal abnormality or pelvic free fluid. IMPRESSION: 1. Bilateral proximal hamstrings tendinosis. There is a 1.1 cm intrasubstance tear at the origin of t he left hamstrings. Correlate for focal pain here at the ischial tuberosity. 2. Mild to moderate bilateral hip OA. 3. 1.4 cm bony density or spurring from the superior aspect of the left greater trochanter. Suspect o ld partial avulsion injury involving the lateral insertion of the gluteus medius.
== END | disposition home or self-care (01) ==
LOC: RADMRIMAIN 10:04
PROVIDERS: ATTEND Orthopaedic Surgery
DX: S76.312A Strain of muscle, fascia and tendon of the posterior muscle group at thigh level, left thigh, initial encounter (principal); M16.0 Bilateral primary osteoarthritis of hip

== ENCOUNTER → 2023-08-15 | Outpatient (CLI) | payer MEDICARE ==
--- NOTE | 2023-08-16 21:42 | MM ---
Reason for Exam: Screening (asymptomatic). Last mammogram was performed 1 year(s) and 5 month(s) ago. Patient History: Menarche at age 14. Left ovary removed at age 31. Right ovary removed at age 31. Hysterectomy at age 31. Postmenopausal. Maternal aunt had breast cancer. Risk Values: Kaitlin 5 year model risk: 1.2%. NCI Lifetime model risk: 4.4%. Prior Study Comparison: 03/24/2021 Bilateral Screening Mammogram, [facility]. 04/07/2021 Left Diagnostic Mammogram, [facility]. 03/14/2022 Bilateral MG 3D diag mammo w/cad [facility], [facility]. Tissue Density: The breast tissue is almost entirely fat. Findings: Analyzed By CAD. There is no suspicious group of microcalcifications or new suspicious mass in either breast. Overall Assessment: Negative, BI-RAD 1 Management: Screening Mammogram of both breasts in 1 year. . Patient should continue monthly self-breast exams. A clinical breast exam by your physician is recommended on an annual basis. This exam should not preclude additional follow-up of suspicious palpable abnormalities. Note on Kaitlin scores and lifetime risk: 1. A Kaitlin score greater than 3% is considered moderate risk. If this is the case, consider specialist referral to assess eligibility for a risk reducing agent. 2. If overall lifetime risk for the development of breast cancer is 20% or higher, the patient may qualify for future screening with alternating mammogram and breast MRI. Electronically signed and approved by: Ruperto Valdivia M.D. Radiologist
== END | disposition home or self-care (01) ==
LOC: RADMAMWWP 08:16
PROVIDERS: ATTEND Family Medicine
DX: Z12.31 Encounter for screening mammogram for malignant neoplasm of breast (principal); Z78.0 Asymptomatic menopausal state; Z80.3 Family history of malignant neoplasm of breast
CPT/HCPCS: 77063; 77067